=== PATIENT | female | born 1950 | race Hispanic/Latino ===

== ENCOUNTER 2019-09-22 02:50 | Emergency (ER) | payer MEDICARE, OTHER ==
--- OUTSIDE RECORDS SUMMARY | 2019-09-22 02:53 | XMS REPORT ---
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 Problem Hematuria, unspecified type R31.9 Active Problem Lower abdominal pain R10.30 Active Problem Hyperlipidemia, unspecified E78.5 Active hyperlipidemia type Problem Dysuria R30.0 Active Problem 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 Problem Dizziness R42 Active Problem Forgetfulness R68.89 Active Problem Abnormal computed tomography R93.5 Active angiography (CTA) of abdomen and pelvis Problem Hypertension, unspecified type I10 Active Problem Acquired absence of both cervix and Z90.710 Active uterus Problem Memory loss R41.3 Active Problem Uncontrolled type 2 diabetes E11.65 Active mellitus without complication, without long-term current use of insulin Problem Diarrhea, unspecified type R19.7 Active Problem Acute bilateral back pain, M54.9 Active unspecified back location Problem Depression screening Z13.31 Active Problem Abdominal pain, unspecified R10.9 Active abdominal location Problem Abnormal laboratory test result R89.9 Active Assessment Abnormal mammogram of right breast R92.8 Active Problem Essential hypertension I10 Active Problem Leukopenia, unspecified type D72.819 Active Problem Anemia, unspecified type D64.9 Active Problem Abnormal mammogram of right breast R92.8 Active Problem Routine eye exam Z01.00 Active Problem Callus of foot L84 Active Problem Pain of upper abdomen R10.10 Active Medications No Known Medications Results No Known Results Summary Purpose eClinicalWorks Submission
--- OUTSIDE RECORDS SUMMARY | 2019-09-22 02:53 | XMS REPORT ---
:1950 [facility] Address [address] [place] [address] Care Team Providers Name Role Phone Unavailable Unavailable Unavailable Payers Payer Name Policy Type Policy Number Effective Date Expiration Date Problems This patient has no known problems. Allergies, Adverse Reactions, Alerts Allergy Allergy Status Severity Reaction(s) Onset Inactive Treating Comments Name Type Date Date Clinician codeine DA Active MO 2018-10 00:00:[address] 2018-10 00:00:0 0 codeine DA Active MO 2017-01 00:00:0 0 Medications This patient has no known medications. Results Test Description Test Time Test Comments Text Results Atomic Results Result Comments GLUBED 2018-10-24 22:58:00 Test Item Value Reference Range Comments GLUBED (test code=GLUBED) 224 MG/DL 70-110 Performed by certified hoop driving machine operator at [facility] HGBA1C%2018-10-24 09:25:00 Test Item Value Reference Range Comments HGBA1C% (test code=HGBA1C%) 8.3 %A1C 4.8-6.0 BASIC METABOLIC [id number] 08:18:00 Test Item Value Reference Range Comments SODIUM (test code=NA) 144 mEq/L 134-147 POTASSIUM (test code=K) 3.9 mEq/L 3.4-5.0 CHLORIDE (test code=CL) 114 mEq/L 100-108 CARBON DIOXIDE (test code=CO2) 24 mEq/L 21-33 ANION GAP (test code=GAP) 10 0-20 GLUCOSE (test code=GLU) 142 mg/dL 70-110 BLOOD UREA NITROGEN (test 18 mg/dL 7-18 code=BUN) GLOMERULAR FILTRATION RATE 83.7 80-90 Units of measure=ml/min/1.73 (test code=GFR) m2 CREATININE (test code=CREAT) 0.7 mg/dL 0.6-1.3 CALCIUM (test code=CA) 8.5 mg/dL 8.0-10.5 LIPID PROFILE (CORONARY RISK)2018-10-24 08:18:00 Test Item Value Reference Range Comments TRIGLYCERIDES (test 94 mg/dL 40-150 code=TRIG) CHOLESTEROL (test code=CHOL) 120 mg/dL <200 CHOLESTEROL/HDL RATIO (test 2.40 RATIO 3.27-4.44 RISK ASSOCIATED WITH CHOL/ HDL code=CHOLHDL) RATIOS: RISK MALE FEMALE1/2 AVERAGE 3.43 3.27AVERAGE 4.97 4.442X AVERAGE 9.55 7.053X AVERAGE 23.39 11.04 NOTE THAT THE REFERENCE VALUE IS RELATEDTO RISK LEVELS RECOMMENDED BY THE NATL.HEART, LUNG, AND BLOOD INST. HDL CHOLESTEROL (test 50.0 mg/dL 39-96 code=HDL) LIPOPROTEIN LDL (test 62 mg/dL 0-100 <100 [id number] NEAR code=LDL) OPTIMAL/ABOVE [id number] HIGH>PO=026 VERY HIGH*Guidelines provided by the National Cholesterol EducationProgram Adult Treatment Panel III THYROID STIMULATING [id number] 08:18:00 Test Item Value Reference Range Comments THYROID STIMULATING HORMONE (test 0.70 0.42-5.47 Results in chau- International code=TSH) Units/mL [id number] 08:03:00 Test Item Value Reference Range Comments GLUBED (test code=GLUBED) 147 MG/DL 70-110 Performed by certified hoop driving machine operator at [facility] CBC W/AUTO [id number] 07:07:00 Test Item Value Reference Range Comments WHITE BLOOD CELL (test code=WBC) 3.34 x10 3/uL 4.5-11.0 RED BLOOD CELL (test code=RBC) 3.07 x10 6/uL 3.54-5.02 HEMOGLOBIN (test code=HGB) 9.4 g/dL 11.0-15.0 HEMATOCRIT (test code=HCT) 29.1 % 33.0-45.0 MEAN CELL VOLUME (test code=MCV) 94.8 fL 81.0-99.0 MEAN CELL HGB (test code=MCH) 30.6 pg 27.0-33.0 MEAN CELL HGB CONCETRATION (test code=MCHC) 32.3 g/dL 33.0-37.0 RED CELL DISTRIBUTION WIDTH CV (test code=RDW) 12.8 % 11.5-14.5 RED CELL DISTRIBUTION WIDTH SD (test 43.3 fL 37.0-54.0 code=RDW-SD) PLATELET COUNT (test code=PLT) 216 x10 3/uL 150-400 MEAN PLATELET VOLUME (test code=MPV) 10.4 fL 7.0-9.0 NEUTROPHIL % (test code=NT%) 70.9 % 56.0-77.0 IMMATURE GRANULOCYTE % (test code=IG%) 0.3 % 0.0-2.0 LYMPHOCYTE % (test code=LY%) 18.0 % 14.0-32.0 MONOCYTE % (test code=MO%) 9.0 % 4.8-9.0 EOSINOPHIL % (test code=EO%) 1.2 % 0.3-3.7 BASOPHIL % (test code=BA%) 0.6 % 0.0-2.0 NUCLEATED RBC % (test code=NRBC%) 0.0 % 0-0 NEUTROPHIL # (test code=NT#) 2.37 x10 3/uL 2.0-7.6 IMMATURE GRANULOCYTE # (test code=IG#) 0.01 x10 3/uL 0.00-0.03 LYMPHOCYTE # (test code=LY#) 0.60 x10 3/uL 1.0-3.8 MONOCYTE # (test code=MO#) 0.30 x10 3/uL 0.1-0.8 EOSINOPHIL # (test code=EO#) 0.04 x10 3/uL 0.0-0.2 BASOPHIL # (test code=BA#) 0.02 x10 3/uL 0.0-0.2 NUCLEATED RBC # (test code=NRBC#) 0.00 x10 3/uL 0.0-0.1 MANUAL DIFF REQUIRED (test code=MDIFF) NO [id number] 21:08:00 Test Item Value Reference Range Comments GLUBED (test code=GLUBED) 200 MG/DL 70-110 Performed by certified hoop driving machine operator at [facility] - MRI BRAIN W/O [id number] 20:06:00 FAX: Ale Leal MD [phone] [place]: St: ADM FAX: Camilla Odonnell MD - Name: VIDYA FROST ELENA [facility] : 1950 Age/S: 67/F [address] [place] [address] Blvd Unit #: [id number] Loc: [address] [address] Phys: Camilla Terrell MD Acct: [id number] Dis Date: Status: ADM IN PHONE #: [phone] Exam Date: 10/23/20181946 FAX #: [phone] Reason: PERSISTENT DIZZINESS EXAMS: CPT CODE: [id number] MRI BRAIN W/O CONT [id number] EXAM: MRI BRAIN WITHOUT CONTRAST DATE: 10/23/2018 4:40 PM INDICATION: ADDITIONALINFORMATION AND CONTRAST: PERSISTENT DIZZINESSNone. COMPARISON: CT head of 10/23/2018. TECHNIQUE: Multiplanar, mutisequence MRI of the brain without contrast. FINDINGS: Diffusion weighted images demonstrate no focal signal abnormality. There are a few scattered nonspecific foci of T2/ FLAIR signal abnormality likely reflecting minimal chronic small vessel ischemic change. No acute intracranial hemorrhage detected. The ventricles are normal in size and symmetric. No extra-axial fluid collection identified. Salcedo-white distinction is preserved. No mass lesion or midline shift detected. The intracranial arterial and venous structures demonstrate normal flow voids. Mild chronic inflammatory change of the paranasal sinuses and near complete opacification ofthe left maxillary sinus. Minimal partial opacification of the mastoid air cells. IMPRESSION: 1. No definite acute territorial infarct or intracranial hemorrhage detected. 2. Minimal chronic small vessel ischemic change. SL: [email or web address] PAGE 1 Signed Report (CONTINUED) FAX: Ale Leal MD [phone] [place]: St: ADM FAX: Camilla Odonnell MD Name: VIDYA FROST [facility] : 1950 Age/S: 67/F [address] [place] [address] Unit #: [id number] Loc: [address] [address] Phys: Camilla Terrell MD Acct: [id number] Dis Date: Status: ADM IN PHONE #: [phone] Exam Date: 10/23/2018 1947FAX #: [phone] Reason: PERSISTENT DIZZINESS EXAMS: CPT CODE: [id number] MRI BRAIN W/O CONT [id number] <Continued> at 2005 Reported and signed by: Roman Harrison M.D. CC: Ale Leal MD; Camilla Terrell MD Technologist: RT Travis(MR)(CT) Trnscrd Date/Time/By: 05/2019 (2005) : By: [email or web address] Orig Print D/T: S: 10/23/2018 (2008) PAGE 2 Signed [id number] -[id number] 18:14:00 Test Item Value Reference Range Comments TROPONIN-I (test < 0.015 ng/mL 0.000-0.045 Negative: <=0.045 code=TROPI) Positive: >=0.046 Correlation with serial results, other cardiac markers andclinical findings is necessary to determine the clinicalsignificance of this result. Results using different methodologies should not be comparedto one another as quantitative results may vary by method. COMMENTS: 3 troponins total (including troponin done in ED)[id number] 17: 42:00 Test Item Value Reference Range Comments GLUBED (test code=GLUBED) 132 MG/DL 70-110 Performed by certified hoop driving machine operator at [facility] [id number] 15:17:00 Test Item Value Reference Range Comments GLUBED (test code=GLUBED) 145 MG/DL 70-110 Performed by certified hoop driving machine operator at [facility] [id number] 14:45:00 Test Item Value Reference Range Comments TROPONIN-I (test < 0.015 ng/mL 0.000-0.045 Negative: <=0.045 code=TROPI) Positive: >=0.046 Correlation with serial results, other cardiac markers andclinical findings is necessary to determine the clinicalsignificance of this result. Results using different methodologies should not be comparedto one another as quantitative results may vary by method. COMMENTS: 3 troponins total (including troponin done in ED)LACTIC ACID [id number] 14:12:00 Test Item Value Reference Range Comments LACTIC ACID REPEAT (test code=LACTR) 1.3 mmol/l 0.4-1.9 COMPREHENSIVE METABOLIC [id number] 11:05:00 Test Item Value Reference Range Comments SODIUM (test code=NA) 138 mEq/L 134-147 POTASSIUM (test code=K) 3.9 mEq/L 3.4-5.0 CHLORIDE (test code=CL) 106 mEq/L 100-108 CARBON DIOXIDE (test code=CO2) 27 mEq/L 21-33 ANION GAP (test code=GAP) 9 0-20 GLUCOSE (test code=GLU) 252 mg/dL 70-110 BLOOD UREA NITROGEN (test 18 mg/dL 7-18 code=BUN) GLOMERULAR FILTRATION RATE 62.6 80-90 Units of (test code=GFR) measure=ml/min/1.73 m2 CREATININE (test code=CREAT) 0.9 mg/dL 0.6-1.3 TOTAL PROTEIN (test code=PROT) 8.1 g/dL 6.4-8.2 ALBUMIN (test code=ALB) 4.00 g/dL 3.4-5.0 CALCIUM (test code=CA) 9.1 mg/dL 8.0-10.5 BILIRUBIN TOTAL (test 0.30 mg/dL 0.0-1.0 code=BILT) SGOT/AST (test code=AST) 20 IUnit/L 15-37 SGPT/ALT (test code=ALT) 35 IUnit/L 15-65 ALKALINE PHOSPHATASE TOTAL 101 IUnit/L 20-125 (test code=ALKP) [id number] 11:05:00 Test Item Value Reference Range Comments TROPONIN-I (test < 0.015 ng/mL 0.000-0.045 Negative: <=0.045 code=TROPI) Positive: >=0.046 Correlation with serial results, other cardiac markers andclinical findings is necessary to determine the clinicalsignificance of this result. Results using different methodologies should not be comparedto one another as quantitative results may vary by method. LACTIC [id number] 10:56:00 Test Item Value Reference Range Comments LACTIC ACID (test code=LACT) 2.1 mmol/L 0.4-1.9 URINALYSIS [id number] 10:46:00 Test Item Value Reference Range Comments UA COLOR (test code=COLU) YELLOW YEL/STRAW UA APPEARANCE (test code=APPU) CLEAR CLEAR UA GLUCOSE DIPSTICK (test code=DGLUU) 3+ NEGATIVE UA BILIRUBIN DIPSTICK (test code=BILU) NEGATIVE NEGATIVE UA KETONE DIPSTICK (test code=KETU) 1+ NEGATIVE UA SPECIFIC GRAVITY (test code=SGU) 1.016 1.005-1.030 UA BLOOD DIPSTICK (test code=CHARU) NEGATIVE NEGATIVE UA PH DIPSTICK (test code=ATUL) 5.0 5.0-7.0 UA PROTEIN DIPSTICK (test code=PROU) 1+ NEGATIVE UA UROBILINIOGEN DIPSTICK (test code=URO) 0.2 mg/dL 0.2-1.0 UA NITRITE DIPSTICK (test code=DOMENICA) NEGATIVE NEGATIVE UA LEUKOCYTE ESTERASE DIPSTICK (test code=LEUU) NEGATIVE NEGATIVE UA WBC (test code=WBCU) 0-3 WBC/HPF 0-3 UA RBC (test code=RBCU) 4-10 RBC/HPF 0-3 UA BACTERIA (test code=BACU) TRACE /HPF NONE SEEN UA SQUAMOUS CELLS (test code=SQU) 0-5 /HPF NONE SEEN UA MUCUS (test code=MUCU) TRACE /LPF NONE SEEN COMMENTS: Clean CatchCBC W/AUTO [id number] 10:42:00 Test Item Value Reference Range Comments WHITE BLOOD CELL (test code=WBC) 6.05 x10 3/uL 4.5-11.0 RED BLOOD CELL (test code=RBC) 3.80 x10 6/uL 3.54-5.02 HEMOGLOBIN (test code=HGB) 11.4 g/dL 11.0-15.0 HEMATOCRIT (test code=HCT) 35.7 % 33.0-45.0 MEAN CELL VOLUME (test code=MCV) 93.9 fL 81.0-99.0 MEAN CELL HGB (test code=MCH) 30.0 pg 27.0-33.0 MEAN CELL HGB CONCETRATION (test code=MCHC) 31.9 g/dL 33.0-37.0 RED CELL DISTRIBUTION WIDTH CV (test code=RDW) 12.3 % 11.5-14.5 RED CELL DISTRIBUTION WIDTH SD (test 42.8 fL 37.0-54.0 code=RDW-SD) PLATELET COUNT (test code=PLT) 234 x10 3/uL 150-400 MEAN PLATELET VOLUME (test code=MPV) 9.9 fL 7.0-9.0 NEUTROPHIL % (test code=NT%) 86.1 % 56.0-77.0 IMMATURE GRANULOCYTE % (test code=IG%) 1.0 % 0.0-2.0 LYMPHOCYTE % (test code=LY%) 9.1 % 14.0-32.0 MONOCYTE % (test code=MO%) 3.5 % 4.8-9.0 EOSINOPHIL % (test code=EO%) 0.0 % 0.3-3.7 BASOPHIL % (test code=BA%) 0.3 % 0.0-2.0 NUCLEATED RBC % (test code=NRBC%) 0.0 % 0-0 NEUTROPHIL # (test code=NT#) 5.21 x10 3/uL 2.0-7.6 IMMATURE GRANULOCYTE # (test code=IG#) 0.06 x10 3/uL 0.00-0.03 LYMPHOCYTE # (test code=LY#) 0.55 x10 3/uL 1.0-3.8 MONOCYTE # (test code=MO#) 0.21 x10 3/uL 0.1-0.8 EOSINOPHIL # (test code=EO#) 0.00 x10 3/uL 0.0-0.2 BASOPHIL # (test code=BA#) 0.02 x10 3/uL 0.0-0.2 NUCLEATED RBC # (test code=NRBC#) 0.00 x10 3/uL 0.0-0.1 MANUAL DIFF REQUIRED (test code=MDIFF) NO - CT HEAD/BRAIN W/O [id number] 09:22:00 Name: VIDYA FROST [facility] : 1950 Age/S: 67 / F [address] [place] [address] Unit #: [id number] Loc: [facility] [id number] Phys: Braxton Prasad MD Acct: [id number] Dis Date: Status: REG ER PHONE #: [phone] Exam Date: 05/2019 FAX #: [phone] Reason: dizziness EXAMS: CPTCODE: [id number] CT HEAD/BRAIN W/O CONT [id number] CT head without contrast 10/23/2018 HISTORY: Dizziness PROCEDURE: Multiple axial images from the skull base to the skull vertex were obtained without contrast. Coronal and sagittal reconstructed images were performed. DLP: 419.7 No prior exams are available for comparison FINDINGS: No acute hemorrhage, midline shift, extra-axial fluid collection, hydrocephalus, or mass lesion is present. No cortical hypodensity to suggest an acuteinfarct is noted. There are mild white matter hypodensities. The visualized mastoid air cells are clear. There is an air-fluid level in the left maxillary sinus IMPRESSION: 1. No acute intracranial abnormality. 2. Age-indeterminate left maxillary sinus disease. 3. Mild chronic microvascular ischemic changes. SL: [id number] at 0922 Reported and signed by: Giorgio Srivastava M.D. CC: Braxton Prasad MD Technologist:Katrin Miles, RT(R)(CT) CTDI: DLP: Trnscb Date/Time: 10/23/2018 (921) [id number] Orig Print D/T: S : 10/23/2018 (924) CTDI: DLP: PAGE 1 SignedReportURINALYSIS [id number] 01:38:00 Test Item Value Reference Range Comments UA COLOR (test code=COLU) YELLOW YEL/STRAW UA APPEARANCE (test code=APPU) CLOUDY CLEAR UA GLUCOSE DIPSTICK (test code=DGLUU) NEGATIVE NEGATIVE UA BILIRUBIN DIPSTICK (test code=BILU) NEGATIVE NEGATIVE UA KETONE DIPSTICK (test code=KETU) NEGATIVE NEGATIVE UA SPECIFIC GRAVITY (test code=SGU) 1.005 1.005-1.030 UA BLOOD DIPSTICK (test code=CHARU) 3+ NEGATIVE UA PH DIPSTICK (test code=ATUL) 5.0 5.0-7.0 UA PROTEIN DIPSTICK (test code=PROU) 1+ NEGATIVE UA UROBILINIOGEN DIPSTICK (test code=URO) 0.2 mg/dL 0.2-1.0 UA NITRITE DIPSTICK (test code=DOMENICA) NEGATIVE NEGATIVE UA LEUKOCYTE ESTERASE DIPSTICK (test code=LEUU) 3+ NEGATIVE UA WBC (test code=WBCU) >50 WBC/HPF 0-3 UA RBC (test code=RBCU) 4-10 RBC/HPF 0-3 UA BACTERIA (test code=BACU) 3+ /HPF NONE SEEN UA SQUAMOUS CELLS (test code=SQU) 0-5 /HPF NONE SEEN UA MUCUS (test code=MUCU) TRACE /LPF NONE SEEN
--- OUTSIDE RECORDS SUMMARY | 2019-09-22 02:53 | XMS REPORT ---
[...] Problem Abnormal laboratory test result R89.9 Active Problem Essential hypertension I10 Active Problem [...]
--- OUTSIDE RECORDS SUMMARY | 2019-09-22 02:53 | XMS REPORT ---
:1950 Author Organization eClinicalWorks Care Team Providers Name Role Phone Ilene Amrita Provider Role Unavailable Allergies, Adverse Reactions, Alerts Substance Reaction Event Type codeine nausea/vomiting Drug Allergy Problems Problem Type Condition Code Onset Dates [...] Abdominal pain, unspecified R10.9 Active abdominal location Assessment Forgetfulness R68.89 Active Problem Abnormal laboratory test result R89.9 Active Assessment Uncontrolled type 2 diabetes E11.65 Active mellitus without complication, without long-term current use of insulin Problem Essential hypertension I10 Active Problem Leukopenia, unspecified type D72.819 Active Problem Anemia, unspecified type D64.9 Active Problem Abnormal mammogram of right breast R92.8 Active Problem Routine eye exam Z01.00 Active Problem Callus of foot L84 Active Problem Pain of upper abdomen R10.10 Active Medications Medication Code Code Instructions Start End Status Dosage System Date Date Blood Glucose NDC 0 as directed Aug 06, Active as directed Test Strip Test BS once 2017 (DISPENSE daily BLOOD GLUCOSE TEST STRIPS FOR SHAMAR ONE TOUCH) Blood Glucose NDC 0 as directed Aug 06, Active as directed Monitor Test BS once 2017 (DISPENSE daily SHAMAR ONE TOUCH) Lisinopril ND 88222888939 5 MG Orally October Active 1 tablet Once a day 2017 Meclizine HCl ND 45655191014 25 mg Orally Up October Active 1 tablet as to four times a 2018 needed for day dizziness Glimepiride [facility] 41665744636 2MG Orally Once Active 1 tablet a day with breakfast or the first main meal of the day Aspir-[address] [facility] 02826240832 81 MG Orally Active 1 tablet Once a day Lancets [facility] 88382081867 - as directed Aug 06, Active as directed Test BS once 2017 (dispense daily lancets for Shamar One Touch) Gabapentin ND 84839665694 300 MG Orally Jun 14, Active 1 capsule Four times a 2018 day Lovastatin [facility] 70582422838 20MG Orally Active 1 tablet in Once a day evening Januvia [facility] 42744119724 100 MG Orally Active 1 tablet Once a day for diabetes Metformin HCl ND 29308380469 500 MG Orally 2 Active as directed tablets in am & 1 tablet in pm Results Name Result Date Reference Range Unit Abnormality Flag HEMOGLOBIN A1C ----A1C 7.2% [id number] Summary Purpose eClinicalWorks Submission
--- OUTSIDE RECORDS SUMMARY | 2019-09-22 02:53 | XMS REPORT ---
:1950 Author Organization eClinicalWorks Care Team Providers Name Role Phone Kamala Casper Provider Role Unavailable Allergies No Known Allergies Problems Problem Type Condition Code Onset Dates Condition Status Assessment Herpes zoster without complication B02.9 Active Problem Overweight (BMI 25.0-29.9) E66.3 Active Problem Onychomycosis B35.1 Active Problem Type 2 diabetes E11.9 Active Problem Hyperlipemia E78.5 Active Problem Anemia D64.9 Active Problem Shoulder pain, right M25.511 Active Problem Hypertension I10 Active Problem Abnormal mammogram of right breast R92.8 Active Problem Routine eye exam Z01.00 Active Problem Acquired absence of both cervix and Z90.710 Active uterus Problem Hematuria, unspecified type R31.9 Active Problem Dysuria R30.0 Active Problem Lower abdominal pain R10.30 Active Problem Depression screening Z13.31 Active Problem Abdominal pain, unspecified R10.9 Active abdominal location Problem Hyperlipidemia, unspecified E78.5 Active hyperlipidemia type Problem 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 Problem Abnormal computed tomography R93.5 Active angiography (CTA) of abdomen and pelvis Problem History of uterine cancer Z85.42 Active Problem 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 Problem Dizziness R42 Active Problem Diarrhea, unspecified type R19.7 Active Problem Acute bilateral back pain, M54.9 Active unspecified back location Problem Leukopenia, unspecified type D72.819 Active Problem Anemia, unspecified type D64.9 Active Problem Hypertension, unspecified type I10 Active Problem Uncontrolled type 2 diabetes E11.65 Active mellitus without complication, without long-term current use of insulin Problem Pain of upper abdomen R10.10 Active Problem Callus of foot L84 Active Problem Abnormal laboratory test result R89.9 Active Problem Essential hypertension I10 Active Medications Medication Code Code Instructions Start End Status Dosage System Date Date ND 45358838574 81 MG Orally Active 1 tablet Once a day Blood Glucose NDC 0 as directed Aug 06, Active as directed Monitor Test BS once 2017 (DISPENSE daily KAYY ONE TOUCH) Lovastatin ND 83476351897 20MG Orally Active 1 tablet in Once a day evening Lisinopril ND 20164771858 5 MG Orally October Active 1 tablet Once a day 2017 Tylenol/Codein ND 20360921753 300-30 MG Active 1 tablet as e #3 Orally every 6 needed hrs Glimepiride ND 24561947212 2MG Orally Once Active 1 tablet with a day breakfast or the first main meal of the day Januvia ND 20734861585 100 MG Orally Mar 16, Active 1 tablet Once a day for 2018 diabetes Lodine ND 46966506135 400 MG Orally Active 1 tablet with Twice a day as food needed Blood Glucose ND 0 as directed Aug 06, Active as directed Test Strip Test BS once 2017 (DISPENSE daily BLOOD GLUCOSE TEST STRIPS FOR KAYY ONE TOUCH) Lancets [facility] 94691064079 - as directed Aug 06, Active as directed Test BS once 2017 (dispense daily lancets for Kayy One Touch) Gabapentin ND 07713098761 300 MG Orally Jun 14, Active 1 capsule Four times a 2019 day Meclizine HCl ND 24454679500 25 mg Orally Up October Active 1 tablet as to four times a 2018 needed for day dizziness Jublia [facility] 89879442991 10 % Externally Active 1 application Once a day to affected area Actos ND 38459011685 15 MG Orally Mar 22, Active 1 tablet Once a day 2018 Metformin HCl ND 25300231576 500 MG Orally Active 1 tablet with Twice daily a meal Bentyl ND 63662743856 20 MG Orally Active 1 tablet Four times a day Results No Known Results Summary Purpose eClinicalWorks Submission
[2019-09-22] MEDS ORDERED: ONDANSETRON 4 MG/2 ML VIAL ONE (03:08)
[2019-09-22] MEDS ORDERED: NA CHLORIDE 0.9% 1,000 ML ONE (03:40)
[2019-09-22] MEDS ORDERED: MECLIZINE HCL 12.5 MG TAB ONE (03:40)
[2019-09-22 03:42] LABS: Absolute Lymphocytes (CBC) 2.1 K/uL (0.7-4.9); Basophils % 0.5 % (0-1.3); Hematocrit 33.2 % (36.0-45.0); MPV 9.3 fL (7.6-11.3)
[2019-09-22 03:52] LABS: Protime INR 0.81
[2019-09-22 04:57] LABS: ALT/SGPT 29 U/L (12-78); AST/SGOT 24 U/L (15-37); Albumin 3.5 g/dL (3.4-5.0); Alkaline Phosphatase 68 U/L (45-117); BUN Blood Urea Nitrogen 21 mg/dL (7-18); Bicarbonate 22 mmol/L (21-32); Bilirubin Direct < 0.1 mg/dL (0-0.2); Bilirubin Total 0.2 mg/dL (0.2-1.0); Glucose Level 219 mg/dL (74-106); Magnesium 1.5 mg/dL (1.8-2.4); NT PRO-BNP 156 pg/mL (<125); Potassium 3.9 mmol/L (3.5-5.1); Protein, Total 6.6 g/dL (6.4-8.2); Sodium Level 141 mmol/L (136-145); Troponin (Emerg Dept Use Only) < 0.02 ng/mL (0.0-0.045)
--- NOTE | 2019-09-22 05:03 | ER ---
Nurse's Notes [facility] Name: Miroslava Rousseau Age: 68 yrs Sex: Female : 1950 Arrival Date: 09/22/2019 Time: 02:53 Bed 14 Private MD: Diagnosis: Dizziness and giddiness;Hypomagnesemia;Type 2 diabetes mellitus Presentation: 09/22 03:04 Presenting complaint: states: pt woke up approx 0200 with vomiting and bb dizziness pt has vomited about 3 times and is actively vomiting in triage, spouse states pt was seen at [facility] about a year ago for similar symptoms and diagnosed with vertigo, pt denies diarrhea or abdominal pain. Transition of care: patient was not received from another setting of care. Onset of symptoms was September 22, 2019. Risk Assessment: Do you want to hurt yourself or someone else? Patient reports no desire to harm self or others. Initial Sepsis Screen: Does the patient meet any 2 criteria? No. Patient's initial sepsis screen is negative. Does the patient have a suspected source of infection? No. Patient's initial sepsis screen is negative. Care prior to arrival: None. 03:04 Method Of Arrival: Ambulatory bb 03:04 Acuity: MARTHA 3 bb Historical: - Allergies: 03:08 Tylenol-Codeine; bb - Home Meds: 03:08 aspirin 81 mg Oral TbEC 1 tab once daily [Active]; glimepiride 2 mg Oral tab 1 tab once bb daily [Active]; lisinopril 5 mg Oral tab 1 tab once daily [Active]; lovastatin 20 mg Oral tab 1 tab once daily [Active]; Januvia oral oral [Active]; metformin 1,000 mg Oral TG24 1 tab 2 times per day [Active]; - PMHx: 03:08 Diabetes - NIDDM; bb - PSHx: 03:08 Appendectomy; foot surgery; bb - Immunization history:: Adult Immunizations up to date. - Coronavirus screen:: The patient has NOT traveled to [place], [place], or [place] in the past 14 days. Proceed with normal triage process as indicated. - Social history:: Smoking status: unknown. - Family history:: not pertinent. - Ebola Screening: : No symptoms or risks identified at this time. Screenin:51 Abuse screen: Denies threats or abuse. Denies injuries from another. Nutritional wh screening: No deficits noted. Tuberculosis screening: No symptoms or risk factors identified. Fall Risk None identified. Assessment: 03:10 General: Appears in no apparent distress. Behavior is calm, cooperative, appropriate wh for age. Pain: Denies pain. Neuro: Level of Consciousness is awake, alert, obeys commands, Oriented to person, place, time, situation, Appropriate for age. Neuro: Reports dizziness. Cardiovascular: Heart tones S1 S2. Respiratory: Airway is patent Respiratory effort is even, unlabored, Respiratory pattern is regular, symmetrical, Breath sounds are clear bilaterally. GI: Abdomen is flat, non-distended, Abd is soft and non tender X 4 quads. Reports nausea, vomiting. : No signs and/or symptoms were reported regarding the genitourinary system. EENT: No signs and/or symptoms were reported regarding the EENT system. Derm: Skin is intact, is healthy with good turgor, Skin is pink, warm \T\ dry. normal. Musculoskeletal: Circulation, motion, and sensation intact. 03:51 Reassessment: Patient appears in no apparent distress at this time. No changes from previously documented assessment. Patient and/or family updated on plan of care and expected duration. Pain level reassessed. Patient is alert, oriented x 3, equal unlabored respirations, skin warm/dry/pink. 04:51 Reassessment: Patient appears in no apparent distress at this time. No changes from previously documented assessment. Patient and/or family updated on plan of care and expected duration. Pain level reassessed. Patient is alert, oriented x 3, equal unlabored respirations, skin warm/dry/pink. 05:15 Reassessment: MD ordered DC pending Iv Magnesium completion. 05:30 Reassessment: Patient appears in no apparent distress at this time. No changes from previously documented assessment. Patient and/or family updated on plan of care and expected duration. Pain level reassessed. Patient is alert, oriented x 3, equal unlabored respirations, skin warm/dry/pink. 06:30 Reassessment: Patient appears in no apparent distress at this time. No changes from previously documented assessment. Patient and/or family updated on plan of care and expected duration. Pain level reassessed. Patient is alert, oriented x 3, equal unlabored respirations, skin warm/dry/pink. Patient states feeling better. Patient states symptoms have improved. Vital Signs: 03:08 BP 184 / 76; Pulse 99; Resp 18 S; Temp 97.8(O); Pulse Ox 100% on R/A; Weight 72.57 kg bb (R); Height 5 ft. 0 in. (152.40 cm) (R); Pain 0/10; 03:51 BP 138 / 62; Pulse 71; Resp 18; Pulse Ox 100% on R/A; wh 04:45 BP 143 / 74; Pulse 75; Resp 16; Pulse Ox 100% on R/A; wh 05:30 BP 135 / 66; Pulse 66; Resp 18; Pulse Ox 100% ; wh 06:30 BP 130 / 85; Pulse 71; Resp 18; Pulse Ox 99% on R/A; wh 03:08 Body Mass Index 31.25 (72.57 kg, 152.40 cm) ED Course: 02:53 Patient arrived in ED. [email or web address] 02:53 Jeanie Vidales is Primary Nurse. 02:57 Tramaine Gleason MD is Attending Physician. heather 03:06 Triage completed. 03:08 Arm band placed on Patient placed in an exam room, on a stretcher, on pulse oximetry. Family accompanied patient. 03:15 Inserted saline lock: 20 gauge in right antecubital area, using aseptic technique. Blood collected. By [facility] Leather Car[employer] student. 03:51 Patient has correct armband on for positive identification. Placed in gown. Bed in low wh position. Call light in reach. Side rails up X 1. youth nutritional monitor on. Pulse ox on. NIBP on. 04:55 XRAY Chest (1 view) In Process Unspecified. EDMS 04:55 CT Head Brain wo Cont In Process Unspecified. EDMS 05:03 Osmin Aranda MD is Referral Physician. heather 06:35 No provider procedures requiring assistance completed. IV discontinued, intact, bleeding controlled, No redness/swelling at site. Administered Medications: 03:20 Not Given (Duplicate Order): Zofran 4 mg IVP once; over 2 minutes 03:20 Drug: Zofran 4 mg Route: IVP; Site: right antecubital; 05:09 Follow up: Response: No adverse reaction 05:09 Follow up: Response: No adverse reaction; Nausea is decreased 03:42 Drug: Meclizine 50 mg Route: PO; 05:09 Follow up: Response: No adverse reaction 03:43 Drug: NS 0.9% 1000 ml Route: IV; Rate: 1 bolus; Site: right antecubital; 05:09 Follow up: Response: No adverse reaction; IV Status: Completed infusion 05:20 Drug: Magnesium Sulfate 1 grams Route: IVPB; Infused Over: 1 hrs; Site: right antecubital; 07:03 Follow up: Response: No adverse reaction; IV Status: Completed infusion 05:20 Drug: Aspirin 162 mg Route: PO; 07:02 Follow up: Response: No adverse reaction Outcome: 05:02 Discharge ordered by MD. romero 06:35 Discharged to home ambulatory, with family. 06:35 Condition: stable 06:35 Discharge instructions given to patient, family, Instructed on discharge instructions, follow up and referral plans. medication usage, POC Demonstrated understanding of instructions, follow-up care, medications, POC Prescriptions given X 2. 06:38 Patient left the ED. bb Signatures: Dispatcher [employer] Tramaine Esteban MD MD cha Ballard, Brenda, RN RN Jeanie Woodward Sarah Sy [email or web address]
--- NOTE | 2019-09-22 05:03 | EDPHYS ---
Physician Documentation [facility] Name: Miroslava Rousseau Age: 68 yrs Sex: Female : 1950 Arrival Date: 09/22/2019 Time: 02:53 Bed 14 Private MD: ERIN Physician Tramaine Gleason HPI: 09/22 03:18 This 68 yrs old Female presents to ER via Ambulatory with complaints of heather Dizziness, Nausea. 03:18 The patient presents with dizziness, lightheadedness. Onset: The symptoms/episode heather began/occurred just prior to arrival, this morning. Context: occurred at home. Modifying factors: The symptoms are alleviated by nothing. Associated signs and symptoms: Pertinent positives: headache, nausea, vomiting. Severity of symptoms: At their worst the symptoms were moderate in the emergency department the symptoms have improved mildly. Patient's baseline: Neuro:. The patient has not experienced similar symptoms in the past. Historical: - Allergies: 03:08 Tylenol-Codeine; bb - Home Meds: 03:08 aspirin 81 mg Oral TbEC 1 tab once daily [Active]; glimepiride 2 mg Oral tab 1 tab once bb daily [Active]; lisinopril 5 mg Oral tab 1 tab once daily [Active]; lovastatin 20 mg Oral tab 1 tab once daily [Active]; Januvia oral oral [Active]; metformin 1,000 mg Oral TG24 1 tab 2 times per day [Active]; - PMHx: 03:08 Diabetes - NIDDM; bb - PSHx: 03:08 Appendectomy; foot surgery; bb - Immunization history:: Adult Immunizations up to date. - Coronavirus screen:: The patient has NOT traveled to [place], [place], or [place] in the past 14 days. Proceed with normal triage process as indicated. - Social history:: Smoking status: unknown. - Family history:: not pertinent. - Ebola Screening: : No symptoms or risks identified at this time. ROS: 03:18 Constitutional: Negative for fever, chills, and weight loss, Eyes: Negative for injury, heather pain, redness, and discharge, ENT: Negative for injury, pain, and discharge, Neck: Negative for injury, pain, and swelling, Cardiovascular: Negative for chest pain, palpitations, and edema, Respiratory: Negative for shortness of breath, cough, wheezing, and pleuritic chest pain, Abdomen/GI: Negative for abdominal pain, nausea, vomiting, diarrhea, and constipation, Back: Negative for injury and pain, : Negative for injury, bleeding, discharge, and swelling, MS/Extremity: Negative for injury and deformity, Skin: Negative for injury, rash, and discoloration, Psych: Negative for depression, anxiety, suicide ideation, homicidal ideation, and hallucinations, Allergy/Immunology: Negative for hives, rash, and allergies, Endocrine: Negative for neck swelling, polydipsia, polyuria, polyphagia, and marked weight changes, Hematologic/Lymphatic: Negative for swollen nodes, abnormal bleeding, and unusual bruising. 03:18 Neuro: Positive for dizziness. Exam: 03:18 Constitutional: This is a well developed, well nourished patient who is awake, alert, heather and in no acute distress. Head/Face: Normocephalic, atraumatic. Eyes: Pupils equal round and reactive to light, extra-ocular motions intact. Lids and lashes normal. Conjunctiva and sclera are non-icteric and not injected. Cornea within normal limits. Periorbital areas with no swelling, redness, or edema. ENT: Nares patent. No nasal discharge, no septal abnormalities noted. Tympanic membranes are normal and external auditory canals are clear. Oropharynx with no redness, swelling, or masses, exudates, or evidence of obstruction, uvula midline. Mucous membranes moist. Neck: Trachea midline, no thyromegaly or masses palpated, and no cervical lymphadenopathy. Supple, full range of motion without nuchal rigidity, or vertebral point tenderness. No Meningismus. Chest/axilla: Normal chest wall appearance and motion. Nontender with no deformity. No lesions are appreciated. Cardiovascular: Regular rate and rhythm with a normal S1 and S2. No gallops, murmurs, or rubs. Normal PMI, no JVD. No pulse deficits. Respiratory: Lungs have equal breath sounds bilaterally, clear to auscultation and percussion. No rales, rhonchi or wheezes noted. No increased work of breathing, no retractions or nasal flaring. Abdomen/GI: Soft, non-tender, with normal bowel sounds. No distension or tympany. No guarding or rebound. No evidence of tenderness throughout. Back: No spinal tenderness. No costovertebral tenderness. Full range of motion. Female : Normal external genitalia. Skin: Warm, dry with normal turgor. Normal color with no rashes, no lesions, and no evidence of cellulitis. MS/ Extremity: Pulses equal, no cyanosis. Neurovascular intact. Full, normal range of motion. Neuro: Awake and alert, GCS 15, oriented to person, place, time, and situation. Cranial nerves II-XII grossly intact. Motor strength 5/5 in all extremities. Sensory grossly intact. Cerebellar exam normal. Normal gait. Psych: Awake, alert, with orientation to person, place and time. Behavior, mood, and affect are within normal limits. Vital Signs: 03:08 BP 184 / 76; Pulse 99; Resp 18 S; Temp 97.8(O); Pulse Ox 100% on R/A; Weight 72.57 kg bb (R); Height 5 ft. 0 in. (152.40 cm) (R); Pain 0/10; 03:51 BP 138 / 62; Pulse 71; Resp 18; Pulse Ox 100% on R/A; wh 04:45 BP 143 / 74; Pulse 75; Resp 16; Pulse Ox 100% on R/A; wh 05:30 BP 135 / 66; Pulse 66; Resp 18; Pulse Ox 100% ; wh 06:30 BP 130 / 85; Pulse 71; Resp 18; Pulse Ox 99% on R/A; wh 03:08 Body Mass Index 31.25 (72.57 kg, 152.40 cm) MDM: 02:57 Patient medically screened. [facility] 03:19 Data reviewed: vital signs, nurses notes, lab test result(s), EKG, radiologic studies, [facility] CT scan, plain films. 09/22 03:17 Order name: Basic Metabolic Panel; Complete Time: 05:00 [facility] 09/22 03:17 Order name: CBC with Diff [facility] 09/22 03:17 Order name: LFT's; Complete Time: 05:00 [facility] 09/22 03:17 Order name: Magnesium; Complete Time: 05:00 [facility] 09/22 03:17 Order name: NT PRO-BNP; Complete Time: 05:00 [facility] 09/22 03:17 Order name: PT-INR [facility] 09/22 03:17 Order name: Troponin (emerg Dept Use Only); Complete Time: 05:00 [facility] 09/22 03:17 Order name: XRAY Chest (1 view) [facility] 09/22 03:17 Order name: CT Head Brain wo Cont [facility] 09/22 03:53 Order name: CBC with Automated Diff; Complete Time: 04:55 EDMS 09/22 04:05 Order name: Protime (+INR); Complete Time: 04:55 EDMS 09/22 05:02 Order name: Urine Culture [facility] 09/22 05:26 Order name: Urine Dipstick--Ancillary (enter results) 2 09/22 03:17 Order name: EKG; Complete Time: 03:18 [facility] 09/22 03:17 Order name: Cardiac monitoring; Complete Time: 03:49 [facility] 09/22 03:17 Order name: EKG - Nurse/Tech; Complete Time: 03:49 [facility] 09/22 03:17 Order name: IV Saline Lock; Complete Time: 03:50 [facility] 09/22 03:17 Order name: Labs collected and sent; Complete Time: 03:50 [facility] 09/22 03:17 Order name: O2 Per Protocol; Complete Time: 03:50 [facility] 09/22 03:17 Order name: O2 Sat Monitoring; Complete Time: 03:50 [facility] 09/22 05:02 Order name: Urine Dipstick-Ancillary (obtain specimen); Complete Time: 05:20 [facility] 09/22 05:09 Order name: PO challenge; Complete Time: 05:11 [facility] Administered Medications: 03:20 Not Given (Duplicate Order): Zofran 4 mg IVP once; over 2 minutes 03:20 Drug: Zofran 4 mg Route: IVP; Site: right antecubital; 05:09 Follow up: Response: No adverse reaction 05:09 Follow up: Response: No adverse reaction; Nausea is decreased 03:42 Drug: Meclizine 50 mg Route: PO; 05:09 Follow up: Response: No adverse reaction 03:43 Drug: NS 0.9% 1000 ml Route: IV; Rate: 1 bolus; Site: right antecubital; 05:09 Follow up: Response: No adverse reaction; IV Status: Completed infusion 05:20 Drug: Magnesium Sulfate 1 grams Route: IVPB; Infused Over: 1 hrs; Site: right wh antecubital; 07:03 Follow up: Response: No adverse reaction; IV Status: Completed infusion 05:20 Drug: Aspirin 162 mg Route: PO; 07:02 Follow up: Response: No adverse reaction Disposition: 09/22/19 05:02 Discharged to Home. Impression: Dizziness and giddiness, Hypomagnesemia, Type 2 diabetes mellitus. - Condition is Stable. - Discharge Instructions: Benign Positional Vertigo, Type 2 Diabetes Mellitus, Diagnosis, Adult, Dizziness, Hypomagnesemia, Vertigo, Aspirin and Your Heart, Type 2 Diabetes Mellitus, Diagnosis, Adult, [id number], Dizziness, [id number]. - Prescriptions for Meclizine 25 mg Oral Tablet - take 1 tablet by ORAL route every 8 hours As needed; 30 tablet. Zofran 4 mg Oral Tablet - take 1 tablet by ORAL route every 12 hours As needed; 20 tablet. - Medication Reconciliation Form, Thank You Letter, Antibiotic Education, Prescription Opioid Use form. - Follow up: Private Physician; When: 2 - 3 days; Reason: Recheck today's complaints, Continuance of care, Re-evaluation by your physician. Follow up: Osmin Aranda MD; When: 2 - 3 days; Reason: Recheck today's complaints, Re-evaluation by your physician. - Problem is new. - Symptoms have improved. Signatures: Dispatcher [employer] EDMS Tramaine Gleason MD MD cha Ballard, Brenda, RN RN Jeanie Woodward Corrections: (The following items were deleted from the chart) 05:03 05:02 09/22/2019 05:02 Discharged to Home. Impression: Dizziness and giddiness; heather Hypomagnesemia. Condition is Stable. Discharge Instructions: Benign Positional Vertigo, Dizziness, Vertigo, Aspirin and Your Heart, Dizziness, [id number]. Prescriptions for Meclizine 25 mg Oral Tablet - take 1 tablet by ORAL route every 8 hours As needed; 30 tablet, Zofran 4 mg Oral Tablet - take 1 tablet by ORAL route every 12 hours As needed; 20 tablet. and Forms are Medication Reconciliation Form, Thank You Letter, Antibiotic Education, Prescription Opioid Use. Follow up: Private Physician; When: 2 - 3 days; Reason: Recheck today's complaints, Continuance of care, Re-evaluation by your physician. Problem is new. Symptoms have improved. [facility] 05:04 05:03 09/22/2019 05:02 Discharged to Home. Impression: Dizziness and giddiness; heather Hypomagnesemia. Condition is Stable. Discharge Instructions: Benign Positional Vertigo, Dizziness, Vertigo, Aspirin and Your Heart, Dizziness, [id number]. Prescriptions for Meclizine 25 mg Oral Tablet - take 1 tablet by ORAL route every 8 hours As needed; 30 tablet, Zofran 4 mg Oral Tablet - take 1 tablet by ORAL route every 12 hours As needed; 20 tablet. and Forms are Medication Reconciliation Form, Thank You Letter, Antibiotic Education, Prescription Opioid Use. Follow up: Private Physician; When: 2 - 3 days; Reason: Recheck today's complaints, Continuance of care, Re-evaluation by your physician. Follow up: Osmin Aranda; When: 2 - 3 days; Reason: Recheck today's complaints, Re-evaluation by your physician. Problem is new. Symptoms have improved. heather 06:38 05:04 09/22/2019 05:02 Discharged to Home. Impression: Dizziness and giddiness; bb Hypomagnesemia; Type 2 diabetes mellitus. Condition is Stable. Discharge Instructions: Benign Positional Vertigo, Dizziness, Vertigo, Aspirin and Your Heart, Dizziness, [id number], Hypomagnesemia. Prescriptions for Meclizine 25 mg Oral Tablet - take 1 tablet by ORAL route every 8 hours As needed; 30 tablet, Zofran 4 mg Oral Tablet - take 1 tablet by ORAL route every 12 hours As needed; 20 tablet. and Forms are Medication Reconciliation Form, Thank You Letter, Antibiotic Education, Prescription Opioid Use. Follow up: Private Physician; When: 2 - 3 days; Reason: Recheck today's complaints, Continuance of care, Re-evaluation by your physician. Follow up: Osmin Aranda; When: 2 - 3 days; Reason: Recheck today's complaints, Re-evaluation by your physician. Problem is new. Symptoms have improved. heather
[2019-09-22] MEDS ORDERED: ASPIRIN 81 MG CHEWABLE TABLET ONE (05:14)
[2019-09-22] MEDS ORDERED: MAGNESIUM SULFATE 1 gm IVPB 1 GM/100 ML BAG IV ONE (05:14)
[2019-09-22 06:47] VITALS: TEMP 97.8; O2SAT 100
[2019-09-22 06:49] VITALS: BP 143/74
[2019-09-22 09:04] LABS: Urine Blood NEGATIVE (NEG); Urine Glucose 1+ (NEG); Urine Protein NEGATIVE (NEG); Urine Specific Gravity 1.025 (1.005-1.030)
--- NOTE | 2019-09-22 09:52 | RAD REPORT ---
EXAM DESCRIPTION: RAD - Chest Single View - 09/22/2019 3:32 am CLINICAL HISTORY: COUGH COMPARISON: Chest Pa And Lat (2 Views) dated 11/10/2016; Chest Single View dated 10/11/2016 TECHNIQUE: AP portable chest image was obtained 09/22/2019 3:32 am . FINDINGS: Lungs are clear. Heart and vasculature are normal. No measurable pleural effusion and no p neumothorax. No acute bony abnormality seen. No acute aortic findings suspected. IMPRESSION: No acute cardiopulmonary process. No significant change from prior studies.
--- NOTE | 2019-09-22 10:20 | RAD REPORT ---
EXAM DESCRIPTION: CT - Head Brain Wo Cont - 09/22/2019 7:31 am CLINICAL HISTORY: DIZZINESS TECHNIQUE: Multiple axial CT images of the brain were performed followed by sagittal and coronal rec onstructed images. The CT study is performed according to ALARA (as low as reasonably achievable) or ALARA/IMAGE GENTLY, with automatic adjustment of mA and/or kV according to patient size. Performed on: 09/22/2019 at 4:02 AM Comparisons: None. FINDINGS: There is no evidence of mass, acute mass effect or midline shift. There are no acute extra -axial fluid collections. There is no evidence of acute intracranial hemorrhage. The cerebral sulci and ventricles are normal in size and configuration. There are no focal abnormal areas of increased or decreased attenuation. There is no significant mucosal thickening of the paranasal sinuses. The mastoid air cells are clear. The orbital contents are grossly unremarkable. No acute osseous abnormalities are identified. No focal soft tissue abnormalities are identified. IMPRESSION: There is no evidence of acute intracranial pathology. Electronically signed by: Debra Moeller DO 09/22/2019 4:15 AM SERVICES CLERK Due to temporary technical issues with the PACS/Fluency reporting system, reports are being signed by the in house radiologist as a courtesy to ensure prompt reporting. The interpreting radiologist is f ully responsible for the content of the report.
--- NOTE | 2019-09-22 15:08 | EKG ---
Test Date: 2019-09-22 Test Time: 04:38:29 Single Spindle Screw Machine Operator: OZIEL MEASUREMENT RESULTS: Intervals: Rate: 74 OR: 132 QRSD: 78 QT: 382 QTc: 424 [place]: P: 76 OR: 132 QRS: 49 T: 44 INTERPRETIVE STATEMENTS: Normal sinus rhythm Nonspecific T wave abnormality Abnormal ECG Compared to ECG 11/10/2016 14:32:28 T-wave abnormality now present Sinus bradycardia no longer present Short OR interval no longer present Electronically Signed On 09-22-19 15:07:43 MARKET DEVELOPMENT SPECIALIST by Jim Thompson
== END 2019-09-22 06:38 | disposition home or self-care (01) ==
LOC: ER 02:50
DX: R42 Dizziness and giddiness (principal); E83.42 Hypomagnesemia; E11.9 Type 2 diabetes mellitus without complications; Z88.6 Allergy status to analgesic agent
CPT/HCPCS: 96365; 96361; 93005; 87088; 85025; 87086; 80048; 36415; 83735; 85610; 80076; 81003; 84484; 83880; 70450; 71045; 96375; 99284; 96366; J3475; J7030; J2405; J8597

== ENCOUNTER 2020-03-20 13:27 | Emergency (ER) | payer MEDICARE, OTHER ==
--- OUTSIDE RECORDS SUMMARY | 2020-03-20 13:30 | XMS REPORT | Clinical Summary ---
:1950 Author Organization [facility] Address [address] [place] [address] Care Team Providers Name Role Phone Unavailable Primary Care Provider Unavailable Allergies Not on File Medications Not on file Active Problems Not on file Social History Tobacco Use Types Packs/Day Years Used Date Never Assessed Sex Assigned at Date Recorded Not on file Job Start Date Occupation Industry Not on file Not on file Not on file Travel History Travel Start Travel End No recent travel history available. Last Filed Vital Signs Not on file Plan of Treatment Health Maintenance Due Date Last Done Comments BREAST CANCER SCREENING 12/16/2001 COLONOSCOPY SCREENING 12/16/2001 SHINGLES VACCINES (#1) 12/16/2001 65+ PNEUMOCOCCAL VACCINE (1 of 2 - PCV13) 12/16/2016 INFLUENZA VACCINE 03/16/2020 Results Not on fileafter 03/20/2019 Insurance Payer Benefit Plan / Subscriber ID Effective Dates Phone Addre ss Type Group [employer] EXCHANGE BLUE ADVANTAGE xxxxxxxxxxxx 2016-Present Exchange HMO EXCH Advance Directives For more information, please contact: [phone] Type Date Recorded Patient Sole Conditioner Explanati on Advance Directives, Living Will and Medical Power of Assistant District Attorney
--- OUTSIDE RECORDS SUMMARY | 2020-03-20 13:31 | XMS REPORT ---
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 Problem Hyperlipidemia, unspecified E78.5 Active hyperlipidemia type Problem Hypertension, unspecified type I10 Active Problem Leukopenia, unspecified type D72.819 Active Problem Abdominal pain, unspecified R10.9 Active abdominal location Problem Acute bilateral back pain, M54.9 A ctive unspecified back location Problem Anemia, unspecified type D64.9 Act clotilde Problem Diarrhea, unspecified type R19.7 A ctive Problem Abnormal computed tomography R93.5 Active angiography (CTA) of abdomen and pelvis Problem Depression screening Z13.31 Active Problem Rash and nonspecific skin eruption R21 Active Problem Vertigo R42 Active Problem Callus of foot L84 Active Problem Essential hypertension I10 Activ e Problem Uncontrolled type 2 diabetes E11.65 Active mellitus with hyperglycemia Problem Abnormal laboratory test result R89.9 Active Problem Memory loss R41.3 Active Problem Forgetfulness R68.89 Active Problem Hypomagnesemia E83.42 Active Problem 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 Active Problem Anemia D64.9 Active Problem Routine eye exam Z01.00 Active Problem Shoulder pain, right M25.511 Active Problem Hematuria, unspecified type R31.9 Active Problem Type 2 diabetes E11.9 Active Problem Pain of upper abdomen R10.10 Active Problem Hyperlipemia E78.5 Active Problem Abnormal mammogram of right breast R92.8 Active Problem Dizziness R42 Active Problem 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
--- OUTSIDE RECORDS SUMMARY | 2020-03-20 13:31 | XMS REPORT ---
[...] R10.30 Active Problem Dysuria R30.0 Active Medications No Known Medications Results No Known Results Summary Purpose [employer] Submission
--- OUTSIDE RECORDS SUMMARY | 2020-03-20 13:31 | XMS REPORT | Continuity of Care Document ---
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 kes - both both Memoria cervix and cervix and l uterus uterus [facility] Hyperlipem Hyperlipem Problem Active [facility] ia [facility] Shoulder Shoulder Problem [facility], [facility] right right [facility] Anemia Anemia Problem [facility] Essential Essential Problem Active [facility] hypertensi hypertensi Michelle kes - on on [facility] Onychomyco Onychomyco Problem Active [facility] sis sis [facility] Overweight Overweight Problem Active [facility] (BMI (BMI [facility] - 25.0-29.9) 25.0-29.9) Me moria l [facility] Type 2 Type [address] [facility] diabetes diabetes [facility] History of History of Problem Active [facility] uterine uterine [facility] - cancer cancer [facility] Uncontroll Uncontroll Problem Active [facility] ed type 2 ed type 2 [facility] - diabetes diabetes Memori a mellitus mellitus l with with [facility] hyperglyce hyperglyce en t [facility] Abnormal Abnormal Problem Active [facility] laboratory laboratory Michelle kes - test test Memoria result result l [facility] Leukopenia Leukopenia Problem Active [facility] , , [facility] - unspecifie unspecifie Me moria d type d type l [facility] Abnormal Abnormal Problem Active [facility] mammogram mammogram [facility] - of right of right Memori a breast breast l [facility] Callus of Callus of Problem Active [facility] foot foot [facility] Pain of Pain of Problem Active [facility] upper upper [facility] - abdomen abdomen Memoria l [facility] Dizziness Dizziness Problem Active [facility] Benign Benign 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 Michelle kes - positional positional Me moria vertigo vertigo l due to 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 inics disorder disorder Acute Acute Problem Active [facility] bilateral bilateral Luke s - back pain, back pain, Me moria unspecifie unspecifie l d back d back [facility] location ent Clinics Diarrhea, Diarrhea, Problem Active [facility] unspecifie unspecifie Michelle kes - d type d type Memoria l [facility] Depression Depression Problem Active [facility] screening screening [facility] - Memoria l [facility] Abdominal Abdominal Problem Active [facility] pain, pain, [facility] - unspecifie unspecifie Me moria d d l abdominal abdominal [facility] Clinics Abnormal Abnormal Problem Active [facility] computed computed [facility] - tomography tomography Me moria angiograph angiograph l y (CTA) of y (CTA) of Ou tpati abdomen abdomen ent and pelvis and pelvis Cl inics Lower Lower Problem Active [facility] abdominal abdominal [facility] - pain pain Memoria l [facility] Dysuria Dysuria Problem Active [facility] Routine Routine Problem Active [facility] eye exam eye exam [facility] Hematuria, Hematuria, Problem Active [facility] unspecifie unspecifie Michelle [facility] - [facility] Forgetfuln Forgetfuln Problem Active [facility] ess ess [facility] Memory Memory Problem Active [facility] loss loss [facility] Tinnitus Tinnitus Problem Active [facility] of both of both [facility] - ears ears Memoria l [facility] Hypomagnes Hypomagnes Problem Active [facility] emia emia [facility] Rash and Rash and Problem Active [facility] nonspecifi nonspecifi Michelle kes - c skin c skin Memoria eruption eruption l [facility] Allergies, Adverse Reactions, Alerts Allergy Allergy Status Severity Reaction(s) Onset Inactive Treating Comm ents Source Name Type Date Date Clinician peterson DA Active [place] [facility] 3-10 Clear 00:00: Cornelius [address] [facility] codeine DA Active IN [facility] 3-05 Clear 00:00: Cornelius [address] [facility] codeine DA Active ID [facility] 6-12 Clear 00:00: Cornelius [address] [facility] codeine Adverse Active nausea/vomit [facility] Reaction ing [facility] Social History Social Habit Start Date Stop Date Quantity Comments Source Sex Assigned At [facility] Medications Ordered Filled Start Stop Current Ordering Indication Dosage Frequency Signature Comments Components Source Medication Medication Date Date Medication? Clinician (SIG) Name Name One Touch One Touch 2020- Yes Amrita as [facility] Ultra Test Ultra Test 7-13 07-08 Millender directed [facility] - Strips Strips 00:00: 00:00 Memoria 00 :00 [facility] Procedures This patient has no known procedures. Plan of Care Planned Activity Planned Date Details Comments Source Future Scheduled 2020-03-16 INFLUENZA VACCINE [facility] 00:00:00 [code = INFLUENZA VACCINE] Future Scheduled 2016-12-16 65+ PNEUMOCOCCAL [facility] 00:00:00 VACCINE (1 of 2 - PCV13) [code = 65+ PNEUMOCOCCAL VACCINE (1 of 2 - PCV13)] Future Scheduled 2001-12-16 BREAST CANCER [facility] 00:00:00 SCREENING [code = BREAST CANCER SCREENING] Future Scheduled 2001-12-16 COLONOSCOPY [facility]CREENING [facility] 00:00:00 [code = COLONOSCOPY SCREENING] Future Scheduled 2001-12-16 SHINGLES VACCINES (#1) [facility] 00:00:00 [code = SHINGLES VACCINES (#1)] Encounters Start End Encounter Admission Attending Care Care Encounter Source Date/Time Date/Time Type Type Clinicians Facility Department ID 2020-02-26 2020-02-26 [facility] [id number] [facility] 14:40:00 14:40:00 [facility] Medicine Medicine Outpati ent Clinics 2020-02-23 2020-02-23 [facility] [id number] 11:09:00 11:09:00 [facility] Medicine l Medicine Outpati ent Clinics 2020-02-09 2020-02-09 [facility] [id number] 13:00:00 13:00:[address] [facility] l Medicine Outpati ent Clinics 2019-12-27 2019-12-27 [facility] [id number] 16:27:00 16:27:00 [facility] Medicine Medicine Outpati ent Clinics 2019-11-08 2019-11-08 [facility] [id number] 10:45:00 10:45:00 [facility] Medicine Outpati ent Clinics 2019-10-24 2019-10-24 [facility] [id number] 09:52:00 09:52:00 [facility] Medicine l Medicine Outpati ent Clinics 2019-10-18 2019-10-18 [facility] [id number] 10:15:00 10:15:00 [facility] Medicine Outpati ent Clinics 2019-09-29 2019-09-29 [facility] [id number] 15:00:00 15:00:00 [facility] Medicine Outpati ent Clinics 2019-09-05 2019-09-05 [facility] [id number] 00:17:00 00:17:00 t [facility] Medicine Outpati ent Clinics 2019-08-23 2019-08-23 [facility] [id number] 03:36:00 03:36:00 t [facility] Medicine Outpati ent Clinics 2019-07-18 2019-07-18 [facility] [id number] 10:04:00 10:04:00 t [facility] Medicine Outpati ent Clinics 2019-07-07 2019-07-07 [facility] [id number] 10:00:00 10:00:00 t [facility] Medicine Outpati ent Clinics 2019-06-14 2019-06-14 [facility] [id number] 13:20:00 13:20:00 [facility] Medicine Outpati ent Clinics 2019-06-09 2019-06-09 [facility] [id number] 11:39:00 11:39:00 t [facility] Medicine Outpati ent Clinics 2019-05-31 2019-05-31 [facility] [id number] 10:23:00 10:23:00 t [facility] Medicine Outpati ent Clinics 2019-05-05 2019-05-05 [facility] [id number] 08:59:00 08:59:00 t [facility] Medicine Outpati ent Clinics 2019-04-11 2019-04-11 [facility] [id number] 13:00:00 13:00:00 t [facility] Medicine Outpati ent Clinics 2019-04-07 2019-04-07 [facility] [id number] 08:36:00 08:36:00 t [facility] Medicine Outpati ent Clinics 2019-03-21 2019-03-21 [facility] [id number] 15:03:00 15:03:00 t [facility] Medicine Medicine Outpati ent Clinics 2019-03-20 2019-03-20 [facility] [id number] 15:04:00 15:04:00 t [facility] Medicine Outpati ent Clinics 2019-03-14 2019-03-14 [facility] [id number] 15:36:00 15:36:00 t [facility] Medicine Medicine Outpati ent Clinics 2019-02-09 2019-02-09 [facility] [id number] 12:49:00 12:49:00 t [facility] Medicine Outpati ent Clinics 2019-02-07 2019-02-07 [facility] [id number] 09:44:00 09:44:00 t [facility] Medicine Outpati ent Clinics 2019-02-06 2019-02-06 [facility] [id number] 11:40:00 11:40:00 t [facility] Medicine Medicine Outpati ent Clinics 2018-11-08 2018-11-08 [facility] [id number] 10:06:00 10:06:00 t [facility] Medicine Medicine Outpati ent Clinics 2018-11-03 2018-11-03 [facility] [id number] 14:58:00 14:58:00 t [facility] Medicine Medicine Outpati ent Clinics 2018-10-26 2018-10-26 [facility] [id number] 13:00:00 13:00:00 t [facility] Medicine Outpati ent Clinics 2018-10-10 2018-10-10 [facility] [id number] 11:30:00 11:30:00 t [facility] Medicine Medicine Outpati ent Clinics 2018-08-24 2018-08-24 [facility] [id number] 15:45:00 15:45:00 t [facility] Medicine Outpati ent Clinics 2018-08-22 2018-08-22 [facility] [id number] 09:18:00 09:18:00 t [facility] Medicine Outpati ent Clinics 2018-08-05 2018-08-05 [facility] [id number] 12:34:00 12:34:00 t [facility] Medicine Outpati ent Clinics 2018-05-23 2018-05-23 [facility] [id number] 11:41:00 11:41:00 [facility] Medicine Outpati ent Clinics 2018-05-02 2018-05-02 [facility] [id number] 11:30:00 11:30:00 t [facility] Medicine Outpati ent Clinics 2018-03-08 2018-03-08 [facility] [id number] 15:30:00 15:30:00 [facility] Medicine Outpati ent Clinics 2017-11-09 2017-11-09 [facility] [id number] 16:15:00 16:15:00 [facility] Outpati ent Clinics Results Test Description Test Time Test Comments Results Result Comments Source GLUBED 2018-10-24 22:58:00 Test Item Value Reference Range Interpretation Comme nts GLUBED (test code = GLUBED) 224 MG/DL 70-110 H Performed by certified stacking machine operator at [facility] HGBA1C%2018-10-24 09:25:00 Test Item Value Reference Range Interpretation Comments HGBA1C% (test code = HGBA1C%) 8.3 %A1C 4.8-6.0 H BASIC METABOLIC [id number] 08:18:00 Test Item Value Reference Range Interpretation Comments SODIUM (test code = NA) 144 mEq/L 134-147 N POTASSIUM (test code = 3.9 mEq/L 3.4-5.0 N K) CHLORIDE (test code = 114 mEq/L 100-108 H CL) CARBON DIOXIDE (test 24 mEq/L 21-33 N code = CO2) ANION GAP (test code = 10 0-20 N GAP) GLUCOSE (test code = 142 mg/dL 70-110 H GLU) BLOOD UREA NITROGEN 18 mg/dL 7-18 N (test code = BUN) GLOMERULAR FILTRATION 83.7 80-90 N Units of measure = RATE (test code = GFR) ml/mi n/1.73 m2 CREATININE (test code = 0.7 mg/dL 0.6-1.3 N CREAT) CALCIUM (test code = 8.5 mg/dL 8.0-10.5 N CA) LIPID PROFILE (CORONARY RISK)2018-10-24 08:18:00 Test Item Value Reference Range Interpretation Comments TRIGLYCERIDES (test 94 mg/dL 40-150 N code = TRIG) CHOLESTEROL (test 120 mg/dL <200 code = CHOL) CHOLESTEROL/HDL 2.40 RATIO 3.27-4.44 L RISK ASSOCIA LALO WITH RATIO (test code = CHOL/HDL RATIOS: RISK CHOLHDL) MALE FEMALE1/2 AVERA GE 3.43 3.27AVERAGE 4.97 4.4 42X AVERAGE 9.55 7.053X AVER AGE 23.39 1 1.04 NOTE THAT THE R EFERENCE VALUE IS RELATE DTO RISK LEVELS RECOM MENDED BY THE NATL.HEA RT, LUNG, AND BLOOD INST. HDL CHOLESTEROL 50.0 mg/dL 39-96 N (test code = HDL) LIPOPROTEIN LDL 62 mg/dL 0-100 N <100 OPT [id number] (test code = LDL) NEAR OPTI MAL/ABOVE [id number] 89 HIGH>DP=977 VE RY HIGH*Guidelines provided by the National Choles terol EducationProgra m Adult Treatment Panel III THYROID STIMULATING [id number] 08:18:00 Test Item Value Reference Range Interpretation Comments THYROID STIMULATING 0.70 0.42-5.47 N Results in HORMONE (test code = TSH) mi lli-International Units/mL [id number] 08:03:00 Test Item Value Reference Range Interpretation Comments GLUBED (test code = 147 MG/DL 70-110 H Performe d by certified GLUBED) stacking machine operator at [facility] CBC W/AUTO [id number] 07:07:00 Test Item Value Reference Range Interpretation Comments WHITE BLOOD CELL (test code = 3.34 x10 3/uL 4.5-11.0 L WBC) RED BLOOD CELL (test code = 3.07 x10 6/uL 3.54-5.02 L RBC) HEMOGLOBIN (test code = HGB) 9.4 g/dL 11.0-15.0 L HEMATOCRIT (test code = HCT) 29.1 % 33.0-45.0 L MEAN CELL VOLUME (test code = 94.8 fL 81.0-99.0 N MCV) MEAN CELL HGB (test code = MCH) 30.6 pg 27.0-33.0 N MEAN CELL HGB CONCETRATION 32.3 g/dL 33.0-37.0 L (test code = MCHC) RED CELL DISTRIBUTION WIDTH CV 12.8 % 11.5-14.5 N (test code = RDW) RED CELL DISTRIBUTION WIDTH SD 43.3 fL 37.0-54.0 N (test code = RDW-SD) PLATELET COUNT (test code = 216 x10 3/uL 150-400 N PLT) MEAN PLATELET VOLUME (test code 10.4 fL 7.0-9.0 H = MPV) NEUTROPHIL % (test code = NT%) 70.9 % 56.0-77.0 N IMMATURE GRANULOCYTE % (test 0.3 % 0.0-2.0 N code = IG%) LYMPHOCYTE % (test code = LY%) 18.0 % 14.0-32.0 N MONOCYTE % (test code = MO%) 9.0 % 4.8-9.0 N EOSINOPHIL % (test code = EO%) 1.2 % 0.3-3.7 N BASOPHIL % (test code = BA%) 0.6 % 0.0-2.0 N NUCLEATED RBC % (test code = 0.0 % 0-0 N NRBC%) NEUTROPHIL # (test code = NT#) 2.37 x10 3/uL 2.0-7.6 N IMMATURE GRANULOCYTE # (test 0.01 x10 3/uL 0.00-0.03 N code = IG#) LYMPHOCYTE # (test code = LY#) 0.60 x10 3/uL 1.0-3.8 L MONOCYTE # (test code = MO#) 0.30 x10 3/uL 0.1-0.8 N EOSINOPHIL # (test code = EO#) 0.04 x10 3/uL 0.0-0.2 N BASOPHIL # (test code = BA#) 0.02 x10 3/uL 0.0-0.2 N NUCLEATED RBC # (test code = 0.00 x10 3/uL 0.0-0.1 N NRBC#) MANUAL DIFF REQUIRED (test code NO = MDIFF) [id number] 21:08:00 Test Item Value Reference Range Interpretation Comments GLUBED (test code = 200 MG/DL 70-110 H Performe d by certified GLUBED) stacking machine operator at [facility] - MRI BRAIN W/O [id number] 20:06:00 FAX: Ale Leal MD [phone] [place]: St: ADM FAX: Camilla Odonnell MD Name: VIDYA FROST [facility] : 1950 Age/S: 67/F [address] [place] [address] Unit #: [id number] Loc: G.36 [place] [address] Phys: Camilla Terrell MD Acct: [id number] Dis Date: Status: ADM IN PHONE #: [phone] Exam Date: 10/23/20181946 FAX #: [phone] Reason: PERSISTENT DIZZINESS EXAMS: CPT CODE: [id number] MRI BRAIN W/O CONT [id number] EXAM: MRI BRAIN WITHOUT CONTRAST DATE: 10/23/2018 4:40 PM INDICATION: ADDITIONALINFORMATION AND CONTRAST: PERSISTENT DIZZINESSNone. COMPARISON: CT head of 10/23/2018. TECHNIQUE: Multiplanar, mutisequence MRI of the brain without contrast. FINDINGS: Diffusion weighted images demonstrate no focal signal abnormality. There are a few scattered nonspecific foci of T2/FLAIR signal abnormality likely reflecting minimal chronic small [...] Signed Report (CONTINUED) FAX: Ale Leal MD [phone] [place]: St: [facility] FAX: Camilla Odonnell MD Name: VIDYA FROST [facility] : 1950 Age/S: 67/F [address] [place] [address] Unit #: [id number] Loc: [address] [address] Phys: Camilla Terrell MD Acct: [id number] Dis Date: Status: ADM IN PHONE #: [phone] Exam Date: 10/23/2018 1947FAX #: [phone] Reason: PERSISTENT DIZZINESS EXAMS: CPT CODE: [id number] MRI BRAIN W/O CONT [id number] <Continued> at 2005 Reported and signed by: Roman Harrison M.D. CC: Ale Leal MD; Camilla Terrell MD Technologist: Paty Slater RT(MR)(CT) Trnscrd Date/Time/By: 10/23/2018 (2005) : By: [email or web address] Orig Print D/T: S: 10/23/2018 (2008) PAGE 2 Signed [id number] 18:14:00 Test Item Value Reference Range Interpretation Comments TROPONIN-I < 0.015 ng/mL 0.000-0.045 N Negative: <= (test code = 0.045 Positive: TROPI) >= 0.046 Correl ation with serial results, other cardiac markers andclinical findings is nec essary to determine the clinicalsignifi cance of this result. Results using different metho dologies should not be c omparedto one another as [place] titative results may frances y by method. COMMENTS: 3 troponins total (including troponin done in ED)[id number] 17:42:00 Test Item Value Reference Range Interpretation Comments GLUBED (test code = 132 MG/DL 70-110 H Performe d by certified GLUBED) stacking machine operator at [facility] [id number] 15:17:00 Test Item Value Reference Range Interpretation Comments GLUBED (test code = 145 MG/DL 70-110 H Performe d by certified GLUBED) stacking machine operator at [facility] [id number] 14:45:00 Test Item Value Reference Range Interpretation Comments TROPONIN-I < 0.015 ng/mL 0.000-0.045 N Negative: <= (test code = 0.045 Positive: TROPI) >= 0.046 Correl ation with serial results, other cardiac markers andclinical findings is nec essary to determine the clinicalsignifi cance of this result. Results using different metho dologies should not be c omparedto one another as [place] titative results may frances y by method. COMMENTS: 3 troponins total (including troponin done in ED)LACTIC ACID REPEAT 2018-10-23 14:12:00 Test Item Value Reference Range Interpretation Comments LACTIC ACID REPEAT (test code = 1.3 mmol/l 0.4-1.9 N LACTR) COMPREHENSIVE METABOLIC [id number] 11:05:00 Test Item Value Reference Range Interpretation Comments SODIUM (test code = NA) 138 mEq/L 134-147 N POTASSIUM (test code = 3.9 mEq/L 3.4-5.0 N K) CHLORIDE (test code = 106 mEq/L 100-108 N CL) CARBON DIOXIDE (test 27 mEq/L 21-33 N code = CO2) ANION GAP (test code = 9 0-20 N GAP) GLUCOSE (test code = 252 mg/dL 70-110 H GLU) BLOOD UREA NITROGEN 18 mg/dL 7-18 N (test code = BUN) GLOMERULAR FILTRATION 62.6 80-90 L Units of measure = RATE (test code = GFR) ml/mi n/1.73 m2 CREATININE (test code = 0.9 mg/dL 0.6-1.3 N CREAT) TOTAL PROTEIN (test 8.1 g/dL 6.4-8.2 N code = PROT) ALBUMIN (test code = 4.00 g/dL 3.4-5.0 N ALB) CALCIUM (test code = 9.1 mg/dL 8.0-10.5 N CA) BILIRUBIN TOTAL (test 0.30 mg/dL 0.0-1.0 N code = BILT) SGOT/AST (test code = 20 IUnit/L 15-37 N AST) SGPT/ALT (test code = 35 IUnit/L 15-65 N ALT) ALKALINE PHOSPHATASE 101 IUnit/L 20-125 N TOTAL (test code = ALKP) [id number] 11:05:00 Test Item Value Reference Range Interpretation Comments TROPONIN-I < 0.015 ng/mL 0.000-0.045 N Negative: <= (test code = 0.045 Positive: TROPI) >= 0.046 Correl ation with serial results, other cardiac markers andclinical findings is nec essary to determine the clinicalsignifi cance of this result. Results using different metho dologies should not be c omparedto one another as [place] titative results may frances y by method. LACTIC [id number] 10:56:00 Test Item Value Reference Range Interpretation Comments LACTIC ACID (test code = LACT) 2.1 mmol/L 0.4-1.9 H URINALYSIS [id number] 10:46:00 Test Item Value Reference Range Interpretation Comments UA COLOR (test code = COLU) YELLOW YEL/STRAW UA APPEARANCE (test code = APPU) CLEAR CLEAR UA GLUCOSE DIPSTICK (test code = 3+ NEGATIVE A DGLUU) UA BILIRUBIN DIPSTICK (test code NEGATIVE NEGATIVE = BILU) UA KETONE DIPSTICK (test code = 1+ NEGATIVE A KETU) UA SPECIFIC GRAVITY (test code = 1.016 1.005-1.030 N SGU) UA BLOOD DIPSTICK (test code = NEGATIVE NEGATIVE CHARU) UA PH DIPSTICK (test code = ATUL) 5.0 5.0-7.0 N UA PROTEIN DIPSTICK (test code = 1+ NEGATIVE A PROU) UA UROBILINIOGEN DIPSTICK (test 0.2 mg/dL 0.2-1.0 code = URO) UA NITRITE DIPSTICK (test code = NEGATIVE NEGATIVE DOMENICA) UA LEUKOCYTE ESTERASE DIPSTICK NEGATIVE NEGATIVE (test code = LEUU) UA WBC (test code = WBCU) 0-3 WBC/HPF 0-3 UA RBC (test code = RBCU) 4-10 RBC/HPF 0-3 UA BACTERIA (test code = BACU) TRACE /HPF NONE SEEN UA SQUAMOUS CELLS (test code = 0-5 /HPF NONE SEEN SQU) UA MUCUS (test code = MUCU) TRACE /LPF NONE SEEN COMMENTS: Clean CatchCBC W/AUTO [id number] 10:42:00 Test Item Value Reference Range Interpretation Comments WHITE BLOOD CELL (test code = 6.05 x10 3/uL 4.5-11.0 N WBC) RED BLOOD CELL (test code = 3.80 x10 6/uL 3.54-5.02 N RBC) HEMOGLOBIN (test code = HGB) 11.4 g/dL 11.0-15.0 N HEMATOCRIT (test code = HCT) 35.7 % 33.0-45.0 N MEAN CELL VOLUME (test code = 93.9 fL 81.0-99.0 N MCV) MEAN CELL HGB (test code = MCH) 30.0 pg 27.0-33.0 N MEAN CELL HGB CONCETRATION 31.9 g/dL 33.0-37.0 L (test code = MCHC) RED CELL DISTRIBUTION WIDTH CV 12.3 % 11.5-14.5 N (test code = RDW) RED CELL DISTRIBUTION WIDTH SD 42.8 fL 37.0-54.0 N (test code = RDW-SD) PLATELET COUNT (test code = 234 x10 3/uL 150-400 N PLT) MEAN PLATELET VOLUME (test code 9.9 fL 7.0-9.0 H = MPV) NEUTROPHIL % (test code = NT%) 86.1 % 56.0-77.0 H IMMATURE GRANULOCYTE % (test 1.0 % 0.0-2.0 N code = IG%) LYMPHOCYTE % (test code = LY%) 9.1 % 14.0-32.0 L MONOCYTE % (test code = MO%) 3.5 % 4.8-9.0 L EOSINOPHIL % (test code = EO%) 0.0 % 0.3-3.7 L BASOPHIL % (test code = BA%) 0.3 % 0.0-2.0 N NUCLEATED RBC % (test code = 0.0 % 0-0 N NRBC%) NEUTROPHIL # (test code = NT#) 5.21 x10 3/uL 2.0-7.6 N IMMATURE GRANULOCYTE # (test 0.06 x10 3/uL 0.00-0.03 H code = IG#) LYMPHOCYTE # (test code = LY#) 0.55 x10 3/uL 1.0-3.8 L MONOCYTE # (test code = MO#) 0.21 x10 3/uL 0.1-0.8 N EOSINOPHIL # (test code = EO#) 0.00 x10 3/uL 0.0-0.2 N BASOPHIL # (test code = BA#) 0.02 x10 3/uL 0.0-0.2 N NUCLEATED RBC # (test code = 0.00 x10 3/uL 0.0-0.1 N NRBC#) MANUAL DIFF REQUIRED (test code NO = MDIFF) - CT HEAD/BRAIN W/O [id number] 09:22:00 Name: [facility] [facility] : 1950 Age/S: 67 / F [address] [place] [address] Unit #: [id number] Loc: [facility] [id number] Phys: Braxton Prasad MD Acct: [id number] Dis Date: Status: REG ER PHONE #: [phone] Exam Date: 10/23/2018904 FAX #: [phone] Reason: dizziness EXAMS: CPTCODE: [id number] CT HEAD/BRAIN W/O CONT 56205 CT head without contrast 10/23/2018 HISTORY: Dizziness PROCEDURE: Multiple axial images from the skull base to the skull vertex were obtained without contrast. Coronal and sagittal reconstructed images were performed. DLP: 419.7 No prior exams are available for comparison FINDINGS: No acute hemorrhage, midline shift, extra-axial fluid collection, hydrocephalus, or mass lesion is present. No cortical hypodensity to suggest an acute infarct is noted. There are mild white matter hypodensities. The visualized mastoid air cells are clear. There is an air-fluid level in the left maxillary sinus IMPRESSION: 1. No acute intracranial abnormality. 2. Age-indeterminate left maxillary sinus d isease. 3. Mild chronic microvascular ischemic changes. SL: [id number] at 0922 Reported and signed by: Giorgio Srivastava M.D. CC: Braxton Prasad MD Technologist:Katrin Miles, RT(R)(CT) CTDI: DLP: Trnscb Date/Time: 10/23/2018 (921) [id number] Orig Print D/T: S: 10/23/2018 (924) CTDI: DLP: PAGE 1 SignedReportURINALYSIS [id number] 01:38:00 Test Item Value Reference Range Interpretation Comments UA COLOR (test code = COLU) YELLOW YEL/STRAW UA APPEARANCE (test code = APPU) CLOUDY CLEAR A UA GLUCOSE DIPSTICK (test code = NEGATIVE NEGATIVE DGLUU) UA BILIRUBIN DIPSTICK (test code NEGATIVE NEGATIVE = BILU) UA KETONE DIPSTICK (test code = NEGATIVE NEGATIVE KETU) UA SPECIFIC GRAVITY (test code = 1.005 1.005-1.030 N SGU) UA BLOOD DIPSTICK (test code = 3+ NEGATIVE A CHARU) UA PH DIPSTICK (test code = ATUL) 5.0 5.0-7.0 N UA PROTEIN DIPSTICK (test code = 1+ NEGATIVE A PROU) UA UROBILINIOGEN DIPSTICK (test 0.2 mg/dL 0.2-1.0 code = URO) UA NITRITE DIPSTICK (test code = NEGATIVE NEGATIVE DOMENICA) UA LEUKOCYTE ESTERASE DIPSTICK 3+ NEGATIVE A (test code = LEUU) UA WBC (test code = WBCU) >50 WBC/HPF 0-3 A UA RBC (test code = RBCU) 4-10 RBC/HPF 0-3 UA BACTERIA (test code = BACU) 3+ /HPF NONE SEEN A UA SQUAMOUS CELLS (test code = 0-5 /HPF NONE SEEN SQU) UA MUCUS (test code = MUCU) TRACE /LPF NONE SEEN
--- OUTSIDE RECORDS SUMMARY | 2020-03-20 13:31 | XMS REPORT ---
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 Problem History of uterine cancer Z85.42 Ac tive Problem 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 Problem Hyperlipidemia, unspecified E78.5 Active hyperlipidemia type Problem Hypertension, unspecified type I10 Active Problem 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 Problem Abdominal pain, unspecified R10.9 Active abdominal location Problem Leukopenia, unspecified type D72.819 Active Problem Acute bilateral back pain, M54.9 A ctive unspecified back location Problem Depression screening Z13.31 Active Problem Diarrhea, unspecified type R19.7 A ctive Problem Vertigo R42 Active Problem Hypomagnesemia E83.42 Active Problem Essential hypertension I10 Activ e Problem Abnormal laboratory test result R89.9 Active Problem Rash and nonspecific skin eruption R21 Active Problem Anemia, unspecified type D64.9 Act clotilde Problem Forgetfulness R68.89 Active Problem Abnormal computed tomography R93.5 Active angiography (CTA) of abdomen and pelvis Problem 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 Active Problem Memory loss R41.3 Active Problem Hyperlipemia E78.5 Active Problem Abnormal mammogram of right breast R92.8 Active Problem Anemia D64.9 Active Problem Routine eye exam Z01.00 Active Problem Callus of foot L84 Active Problem Type 2 diabetes E11.9 Active Problem Pain of upper abdomen R10.10 Active Problem Dysuria R30.0 Active Assessment Uncontrolled type 2 diabetes E11.65 Active mellitus without complication, without long-term current use of insulin Problem Dizziness R42 Active Problem Hematuria, unspecified type R31.9 Active Problem Lower abdominal pain R10.30 Active Medications Medication Code Code Instructions Start End Status Dosage System Date Date Glimepiride [facility] [id number] 2MG Orally Once Active 1 tablet a day with breakfast or the first main meal of the day Results No Known Results Summary Purpose eClinicalWorks Submission
--- OUTSIDE RECORDS SUMMARY | 2020-03-20 13:31 | XMS REPORT ---
:1950 Author Organization eClinicalWorks Care Team Providers Name Role Phone Sebastianronnie Amrita Provider Role Unavailable Allergies, Adverse Reactions, [...] Active Problem Essential hypertension I10 Activ e Assessment Uncontrolled type 2 diabetes E11.65 Active mellitus with hyperglycemia Problem Uncontrolled type 2 diabetes E11.65 Active mellitus with hyperglycemia Problem Abnormal laboratory test result R89.9 Active Assessment Hyperlipidemia, unspecified E78.5 Active hyperlipidemia type Problem Memory loss R41.3 Active Assessment Hypomagnesemia E83.42 Active Problem Forgetfulness R68.89 Active Assessment History of uterine cancer Z85.42 Ac tive Problem Hypomagnesemia E83.42 Active Problem 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 Active Problem Anemia D64.9 Active Problem Routine eye exam Z01.00 Active Problem Shoulder pain, right M25.511 Active Problem Hematuria, unspecified type R31.9 Active Problem Type 2 diabetes E11.9 Active Problem Pain of upper abdomen R10.10 Active Problem Hyperlipemia E78.5 Active Problem Abnormal mammogram of right breast R92.8 Active Assessment Essential hypertension I10 Activ e Problem Dizziness R42 Active Problem 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 Problem Lower abdominal pain R10.30 Active Problem Dysuria R30.0 Active Medications Medication Code Code Instructions Start End Status Dosage System Date Date Metformin HCl [facility] 98589485979 500 MG Orally Active 1 tablet Twice daily Januvia ND 70499750330 100 MG Orally Active 1 tabl et Once a day for diabetes Lisinopril ND 73730995427 5 MG Orally October Active 1 tab let Once a day 2017 Blood Glucose NDC 0 as directed Aug 06, Active as di rected Monitor Test BS once 2017 (DISPENSE daily SHAMAR ONE TOUCH) Lancets [facility] 22740986228 - as directed Aug 06, Active as dir ected Test BS once 2017 (dispense daily lancets for Shamar One Touch) Gabapentin ND 46432213966 300 MG Orally Jun 14, Active 1 c apsule Four times a 2019 day Meclizine HCl ND 91314629783 25 mg Orally Up October Active 1 tablet as to four times a 2018 needed for day dizziness Lovastatin ND 79757807730 20MG Orally Active 1 tab let in Once a day evening Glimepiride ND 40795883506 4 MG Orally Active 1 ta blet Once a day with breakfast or the first main meal of the day Aspir-81 ND 92100918968 81 MG Orally Active 1 tabl et Once a day Blood Glucose NDC 0 as directed Aug 06, Active as di rected Test Strip Test BS once 2017 (DISPENS E daily BLOOD GLUCOSE TEST STRIPS FOR SHAMAR ONE TOUCH) Tamiflu ND 43600898342 75 MG Orally October Active 1 capsu le Twice a day 2019 Results No Known Results Summary Purpose eClinicalWorks Submission
[2020-03-20] MEDS ORDERED: NA CHLORIDE 0.9% 500 ML ONE (16:07)
[2020-03-20] MEDS ORDERED: ONDANSETRON 4 MG/2 ML VIAL ONE (16:07)
[2020-03-20] MEDS ORDERED: MORPHINE 2 MG/ML SYR ONE (16:07)
[2020-03-20] MEDS ORDERED: FAMOTIDINE 20 MG/2 ML VIAL IV ONE (16:07)
[2020-03-20 16:35] LABS: Absolute Lymphocytes (CBC) 1.5 K/uL (0.7-4.9); Basophils % 0.6 % (0-1.3); Hematocrit 34.5 % (36.0-45.0); Lymphocytes % 27.6 % (15.3-44.8); MPV 8.9 fL (7.6-11.3); RBC Red Blood Cell Count 3.91 M/uL (3.86-4.86)
--- NOTE | 2020-03-20 17:05 | RAD REPORT ---
EXAM DESCRIPTION: CT - Abdomen Pelvis W Contrast - 03/20/2020 4:52 pm CLINICAL HISTORY: lower abdomen pain COMPARISON: Abdomen Pelvis W Contrast dated 02/09/2019 TECHNIQUE: Biphasic, helical CT imaging of the abdomen and pelvis was performed following 100 ml non -ionic IV contrast. No oral contrast administered. All CT scans are performed using dose optimization technique as appropriate and may include automated exposure control or mA/KV adjustment according to patient size. FINDINGS: No suspicious findings in the lung bases. Mild diffuse fatty infiltration is present in the liver. No focal liver lesion. No portal vein abnorm ality. Spleen and pancreas show no suspicious findings. Multiple large calcified gallstones are prese nt layering in the dependent portion near the gallbladder neck. No gallbladder distention, wall thick ening or pericholecystic fluid. No biliary tree abnormality. Symmetric renal function is seen with no hydronephrosis or suspicious renal mass. No pyelonephritis o r acute parenchymal process. No bladder abnormalities. No adrenal abnormalities. Uterus is absent. Ov maira are absent or atrophic. No adnexal mass. No dilated bowel loops. No focal bowel wall thickening or mass. A few mildly prominent small bowel lo ops are present. No free air, free fluid or inflammatory stranding. No hernia, mass or bulky lymphad enopathy. No suspicious bony findings. IMPRESSION: A few mildly prominent distal small bowel loops are present without asymmetric wall thic kening or mass. Pattern is not clearly outside of normal range but could represent a mild enteritis. No obstruction, free air or emergent CT abdomen or pelvis finding. Fatty infiltration of the liver and cholelithiasis are present as previously detailed.
[2020-03-20 17:20] LABS: ALT/SGPT 34 U/L (12-78); AST/SGOT 32 U/L (15-37); Albumin 3.8 g/dL (3.4-5.0); Alkaline Phosphatase 68 U/L (45-117); BUN Blood Urea Nitrogen 18 mg/dL (7-18); Bicarbonate 26 mmol/L (21-32); Bilirubin Direct < 0.1 mg/dL (0-0.2); Bilirubin Total 0.3 mg/dL (0.2-1.0); Glucose Level 88 mg/dL (74-106); Lipase 132 U/L (73-393); Potassium 3.7 mmol/L (3.5-5.1); Protein, Total 7.2 g/dL (6.4-8.2); Sodium Level 144 mmol/L (136-145)
[2020-03-20 17:54] LABS: Urine Blood NEGATIVE (NEG); Urine Glucose NEGATIVE (NEG); Urine Protein NEGATIVE (NEG); Urine Specific Gravity <1.005 (1.005-1.030)
[2020-03-20 18:08] LABS: Urine Bacteria <20 /HPF (<20); Urine Culture Reflex Order NOT NEEDED; Urine RBC <5 /HPF (NONE SEEN)
--- NOTE | 2020-03-20 18:15 | RAD REPORT ---
EXAM DESCRIPTION: US - Abdomen Exam Limited - 03/20/2020 6:03 pm CLINICAL HISTORY: ABD PAIN COMPARISON: Abdomen Pelvis W Contrast dated 03/20/2020; Abdomen Pelvis W Contrast dated 02/09/2019 FINDINGS: Multiple moderate sized gallstones are identified collecting near the neck of the gallblad favio. These have been previously detailed on prior studies. There is no wall thickening or pericholecy stic fluid. No common duct stone or biliary tree dilatation identified. Diffuse fatty infiltration of the liver. This is further detailed on the earlier CT study. IMPRESSION: Multi stone cholelithiasis as previously seen. No acute gallbladder finding identifiable . No biliary tree dilatation or duct stone identifiable.
--- NOTE | 2020-03-20 18:34 | EDPHYS ---
Physician Documentation [facility] Name: Miroslava Rousseau Age: 69 yrs Sex: Female : 1950 Arrival Date: 03/20/2020 Time: 13:59 Bed 6 Private MD: ED Physician Xander Domingo HPI: 03/20 15:39 This 69 yrs old Female presents to ER via Ambulatory with complaints of GALL cp STONES, Nausea/Vomiting. 15:40 The patient presents with abdominal pain. cp 15:40 Onset: The symptoms/episode began/occurred yesterday. The symptoms radiate to cp Associated signs and symptoms: Pertinent positives: nausea, Pertinent negatives: diarrhea, dysuria, fever. Modifying factors: the symptoms are aggravated by food. The patient has experienced similar episodes in the past, today's symptoms are similar, to when the patient was apparently diagnosed with gallstones. Historical: - Allergies: 14:15 Tylenol-Codeine; ca1 - Home Meds: 14:15 aspirin 81 mg Oral TbEC 1 tab once daily [Active]; glimepiride 2 mg Oral tab 1 tab once ca1 daily [Active]; Januvia 100 mg oral tab 1 tab once daily [Active]; lisinopril 5 mg Oral tab 1 tab once daily [Active]; lovastatin 20 mg Oral tab 1 tab once daily [Active]; metformin 500 mg oral tab 1 tab 2 times per day [Active]; - PMHx: 14:15 Diabetes - NIDDM; Hypertension; Hyperlipidemia; Uterine CA; ca1 - PSHx: 14:15 Appendectomy; foot surgery; benign Breast Surgery; ca1 - Immunization history:: Adult Immunizations up to date. - Social history:: Smoking status: Patient denies any tobacco usage or history of. ROS: 15:45 Constitutional: Negative for body aches, chills, fever, poor PO intake. cp 15:45 Eyes: Negative for injury, pain, redness, and discharge. cp 15:45 Cardiovascular: Negative for chest pain, palpitations. cp 15:45 Respiratory: Negative for cough, shortness of breath, wheezing. 15:45 Abdomen/GI: Positive for abdominal pain, nausea, Negative for diarrhea, constipation, active vomiting. 15:45 Back: Positive for radiated pain. 15:45 : Negative for urinary symptoms. 15:45 All other systems are negative. Exam: 15:50 Constitutional: The patient appears in no acute distress, alert, awake, cp non-diaphoretic, non-toxic, well developed, well nourished, uncomfortable. 15:50 Head/Face: Normocephalic, atraumatic. cp 15:50 Eyes: Periorbital structures: appear normal, Conjunctiva: normal, no exudate, no injection, Sclera: no appreciated abnormality, Lids and lashes: appear normal, bilaterally. 15:50 ENT: External ear(s): are unremarkable, Nose: is normal, Mouth: is normal, Posterior pharynx: Airway: no evidence of obstruction, patent. 15:50 Chest/axilla: Inspection: normal, Palpation: is normal, no crepitus, no tenderness. 15:50 Cardiovascular: Rate: normal, Rhythm: regular, Edema: is not appreciated, JVD: is not appreciated. 15:50 Respiratory: the patient does not display signs of respiratory distress, Respirations: normal, no use of accessory muscles, no retractions, labored breathing, is not present, Breath sounds: are clear throughout, no decreased breath sounds, no stridor, no wheezing. 15:50 Abdomen/GI: Inspection: abdomen appears normal, Bowel sounds: active, all quadrants, Palpation: soft, in all quadrants, mild abdominal tenderness, in the left upper quadrant, right lower quadrant and left lower quadrant, rebound tenderness, is not appreciated, voluntary guarding, is not appreciated, involuntary guarding, is not appreciated. 15:50 Back: pain, that is mild, of the mid back area, ROM is normal. 15:50 Skin: no rash present. Vital Signs: 14:09 BP 131 / 73; Pulse 71; Resp 15 S; Temp 98.3(TE); Pulse Ox 99% on R/A; Weight 70.76 kg ca1 (R); Height 5 ft. 0 in. (152.40 cm) (R); 15:45 BP 127 / 89; Pulse 68; Resp 18; Pulse Ox 99% on R/A; ph 17:00 BP 118 / 78; Pulse 67; Resp 16; Pulse Ox 99% on R/A; ph 18:00 BP 110 / 70; Pulse 68; Resp 18; Pulse Ox 99% on R/A; ph 19:10 BP 118 / 68; Pulse 64; Resp 18; Temp 98.0; Pulse Ox 99% on R/A; ph 14:09 Body Mass Index 30.47 (70.76 kg, 152.40 cm) ca1 MDM: 15:34 Patient medically screened. cp 16:00 Differential diagnosis: appendicitis, bowel obstruction, cholecystitis, Cholelithiasis, cp gastritis, pancreatitis, Peptic Ulcer Disease, Perf. Duodenal Ulcer, Perf. Gastric Ulcer, Ureterolithiasis, urinary tract infection. 18:32 Data reviewed: vital signs, nurses notes, lab test result(s), radiologic studies, CT cp scan, ultrasound. Counseling: I had a detailed discussion with the patient and/or guardian regarding: the historical points, exam findings, and any diagnostic results supporting the discharge/admit diagnosis, lab results, radiology results, the need for outpatient follow up, for definitive care, a general surgeon, to return to the emergency department if symptoms worsen or persist or if there are any questions or concerns that arise at home. Response to treatment: the patient's symptoms have markedly improved after treatment, Pain and nausea improved, and as a result, I will discharge patient. 08 15:40 Order name: Basic Metabolic Panel; Complete Time: 17:55 cp 03/20 17:56 Interpretation: Normal except: CL 110; GFR 65. cp 08 15:40 Order name: CBC with Diff; Complete Time: 16:53 cp 03/20 16:54 Interpretation: Normal except: HGB 11.5; HCT 34.5. cp 03/20 15:40 Order name: Hepatic Function; Complete Time: 17:55 cp 03/20 17:56 Interpretation: Within normal limits. cp 03/20 15:40 Order name: Lipase; Complete Time: 17:55 cp 08 15:40 Order name: Urine Microscopic Only; Complete Time: 18:29 cp 03/20 16:54 Order name: CREATININE WHOLE BLOOD; Complete Time: 17:13 EDMS 03/20 15:40 Order name: CT Abd/Pelvis - IV Contrast Only; Complete Time: 17:13 cp 05 17:15 Order name: US Abdomen Limited: RUQ/epigastric; Complete Time: 18:29 cp 03/20 17:43 Order name: Urine Dipstick--Ancillary (enter results); Complete Time: 17:55 bd 03/20 17:56 Interpretation: Normal except: UESTR TRACE. cp 03/20 15:40 Order name: IV Saline Lock; Complete Time: 16:34 cp 03/20 15:40 Order name: Labs collected and sent; Complete Time: 16:35 cp 03/20 15:40 Order name: Urine Dipstick-Ancillary (obtain specimen); Complete Time: 18:07 cp 03/20 18:30 Order name: PO challenge; Complete Time: 18:39 cp Administered Medications: 16:40 Drug: Pepcid 20 mg Route: IVP; Site: right wrist; ll1 18:07 Follow up: Response: No adverse reaction ph 16:40 Drug: NS 0.9% 500 ml Route: IV; Rate: bolus; Site: right wrist; ll1 18:07 Follow up: Response: No adverse reaction; IV Status: Completed infusion; IV Intake: ph 500ml 16:41 Drug: Zofran (Ondansetron) 4 mg Route: IVP; Site: right wrist; ll1 18:07 Follow up: Response: No adverse reaction ph 16:41 Drug: morphine 2 mg Route: IVP; Site: right wrist; ll1 18:07 Follow up: Response: No adverse reaction; Pain is decreased; RASS: Alert and Calm (0) ph 18:39 Not Given (Other Intervention Used): NS 0.9% 500 ml IV at 125 ml/hr continuous ph Disposition: 03/21 08:11 Co-signature as Attending Physician, Xander Domingo MD I agree with the assessment and kdr plan of care. Disposition: 03/20/20 18:33 Discharged to Home. Impression: Cholelithiasis. - Condition is Stable. - Discharge Instructions: Biliary Colic, Adult, Cholelithiasis. - Prescriptions for Bentyl 20 mg Oral Tablet - take 2 tablet by ORAL route every 6 hours As needed; 40 tablet. Zofran 4 mg Oral Tablet - take 1 tablet by ORAL route every 12 hours As needed; 20 tablet. - Medication Reconciliation Form, Thank You Letter, Antibiotic Education, Prescription Opioid Use form. - Follow up: Baljinder Santiago MD; When: 1 - 2 days; Reason: cholelithiasis. - Problem is an ongoing problem. - Symptoms have improved. Signatures: Dispatcher [employer] EDIN Xander Domingo MD MD [facility] Justyna Coronel RN RN Tramaine Bonds PA PA cp Shamika French RN RN ca1 Capo Reyes RN RN ll1 Corrections: (The following items were deleted from the chart) 03/20 19:11 18:33 03/20/2020 18:33 Discharged to Home. Impression: Cholelithiasis. Condition is ph Stable. Forms are Medication Reconciliation Form, Thank You Letter, Antibiotic Education, Prescription Opioid Use. Follow up: Baljinder Santiago; When: 1 - 2 days; Reason: cholelithiasis. Problem is an ongoing problem. Symptoms have improved. cp
--- NOTE | 2020-03-20 18:34 | ER ---
Nurse's Notes [facility] Name: Miroslava Rousseau Age: 69 yrs Sex: Female : 1950 Arrival Date: 03/20/2020 Time: 13:59 Bed 6 Private MD: Diagnosis: Cholelithiasis Presentation: 03/20 14:09 Chief complaint: Patient states: History of gallstones. Upper abdominal pain radiating ca1 to the side and back on the R side. Feels pain when bending down, feels like there is a "pouch". Reports nausea. Denies vomiting and diarrhea. History of Uterine Ca on Sep 2016. Cancer free since Beginning 2017. Coronavirus screen: Client denies travel out of the [place] in the last 14 days. At this time, the client does not indicate any symptoms associated with coronavirus-19. Ebola Screen: Patient negative for fever greater than or equal to 101.5 degrees Fahrenheit, and additional compatible Ebola Virus Disease symptoms Patient denies exposure to infectious person. Patient denies travel to an Ebola-affected area in the 21 days before illness onset. No symptoms or risks identified at this time. Initial Sepsis Screen: Does the patient meet any 2 criteria? No. Patient's initial sepsis screen is negative. Does the patient have a suspected source of infection? No. Patient's initial sepsis screen is negative. Risk Assessment: Do you want to hurt yourself or someone else? Patient reports no desire to harm self or others. Onset of symptoms was March 20, 2020. 14:09 Method Of Arrival: Ambulatory ca1 14:09 Acuity: MARTHA 3 ca1 Historical: - Allergies: 14:15 Tylenol-Codeine; ca1 - Home Meds: 14:15 aspirin 81 mg Oral TbEC 1 tab once daily [Active]; glimepiride 2 mg Oral tab 1 tab once ca1 daily [Active]; Januvia 100 mg oral tab 1 tab once daily [Active]; lisinopril 5 mg Oral tab 1 tab once daily [Active]; lovastatin 20 mg Oral tab 1 tab once daily [Active]; metformin 500 mg oral tab 1 tab 2 times per day [Active]; - PMHx: 14:15 Diabetes - NIDDM; Hypertension; Hyperlipidemia; Uterine CA; ca1 - PSHx: 14:15 Appendectomy; foot surgery; benign Breast Surgery; ca1 - Immunization history:: Adult Immunizations up to date. - Social history:: Smoking status: Patient denies any tobacco usage or history of. Screenin:06 Abuse screen: Denies threats or abuse. Denies injuries from another. Nutritional ph screening: No deficits noted. Tuberculosis screening: No symptoms or risk factors identified. Fall Risk None identified. Assessment: 15:45 General: Appears in no apparent distress. comfortable, Behavior is calm, cooperative, ph appropriate for age, Denies fever, feeling ill. Pain: Complains of pain in epigastric area, right upper quadrant and left upper quadrant Pain radiates to mid back area. Neuro: Level of Consciousness is awake, alert, obeys commands, Oriented to person, place, time, situation. Cardiovascular: Capillary refill < 3 seconds in bilateral fingers Patient's skin is warm and dry. Respiratory: Airway is patent Respiratory effort is even, unlabored, Respiratory pattern is regular, symmetrical. GI: Abdomen is non-distended, Reports upper abdominal pain, Patient currently denies diarrhea, nausea, vomiting. Derm: Skin is intact, is healthy with good turgor, Skin is pink, warm \\T\\ dry. Vital Signs: 14:09 BP 131 / 73; Pulse 71; Resp 15 S; Temp 98.3(TE); Pulse Ox 99% on R/A; Weight 70.76 kg ca1 (R); Height 5 ft. 0 in. (152.40 cm) (R); 15:45 BP 127 / 89; Pulse 68; Resp 18; Pulse Ox 99% on R/A; ph 17:00 BP 118 / 78; Pulse 67; Resp 16; Pulse Ox 99% on R/A; ph 18:00 BP 110 / 70; Pulse 68; Resp 18; Pulse Ox 99% on R/A; ph 19:10 BP 118 / 68; Pulse 64; Resp 18; Temp 98.0; Pulse Ox 99% on R/A; ph 14:09 Body Mass Index 30.47 (70.76 kg, 152.40 cm) ca1 ED Course: 13:59 Patient arrived in ED. fj1 14:13 Triage completed. ca1 14:15 Arm band placed on right wrist. ca1 15:20 Justyna Coronel RN is Primary Nurse. ph 15:22 Tramaine Cramer PA is PHCP. cp 15:22 Xander Domingo MD is Attending Physician. cp 16:34 Inserted saline lock: 20 gauge in right forearm, using aseptic technique. Blood mt collected. 16:52 CT Abd/Pelvis - IV Contrast Only In Process Unspecified. EDMS 18:04 US Abdomen Limited: RUQ/epigastric In Process Unspecified. EDMS 18:06 Patient has correct armband on for positive identification. Placed in gown. Bed in low ph position. Call light in reach. Side rails up X 1. Pulse ox on. NIBP on. Door closed. Noise minimized. Warm blanket given. 18:33 Baljinder Santiago MD is Referral Physician. cp 19:09 No provider procedures requiring assistance completed. IV discontinued, intact, ph bleeding controlled, No redness/swelling at site. Pressure dressing applied. Administered Medications: 16:40 Drug: Pepcid 20 mg Route: IVP; Site: right wrist; ll1 18:07 Follow up: Response: No adverse reaction ph 16:40 Drug: NS 0.9% 500 ml Route: IV; Rate: bolus; Site: right wrist; ll1 18:07 Follow up: Response: No adverse reaction; IV Status: Completed infusion; IV Intake: ph 500ml 16:41 Drug: Zofran (Ondansetron) 4 mg Route: IVP; Site: right wrist; ll1 18:07 Follow up: Response: No adverse reaction ph 16:41 Drug: morphine 2 mg Route: IVP; Site: right wrist; ll1 18:07 Follow up: Response: No adverse reaction; Pain is decreased; RASS: Alert and Calm (0) ph 18:39 Not Given (Other Intervention Used): NS 0.9% 500 ml IV at 125 ml/hr continuous ph Intake: 18:07 IV: 500ml; Total: 500ml. ph Outcome: 18:33 Discharge ordered by . cp 19:09 Discharged to home ambulatory. ph 19:09 Condition: good 19:09 Discharge instructions given to patient, Instructed on discharge instructions, follow up and referral plans. medication usage, Demonstrated understanding of instructions, follow-up care, medications, Prescriptions given X 2. 19:11 Patient left the ED. ph Signatures: Dispatcher [employer] EDID Justyna Coronel RN RN ph Tramaine Cramer PA PA cp Thompson, Moriah mt Acob, Cheryl, RN RN [facility] Leonel Momin Capo Reyes, OLEGARIO RN ll1
[2020-03-20 19:23] VITALS: O2SAT 99
[2020-03-20 19:29] VITALS: BP 118/68; TEMP 98
== END 2020-03-20 19:11 | disposition home or self-care (01) ==
LOC: ER 13:27
DX: K80.20 Calculus of gallbladder without cholecystitis without obstruction (principal); I10 Essential (primary) hypertension; E11.9 Type 2 diabetes mellitus without complications; E78.5 Hyperlipidemia, unspecified; Z85.42 Personal history of malignant neoplasm of other parts of uterus; Z79.82 Long term (current) use of aspirin; Z88.5 Allergy status to narcotic agent
CPT/HCPCS: 85025; 80048; 36415; 82565; 80076; 83690; 74177; 76705; Q9967; J2270; J7040; J2405; 81003; 81015; 96361; 96374; 96375; 99284

== ENCOUNTER 2020-04-03 06:47 | Day surgery (SDC) | payer MEDICARE ==
--- NOTE | 2020-04-01 14:21 | RAD REPORT ---
EXAM DESCRIPTION: RAD - Chest Pa And Lat (2 Views) - 04/01/2020 2:16 pm CLINICAL HISTORY: PRE OP FOR SURGERY Chest pain. COMPARISON: Chest Single View dated 09/22/2019; Chest Pa And Lat (2 Views) dated 11/10/2016; Chest Sing le View dated 10/11/2016 FINDINGS: The lungs are clear. The heart is normal in size. No displaced fractures. IMPRESSION: No acute or concerning finding suspected.
[2020-04-01 16:30] LABS: Absolute Lymphocytes (CBC) 0.9 K/uL (0.7-4.9); Basophils % 0.6 % (0-1.3); Hematocrit 32.9 % (36.0-45.0); Lymphocytes % 18.9 % (15.3-44.8); MPV 9.6 fL (7.6-11.3); RBC Red Blood Cell Count 3.53 M/uL (3.86-4.86)
[2020-04-01 16:42] LABS: ALT/SGPT 38 U/L (12-78); AST/SGOT 58 U/L (15-37); Alkaline Phosphatase 83 U/L (45-117); Amylase 38 U/L (25-115); BUN Blood Urea Nitrogen 17 mg/dL (7-18); Bicarbonate 27 mmol/L (21-32); Bilirubin Direct < 0.1 mg/dL (0-0.2); Bilirubin Total 0.2 mg/dL (0.2-1.0); Glucose Level 212 mg/dL (74-106); Lipase 186 U/L (73-393); Potassium 4.4 mmol/L (3.5-5.1); Protein, Total 7.8 g/dL (6.4-8.2); Sodium Level 138 mmol/L (136-145)
--- OUTSIDE RECORDS SUMMARY | 2020-04-03 06:49 | XMS REPORT | Clinical Summary ---
:1950 Author Organization [facility] Address [address] [place] [address] Care Team Providers Name Role Phone Unavailable [...] of 2 - [id number]) 12/16/2016 INFLUENZA VACCINE 04/16/2020 Results Not on fileafter 04/03/2019 Insurance Payer Benefit Plan / Subscriber ID Effective Dates Phone Addre ss Type Group BCBS EXCHANGE BLUE ADVANTAGE xxxxxxxxxxxx 2016-Present Exchange HMO EXCH Advance Directives For more information, please contact: [phone] Type Date Recorded Patient Drug Abuse Program Coordinator Explanati on Advance Directives, Living Will and Medical Power of Appliance Installer
--- OUTSIDE RECORDS SUMMARY | 2020-04-03 06:51 | XMS REPORT | Continuity of Care Document ---
:1950 Author Organization [facility] t Address [address] [place] [address] Care Team Providers Name Role Phone Unavailable Unavailable Unavailable Payers Payer Name Policy Type Policy Number Effective Date Expiration Date S ource Problems Condition Condition Condition Status Onset Resolution Last Treating Co mments Source Name Details Category Date Date Treatment Clinician Date Acquired Acquired Problem [facility] Michelle kes - both both Memoria ovaries ovaries l 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 Hyperlipem Hyperlipem Problem Active [facility] Shoulder Shoulder Problem [facility], [facility] right right [facility] Anemia Anemia Problem [facility] Essential Essential Problem Active [facility] hypertensi hypertensi Michelle kes - on on [facility] Onychomyco Onychomyco Problem Active [facility] sis sis [facility] Overweight Overweight Problem Active [facility] (BMI (BMI [facility] - 25.0-29.9) 25.0-29.9) Me moria l [facility] Type 2 Type [address] [facility] diabetes diabetes [facility] History of History of Problem Active [facility] uterine uterine [facility] - cancer cancer [facility] Uncontroll Uncontroll Problem Active [facility] ed type 2 ed type 2 [facility] - diabetes diabetes Memori a mellitus mellitus l with with Outpat[facility] hyperglyce hyperglyce en [facility] Abnormal Abnormal Problem Active [facility] laboratory laboratory Michelle kes - test test Memoria result result l [facility] ent [facility] Leukopenia Leukopenia Problem Active [facility] , , [facility] - unspecifie unspecifie Me moria d type d type l [facility] Clinics Abnormal Abnormal Problem Active [facility] mammogram mammogram [facility] - of right of right Memori a breast breast l [facility] Clinics Callus of Callus of Problem Active [facility] foot foot [facility] Pain of Pain of Problem Active [facility] upper upper [facility] - abdomen abdomen Memoria l [facility] Clinics Dizziness Dizziness Problem Active [facility] Benign Benign 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 Michelle kes - positional positional Me moria vertigo vertigo l due to 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 inics disorder disorder Acute Acute Problem Active [facility] bilateral bilateral Luke [facility] - back pain, back pain, Me moria unspecifie unspecifie l d back d back [facility] Diarrhea, Diarrhea, Problem Active [facility] unspecifie unspecifie Michelle kes - d type d type Memoria l [facility] Clin[facility] Depression Depression Problem Active [facility] screening screening [facility] - Memoria l [facility] Clinics Abdominal Abdominal Problem Active [facility] pain, pain, [facility] - unspecifie unspecifie Me moria d d l abdominal abdominal Outp ati location location ent Clinics Abnormal Abnormal Problem Active [facility] computed computed [facility] - tomography tomography Me moria angiograph angiograph l y (CTA) of y (CTA) of Ou tpati abdomen abdomen ent and pelvis and pelvis Cl inics Lower Lower Problem Active [facility] abdominal abdominal [facility] - pain pain Memoria l [facility] Clinics Dysuria Dysuria Problem Active [facility] Routine Routine Problem Active [facility] eye exam eye exam [facility] Hematuria, Hematuria, Problem Active [facility] unspecifie unspecifie Michelle kes - d type d type Memoria l [facility] ent Clinics Forgetfuln Forgetfuln Problem Active [facility] ess ess [facility] Memory Memory Problem Active [facility] loss loss [facility] Tinnitus Tinnitus Problem Active [facility] of both of both [facility] - ears ears Memoria l [facility] Clinics Hypomagnes Hypomagnes Problem Active [facility] emia emia [facility] Rash and Rash and Problem Active [facility] nonspecifi nonspecifi Michelle kes - c skin c skin Memoria eruption eruption l [facility] ent [facility] Allergies, Adverse Reactions, Alerts Allergy Allergy Status Severity Reaction(s) Onset Inactive Treating Comm ents Source Name Type Date Date Clinician peterson DA Active [place] [facility] 3-10 Clear 00:00: Cornelius 00 [facility] codeine DA Active [place] [facility] 3-05 Clear 00:00: Cornelius 00 [facility] codeine DA Active [place] [facility] 6-12 Clear 00:00: Cornelius 00 [facility] codeine Adverse Active nausea/vomit [facility] Reaction ing [facility] Social History Social Habit Start Date Stop [...] Strips Strips 00:00: 00:00 Memoria 00 :[address] [facility] [address] [facility] Tamiflu Tamiflu Yes Amrita [address] 3-04 [facility] - 00:00: Memoria [address] [facility] [address] [facility] Gabapentin Gabapentin 2018-08 Yes Amrita [address] 0-30 [facility] - 00:00: Memoria [address] [facility] [address] [facility] Meclizine Meclizine Yes Amrita [address] [address] HCl HCl 3-13 [place] as needed [facility] - 00:00: for Memoria 00 dizziness l [facility] ent [facility] Blood Blood 2017-08 Yes Amrita as [facility] Glucose Glucose 2-22 [facility] directed [facility] - Test Strip Test Strip 00:00: (DISPENSE Memoria 00 BLOOD l GLUCOSE Outpati TEST ent STRIPS FOR Clinics KAYY ONE TOUCH) Lancets Lancets 2017-08 Yes Amrita as [facility] 2-22 [facility] directed [facility] - 00:00: (dispense Memoria 00 lancets l for Kayy Outpati One Touch) ent Clinics Blood Blood 2017-08 Yes Amrita as [facility] Glucose Glucose 2-22 [facility] directed [facility] - Monitor Monitor 00:00: (DISPENSE Me moria 00 KAYY ONE l TOUCH) Outpati ent Clinics Lisinopril Lisinopril Yes Amrita [address] 3-22 [facility] - 00:00: Memoria 00 l Outpati ent Clinics Lovastatin Lovastatin Yes Amrita [address] Mill[facility] in evening [facility] - Memoria l Outpati ent Clinics Januvia Januvia Yes Amrita [address] [facility] Out[facility] ent Clinics Aspir-81 Aspir-81 Yes Amrita [address] [facility] ent Clinics Metformin Metformin Yes Amrita [address] HCl HCl [facility] Out[facility] ent Clinics Glimepiride Glimepiride Yes Amrita [address] Millender with [facility]ukes - breakfast Memoria or the l first main Outpati meal of ent the day Clinics Procedures This patient has no known procedures. Plan of Care Planned Activity Planned Date Details Comments Source Future Scheduled 2020-04-16 INFLUENZA VACCINE [facility] 00:00:00 [code = INFLUENZA VACCINE] Future Scheduled 2016-12-16 65+ PNEUMOCOCCAL [place] [facility] 00:00:00 VACCINE (1 of 2 - PCV13) [code = 65+ PNEUMOCOCCAL VACCINE (1 of 2 - PCV13)] Future Scheduled 2001-12-16 BREAST CANCER [facility] Test 00:00:00 SCREENING [code = BREAST CANCER SCREENING] Future Scheduled 2001-12-16 COLONOSCOPY SCREENING [facility] Test 00:00:00 [code = COLONOSCOPY SCREENING] Future Scheduled 2001-12-16 SHINGLES VACCINES (#1) [facility] 00:00:00 [code = SHINGLES VACCINES (#1)] Encounters Start End Encounter Admission Attending Care Care Encounter Source Date/Time Date/Time Type Type Clinicians Facility Department ID 2020-03-21 2020-03-21 [facility] [id number] 09[facility]35:00 09:35:00 t [facility] Medicine Medicine Outpati ent Clinics 2020-03-01 2020-03-01 [facility] [id number] 14:20:00 14:20:00 [facility] l Medicine Outpati ent Clinics 2020-02-26 2020-02-26 [facility] [id number] 14:40:00 14:40:00 [facility] Medicine l Medicine Outpati ent Clinics 2020-02-23 2020-02-23 [facility] [id number] 11:09:00 11:09:00 [facility] Medicine l Medicine Outpati ent Clinics 2020-02-09 2020-02-09 [facility] [id number] 13:00:00 13:00:00 [facility] Medicine Outpati ent Clinics 2019-12-27 2019-12-27 [facility] [id number] 16:27:00 16:27:00 [facility] Medicine Medicine Outpati ent Clinics 2019-11-08 2019-11-08 [facility] [id number] 10:45:00 10:45:00 [facility] Medicine Medicine Outpati ent Clinics 2019-10-24 2019-10-24 [facility] [id number] 09:52:00 09:52:00 [facility] Medicine Medicine Outpati ent Clinics 2019-10-18 2019-10-18 [facility] [id number] 10:15:00 10:15:00 [facility] Medicine l Medicine Outpati ent Clinics 2019-09-29 2019-09-29 [facility] [id number] 15:00:00 15:00:00 [facility] Medicine l Medicine Outpati ent Clinics 2019-09-05 2019-09-05 [facility] [id number] 00:17:00 00:17:00 t [facility] Medicine l Medicine Outpati ent Clinics 2019-08-23 2019-08-23 [facility] [id number] 03:36:00 03:36:00 t [facility] Medicine Medicine Outpati ent Clinics 2019-07-18 2019-07-18 [facility] [id number] 10:04:00 10:04:00 t [facility] Medicine l Medicine Outpati ent Clinics 2019-07-07 2019-07-07 [facility] [id number] 10:00:00 10:00:00 t [facility] Medicine l Medicine Outpati ent Clinics 2019-06-14 2019-06-14 [facility] [id number] 13:20:00 13:20:00 t [facility] Medicine Medicine Outpati ent Clinics 2019-06-09 2019-06-09 [facility] [id number] 11:39:00 11:39:00 t [facility] Medicine Medicine Outpati ent Clinics 2019-05-31 2019-05-31 [facility] [id number] 10:23:00 10:23:00 t [facility] Medicine Medicine Outpati ent Clinics 2019-05-05 2019-05-05 [facility] [id number] 08:59:00 08:59:00 t [facility] Medicine Medicine Outpati ent Clinics 2019-04-11 2019-04-11 [facility] [id number] 13:00:00 13:00:00 t [facility] Medicine Medicine Outpati ent Clinics 2019-04-07 2019-04-07 [facility] [id number] 08:36:00 08:36:00 [facility] Medicine Outpati ent Clinics 2019-03-21 2019-03-21 [facility] [id number] 15:03:00 15:03:00 [facility] Medicine Outpati ent Clinics 2019-03-20 2019-03-20 [facility] [id number] 15:04:00 15:04:00 [facility] Medicine Outpati ent Clinics 2019-03-14 2019-03-14 [facility] [id number] 15:36:00 15:36:00 [facility] Medicine Outpati ent Clinics 2019-02-09 2019-02-09 [facility] [id number] 12[facility]49:00 12:49:00 [facility] Medicine Outpati ent Clinics 2019-02-07 2019-02-07 [facility] [id number] 09:44:00 09:44:00 [facility] Medicine Outpati ent Clinics 2019-02-06 2019-02-06 [facility] [id number] 11:40:00 11:40:00 [facility] Medicine Outpati ent Clinics 2018-11-08 2018-11-08 [facility] [id number] 10:06:00 10:06:00 [facility] Medicine Outpati ent Clinics 2018-11-03 2018-11-03 [facility] [id number] 14:58:00 14:58:00 [facility] Medicine Outpati ent Clinics 2018-10-26 2018-10-26 [facility] [id number] 13:00:00 13:00:00 [facility] Medicine Outpati ent Clinics 2018-10-10 2018-10-10 [facility] [id number] [facility] 11:30:00 11:30:00 t [facility] Medicine Outpati ent Clinics 2018-08-24 2018-08-24 [facility] [id number] 15:45:00 15:45:00 [facility] Medicine Outpati ent Clinics 2018-08-22 2018-08-22 [facility] [id number] 09:18:00 09:18:00 t [facility] Medicine Outpati ent Clinics 2018-08-05 2018-08-05 [facility] [id number] 12:34:00 12:34:00 [facility] Medicine Outpati ent Clinics 2018-05-23 2018-05-23 [facility] [id number] 11:41:00 11:41:00 [facility] Medicine Outpati ent Clinics 2018-05-02 2018-05-02 [facility] [id number] 11:30:00 11:30:00 [facility] Medicine Outpati ent Clinics 2018-03-08 2018-03-08 [facility] [id number] 15:30:00 15:30:00 [facility] Medicine Outpati ent Clinics 2017-11-09 2017-11-09 [facility] [id number] 16:15:00 16:15:00 t [facility] Medicine Outpati ent Clinics Results Test Description Test Time Test Comments Results Result Comments Source GLUBED 2018-10-24 22:58:00 Test Item Value Reference Range Interpretation Comme nts GLUBED (test code = GLUBED) 224 MG/DL 70-110 H Performed by certified briquetter operator at [facility] HGBA1C%2018-10-24 09:25:00 Test Item Value Reference Range Interpretation Comments HGBA1C% (test code = HGBA1C%) 8.3 %A1C 4.8-6.0 H BASIC METABOLIC [id number] 08:18:00 Test Item Value Reference Range Interpretation [...] LDL 62 mg/dL 0-100 N <100 OPT [id number] (test code = LDL) NEAR OPTI MAL/ABOVE [id number] 89 HIGH>SE=931 VE RY HIGH*Guidelines provided by the National Choles terol [employer] m Adult Treatment Panel III THYROID STIMULATING [id number] 08:18:00 Test Item Value Reference Range Interpretation Comments THYROID STIMULATING 0.70 0.42-5.47 N Results in HORMONE (test code = TSH) mi lli-International Units/mL [id number] 08:03:00 Test Item Value Reference Range Interpretation Comments GLUBED (test code = 147 MG/DL 70-110 H Performe d by certified GLUBED) briquetter operator at [facility] CBC W/AUTO [id number] 07:07:00 Test Item Value Reference Range Interpretation [...] DIFF REQUIRED (test code NO = MDIFF) [id number] 21:08:00 Test Item Value Reference Range Interpretation Comments GLUBED (test code = 200 MG/DL 70-110 H Performe d by certified GLUBED) briquetter operator at [facility] - MRI BRAIN W/O [id number] 20:06:00 FAX: Ale Leal MD [phone] [place]: St: ADM FAX: Camilla Odonnell MD Name: VIDYA FROST [facility] : 1950 Age/S: 67/F [address] [place] [address] Unit #: [id number] Loc: G.C136 [place] [address] Phys: Camilla Terrell MD Acct: [id number] Dis Date: Status: ADM IN PHONE #: [phone] Exam Date: 10/23/20181946 FAX #: [phone] Reason: PERSISTENT DIZZINESS EXAMS: CPT CODE: [id number] MRI BRAIN W/O CONT 25332 EXAM: MRI BRAIN WITHOUT CONTRAST DATE: 10/23/2018 [...] Minimal chronic small vessel ischemic change. SL: [id number] PAGE 1 Signed Report (CONTINUED) FAX: Ale Leal MD [phone] [place]: St: ADM FAX: Camilla Odonnell MD Name: VIDYA FROST [facility] : 1950 Age/S: 67/F [address] [place] [address] Unit #: [id number] Loc: [address] [address] Phys: Camilla Terrell MD Acct: [id number] Dis Date: Status: ADM IN PHONE #: [phone] Exam Date: 10/23/2018 1947FAX #: [phone] Reason: PERSISTENT DIZZINESS EXAMS: CPT CODE: [id number] MRI BRAIN W/O CONT 31632 <Continued> at 2006 Reported and signed by: Roman Harrison M.D. CC: Ale Leal MD; Camilla Terrell MD Technologist: Paty Slater, RT(MR)(CT) [facility] Date/Time/By: 10/23/2018 (2005) : By: [email or web address] Orig Print D/T: S: 10/23/2018 (2008) PAGE 2 Signed [id number] 18:14:00 Test Item Value Reference Range Interpretation [...] 3 troponins total (including troponin done in ED)[id number] 17:42:00 Test Item Value Reference Range Interpretation Comments GLUBED (test code = 132 MG/DL 70-110 H Performe d by certified GLUBED) briquetter operator at [facility] [id number] 15:17:00 Test Item Value Reference Range Interpretation Comments GLUBED (test code = 145 MG/DL 70-110 H Performe d by certified GLUBED) briquetter operator at [facility] [id number] 14:45:00 Test Item Value Reference Range Interpretation [...] 1.3 mmol/l 0.4-1.9 N LACTR) COMPREHENSIVE METABOLIC [id number] 11:05:00 Test Item Value Reference Range Interpretation [...] 20-125 N TOTAL (test code = ALKP) [id number] 11:05:00 Test Item Value Reference Range Interpretation [...] results may frances y by method. LACTIC [id number] 10:56:00 Test Item Value Reference Range Interpretation Comments LACTIC ACID (test code = LACT) 2.1 mmol/L 0.4-1.9 H URINALYSIS [id number] 10:46:00 Test Item Value Reference Range Interpretation [...] /LPF NONE SEEN COMMENTS: Clean CatchCBC W/AUTO [id number] 10:42:00 Test Item Value Reference Range Interpretation [...] NO = MDIFF) - CT HEAD/BRAIN W/O [id number] 09:22:00 Name: VIDYA FROST [facility] : 1950 Age/S: 67 / F [address] [place] [address] Unit #: [id number] Loc: Yoel [id number] Phys: Braxton Prasad MD Acct: [id number] Dis Date: Status: REG ER PHONE #: [phone] Exam Date: 10/23/2018 09 FAX #: [phone] Reason: dizziness EXAMS: CPTCODE: [id number] CT HEAD/BRAIN W/O CONT 76230 CT head without contrast 10/23/2018 HISTORY: Dizziness [...] 3. Mild chronic microvascular ischemic changes. SL: [id number] at 0922 Reported and signed by: Giorgio Srivastava M.D. CC: Braxton Prasad MD Technologist:Katrin Miles RT(R)(CT) CTDI: DLP: Trnscb Date/Time: 10/23/2018 (921) [email or web address] Orig Print D/T: S: 10/23/2018 (924) CTDI: DLP: PAGE 1 SignedReportURINALYSIS [id number] 01:38:00 Test Item Value Reference Range Interpretation [...]
--- OUTSIDE RECORDS SUMMARY | 2020-04-03 06:51 | XMS REPORT ---
[...] Status Dosage System Date Date One Touch [facility] 516274792370 1 In Vitro pt February 25February Active as directed Ultra Test testing one 2019 08, Strips time a day 2020 Results No Known Results Summary Purpose eClinicalWorks Submission
--- OUTSIDE RECORDS SUMMARY | 2020-04-03 06:51 | XMS REPORT ---
[...] Status Dosage System Date Date Metformin HCl [facility] 58406255627 500 MG Orally Active 1 tablet Twice daily Januvia ND 20320746859 100 MG Orally Active 1 tabl et Once a day for diabetes Lisinopril ND 24874749421 5 MG Orally October Active 1 tab let Once a day 2017 Blood Glucose NDC 0 as directed Aug 06, Active as di rected Monitor Test BS once 2017 (DISPENSE daily SHAMAR ONE TOUCH) Lancets [facility] 39426664934 - as directed Aug 06, Active as dir ected Test BS once 2017 (dispense daily lancets for Shamar One Touch) Gabapentin ND 58411276161 300 MG Orally Jun 14, Active 1 c apsule Four times a 2019 day Meclizine HCl ND 22214891589 25 mg Orally Up October Active 1 tablet as to four times a 2018 needed for day dizziness Lovastatin ND 42064042180 20MG Orally Active 1 tab let in Once a day evening Glimepiride ND 18633600508 4 MG Orally Active 1 ta blet Once a day with breakfast or the first main meal of the day Aspir-81 ND 20513895383 81 MG Orally Active 1 tabl et Once a day Blood Glucose NDC 0 as directed Aug 06, Active as di rected Test Strip Test BS once 2017 (DISPENS E daily BLOOD GLUCOSE TEST STRIPS FOR SHAMAR ONE TOUCH) Tamiflu ND 41660264794 75 MG Orally October Active 1 capsu le Twice a day 2019 Results No Known Results Summary Purpose eClinicalWorks Submission
--- OUTSIDE RECORDS SUMMARY | 2020-04-03 06:51 | XMS REPORT ---
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 Problem Lower abdominal pain R10.30 Active Problem Dysuria R30.0 Active Medications Medication Code Code Instructions Start End Status Dosage System Date Date Lovastatin [facility] 24522676023 20MG Orally Active 1 tab let in Once a day evening Blood Glucose NDC 0 as directed Aug 06, Active as di rected Test Strip Test BS once 2017 (DISPENS E daily BLOOD GLUCOSE TEST STRIPS FOR SHAMAR ONE TOUCH) Meclizine HCl [facility] 52998260164 25 mg Orally Up October Active 1 tablet as to four times a 2018 needed for day dizziness One Touch [facility] 226102301131 1 In Vitro pt February 25February Active as directed Ultra Test testing one 2020 03, Strips time a day [address] [facility] 84654550539 100 MG Orally Active 1 tabl et Once a day for diabetes Lisinopril [facility] 06737292935 5 MG Orally October Active 1 tab let Once a day 2017 Aspir-[address] [facility] 14861800192 81 MG Orally Active 1 tabl et Once a day Gabapentin ND 36677723759 300 MG Orally Jun 14, Active 1 c apsule Four times a 2018 day Tamiflu ND 19427119198 75 MG Orally October Active 1 capsu le Twice a day [address] [facility] 77812382418 - as directed Aug 06, Active as dir ected Test BS once 2017 (dispense daily lancets for Shamar One Touch) Metformin HCl ND 23498436152 500 MG Orally Active 1 tablet Twice daily Glimepiride ND 66150640328 4 MG Orally Active 1 ta blet Once a day with breakfast or the first main meal of the day Blood Glucose NDC 0 as directed Aug 06, Active as di rected Monitor Test BS once 2017 (DISPENSE daily SHAMAR ONE TOUCH) Results No Known Results Summary Purpose eClinicalWorks Submission
[2020-04-03] MEDS ORDERED: FENTANYL CITR 100 MCG/2 ML ONE (07:12)
[2020-04-03] MEDS ORDERED: propofoL 200 MG/20 ML VIAL IV ONE (07:12)
[2020-04-03] MEDS ORDERED: MIDAZOLAM HCL 2 MG/2 ML INJ ONE (07:13)
[2020-04-03] MEDS ORDERED: ROCURONIUM 50 MG/5 ML VIAL IV ONE (07:13)
[2020-04-03] MEDS ORDERED: ONDANSETRON 4 MG/2 ML VIAL ONE ×2 (07:13→11:17)
[2020-04-03] MEDS ORDERED: LIDOCAINE 2% MPF 5 ML VIAL ONE (07:13)
[2020-04-03] MEDS ORDERED: dexAMETHasone 10 MG/ML VIAL ONE (07:13)
[2020-04-03] MEDS ORDERED: NA CHLORIDE 0.9% 1,000 ML ONE (07:16)
[2020-04-03] MEDS: CEFOXITIN/SWI 1gm 1 GM/10 ML SYR ONE ×2 (08:20→08:55)
[2020-04-03] MEDS ORDERED: GLYCOPYRROLATE 0.2 MG/ML SYR ONE ×2 (09:16→09:25)
[2020-04-03] MEDS ORDERED: EPHEDRINE SULF 50 MG/ML VIAL ONE (09:17)
--- NOTE | 2020-04-03 09:20 | P.BOP ---
Preoperative diagnosis: acute cholecystitis, symptomatic cholelithiasis Postoperative diagnosis: same Primary procedure: Laparoscopic cholecystectomy Survey Instrument Operator: Tameka Alcantara (William) Estimated blood loss: <10cc Specimen: gb Findings: as above Anesthesia: General Complications: None Transferred to: Recovery Room Condition: Good
[2020-04-03] MEDS ORDERED: KETOROLAC 30 MG/ML INJ ONE (09:22)
[2020-04-03] MEDS ORDERED: NEOSTIGMINE 1 MG/ML -5 ML ONE (09:26)
--- NOTE | 2020-04-03 10:05 | OP ---
Date of Procedure: 04/03/2020 Surgeon: Baljinder Santiago MD Cloth Winder: Tameka Alcantara. Preoperative Diagnoses: Acute cholecystitis, symptomatic cholelithiasis. Postoperative Diagnoses: Acute cholecystitis, symptomatic cholelithiasis. Procedure: Laparoscopic cholecystectomy. Anesthesia: General plus local. Indications: This is a case of a 69-year-old patient, who comes to us with abdominal pain, diagnosed with right upper quadrant abdominal pain, symptomatic cholelithiasis and cholecystitis. The benefit s, alternatives, and risks of laparoscopic possible open cholecystectomy were fully explained which i nclude, but not limited to infection, bleeding, damage to adjacent structures, anesthesia complicatio n, choledocholithiasis, bile leak, pancreatitis, CT, and even . She also understands this may n ot relieve the symptoms. She might need more than one surgical intervention. She understood, signed a consent. Description Of Procedure: The patient was brought to the operating room, placed in supine position. Anesthesia was done without complication. Abdominal area was prepped and draped in sterile fashion. Marcaine 0.5% was injected for local anesthetic, followed by sharp incision of the skin in the infr aumbilical region. Incision was carried down to fascia, which was opened under direct vision. Vicry l #1 placed inside the fascia. Mauricio trocar was carefully introduced. Pneumoperitoneum was obtaine d. I placed 3 more trocars 5 mm each one of them in epigastric and right upper quadrant area under d irect visualization. A grasper was placed in the fundus of the gallbladder, another grasper in the i nfundibulum, retracting the gallbladder in the inferolateral fashion exposing the triangle of Calot o btaining critical view of safety. Cystic duct and cystic artery were clearly isolated, freed circumf erentially and a connection between those and the gallbladder was clearly identified. I proceeded to ligate those by using at least 3 clips proximal, 1 clip distal, ligation in the middle. Same was do ne with the cystic artery. A small little branch of the cystic artery was also ligated. Hepatic art eries and common bile duct were protected at all times. At that moment, I proceeded to remove the ga llbladder from liver using Bovie cauterizer and removed from abdominal cavity using EndoCatch through umbilical incision. Area was inspected once again. No bile leak, no bleeding. At that moment, I p roceeded to remove the trocars under direct vision, deflated pneumoperitoneum, closed the fascia with #1 Vicryl, irrigated subcutaneous tissue, closed with 3-0 chromic and the skin with a subcuticular f ashion 3-0 chromic. Sponge count, instrument counts correct. The patient tolerated the procedure we ll. The patient was sent to recovery in stable condition. MAIDA/LI Voice ID: [id number] Report ID: [id number]
--- NOTE | 2020-04-03 10:10 | DS ---
Diagnoses: Acute cholecystitis, symptomatic cholelithiasis. Procedure: Laparoscopic cholecystectomy. Disposition: Home. Activity: As tolerated. No heavy lifting. Plan: Follow up in my office in 1 week. Call for appointment [phone]. Keep area dry for 48 hours, then may shower. Keep Steri-Strips intact. Medications: Include Bactrim DS p.o. b.i.d. and Ultracet q.4 hours p.r.n. pain. The patient states she has no allergies to acetaminophen. We will follow the patient in 1 week. MAIDA/LI Voice ID: [id number] Report ID: [id number]
[2020-04-03] MEDS ORDERED: TRAMADOL 37.5mg/APAP 325mg PER TAB PO ONE (10:35)
[2020-04-03] MEDS ORDERED: TRAMADOL 37.5mg/APAP 325mg PER TAB ONE (10:45)
[2020-04-03] MEDS ORDERED: PROMETHAZINE INJ 25 MG/ML AMP ONE (11:35)
[2020-04-03 13:05] VITALS: BP 131/60; TEMP 97; O2SAT 99
== END 2020-04-03 12:35 | disposition home or self-care (01) ==
LOC: OR 06:47
PROVIDERS: ATTEND Surgery
PROC: 0FT44ZZ Resection of Gallbladder, Percutaneous Endoscopic Approach (ICD-10-PCS; principal; 2020-04-03 08:45)
DX: K80.10 Calculus of gallbladder with chronic cholecystitis without obstruction (principal); I10 Essential (primary) hypertension; E11.9 Type 2 diabetes mellitus without complications; E78.00 Pure hypercholesterolemia, unspecified; Z11.59 Encounter for screening for other viral diseases
CPT/HCPCS: 47562; 93005; 85025; 80048; 36415; 82150; 82947 ×2; 80076; 88304; 83690; 71046; U0002; J2704; J2550; J2250; J3010; J1100; J2710; J7030; J2405 ×2

== ENCOUNTER 2020-05-01 01:21 | Emergency (ER) | payer MEDICARE, OTHER ==
--- OUTSIDE RECORDS SUMMARY | 2020-05-01 01:23 | XMS REPORT | Clinical Summary ---
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
--- OUTSIDE RECORDS SUMMARY | 2020-05-01 01:24 | XMS REPORT ---
[...] Status Dosage System Date Date Metformin HCl [facility] 48572131110 500 MG Orally Active 1 tablet Twice daily Januvia ND 00172679258 100 MG Orally Active 1 tabl et Once a day for diabetes Lisinopril ND 09951004912 5 MG Orally October Active 1 tab let Once a day 2017 Blood Glucose NDC 0 as directed Aug 06, Active as di rected Monitor Test BS once 2017 (DISPENSE daily SHAMAR ONE TOUCH) Lancets [facility] 65239644553 - as directed Aug 06, Active as dir ected Test BS once 2017 (dispense daily lancets for Shamar One Touch) Gabapentin ND 77745177279 300 MG Orally Jun 14, Active 1 c apsule Four times a 2019 day Meclizine HCl ND 35082329436 25 mg Orally Up October Active 1 tablet as to four times a 2018 needed for day dizziness Lovastatin ND 28216299159 20MG Orally Active 1 tab let in Once a day evening Glimepiride ND 36107550970 4 MG Orally Active 1 ta blet Once a day with breakfast or the first main meal of the day Aspir-81 ND 94434491323 81 MG Orally Active 1 tabl et Once a day Blood Glucose NDC 0 as directed Aug 06, Active as di rected Test Strip Test BS once 2017 (DISPENS E daily BLOOD GLUCOSE TEST STRIPS FOR SHAMAR ONE TOUCH) Tamiflu ND 44748131774 75 MG Orally October Active 1 capsu le Twice a day 2019 Results No Known Results Summary Purpose eClinicalWorks Submission
--- OUTSIDE RECORDS SUMMARY | 2020-05-01 01:24 | XMS REPORT | Continuity of Care Document ---
:1950 Author Organization [facility] t Address [address] [place] [address] Care Team Providers Name Role Phone Unavailable Unavailable Unavailable Payers Payer Name Policy Type Policy Number Effective Date Expiration Date S ource Problems Condition Condition Condition Status Onset Resolution Last Treating Co mments Source Name Details Category Date Date Treatment Clinician Date Acquired Acquired Problem [facility] of Michelle kes - both both Memoria ovaries ovaries l [facility] Acquired Acquired Problem Active [facility] absence of absence of Michelle kes - both both Memoria cervix and cervix and l uterus uterus [facility] Hyperlipem Hyperlipem Problem Active [facility] ia ia [facility] Shoulder Shoulder Problem Active [facility] pain[facility] pain, [facility] right right [facility] Anemia Anemia Problem [facility] Hypertensi Hypertensi Problem Active [facility] on on [facility] Clinics Onychomyco Onychomyco Problem Active [facility] sis sis [facility] Overweight Overweight Problem Active [facility] (BMI (BMI [facility]ukes - 25.0-29.9) 25.0-29.9) Me moria l [facility] ent Clinics Type 2 Type [address] [facility] diabetes diabetes [facility] History of History of Diagnosis Active [facility] uterine uterine [facility] - cancer cancer [facility] l [facility] Uncontroll Uncontroll Diagnosis Active [facility] ed type 2 ed type 2 [facility] - diabetes diabetes Memori a mellitus mellitus l with with [facility] hyperglyce hyperglyce en t [facility] Abnormal Abnormal Problem Active [facility] laboratory laboratory Michelle kes - test test Memoria result result l [facility] Leukopenia Leukopenia Problem Active [facility] , , [facility] - unspecifie unspecifie Me moria d type d type l [facility] Abnormal Abnormal Problem Active [facility] mammogram mammogram Luke s - of right of right Memori a breast breast l [facility] Clinics Callus of Callus of Problem Active [facility] foot foot [facility] Pain of Pain of Problem Active [facility] upper upper [facility] - abdomen abdomen [facility] l [facility] Dizziness Dizziness Problem Active [facility] Benign Benign 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 Michelle kes - positional positional Me moria vertigo vertigo l due to due to [facility] bilateral bilateral ent vestibular vestibular Cl inics disorder disorder Acute Acute Problem Active [facility] bilateral bilateral Luke s - back pain, back pain, Me moria unspecifie unspecifie l d back d back [facility] Clinics Diarrhea, Diarrhea, Problem Active [facility] unspecifie unspecifie Michelle kes - d type d [facility] Depression Depression Problem Active [facility] screening screening Luke s - Memoria l [facility] Abdominal Abdominal Problem Active [facility] pain, pain, [facility] - unspecifie unspecifie Me moria d d l abdominal abdominal Out[facility] ent Clinics Abnormal Abnormal Problem Active [facility] computed computed [facility] - tomography tomography Me moria angiograph angiograph l y (CTA) of y (CTA) of Ou tpati abdomen abdomen ent and pelvis and pelvis Cl inics Lower Lower Problem Active [facility] abdominal abdominal [facility] Dysuria Dysuria Problem Active [facility] Routine Routine Problem Active [facility] eye exam eye exam [facility] Hematuria, Hematuria, Problem Active [facility] unspecifie unspecifie Michelle kes - d type d type [facility] Forgetfuln Forgetfuln Problem Active [facility] ess ess [facility] Memory Memory Problem Active [facility] loss loss [facility] Tinnitus Tinnitus Problem Active [facility] of both of both [facility] - ears ears Memoria l [facility] Hypomagnes Hypomagnes Problem Active [facility] emia emia [facility] Rash and Rash and Problem Active [facility] nonspecifi nonspecifi Michelle kes - c skin c skin Memoria eruption eruption l [facility] ent [facility] Generalize Generalize Diagnosis Active [facility] d d [facility] - abdominal abdominal Marlon terri pain pain l [facility] S/P S/P Diagnosis Active [facility] cholecyste cholecyste Michelle kes - ctomy ctomy Memoria [facility] Allergies, Adverse Reactions, Alerts Allergy Allergy Status Severity Reaction(s) Onset Inactive Treating Comm ents Source Name Type Date Date Clinician codeine DA Active [place] [facility] 3-10 Clear 00:00: Cornelius 00 [facility] codeine DA Active [place] [facility] 3-05 Clear 00:00: Cornelius 00 [facility] codeine DA Active [place] [facility] 6-12 Clear 00:00: Cornelius 00 [facility] codeine Adverse Active nausea/vomit [facility] Reaction ing [facility] Social History Social Habit Start Date Stop Date Quantity Comments Source Sex Assigned At [facility] Medications Ordered Filled Start Stop Current Ordering Indication Dosage Frequency Signature Comments Components Source Medication Medication Date Date Medication? Clinician (SIG) Name Name Bk Trulicity 2020- Yes Amrita one [facility] 9-13 01-11 Millender injection Luke s - 00:00: 00:00 (0.75 mg) Memoria 00 :00 [facility] One Touch One Touch 2020- Yes Amrita as [facility] Ultra Test Ultra Test 7-13 07-08 Millender directed [facility] - Strips Strips 00:00: 00:00 Memoria 00 :00 [facility] Ketoconazol Ketoconazol 2019- No Amrita [address] [facility] e e 3- 10-13 Millender applicatio Linda es - 00:00: 00:00 n to Memoria 00 :00 affected l areas Outpati ent Clinics Tamiflu Tamiflu Yes Amrita [address] 3-04 Millender [facility] - 00:[facility]: Memoria 00 l Outpati ent Clinics Gabapentin Gabapentin 2018-08 Yes Amrita [address] [facility] 0-30 Millender [facility] - 00:00: Memoria 00 l Outpati ent Clinics Meclizine Meclizine Yes Amrita [address] HCl HCl 3-13 Millender as needed [facility] - 00:00: for Memoria 00 dizziness l Outpati ent Clinics Blood Blood 2017-08 Yes Amrita [...] s - Memoria l Outpati ent Clinics Jania Jania Yes Amrita [address] [facility] [address] Millender [...] Comments Source Future Scheduled 2020-04-16 INFLUENZA VACCINE [facility] 00:00:00 [code = INFLUENZA VACCINE] Future Scheduled 2016-12-16 65+ PNEUMOCOCCAL [facility] 00:00:00 VACCINE (1 of 2 - PCV13) [code = 65+ PNEUMOCOCCAL VACCINE (1 of 2 - PCV13)] Future Scheduled 2001-12-16 BREAST CANCER [facility] 00:00:00 SCREENING [code = BREAST CANCER SCREENING] Future Scheduled 2001-12-16 COLONOSCOPY SCREENING [facility] 00:00:00 [code = COLONOSCOPY SCREENING] Future Scheduled 2001-12-16 SHINGLES VACCINES (#1) [facility] 00:00:00 [code = SHINGLES VACCINES (#1)] Encounters Start End Encounter Admission Attending Care Care Encounter Source Date/Time Date/Time Type Type Clinicians Facility Department ID 2020-04-26 2020-04-26 [facility] [id number] [facility] 10:40:00 10:40:00 [facility] Medicine l Medicine Outpati ent Clinics 2020-03-21 2020-03-21 [facility] [id number] 09[facility]35:00 09:35:00 [facility] Medicine l Medicine Outpati ent Clinics 2020-03-01 2020-03-01 [facility] [id number] [facility] 14:20:00 14:20:00 [facility] Medicine l Medicine Outpati ent Clinics 2020-02-26 2020-02-26 [facility] [id number] [facility] 14:40:00 14:40:00 [facility] Medicine l Medicine Outpati ent Clinics 2020-02-23 2020-02-23 [facility] [id number] [address] 11:09:00 11:09:00 [facility] Medicine l Medicine Outpati ent Clinics 2020-02-09 2020-02-09 [facility] [id number] 13:00:00 13:00:00 [facility] Medicine l Medicine Outpati ent Clinics 2019-12-27 2019-12-27 [facility] [id number] [facility] 16[facility]27:00 16:27:00 [facility] Medicine l Medicine Outpati ent Clinics 2019-11-08 2019-11-08 [facility] [id number] 10[facility]45:00 10:45:00 t [facility] Medicine Outpati ent Clinics 2019-10-24 2019-10-24 [facility] [id number] 09:52:00 09:52:00 t [facility] Medicine Outpati ent Clinics 2019-10-18 2019-10-18 [facility] [id number] 10:15:00 10:15:00 t [facility] Medicine Outpati ent Clinics 2019-09-29 2019-09-29 [facility] [id number] 15:00:00 15:00:00 t [facility] Medicine Outpati ent Clinics 2019-09-05 2019-09-05 [facility] [id number] 00:17:00 00:17:00 t [facility] Medicine Outpati ent Clinics 2019-08-23 2019-08-23 [facility] [id number] 03:36:00 03:36:00 t [facility] Medicine Outpati ent Clinics 2019-07-18 2019-07-18 [facility] [id number] 10:04:00 10:04:00 t [facility] Medicine Outpati ent Clinics 2019-07-07 2019-07-07 [facility] [id number] 10:00:00 10:00:00 t [facility] Medicine Medicine Outpati ent Clinics 2019-06-14 2019-06-14 [facility] [id number] 13:20:00 13:20:00 t [facility] Medicine Outpati ent Clinics 2019-06-09 2019-06-09 [facility] [id number] 11:39:00 11:39:00 t [facility] Medicine Outpati ent Clinics 2019-05-31 2019-05-31 [facility] [id number] 10:23:00 10:23:00 t [facility] Medicine Outpati ent Clinics 2019-05-05 2019-05-05 [facility] [id number] 08:59:00 08:59:00 t [facility] Medicine Outpati ent Clinics 2019-04-11 2019-04-11 [facility] [id number] 13:00:00 13:00:00 t [facility] Medicine Outpati ent Clinics 2019-04-07 2019-04-07 [facility] [id number] 08:36:00 08:36:00 t [facility] Medicine Outpati ent Clinics 2019-03-21 2019-03-21 [facility] [id number] [facility] 15:03:00 15:03:00 t [facility] Medicine Outpati ent Clinics 2019-03-20 2019-03-20 [facility] [id number] 15:04:00 15:04:00 t [facility] Medicine Outpati ent Clinics 2019-03-14 2019-03-14 [facility] [id number] 15:36:00 15:36:00 t [facility] Medicine Outpati ent Clinics 2019-02-09 2019-02-09 [facility] [id number] 12:49:00 12:49:00 t [facility] Medicine Outpati ent Clinics 2019-02-07 2019-02-07 [facility] [id number] 09:44:00 09:44:00 t [facility] Medicine Outpati ent Clinics 2019-02-06 2019-02-06 [facility] [id number] 11:40:00 11:40:00 t [facility] Medicine Outpati ent Clinics 2018-11-08 2018-11-08 [facility] [id number] 10:06:00 10:06:00 t [facility] Medicine Outpati ent Clinics 2018-11-03 2018-11-03 [facility] [id number] 14:58:00 14:58:00 t [facility] Medicine Outpati ent Clinics 2018-10-26 2018-10-26 [facility] [id number] 13:00:00 13:00:00 t [facility] Medicine Outpati ent Clinics 2018-10-10 2018-10-10 [facility] [id number] 11:30:00 11:30:00 t [facility] Medicine Outpati ent Clinics 2018-08-24 2018-08-24 [facility] [id number] 15:45:00 15:45:00 t [facility] Medicine Outpati ent Clinics 2018-08-22 2018-08-22 [facility] [id number] [facility] 09:18:00 09:18:00 t [facility] Medicine Outpati ent Clinics 2018-08-05 2018-08-05 [facility] [id number] 12:34:00 12:34:00 t [facility] Medicine Outpati ent Clinics 2018-05-23 2018-05-23 [facility] [id number] 11:41:00 11:41:00 t [facility] Medicine Outpati ent Clinics 2018-05-02 2018-05-02 [facility] [id number] [facility] 11:30:00 11:30:00 t [facility] Medicine Outpati ent Clinics 2018-03-08 2018-03-08 [facility] [id number] 15:30:00 15:30:00 [facility] ent [facility] 2017-11-09 2017-11-09 Outpatient Maria Ines Olvera [id number] 16:15:00 16:15:00 [facility] Results Test Description Test Time Test Comments Results Result Comments Source GLUBED 2018-10-24 22:58:00 Test Item Value Reference Range Interpretation Comme nts GLUBED (test code = GLUBED) 224 MG/DL 70-110 H Performed by certified highwall drill operator at [facility] HGBA1C%2018-10-24 09:25:00 Test Item Value Reference Range Interpretation Comments HGBA1C% (test code = HGBA1C%) 8.3 %A1C 4.8-6.0 H BASIC METABOLIC [id number] 08:18:00 Test Item Value Reference Range Interpretation [...] LDL 62 mg/dL 0-100 N <100 OPT [id number] (test code = LDL) NEAR OPTI MAL/ABOVE [id number] 89 HIGH>IM=435 VE RY HIGH*Guidelines provided by the National [facility] terol [employer] m Adult Treatment Panel III THYROID STIMULATING [id number] 08:18:00 Test Item Value Reference Range Interpretation Comments THYROID STIMULATING 0.70 0.42-5.47 N Results in HORMONE (test code = TSH) mi lli-International Units/mL [id number] 08:03:00 Test Item Value Reference Range Interpretation Comments GLUBED (test code = 147 MG/DL 70-110 H Performe d by certified GLUBED) highwall drill operator at [facility] CBC W/AUTO [id number] 07:07:00 Test Item Value Reference Range Interpretation [...] DIFF REQUIRED (test code NO = MDIFF) [id number] 21:08:00 Test Item Value Reference Range Interpretation Comments GLUBED (test code = 200 MG/DL 70-110 H Performe d by certified GLUBED) highwall drill operator at [facility] - MRI BRAIN W/O [id number] 20:06:00 FAX: Ale Leal MD [phone] [place]: St: ADM FAX: Camilla Odonnell MD Name: VIDYA FROST [facility] [place] : 1950 Age/S: 67/F [address] [place] [address] Unit #: [id number] Loc: [id number] [place] [address] Phys: Camilla Terrell MD Acct: [id number] Dis Date: Status: ADM IN PHONE #: [phone] Exam Date: 10/23/20181946 FAX #: [phone] Reason: PERSISTENT DIZZINESS EXAMS: CPT CODE: [id number] MRI BRAIN W/O CONT 86919 EXAM: MRI BRAIN WITHOUT CONTRAST DATE: 10/23/2018 [...] Signed Report (CONTINUED) FAX: Ale Leal MD [phone] [place]: St: [facility] FAX: Camilla Odonnell MD Name: VIDYA FROST [facility] : 1950 Age/S: 67/F [address] [place] [address] Blvd Unit #: [id number] Loc: [address] [place] [address] Phys: Camilla Terrell MD Acct: [id number] Dis Date: Status: ADM IN PHONE #: [phone] Exam Date: 10/23/2018 1947FAX #: [phone] Reason: PERSISTENT DIZZINESS EXAMS: CPT CODE: [id number] MRI BRAIN W/O CONT 06380 <Continued> at 2006 Reported and signed by: Roman Harrison M.D. CC: Ale Leal MD; Camilla Terrell MD Technologist: Paty Slater, RT(MR)(CT) Trnscrd Date/Time/By: 10/23/2018 (2005) : By: [email or web address] Orig Print D/T: S: 10/23/2018 (2008) PAGE 2 Signed [id number] 18:14:00 Test Item Value Reference Range Interpretation [...] 3 troponins total (including troponin done in ED)[id number] 17:42:00 Test Item Value Reference Range Interpretation Comments GLUBED (test code = 132 MG/DL 70-110 H Performe d by certified GLUBED) highwall drill operator at [facility] [id number] 15:17:00 Test Item Value Reference Range Interpretation Comments GLUBED (test code = 145 MG/DL 70-110 H Performe d by certified GLUBED) highwall drill operator at [facility] [id number] 14:45:00 Test Item Value Reference Range Interpretation [...] 1.3 mmol/l 0.4-1.9 N LACTR) COMPREHENSIVE METABOLIC [id number] 11:05:00 Test Item Value Reference Range Interpretation [...] 20-125 N TOTAL (test code = ALKP) [id number] 11:05:00 Test Item Value Reference Range Interpretation [...] results may frances y by method. LACTIC [id number] 10:56:00 Test Item Value Reference Range Interpretation Comments LACTIC ACID (test code = LACT) 2.1 mmol/L 0.4-1.9 H URINALYSIS [id number] 10:46:00 Test Item Value Reference Range Interpretation [...] /LPF NONE SEEN COMMENTS: Clean CatchCBC W/AUTO [id number] 10:42:00 Test Item Value Reference Range Interpretation [...] NO = MDIFF) - CT HEAD/BRAIN W/O [id number] 09:22:00 Name: VIDYA FROST [facility] : 1950 Age/S: 67 / F [address] [place] [address] Unit #: [id number] Loc: [place] [id number] Phys: Braxton Prasad MD Acct: [id number] Dis Date: Status: REG ER PHONE #: [phone] Exam Date: 10/23/2018904 FAX #: [phone] Reason: dizziness EXAMS: CPTCODE: [id number] CT HEAD/BRAIN W/O CONT 50365 CT head without contrast 10/23/2018 HISTORY: Dizziness [...] 3. Mild chronic microvascular ischemic changes. SL: [id number] at 0922 Reported and signed by: Giorgio Srivastava M.D. CC: Braxton Prasad MD Technologist:Katrin Miles, RT(R)(CT) CTDI: DLP: Trnscb Date/Time: 10/23/2018 (921) [email or web address] Orig Print D/T: S: 10/23/2018 (924) CTDI: DLP: PAGE 1 SignedReportURINALYSIS [id number] 01:38:00 Test Item Value Reference Range Interpretation [...]
--- OUTSIDE RECORDS SUMMARY | 2020-05-01 01:24 | XMS REPORT ---
[...] End Status Dosage System Date Date Lovastatin [facility] 21157147907 20MG Orally Active 1 tab let in Once a day evening Blood Glucose NDC 0 as directed Aug 06, Active as di rected Test Strip Test BS once 2017 (DISPENS E daily BLOOD GLUCOSE TEST STRIPS FOR SHAMAR ONE TOUCH) Meclizine HCl [facility] 72272984018 25 mg Orally Up October Active 1 tablet as to four times a 2018 needed for day dizziness One Touch [facility] 495162747285 1 In Vitro pt February 25February Active as directed Ultra Test testing one 2020 03, Strips time a day 2020 Januvia [facility] 75414564471 100 MG Orally Active 1 tabl et Once a day for diabetes Lisinopril [facility] 45517803344 5 MG Orally October Active 1 tab let Once a day 2017 Aspir-81 [facility] 63477262380 81 MG Orally Active 1 tabl et Once a day Gabapentin ND 78208125920 300 MG Orally Jun 14, Active 1 c apsule Four times a 2018 day Tamiflu ND 49576369683 75 MG Orally October Active 1 capsu le Twice a day 2019 Lancets [facility] 06344435518 - as directed Aug 06, Active as dir ected Test BS once 2017 (dispense daily lancets for Shamar One Touch) Metformin HCl ND 30895591969 500 MG Orally Active 1 tablet Twice daily Glimepiride ND 81724952375 4 MG Orally Active 1 ta blet Once a day with breakfast or the first main meal of the day Blood Glucose NDC 0 as directed Aug 06, Active as di rected Monitor Test BS once 2017 (DISPENSE daily SHAMAR ONE TOUCH) Results No Known Results Summary Purpose eClinicalWorks Submission
--- OUTSIDE RECORDS SUMMARY | 2020-05-01 01:24 | XMS REPORT ---
[...] Status Dosage System Date Date One Touch [facility] [id number] 1 In Vitro pt February 25February Active as directed Ultra Test testing one 2019 08, Strips time a day 2020 Results No Known Results Summary Purpose eClinicalWorks Submission
--- OUTSIDE RECORDS SUMMARY | 2020-05-01 01:24 | XMS REPORT ---
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 Problem History of uterine cancer Z85.42 Ac tive Assessment Rash and nonspecific skin eruption R21 Active Assessment History of uterine cancer Z85.42 Ac tive Problem Hyperlipidemia, unspecified E78.5 Active hyperlipidemia type Assessment Hypomagnesemia E83.42 Active Problem Hypertension, unspecified type I10 Active Assessment Hyperlipidemia, unspecified E78.5 Active hyperlipidemia type Problem Uncontrolled type 2 diabetes E11.65 Active mellitus without complication, without long-term current use of insulin Problem Leukopenia, unspecified type D72.819 Active Problem Anemia, unspecified type D64.9 Act clotilde Problem Abnormal laboratory test result R89.9 Active Problem Diarrhea, unspecified type R19.7 A ctive Problem Depression screening Z13.31 Active Problem Essential hypertension I10 Activ e Problem Abnormal computed tomography R93.5 Active angiography (CTA) of abdomen and pelvis Problem Forgetfulness R68.89 Active Problem Memory loss R41.3 Active Problem Generalized abdominal pain R10.84 A ctive Problem Uncontrolled type 2 diabetes E11.65 Active mellitus with hyperglycemia Problem Abnormal mammogram of right breast R92.8 Active Problem Pain of upper abdomen R10.10 Active Problem S/P cholecystectomy Z90.49 Active Problem Callus of foot L84 Active Assessment Essential hypertension I10 Activ e Problem Hypomagnesemia E83.42 Active Assessment Generalized abdominal pain R10.84 A ctive Problem 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 Active Assessment S/P cholecystectomy Z90.49 Active Problem Rash and nonspecific skin eruption R21 Active Assessment Uncontrolled type 2 diabetes E11.65 Active mellitus with hyperglycemia Problem Vertigo R42 Active Problem Hypertension I10 Active Problem Lower abdominal pain R10.30 Active Problem Overweight (BMI 25.0-29.9) E66.3 A ctive Problem Dysuria R30.0 Active Problem Anemia D64.9 Active Problem Hematuria, unspecified type R31.9 Active Problem Shoulder pain, right M25.511 Active Problem Routine eye exam Z01.00 Active Problem Type 2 diabetes E11.9 Active Problem Abdominal pain, unspecified R10.9 Active abdominal location Problem Hyperlipemia E78.5 Active Problem Acute bilateral back pain, M54.9 A ctive unspecified back location Problem Dizziness R42 Active Problem 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 Medications Medication Code Code Instructions Start End Status Dosage System Date Date Lancets [facility] 09698743126 - as directed Aug 06, Active as dir ected Test BS once 2017 (dispense daily lancets for Shamar One Touch) One Touch Ultra [facility] 233099886391 1 In Vitro pt February Activ e as directed Test Strips testing one , time a day 2019 2020 Tamiflu [facility] 25959797462 75 MG Orally October Active 1 capsu le Twice a day 2019 Januvia [facility] 56507885164 100 MG Orally Active 1 tabl et Once a day for diabetes Ketoconazole [facility] 39521134472 2 % Externally October Active 1 application Once a day , 13, to affected 2019 2019 areas Aspir-81 [facility] 83133258394 81 MG Orally Active 1 tabl et Once a day Meclizine HCl [facility] 30034355585 25 mg Orally Up October Active 1 tablet as to four times a , needed f or day 2018 dizziness Gabapentin ND 48065027007 300 MG Orally Jun 14, Active 1 c apsule Four times a 2019 day Glimepiride ND 85872837317 4 MG Orally Active 1 ta blet with Once a day breakfast or the first main meal of the day Metformin HCl ND 31241745642 500 MG Orally Active 1 tablet Twice daily Lisinopril [facility] 57465815275 5 MG Orally Active 1 tab let Once a day Trulicity [facility] 72769157116 0.75mg/0.5ml Apr Active one i njection subcutaneous , (0.75 mg) once a week 2019 2020 Lovastatin [facility] 18096172389 20MG Orally Active 1 tab let in Once a day evening Blood Glucose NDC 0 as directed Aug 06, Active as di rected Monitor Test BS once 2017 (DISPENSE daily SHAMAR ONE TOUCH) Blood Glucose NDC 0 as directed Aug 06, Active as di rected Test Strip Test BS once 2017 (DISPENS E daily BLOOD GLUCOSE TEST STRIPS FOR SHAMAR ONE TOUCH) Results No Known Results Summary Purpose eClinicalWorks Submission
[2020-05-01 02:04] LABS: Basophils % 0.6 % (0-1.3); Hematocrit 32.8 % (36.0-45.0); Lymphocytes % 17.5 % (15.3-44.8); MPV 8.9 fL (7.6-11.3); RBC Red Blood Cell Count 3.76 M/uL (3.86-4.86)
[2020-05-01] MEDS ORDERED: ONDANSETRON 4 MG/2 ML VIAL ONE ×2 (02:05→02:08)
[2020-05-01] MEDS ORDERED: NA CHLORIDE 0.9% 0 ML ONE (02:05)
[2020-05-01] MEDS ORDERED: NA CHLORIDE 0.9% 1,000 ML ONE (02:08)
[2020-05-01] MEDS ORDERED: MORPHINE 2 MG/ML SYR ONE ×2 (02:08→03:33)
[2020-05-01 02:15] LABS: ALT/SGPT 24 U/L (12-78); AST/SGOT 18 U/L (15-37); Albumin 3.7 g/dL (3.4-5.0); Alkaline Phosphatase 73 U/L (45-117); BUN Blood Urea Nitrogen 17 mg/dL (7-18); Bicarbonate 22 mmol/L (21-32); Bilirubin Direct < 0.1 mg/dL (0-0.2); Bilirubin Total 0.3 mg/dL (0.2-1.0); Glucose Level 125 mg/dL (74-106); Lipase 332 U/L (73-393); Potassium 3.9 mmol/L (3.5-5.1); Protein, Total 7.2 g/dL (6.4-8.2); Sodium Level 141 mmol/L (136-145)
[2020-05-01] MEDS ORDERED: CIPROFLOXACIN HCL 500 MG TAB ONE (03:32)
--- NOTE | 2020-05-01 03:41 | ER ---
Nurse's Notes [facility] Name: Miroslava Rousseau Age: 69 yrs Sex: Female : 1950 Arrival Date: 05/01/2020 Time: 01:24 Bed 20 Private MD: Diagnosis: Abdominal Pain;Enteritis Presentation: 05/01 01:43 Chief complaint: Patient states: she started having right lower quad pain yesterday but bb then today the pain is sharp she is nauseous but denies vomiting or diarrhea states she had a cholecystectomy approx a month ago. Coronavirus screen: At this time, the client does not indicate any symptoms associated with coronavirus-19. Ebola Screen: No symptoms or risks identified at this time. Initial Sepsis Screen: Does the patient meet any 2 criteria? No. Patient's initial sepsis screen is negative. Does the patient have a suspected source of infection? No. Patient's initial sepsis screen is negative. Risk Assessment: Do you want to hurt yourself or someone else? Patient reports no desire to harm self or others. Onset of symptoms was April 30, 2020. 01:43 Method Of Arrival: Ambulatory 01:43 Acuity: MARTHA 3 bb Historical: - Allergies: 01:47 Tylenol-Codeine; bb - Home Meds: 01:47 aspirin 81 mg Oral TbEC 1 tab once daily [Active]; glimepiride 2 mg Oral tab 1 tab once bb daily [Active]; Januvia 100 mg Oral tab 1 tab once daily [Active]; lisinopril 5 mg Oral tab 1 tab once daily [Active]; metformin 500 mg Oral tab 1 tab 2 times per day [Active]; lovastatin 20 mg Oral tab 1 tab once daily [Active]; Trulicity subcutaneous subcutaneous [Active]; vitamins [Active]; - PMHx: 01:47 Hyperlipidemia; Hypertension; Uterine CA; bb 01:48 Diabetes - IDDM; bb - PSHx: 01:47 Appendectomy; foot surgery; benign Breast Surgery; Cholecystectomy; bb - Immunization history:: Adult Immunizations up to date. - Social history:: Smoking status: unknown. Screenin:05 Abuse screen: Denies threats or abuse. Nutritional screening: No deficits noted. vc Tuberculosis screening: No symptoms or risk factors identified. Fall Risk None identified. Assessment: 02:02 General: Appears in no apparent distress. uncomfortable, Behavior is calm, cooperative, vc appropriate for age. Pain: Complains of pain in right lower quadrant Pain radiates to left lower quadrant and suprapubic area Pain currently is 5 out of 10 on a pain scale. Quality of pain is described as sharp, Pain began gradually, Is continuous, Aggravated by pushing on abdomen. Neuro: Level of Consciousness is awake, alert, obeys commands, Oriented to person, place, time, situation, Appropriate for age. Cardiovascular: Capillary refill < 3 seconds Patient's skin is warm and dry. Respiratory: Airway is patent Respiratory effort is even, unlabored, Respiratory pattern is regular, symmetrical. GI: Abdomen is flat, Abd is soft Abdomen is tender to palpation Reports lower abdominal pain, nausea, Patient currently denies vomiting. : No signs and/or symptoms were reported regarding the genitourinary system. EENT: No deficits noted. Derm: No signs and/or symptoms reported regarding the dermatologic system. Musculoskeletal: Circulation, motion, and sensation intact. Range of motion: intact in all extremities. 03:01 Reassessment: Patient and/or family updated on plan of care and expected duration. Pain vc level reassessed. Patient is alert, oriented x 3, equal unlabored respirations, skin warm/dry/pink. patient ambulating to the bathroom. Patient states symptoms have improved. Vital Signs: 01:43 BP 135 / 58; Pulse 77; Resp 16 S; Temp 98.5(O); Pulse Ox 98% on R/A; Weight 72.57 kg bb (R); Height 5 ft. 0 in. (152.40 cm) (R); Pain 4/10; 02:00 BP 121 / 65; Pulse 74; Resp 17; Pulse Ox 98% on R/A; Pain 5/10; vc 03:00 BP 111 / 63; Pulse 88; Resp 16; Pulse Ox 99% on R/A; vc 03:03 Pain 3/10; vc 01:43 Body Mass Index 31.25 (72.57 kg, 152.40 cm) bb ED Course: 01:24 Patient arrived in ED. cl3 01:29 Khanh Joshi MD is Attending Physician. mh7 01:40 Yun Mcconnell RN is Primary Nurse. vc 01:46 Triage completed. bb 01:47 No provider procedures requiring assistance completed. Inserted saline lock: 20 gauge mg2 in right antecubital area, using aseptic technique. Blood collected. 01:47 Arm band placed on Patient placed in an exam room, on a stretcher, on pulse oximetry. bb 02:05 Patient has correct armband on for positive identification. Bed in low position. Call vc light in reach. Pulse ox on. NIBP on. 02:51 CT Abd/Pelvis - IV Contrast Only In Process Unspecified. EDMS 04:08 IV discontinued, intact, bleeding controlled, No redness/swelling at site. Pressure vc dressing applied. Administered Medications: 01:59 Drug: NS 0.9% 1000 ml Route: IV; Rate: 1000 ml; Site: right antecubital; vc 01:59 Drug: Zofran (Ondansetron) 4 mg Route: IVP; Site: right antecubital; vc 03:03 Follow up: Response: No adverse reaction; Nausea is decreased vc 02:03 Drug: morphine 2 mg Route: IVP; Site: right antecubital; mg2 03:03 Follow up: Pain 3/10 Adult; Response: No adverse reaction; Pain is decreased vc 03:27 Drug: morphine 2 mg {Note: RASS-0.} Route: IVP; Site: right antecubital; vc 04:11 Follow up: Response: No adverse reaction vc 03:28 Drug: Cipro 500 mg Route: PO; vc 04:11 Follow up: Response: No adverse reaction vc Outcome: 03:40 Discharge ordered by . 7 04:08 Discharged to home ambulatory. vc 04:08 Condition: improved 04:08 Discharge instructions given to patient, Instructed on discharge instructions, follow up and referral plans. Demonstrated understanding of instructions, follow-up care, medications, Prescriptions given X 2. 04:10 Patient left the ED. vc Signatures: Dispatcher [employer] EDAnnie Hyatt RN RN bb Gardose, Michele, RN RN mg2 Lewis, Charde cl3 Yun Mcconnell RN RN vc Holmes, Maurice, MD MD 7 Corrections: (The following items were deleted from the chart) 01:48 01:47 PMHx: Diabetes - NIDDM; ron velasquez
--- NOTE | 2020-05-01 03:41 | EDPHYS ---
Physician Documentation [facility] Name: Miroslava Rousseau Age: 69 yrs Sex: Female : 1950 Arrival Date: 05/01/2020 Time: 01:24 Bed 20 Private MD: ED Physician Khanh Joshi HPI: 05/01 01:53 This 69 yrs old Female presents to ER via Ambulatory with complaints of Lower mh7 Abdominal Pain. 01:53 The patient presents with abdominal pain in the lower abdomen. Onset: The mh7 symptoms/episode began/occurred yesterday. The symptoms do not radiate. Associated signs and symptoms: Pertinent positives: nausea, Pertinent negatives: anorexia, blood in stools, chest pain, constipation, diarrhea, dysuria, fever, headache, hematuria, palpitations, shortness of breath, vaginal discharge, vomiting, vomiting blood. The symptoms are described as intermittent, vague, waxing/waning. Modifying factors: The symptoms are alleviated by nothing, the symptoms are aggravated by nothing. Severity of pain: At its worst the pain was moderate yesterday, in the emergency department the pain is unchanged. Historical: - Allergies: 01:47 Tylenol-Codeine; bb - Home Meds: 01:47 aspirin 81 mg Oral TbEC 1 tab once daily [Active]; glimepiride 2 mg Oral tab 1 tab once bb daily [Active]; Januvia 100 mg Oral tab 1 tab once daily [Active]; lisinopril 5 mg Oral tab 1 tab once daily [Active]; metformin 500 mg Oral tab 1 tab 2 times per day [Active]; lovastatin 20 mg Oral tab 1 tab once daily [Active]; Trulicity subcutaneous subcutaneous [Active]; vitamins [Active]; - PMHx: 01:47 Hyperlipidemia; Hypertension; Uterine CA; bb 01:48 Diabetes - IDDM; bb - PSHx: 01:47 Appendectomy; foot surgery; benign Breast Surgery; Cholecystectomy; bb - Immunization history:: Adult Immunizations up to date. - Social history:: Smoking status: unknown. ROS: 01:53 Constitutional: Negative for fever, chills, and weight loss, Eyes: Negative for injury, mh7 pain, redness, and discharge, ENT: Negative for injury, pain, and discharge, Neck: Negative for injury, pain, and swelling, Cardiovascular: Negative for chest pain, palpitations, and edema, Respiratory: Negative for shortness of breath, cough, wheezing, and pleuritic chest pain, : Negative for injury, bleeding, discharge, and swelling, MS/Extremity: Negative for injury and deformity, Skin: Negative for injury, rash, and discoloration, Neuro: Negative for headache, weakness, numbness, tingling, and seizure, Psych: Negative for depression, anxiety, suicide ideation, homicidal ideation, and hallucinations, Allergy/Immunology: Negative for hives, rash, and allergies, Endocrine: Negative for neck swelling, polydipsia, polyuria, polyphagia, and marked weight changes, Hematologic/Lymphatic: Negative for swollen nodes, abnormal bleeding, and unusual bruising. Exam: 01:53 Constitutional: This is a well developed, well nourished patient who is awake, alert, mh7 and in no acute distress. Head/Face: Normocephalic, atraumatic. Eyes: Pupils equal round and reactive to light, extra-ocular motions intact. Lids and lashes normal. Conjunctiva and sclera are non-icteric and not injected. Cornea within normal limits. Periorbital areas with no swelling, redness, or edema. Neck: Trachea midline, no thyromegaly or masses palpated, and no cervical lymphadenopathy. Supple, full range of motion without nuchal rigidity, or vertebral point tenderness. No Meningismus. Chest/axilla: Normal chest wall appearance and motion. Nontender with no deformity. No lesions are appreciated. Cardiovascular: Regular rate and rhythm with a normal S1 and S2. No gallops, murmurs, or rubs. Normal PMI, no JVD. No pulse deficits. Respiratory: Lungs have equal breath sounds bilaterally, clear to auscultation and percussion. No rales, rhonchi or wheezes noted. No increased work of breathing, no retractions or nasal flaring. 01:53 Back: No spinal tenderness. No costovertebral tenderness. Full range of motion. Skin: Warm, dry with normal turgor. Normal color with no rashes, no lesions, and no evidence of cellulitis. MS/ Extremity: Pulses equal, no cyanosis. Neurovascular intact. Full, normal range of motion. Neuro: Awake and alert, GCS 15, oriented to person, place, time, and situation. Cranial nerves II-XII grossly intact. Motor strength 5/5 in all extremities. Sensory grossly intact. Cerebellar exam normal. Normal gait. Psych: Awake, alert, with orientation to person, place and time. Behavior, mood, and affect are within normal limits. 01:53 Abdomen/GI: Inspection: abdomen appears normal, Bowel sounds: normal, in all quadrants, Palpation: moderate abdominal tenderness, in the suprapubic area, right lower quadrant and left lower quadrant, Rectal exam: the exam is deferred, because of patient request, Indicators: McBurney's point is not tender, Diop's sign is negative, Rovsing's sign is negative, Obturator sign is negative, Psoas sign is negative, Liver: no appreciated palpable abnormalities, Hernia: not appreciated. Vital Signs: 01:43 BP 135 / 58; Pulse 77; Resp 16 S; Temp 98.5(O); Pulse Ox 98% on R/A; Weight 72.57 kg bb (R); Height 5 ft. 0 in. (152.40 cm) (R); Pain 4/10; 02:00 BP 121 / 65; Pulse 74; Resp 17; Pulse Ox 98% on R/A; Pain 5/10; vc 03:00 BP 111 / 63; Pulse 88; Resp 16; Pulse Ox 99% on R/A; vc 03:03 Pain 3/10; vc 01:43 Body Mass Index 31.25 (72.57 kg, 152.40 cm) bb MDM: 01:49 Patient medically screened. 7 03:35 Differential diagnosis: bowel obstruction, diverticulitis, non-specific abd pain, mh7 Pyelonephritis, urinary tract infection, Enteritis. Data reviewed: vital signs, nurses notes, old medical records, lab test result(s), CBC, electrolytes, urinalysis, radiologic studies, CT scan. Data interpreted: Pulse oximetry: on room air is 99 %. Interpretation: normal. Counseling: I had a detailed discussion with the patient and/or guardian regarding: the historical points, exam findings, and any diagnostic results supporting the discharge/admit diagnosis, lab results, radiology results, the need for outpatient follow up, to return to the emergency department if symptoms worsen or persist or if there are any questions or concerns that arise at home. Response to treatment: the patient's symptoms have resolved after treatment, the patient's blood pressure is in an acceptable range, mental status has returned to baseline, the patient no longer shows bradycardia, the patient is not short of breath, the patient is not tachycardic, the patient's pain is gone, the patient's temperature has normalized. 05/01 01:47 Order name: Basic Metabolic Panel; Complete Time: 02:20 mg2 05/01 01:47 Order name: CBC with Diff; Complete Time: 02:49 mg2 05/01 01:47 Order name: Hepatic Function; Complete Time: 02:20 mg2 05/01 01:47 Order name: Lipase; Complete Time: 02:20 mg2 05/01 02:03 Order name: CT Abd/Pelvis - IV Contrast Only mh7 05/01 03:35 Order name: Urine Dipstick--Ancillary (enter results) tt3 05/01 01:47 Order name: IV Saline Lock; Complete Time: 01:47 mg2 05/01 01:47 Order name: Labs collected and sent; Complete Time: 01:47 mg2 05/01 01:47 Order name: Urine Dipstick-Ancillary (obtain specimen); Complete Time: 03:15 mg2 Administered Medications: 01:59 Drug: NS 0.9% 1000 ml Route: IV; Rate: 1000 ml; Site: right antecubital; vc 01:59 Drug: Zofran (Ondansetron) 4 mg Route: IVP; Site: right antecubital; vc 03:03 Follow up: Response: No adverse reaction; Nausea is decreased vc 02:03 Drug: morphine 2 mg Route: IVP; Site: right antecubital; mg2 03:03 Follow up: Pain 3/10 Adult; Response: No adverse reaction; Pain is decreased vc 03:27 Drug: morphine 2 mg {Note: RASS-0.} Route: IVP; Site: right antecubital; vc 04:11 Follow up: Response: No adverse reaction vc 03:28 Drug: Cipro 500 mg Route: PO; vc 04:11 Follow up: Response: No adverse reaction vc Disposition: 05/01/20 03:40 Discharged to Home. Impression: Abdominal Pain, Enteritis. - Condition is Stable. - Discharge Instructions: Viral Gastroenteritis, Adult, [id number], Abdominal Pain, Adult, [id number]. - Prescriptions for Bentyl 20 mg Oral Tablet - take 1 tablet by ORAL route every 6 hours As needed; 20 tablet. Cipro 500 mg Oral Tablet - take 1 tablet by ORAL route every 12 hours for 5 days; 10 tablet. - Medication Reconciliation Form, Thank You Letter, Antibiotic Education, Prescription Opioid Use form. - Follow up: Private Physician; When: 1 - 2 days; Reason: Worsening of condition, Recheck today's complaints, Continuance of care, Re-evaluation by your physician. - Problem is new. - Symptoms have improved. Signatures: Dispatcher [employer] EDUT Annie Gupta RN RN Db Solis RN RN mg2 Yun Mcconnell RN RN vc Khanh Joshi MD MD mh7 Corrections: (The following items were deleted from the chart) 01:48 01:47 PMHx: Diabetes - NIDDM; ron velasquez 04:10 03:40 05/01/2020 03:40 Discharged to Home. Impression: Abdominal Pain; Enteritis. vc Condition is Stable. Forms are Medication Reconciliation Form, Thank You Letter, Antibiotic Education, Prescription Opioid Use. Follow up: Private Physician; When: 1 - 2 days; Reason: Worsening of condition, Recheck today's complaints, Continuance of care, Re-evaluation by your physician. Problem is new. Symptoms have improved. mh7
[2020-05-01 04:04] LABS: Urine Blood NEGATIVE (NEG); Urine Glucose NEGATIVE (NEG); Urine Protein NEGATIVE (NEG); Urine Specific Gravity <1.005 (1.005-1.030)
[2020-05-01 04:21] VITALS: TEMP 98.5
[2020-05-01 04:23] VITALS: BP 111/63; O2SAT 99
--- NOTE | 2020-05-01 14:37 | RAD REPORT ---
EXAM DESCRIPTION: CT ABDOMEN AND PELVIS WITH CONTRAST. CLINICAL HISTORY: Abdominal pain. COMPARISON: None. TECHNIQUE: Axial CT imaging of the abdomen and pelvis performed with intravenous contrast. Reformatt ed coronal and sagittal images reviewed. A dose reduction technique was utilized with automated exposure control according to patient size. FINDINGS: Clear lung bases. Heart is normal in size. The liver is normal in size and contour. Moderate decreased attenuation due to fatty infiltration. No liver mass or biliary dilatation. The gallbladder has been resected. The common bile duct is 1 cm. N o distal obstructing stone or mass. Normal spleen and pancreas. Normal adrenal glands. Normal right a nd left kidney. Aorta and inferior vena cava are normal in caliber. No adenopathy. Mesenteric vessels appear normal. Small hiatal hernia. Normal remaining stomach. Small bowel loops appear normal in caliber. There is m inimal thickening of a few segments of ileum with slight mucosal enhancement. The appendix is nonvisu alized. Unremarkable colon. No ascites. No free air. Tiny fat-containing umbilical hernia. Unremarkable bladder. Uterus is surgically absent. There is no pelvic free fluid. No adenopathy. Normal lumbar spine alignment. Intact bony pelvis. Unremarkable soft tissues. IMPRESSION: 1. Mild ileal enteritis. 2. Moderate fatty liver infiltration. 3. Post cholecystectomy mild common bile duct dilatation. . Electronically signed by: Mallory Stanford DO 05/01/2020 3:04 AM CDT Due to temporary technical issues with the PACS/Fluency reporting system, reports are being signed by the in house radiologist without review as a courtesy to ensure prompt reporting. The interpreting r adiologist is fully responsible for the content of the report.
== END 2020-05-01 04:10 | disposition home or self-care (01) ==
LOC: ER 01:21
DX: K52.9 Noninfective gastroenteritis and colitis, unspecified (principal); I10 Essential (primary) hypertension; E78.5 Hyperlipidemia, unspecified; E11.9 Type 2 diabetes mellitus without complications; Z79.82 Long term (current) use of aspirin; Z79.4 Long term (current) use of insulin; Z85.42 Personal history of malignant neoplasm of other parts of uterus; Z88.5 Allergy status to narcotic agent
CPT/HCPCS: 85025; 80048; 36415; 80076; 81003; 83690; 74177; 96375; 96374; 99284; Q9967; J2270 ×2; J7030; J2405

== ENCOUNTER 2021-03-06 11:15 | Emergency (ER) | payer MEDICARE, OTHER ==
--- OUTSIDE RECORDS SUMMARY | 2021-03-06 11:19 | XMS REPORT | Continuity of Care Document ---
:1950 Author Organization [facility] t Address [address] [place] [address] Care Team Providers Name Role Phone Araceli SHAVER, H Attending Clinician Lab, Fam Pob I Attending Clinician Unavailable Radiology Attending Clinician Unavailable Ari SHAVER C Attending Clinician Only, Test Attending Clinician Unavailable Doctor Unassigned, Name Attending Clinician Unavailable Ari SHAVER, C Admitting Clinician Payers Payer Name Policy Type Policy Number Effective Date Expiration Date S ource Problems This patient has no known problems. Allergies, Adverse Reactions, Alerts Allergy Allergy Status Severity Reaction(s) Onset Inactive Treating Comm ents Source Name Type Date Date Clinician peterson DA Active [place] [facility] 3-10 Clear 00:00: Cornelius 00 [facility] codeine DA Active [place] [facility] 3-05 Clear 00:00: Cornleius 00 [facility] codeine DA Active [place] 2017- [facility] 6-12 Clear 00:00: Cornelius 00 [facility] codeine Adverse Active nausea/vomit [facility] Social History Social Habit Start Date Stop Date Quantity Comments Source Sex Assigned At [birth year] Prabhakar Wilkes ethodist 00:00:00 00:00:00 Medications Ordered Filled Start Stop Current Ordering Indication Dosage Frequency Signature Comments Components Source Medication Medication Date Date Medication? Clinician (SIG) Name Name Bk Rockulicity 2020- No Amrita one [facility] 9-13 01-11 Millender injection Luke s - 00:00: 00:00 (0.75 mg) [facility] One Touch One Touch 2020- No Amrita as [facility] Ultra Test Ultra Test 7-13 07-08 Millender directed [facility] Strips Strips [facility]: 00:00 [facility] Ketoconazol Ketoconazol 2019- No Amrita [address] [facility] e 3-25 10-13 Millender applicatio Linda es - 00:00: [...] GLUCOSE Outpati TEST ent STRIPS FOR Clinics SHAMAR ONE TOUCH) Lancets Lancets 2017-08 Yes Amrita as [facility] 2-22 Millender directed [facility] - 00:[facility]: (dispense [facility] 00 lancets l for Shamar Outpati One Touch) ent Clinics Blood Blood 2017-08 Yes Amrita [facility] Glucose Glucose 2-22 Millender directed [facility] - Monitor Monitor 00:00: (DISPENSE Me moria 00 SHAMAR ONE l TOUCH) Outpati ent Clinics Lisinopril Lisinopril 2018-0 Yes Amrita [address] [facility] 3-22 [...] Planned Date Details Comments Source Future Scheduled 2021-03-16 INFLUENZA VACCINE Felicianoto bayron [facility] Test 00:00:00 [code = INFLUENZA VACCINE] Future Scheduled 2016-12-16 65+ PNEUMOCOCCAL [place] [facility] Test 00:00:00 VACCINE (1 of 1 - PPSV23) [code = 65+ PNEUMOCOCCAL VACCINE (1 of 1 - PPSV23)] Future Scheduled 2001-12-16 BREAST CANCER [facility] thodist Test 00:00:00 SCREENING [code = BREAST CANCER SCREENING] Future Scheduled 2001-12-16 COLONOSCOPY SCREENING [facility] Y[facility]ani Test 00:00:00 [code = COLONOSCOPY SCREENING] Future Scheduled 2001-12-16 SHINGLES VACCINES (#1) H breanna [facility]ani Test 00:00:00 [code = SHINGLES VACCINES (#1)] Future Scheduled 1963 COVID-19 VACCINE (1) Lindacortes hunter [facility] Test 00:00:00 [code = COVID-19 VACCINE (1)] Encounters Start End Encounter Admission Attending Care Care Encounter Source Date/Time Date/Time Type Type Clinicians Facility Department ID 2021-01-29 2021-01-29 [id number] 2020-12-31 2020-12-31 [facility] [id number] [facility] 2020-10-10 2020-10-10 [facility] [id number] [facility] 2020-10-08 2020-10-08 [facility] [id number] [facility] 2020-09-18 2020-09-18 [facility] [id number] [facility] 2020-08-14 2020-08-14 [facility] [id number] [facility] 2020-08-13 2020-08-13 [facility] [id number] [facility] 2020-08-04 2020-08-04 Telephone ANAM Charles [id number] 00:00:00 00:00:00 [facility] [id number] [facility] [id number] [id number] 2020-08-01 2020-08-01 Laboratory Lab, [facility] [id number] 17:25:17 17:45:17 Only Fam [facility] [id number] [place] 4.2.7.2.686 Professio [id number] nal [address] One 2020-08-01 2020-08-01 [facility] [id number] [facility] 2020-07-30 2020-07-30 [facility] [id number] [facility] 2020-07-30 2020-07-30 [facility] [id number] [facility] 2020-07-18 2020-07-18 [facility] Radiology [facility] [id number] 14:58:22 23:59:00 Encounter [place] [id number] [place] [id number] [place] [phone] 800 2020-07-09 2020-07-09 Outpatient [facility] [id number] [facility] 2020-07-01 2020-07-01 Out[facility] [id number] [facility] 2020-06-26 2020-06-26 [facility] [id number] [facility] 2020-06-12 2020-06-12 [facility] [id number] 08:29:00 10:30:00 Nasrin Smith [place] [id number] [place] 4.2.7.2.686 [facility] [id number] [place] 071 2020-06-11 2020-06-11 Laboratory Only, [facility] [id number] 09:25:13 09:40:13 Only Test [place] [id number] [place] 4.2.7.2.686 [place] [id number] 353 2020-05-11 2020-05-11 Telephone ANAM Charles [id number] 00:00:00 00:00:00 Pj GALLOWAY [address].13.[address] [id number] 019 2020-05-10 2020-05-10 Laboratory Lab, [facility] [id number] 08:55:14 09:15:14 Only Fam [facility] [id number] [place] 4.2.7.2.686 Professio [phone] nal [address] One 2020-05-10 2020-05-10 Letter Doctor ANAM [id number] 00:00:00 00:00:00 (Out) Unassigned, NILESH 350.1.13.10 [facility] 4.2.7.2.686 [id number] 2020-05-08 2020-05-08 Outpatient [facility] [id number] [facility] 2020-04-29 2020-04-29 Outpatient [facility] [id number] [facility] 2020-04-26 2020-04-26 [facility] [id number] 10:40:00 10:40:00 [facility] Medicine Outpati ent Clinics 2020-03-21 2020-03-21 [facility] [id number] 09:35:00 09:35:00 [facility] Medicine Outpati ent Clinics 2020-03-01 2020-03-01 [facility] [id number] 14:20:00 14:20:00 [facility] Medicine Outpati ent Clinics 2020-02-26 2020-02-26 [facility] [id number] 14:40:00 14:40:00 [facility] Medicine Medicine Outpati ent Clinics 2020-02-23 2020-02-23 [facility] [id number] 11:09:00 11:09:00 [facility] Medicine Medicine Outpati ent Clinics 2020-02-09 2020-02-09 [facility] [id number] 13:00:00 13:00:00 [facility] Medicine Outpati ent Clinics 2019-12-27 2019-12-27 [facility] [id number] 16:27:00 16:27:00 [facility] Medicine Outpati ent Clinics 2019-11-08 2019-11-08 [facility] [id number] 10:45:00 10:45:00 t [facility] Medicine Outpati ent Clinics 2019-10-24 2019-10-24 [facility] [id number] 09:52:00 09:52:00 [facility] Medicine Outpati ent Clinics 2019-10-18 2019-10-18 [facility] [id number] 10:15:00 10:15:00 [facility] Medicine Outpati ent Clinics 2019-09-29 2019-09-29 [facility] [id number] 15:00:00 15:00:00 [facility] Medicine Outpati ent Clinics 2019-09-05 2019-09-05 [facility] [id number] 00:17:00 00:17:00 [facility] Medicine Medicine Outpati ent Clinics 2019-08-23 2019-08-23 [facility] [id number] 03:36:00 03:36:00 [facility] Medicine Outpati ent Clinics 2019-07-18 2019-07-18 [facility] [id number] 10:04:00 10:04:00 [facility] Medicine Outpati ent Clinics 2019-07-07 2019-07-07 [facility] [id number] 10:00:00 10:00:00 [facility] Medicine Outpati ent Clinics 2019-06-14 2019-06-14 [facility] [id number] 13:20:00 13:20:00 [facility] Medicine Outpati ent Clinics 2019-06-09 2019-06-09 [facility] [id number] 11:39:00 11:39:00 [facility] Medicine Outpati ent Clinics 2019-05-31 2019-05-31 [facility] [id number] 10:23:00 10:23:00 [facility] Medicine Outpati ent Clinics 2019-05-05 2019-05-05 [facility] [id number] 08:59:00 08:59:00 [facility] Medicine Outpati ent Clinics 2019-04-11 2019-04-11 [facility] [id number] 13:00:00 13:00:00 [facility] Medicine Outpati ent Clinics 2019-04-07 2019-04-07 [facility] [id number] 08:36:00 08:36:00 [facility] Medicine Outpati ent Clinics 2019-03-21 2019-03-21 [facility] [id number] 15:03:00 15:03:00 [facility] Medicine Outpati ent Clinics 2019-03-20 2019-03-20 [facility] [id number] 15:04:00 15:04:00 [facility] Medicine Outpati ent Clinics 2019-03-14 2019-03-14 [facility] [id number] 15:36:00 15:36:00 [facility] Medicine Outpati ent Clinics 2019-02-09 2019-02-09 [facility] [id number] 12:49:00 12:49:00 [facility] Medicine Outpati ent Clinics 2019-02-07 2019-02-07 [facility] [id number] 09:44:00 09:44:00 [facility] Medicine Outpati ent Clinics 2019-02-06 2019-02-06 [facility] [id number] 11:40:00 11:40:00 [facility] Medicine Medicine Outpati ent Clinics 2018-11-08 2018-11-08 [facility] [id number] 10:06:00 10:06:00 [facility] Medicine Outpati ent Clinics 2018-11-03 2018-11-03 [facility] [id number] 14:58:00 14:58:00 [facility] Medicine l Medicine Outpati ent Clinics 2018-10-26 2018-10-26 [facility] [id number] 13:00:00 13:00:00 [facility] Medicine Outpati ent Clinics 2018-10-10 2018-10-10 [facility] [id number] 11:30:00 11:30:00 [facility] Medicine Outpati ent Clinics 2018-08-24 2018-08-24 [facility] [id number] 15:45:00 15:45:00 [facility] Medicine Outpati ent Clinics 2018-08-22 2018-08-22 [facility] [id number] 09:18:00 09:18:00 [facility] Medicine Medicine Outpati ent Clinics 2018-08-05 2018-08-05 [facility] [id number] 12:34:00 12:34:00 [facility] Medicine Medicine Outpati ent Clinics 2018-05-23 2018-05-23 [facility] [id number] 11:41:00 11:41:00 [facility] Medicine Outpati ent Clinics 2018-05-02 2018-05-02 [facility] [id number] 11:30:00 11:30:00 [facility] Medicine Medicine Outpati ent Clinics 2018-03-08 2018-03-08 Outpatient Maria Ines Olvera [id number] 15:30:00 15:30:00 [facility] ent [facility] 2017-11-09 2017-11-09 Outpatient Maria Ines Olvera [id number] 16:15:00 16:15:00 [facility] Results Test Description Test Time Test Comments Results Result [facility] e Comments - CT ABD PELVIS 2020-05-14 Name: VIDYA FROST W/CONT 13:37:00 FELIX [facility] : 1950 Age/S: 69 / F [address] [place] [address] Unit #: [id number] Loc: [place] [address] Phys: Missael Woodson DO Acct: [id number] Dis Date: Status: [facility] ER PHONE #: [phone] Exam Date: 05/14/2020 1316 FAX #: [phone] Reason: LOWER ABDOMINAL PAIN EXAMS: CPT CODE: [id number] CT ABD PELVIS W/CONT 46753 Clinical Indication: Lower abdominal pain. Comparison: None TECHNIQUE: Contiguous axial CT images of the abdomen and pelvis were acquired following administration of 100 mL Isovue-300 IV contrast. Oral contrast was not administered. Coronal and sagittal reconstructions were obtained. CT imaging performed at this location utilizes radiation dose optimization techniques which include one or more of the following: -Automated exposure control -Adjustment of the mA and/or kV according to patient size -Use of iterative reconstruction technique CT Radiation Dose DLP 257.7 mGy-cm FINDINGS: Lung bases are clear. Visualized cardiac apex is unremarkable. Diffuse hepatic steatosis. Gallbladder surgically absent. Spleen, pancreas, adrenal glands, and kidneys are unremarkable. Stomach and small bowel are unremarkable. Appendix is surgically absent. Colonic diverticulosis without evidence of diverticulitis. Abdominal aorta is normal caliber. No free fluid or pneumoperitoneum. Urinary bladder is somewhat thick-walled. Uterus is surgically absent. Tiny fat-containing umbilical hernia. No destructive osseous lesion. IMPRESSION: 1. Diffuse hepatic steatosis. 2. Colonic diverticulosis without evidence of diverticulitis. 3. Urinary bladder is somewhat thick-walled. Correlate for evidence of cystitis. SL: [id number] at 1337 Reported and signed by: Ana Becker M.D. PAGE 1 Signed Report (CONTINUED) Name: [facility] [place] : 1950 Age/S: 69 / F [address] [place] [address] Unit #: [id number] Loc: [place] [address] Phys: Missael Woodson Acct: [id number] Dis Date: Status: DEP ER PHONE #: [phone] Exam Date: 05/14/2020 1316 FAX #: [phone] Reason: LOWER ABDOMINAL PAIN EXAMS: CPT CODE: [id number] CT ABD PELVIS W/CONT 68331 <Continued> CC: iMssael Woodson DO Technologist:Monea Bazzi, RT(R)(CT) CTDI: DLP: Trnscb Date/Time: 05/14/2020 (133) [email or web address] Orig Print D/T: S: 05/14/2020 (1341) PAGE 2 Signed Report - CT ABD PELVIS 2020-05-14 Name: VIDYA FROST W/CONT 13:37:00 FELIX [facility] : 1950 Age/S: 69 / F [address] [place] [address] Unit #: [id number] Loc: [place] [address] Phys: Missael Woodson Acct: [id number] Dis Date: Status: REG ER PHONE #: [phone] Exam Date: 05/14/2020 1316 FAX #: [phone] Reason: LOWER ABDOMINAL PAIN EXAMS: CPT CODE: [id number] CT ABD PELVIS W/CONT 98958 Clinical Indication: Lower abdominal pain. Comparison: None TECHNIQUE: Contiguous axial CT images of the abdomen and pelvis were acquired following administration of 100 mL Isovue-300 IV contrast. Oral contrast was not administered. Coronal and sagittal reconstructions were obtained. CT imaging performed at this location utilizes radiation dose optimization techniques which include one or more of the following: -Automated exposure control -Adjustment of the mA and/or kV according to patient size -Use of iterative reconstruction technique CT Radiation Dose DLP 257.7 mGy-cm FINDINGS: Lung bases are clear. Visualized cardiac apex is unremarkable. Diffuse hepatic steatosis. Gallbladder surgically absent. Spleen, pancreas, adrenal glands, and kidneys are unremarkable. Stomach and small bowel are unremarkable. Appendix is surgically absent. Colonic diverticulosis without evidence of diverticulitis. Abdominal aorta is normal caliber. No free fluid or pneumoperitoneum. Urinary bladder is somewhat thick-walled. Uterus is surgically absent. Tiny fat-containing umbilical hernia. No destructive osseous lesion. IMPRESSION: 1. Diffuse hepatic steatosis. 2. Colonic diverticulosis without evidence of diverticulitis. 3. Urinary bladder is somewhat thick-walled. Correlate for evidence of cystitis. SL: [id number] at 1337 Reported and signed by: Ana Becker M.D. PAGE 1 Signed Report (CONTINUED) Name: VIDYA FROST [facility] : 1950 Age/S: 69 / F [address] [place] [address] Unit #: [id number] Loc: [place] [address] Phys: Missael Woodson DO Acct: [id number] Dis Date: Status: REG ER PHONE #: [phone] Exam Date: 05/14/2020 1316 FAX #: [phone] Reason: LOWER ABDOMINAL PAIN EXAMS: CPT CODE: [id number] CT ABD PELVIS W/CONT 86151 <Continued> CC: Missael Woodson DO Technologist:Monae Bazzi, RT(R)(CT) CTDI: DLP: Trnscb Date/Time: 05/14/2020 (1337) [email or web address] Orig Print D/T: S: 05/14/2020 (5173) PAGE 2 Signed Report - XR CHEST 1 V 2020-05-14 FAX: N 13:07:00 Missael Woodson DO [phone] [place]: [employer] St: DEP Name: VIDYA FROST [facility] [place] : 1950 Age/S: 69/F [address] [facility] Unit #: [id number] Loc: [place] [address] Phys: Missael Woodson DO Acct: [id number] Dis Date: Status: DEP ER PHONE #: [phone] Exam Date: 05/14/2020 1305 FAX #: [phone] Reason: Abdominal Pain EXAMS: CPT CODE: [id number] XR CHEST 1 V 07369 CLINICAL HISTORY:Abdominal Pain COMPARISON:NONE Frontal film of the chest performed at 1239 on May 14, 2020 demonstrates that heart size is normal. Lung burton are clear. No evidence of pneumonia. There is no evidence of pleural effusion or pneumothorax. Regional skeletal structures are within normal limits. IMPRESSION: No evidence of pneumonia or congestive failure is seen. at 1307 Reported and signed by: Albino Marquis M.D. CC: Missael Woodson DO Technologist: RT Enma(Arabella) Trnscrd Date/Time/By: 05/14/2020 (7472) : By: Polina Orig Print D/T: S: 05/14/2020 (4107) PAGE 1 Signed Report - XR CHEST 1 V 2020-05-14 FAX: N 13:07:00 Missael Woodson DO [phone] [place]: St: REG Name: VIDYA FROST [facility] [place] : 1950 Age/S: 69/F [address] [place] [address] Unit #: [id number] Loc: [place] [address] Phys: Missael oWodson DO Acct: [id number] Dis Date: Status: REG ER PHONE #: [phone] Exam Date: 05/14/2020 1305 FAX #: [phone] Reason: Abdominal Pain EXAMS: CPT CODE: [id number] XR CHEST 1 V 04474 CLINICAL HISTORY:Abdominal Pain COMPARISON:NONE Frontal film of the chest performed at 1239 on May 14, 2020 demonstrates that heart size is normal. Lung burton are clear. No evidence of pneumonia. There is no evidence of pleural effusion or pneumothorax. Regional skeletal structures are within normal limits. IMPRESSION: No evidence of pneumonia or congestive failure is seen. at 1307 Reported and signed by: Albino Marquis M.D. CC: Missael Woodson DO Technologist: MARCIA [place]) Trnscrd Date/Time/By: 05/14/2020 (7675) : By: Polina Orig Print D/T: S: 05/14/2020 (1392) PAGE 1 Signed Report BASIC METABOLIC PANEL 2020-05-14 12:57:00 Test Item Value Reference Range Interpretation Comme nts SODIUM (test code = NA) 135 mEq/L 134-147 N POTASSIUM (test code = K) 4.3 mEq/L 3.4-5.0 N CHLORIDE (test code = CL) 103 mEq/L 100-108 N CARBON DIOXIDE (test code = CO2) 26 mEq/L 21-33 N ANION GAP (test code = GAP) 10 0-20 N GLUCOSE (test code = GLU) 184 mg/dL 70-110 H BLOOD UREA NITROGEN (test code = 13 mg/dL 7-18 N BUN) GLOMERULAR FILTRATION RATE (test 49.4 80-90 L Units of measure = ml/min/1.73 code = GFR) m2 CREATININE (test code = CREAT) 1.1 mg/dL 0.6-1.3 N CALCIUM (test code = CA) 9.6 mg/dL 8.0-10.5 N HEPATIC FUNCTION [id number] 12:57:00 Test Item Value Reference Range Interpretation Comments TOTAL PROTEIN (test code = PROT) 6.8 g/dL 6.4-8.2 N ALBUMIN (test code = ALB) 4.30 g/dL 3.4-5.0 N BILIRUBIN TOTAL (test code = BILT) 0.40 mg/dL 0.0-1.0 N BILIRUBIN DIRECT (test code = 0.10 MG/DL 0.0-0.30 N BILD) BILIRUBIN INDIRECT (test code = 0.30 MG/DL BILIND) SGOT/AST (test code = AST) 29 IUnit/L 15-37 N SGPT/ALT (test code = ALT) 24 IUnit/L 30-65 L ALKALINE PHOSPHATASE TOTAL (test 69 IUnit/L 20-125 N code = ALKP) [id number] 12:57:00 Test Item Value Reference Range Interpretation Comments LIPASE (test code = LIP) 56 U/L 13-57 N CBC W/AUTO [id number] 12:43:00 Test Item Value Reference Range Interpretation Comments WHITE BLOOD CELL (test code = 5.14 x10 3/uL 4.5-11.0 N WBC) RED BLOOD CELL (test code = 3.57 x10 6/uL 3.54-5.02 N RBC) HEMOGLOBIN (test code = HGB) 10.8 g/dL 11.0-15.0 L HEMATOCRIT (test code = HCT) 32.7 % 33.0-45.0 L MEAN CELL VOLUME (test code = 91.6 fL 81.0-99.0 N MCV) MEAN CELL HGB (test code = MCH) 30.3 pg 27.0-33.0 N MEAN CELL HGB CONCETRATION 33.0 g/dL 33.0-37.0 N (test code = MCHC) RED CELL DISTRIBUTION WIDTH CV 12.0 % 11.5-14.5 N (test code = RDW) RED CELL DISTRIBUTION WIDTH SD 40.3 fL 37.0-54.0 N (test code = RDW-SD) PLATELET COUNT (test code = 284 x10 3/uL 150-400 N PLT) MEAN PLATELET VOLUME (test code 10.2 fL 7.0-9.0 H = MPV) NEUTROPHIL % (test code = NT%) 73.1 % 56.0-77.0 N IMMATURE GRANULOCYTE % (test 0.2 % 0.0-2.0 N code = IG%) LYMPHOCYTE % (test code = LY%) 19.1 % 14.0-32.0 N MONOCYTE % (test code = MO%) 6.2 % 4.8-9.0 N EOSINOPHIL % (test code = EO%) 0.6 % 0.3-3.7 N BASOPHIL % (test code = BA%) 0.8 % 0.0-2.0 N NUCLEATED RBC % (test code = 0.0 % 0-0 N NRBC%) NEUTROPHIL # (test code = NT#) 3.76 x10 3/uL 2.0-7.6 N IMMATURE GRANULOCYTE # (test 0.01 x10 3/uL 0.00-0.03 N code = IG#) LYMPHOCYTE # (test code = LY#) 0.98 x10 3/uL 1.0-3.8 L MONOCYTE # (test code = MO#) 0.32 x10 3/uL 0.1-0.8 N EOSINOPHIL # (test code = EO#) 0.03 x10 3/uL 0.0-0.2 N BASOPHIL # (test code = BA#) 0.04 x10 3/uL 0.0-0.2 N NUCLEATED RBC # (test code = 0.00 x10 3/uL 0.0-0.1 N NRBC#) MANUAL DIFF REQUIRED (test code NO = MDIFF) UA RFLX MICR CULT IF [id number] 12:32:00 Test Item Value Reference Range Interpretation Comments UA COLOR (test code = COLU) YELLOW YEL/STRAW UA APPEARANCE (test code = CLEAR CLEAR APPU) UA GLUCOSE DIPSTICK (test code NEGATIVE NEGATIVE = DGLUU) UA BILIRUBIN DIPSTICK (test NEGATIVE NEGATIVE code = BILU) UA KETONE DIPSTICK (test code NEGATIVE NEGATIVE = KETU) UA SPECIFIC GRAVITY (test code 1.005 1.005-1.030 N = SGU) UA BLOOD DIPSTICK (test code = NEGATIVE NEGATIVE CHARU) UA PH DIPSTICK (test code = 5.0 5.0-7.0 N ATUL) UA PROTEIN DIPSTICK (test code NEGATIVE NEGATIVE = PROU) UA UROBILINIOGEN DIPSTICK 0.2 mg/dL 0.2-1.0 (test code = URO) UA NITRITE DIPSTICK (test code NEGATIVE NEGATIVE = DOMENICA) UA LEUKOCYTE ESTERASE DIPSTICK NEGATIVE NEGATIVE (test code = LEUU) UA WBC (test code = WBCU) 0-3 WBC/HPF 0-3 UA RBC (test code = RBCU) 0-3 RBC/HPF 0-3 UA WBC NO REFLEX (test code = 0-3 WBC/HPF 0-3 WBCUCL) UA BACTERIA (test code = BACU) NONE SEEN /HPF NONE SEEN UA SQUAMOUS CELLS (test code = NONE SEEN /HPF NONE SEEN SQU) UA MUCUS (test code = MUCU) TRACE /LPF NONE SEEN Indication for culture: Suprapubic PainSpecimen Description: CLEAN CATCH [id number] 22:58:00 Test Item Value Reference Range Interpretation Comments GLUBED (test code = 224 MG/DL 70-110 H Performe d by certified 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) 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 [facility] HGBA1C%2018-10-24 09:25:00 Test Item Value Reference Range Interpretation Comments HGBA1C% (test code = HGBA1C%) 8.3 %A1C 4.8-6.0 H BASIC METABOLIC [id number] 08:18:00 Test Item Value Reference Range Interpretation [...] LDL 62 mg/dL 0-100 N <100 OPT [id number] (test code = LDL) NEAR OPTI MAL/ABOVE [id number] 89 HIGH>BH=530 VE RY HIGH*Guidelines provided by the [facility] terol [employer] Adult Treatment Panel III THYROID STIMULATING [id number] 08:18:00 Test Item Value Reference Range Interpretation Comments THYROID STIMULATING 0.70 0.42-5.47 N Results in HORMONE (test code = TSH) mi lli-International Units/mL [id number] 08:03:00 Test Item Value Reference Range Interpretation Comments GLUBED (test code = 147 MG/DL 70-110 H Performe d by certified GLUBED) 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 [facility] CBC W/AUTO [id number] 07:07:00 Test Item Value Reference Range Interpretation [...] DIFF REQUIRED (test code NO = MDIFF) [id number] 21:08:00 Test Item Value Reference Range Interpretation Comments GLUBED (test code = 200 MG/DL 70-110 H Performe d by certified GLUBED) 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 [facility] - MRI BRAIN W/O [id number] 20:06:00 FAX: Ale Leal MD [phone] [place]: St: ADM FAX: Camilla Odonnell MD Name: VIDYA FROST [facility] Ana Cornelius : 1950 Age/S: 67/F [address] [place] [address] Unit #: [id number] Loc: G.C136 [place] [address] Phys: Camilla Terrell MD Acct: [id number] Dis Date: Status: ADM IN PHONE #: [phone] Exam Date: 10/23/20181946 FAX #: [phone] Reason: PERSISTENT DIZZINESS EXAMS: CPT CODE: [id number] MRI BRAIN W/O CONT 43491 EXAM: MRI BRAIN WITHOUT CONTRAST DATE: 10/23/2018 [...] Minimal chronic small vessel ischemic change. SL: JNGUYEN-S PAGE 1 Signed Report (CONTINUED) FAX: Ale Leal MD [phone] [place]: St: [facility] FAX: Camilla Odonnell MD Name: VIDYA FROST [facility] [place] : 1950 Age/S: 67/F [address] [place] [address] Blvd Unit #: [id number] Loc: [place] [address] Phys: Camilla Terrell MD Acct: [id number] Dis Date: Status: ADM IN PHONE #: [phone] Exam Date: 10/23/2018 1947FAX #: [phone] Reason: PERSISTENT DIZZINESS EXAMS: CPT CODE: [id number] MRI BRAIN W/O CONT 00679 <Continued> at 2005 Reported and signed by: Roman Harrison M.D. 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 LACTIC [id number] 10:56:00 Test Item Value Reference Range Interpretation Comments LACTIC ACID (test code = LACT) 2.1 mmol/L 0.4-1.9 H URINALYSIS [id number] 10:46:00 Test Item Value Reference Range Interpretation [...] /LPF NONE SEEN COMMENTS: Clean CatchCBC W/AUTO [id number] 10:42:00 Test Item Value Reference Range Interpretation [...] NO = MDIFF) - CT HEAD/BRAIN W/O [id number] 09:22:00 Name: VIDYA FROST [facility] : 1950 Age/S: 67 / F [address] [place] [address] Unit #: [id number] Loc: [facility] [id number] Phys: Braxton Prasad MD Acct: [id number] Dis Date: Status: REG ER PHONE #: [phone] Exam Date: 10/23/2018904 FAX #: [phone] Reason: dizziness EXAMS: CPTCODE: [id number] CT HEAD/BRAIN W/O CONT 63232 CT head without contrast 10/23/2018 HISTORY: Dizziness [...] 3. Mild chronic microvascular ischemic changes. SL: [id number] at 0922 Reported and signed by: Giorgio Srivastava M.D. CC: Braxton Prasad MD Technologist:Katrin Miles, RT(R)(CT) CTDI: DLP: Trnscb Date/Time: 10/23/2018 (921) [email or web address] Orig Print D/T: S: 10/23/2018 (924) CTDI: DLP: PAGE 1 SignedReportURINALYSIS [id number] 01:38:00 Test Item Value Reference Range Interpretation [...]
[2021-03-06 12:35] LABS: Urine Blood Negative (Negative); Urine Glucose Negative (Negative); Urine Protein Negative (Negative); Urine Specific Gravity 1.015 (1.005-1.030); Urine pH 5.5 (5.0-7.0)
--- NOTE | 2021-03-06 15:45 | ER ---
Nurse's Notes [facility] Name: Miroslava Rousseau Age: 70 yrs Sex: Female : 1950 Arrival Date: 03/06/2021 Time: 11:18 Bed Waiting Private MD: Diagnosis: Presentation: 03/06 11:49 Chief complaint: Suprapubic pain, burning with urination, nausea, and headache x 2 hb days. Seen at [facility] yesterday for same s/s, told the urine was ok. Coronavirus screen: At this time, the client does not indicate any symptoms associated with coronavirus-19. Ebola Screen: No symptoms or risks identified at this time. Initial Sepsis Screen: Does the patient meet any 2 criteria? No. Patient's initial sepsis screen is negative. Does the patient have a suspected source of infection? No. Patient's initial sepsis screen is negative. Risk Assessment: Do you want to hurt yourself or someone else? Patient reports no desire to harm self or others. Onset of symptoms was March 04, 2021. 11:49 Method Of Arrival: Ambulatory hb 11:49 Acuity: MARTHA 3 hb Historical: - Allergies: 11:51 NKDA; hb - Home Meds: 11:51 aspirin 81 mg Oral TbEC 1 tab once daily [Active]; glimepiride 2 mg Oral tab 1 tab once hb daily [Active]; Januvia 100 mg Oral tab 1 tab once daily [Active]; lisinopril 5 mg Oral tab 1 tab once daily [Active]; lovastatin 20 mg Oral tab 1 tab once daily [Active]; metformin 500 mg Oral tab 1 tab 2 times per day [Active]; vitamins [Active]; Trulicity subcutaneous [Active]; - PMHx: 11:51 Hyperlipidemia; Hypertension; Diabetes - IDDM; Uterine CA; hb - Immunization history:: Client reports receiving the 2nd dose of the Covid vaccine, Flu vaccine is up to date. - Social history:: Smoking status: Patient denies any tobacco usage or history of. Vital Signs: 11:49 BP 124 / 92; Pulse 75; Resp 16; Temp 97.8; Pulse Ox 100% on R/A; Pain 6/10; hb ED Course: 11:18 Patient arrived in ED. ds1 11:51 Triage completed. hb 11:51 Arm band placed on. hb 14:57 Seng Muniz PA is PHCP. [facility] 14:57 Tramaine Gleason MD is Attending Physician. [facility] 15:43 No provider procedures requiring assistance completed. Patient did not have IV access ss during this emergency room visit. Administered Medications: No medications were administered Outcome: 15:43 Eloped from waiting room, before seeing physician ss 15:43 unknown 15:45 Patient left the ED. ss Signatures: Seng Muniz PA PA Akila Burton ds1 Marielena Byers, RN RN Malena Lowe, RN RN hb
[2021-03-06 16:06] VITALS: BP 124/92; TEMP 97.8; O2SAT 100
== END 2021-03-06 15:45 | disposition left against medical advice (07) ==
LOC: ER 11:15
DX: Z53.21 Procedure and treatment not carried out due to patient leaving prior to being seen by health care provider (principal)
CPT/HCPCS: 81003; 99281

== ENCOUNTER 2021-04-21 11:18 | Emergency (ER) | payer MEDICARE, OTHER ==
--- OUTSIDE RECORDS SUMMARY | 2021-04-21 11:31 | XMS REPORT | Continuity of Care Document ---
:1950 Author Organization [facility] t Address [address] [place] [address] Care Team Providers Name Role Phone Araceli SHAVER, H Attending Clinician Lab, Fam Pob I Attending Clinician Unavailable Radiology Attending Clinician Unavailable Aleena Chapman MD Attending Clinician Only, Test Attending Clinician Unavailable Doctor Unassigned, Name Attending Clinician Unavailable Aleena Chapman MD Admitting Clinician Payers Payer Name Policy Type Policy Number Effective Date Expiration Date S ource Problems This patient has no known problems. Allergies, Adverse Reactions, Alerts Allergy Allergy Status Severity Reaction(s) Onset Inactive Treating Comm ents Source Name Type Date Date Clinician peterson OSCAR Active [place] 0 [facility] 3-10 Clear 00:00: Cornelius 00 [facility] codeine DA Active [place] 2019- [facility] 3-05 Clear 00:00: Cornelius 00 [facility] codeine DA Active [place] 2017-0 [facility] 6-12 Clear 00:00: Cornelius 00 [facility] codeine Adverse Active nausea/vomit [facility] Social History Social Habit Start Date Stop Date Quantity Comments Source Sex Assigned At [birth year] [facility] 00:00:00 00:00:00 Smoking Status Start Date Stop Date Source Unknown if ever smoked [facility] Medications Ordered Filled Start Stop Current Ordering Indication Dosage Frequency Signature Comments Components Source Medication Medication Date Date Medication? Clinician (SIG) [facility]- No Amrita [facility] 9-13 01-11 Millender injection Luke s - 00:00: 00:00 (0.75 mg) [facility] 00 :00 Outpati ent Clinics One Touch One Touch 2020- No Amrita as [facility] Ultra Test Ultra Test 7-13 07-08 Millender directed [facility] Strips 00:00: 00:00 [facility] 00 :00 l Outpati ent Clinics Ketoconazol Ketoconazol 2020- No Amrita [address] [facility] e 3-25 10-13 Millender applicatio Linda es - 00:00: 00:00 n to [facility]oria 00 :00 affected l areas Outpati ent Clinics Tamiflu Tamiflu Yes Amrita [address] 3-04 Millender [facility] ent Clinics Gabapentin Gabapentin 2018-08 Yes [...] Planned Date Details Comments Source Future Scheduled Test COVID-19 VACCINE (1) [facility] [code = COVID-19 VACCINE (1)] Future Scheduled Test BREAST CANCER SCREENING [facility] [code = BREAST CANCER SCREENING] Future Scheduled Test COLONOSCOPY SCREENING [facility] [code = COLONOSCOPY SCREENING] Future Scheduled Test SHINGLES VACCINES (#1) [facility] [code = SHINGLES VACCINES (#1)] Future Scheduled Test 65+ PNEUMOCOCCAL [facility] VACCINE (1 of 1 - PPSV23) [code = 65+ PNEUMOCOCCAL VACCINE (1 of 1 - PPSV23)] Future Scheduled Test INFLUENZA VACCINE [code [facility] = INFLUENZA VACCINE] Encounters Start End Encounter Admission Attending Care Care Encounter Source Date/Time Date/Time Type Type Clinicians Facility Department ID 2021-03-12 2021-03-[address] [facility] [id number] [facility] 2021-03-06 2021-03-[address] [facility] [id number] [facility] 2021-01-29 2021-01-29 [facility] [id number] [facility] 2020-12-31 2020-12-31 [facility] [id number] [facility] 2020-10-10 2020-10-10 [facility] [id number] [facility] 2020-10-08 2020-10-08 [facility] [id number] [facility] 2020-09-18 2020-09-18 [facility] [id number] [facility] 2020-08-14 2020-08-14 [facility] [id number] [facility] 2020-08-13 2020-08-13 [facility] [id number] 2020-08-04 2020-08-04 Telephone ANAM Charles [id number] 00:00:00 00:00:00 Pj NILESH [id number] [facility] [id number] 2020-08-01 2020-08-01 Laboratory Lab, [facility] 1.2.840.114 [id number] 17:25:17 17:45:17 Only Fam [facility] [id number] [place] 4.2.7.2.[address] [facility] [phone] nal 0[address] One 2020-08-01 2020-08-01 Outpatient [facility] [id number] [facility] 2020-07-30 2020-07-30 [facility] [id number] [facility] 2020-07-30 2020-07-30 Out[facility] [id number] [facility] 2020-07-18 2020-07-18 [facility] Radiology [facility] [id number] 14:58:22 23:59:00 Encounter [place] [id number] [place] 4.2.7.2.686 [place] [id number] 2020-07-09 2020-07-09 Outpatient [facility] [id number] [facility] 2020-07-01 2020-07-01 Outpatient [facility] [id number] [facility] 2020-06-26 2020-06-26 [facility] [id number] 2020-06-12 2020-06-12 [facility] [id number] 08:29:00 10:30:00 Nasrin Smith [place] [id number] [place] 4.2.7.2.686 [facility] [phone] Center 071 2020-06-11 2020-06-11 Laboratory Only, [facility] 1.2.840.114 [id number] 09:25:13 09:40:13 Only Test [place] [id number] [place] 4.2.7.2.686 [place] [id number] 353 2020-05-11 2020-05-11 Telephone ANAM Charles [id number] 00:00:00 00:00:00 Pj GALLOWAY [id number] [facility] 4.2.7.2.686 [id number] 2020-05-10 2020-05-10 Laboratory Lab, [facility] 1.2.840.114 [id number] 08:55:14 09:15:14 Only Fam [facility] [id number] [place] 4.2.7.[address] [facility] [phone] nal 044 Office Building One 2020-05-10 2020-05-10 Letter Doctor ANAM [id number] 00:00:00 00:00:00 (Out) Unassigned, NILESH 350.1.13.10 [place] [facility] 4.2.7.2.686 [id number] 2020-05-08 2020-05-08 [facility] [id number] [facility] 2020-04-29 2020-04-[address] [facility] [id number] [facility] 2020-04-26 2020-04-26 [facility] [id number] 10:40:00 10:40:00 [facility] Medicine Outpati ent Clinics 2020-03-21 2020-03-21 [facility] [id number] 09:35:00 09:35:00 [facility] Medicine Outpati ent Clinics 2020-03-01 2020-03-01 [facility] [id number] 14:20:00 14:20:00 [facility] Medicine Outpati ent Clinics 2020-02-26 2020-02-26 [facility] [id number] 14:40:00 14:40:00 [facility] Medicine Medicine Outpati ent Clinics 2020-02-23 2020-02-23 [facility] [id number] 11:09:00 11:09:00 [facility] Medicine Outpati ent Clinics 2020-02-09 2020-02-09 [facility] [id number] 13:00:00 13:00:00 [facility] Medicine Outpati ent Clinics 2019-12-27 2019-12-27 [facility] [id number] 16:27:00 16:27:00 t [facility] Medicine Outpati ent Clinics 2019-11-08 2019-11-08 [facility] [id number] 10:45:00 10:45:00 t [facility] Medicine Outpati ent Clinics 2019-10-24 2019-10-24 [facility] [id number] 09:52:00 09:52:00 t [facility] Medicine Outpati ent Clinics 2019-10-18 2019-10-18 [facility] [id number] 10:15:00 10:15:00 t [facility] Medicine Outpati ent Clinics 2019-09-29 2019-09-29 [facility] [id number] 15:00:00 15:00:00 t [facility] Medicine Outpati ent Clinics 2019-09-05 2019-09-05 [facility] [id number] 00:17:00 00:17:00 t [facility] Medicine Outpati ent Clinics 2019-08-23 2019-08-23 [facility] [id number] 03:36:00 03:36:00 t [facility] Medicine Outpati ent Clinics 2019-07-18 2019-07-18 [facility] [id number] 10:04:00 10:04:00 t [facility] Medicine Outpati ent Clinics 2019-07-07 2019-07-07 [facility] [id number] 10:00:00 10:00:00 [facility] Medicine Outpati ent Clinics 2019-06-14 2019-06-14 [facility] [id number] 13:20:00 13:20:00 t [facility] Medicine Outpati ent Clinics 2019-06-09 2019-06-09 [facility] [id number] 11:39:00 11:39:00 t [facility] Medicine Outpati ent Clinics 2019-05-31 2019-05-31 [facility] [id number] 10:23:00 10:23:00 t [facility] Medicine Outpati ent Clinics 2019-05-05 2019-05-05 [facility] [id number] 08:59:00 08:59:00 t [facility] Medicine Outpati ent Clinics 2019-04-11 2019-04-11 [facility] [id number] 13:00:00 13:00:00 t [facility] Medicine Outpati ent Clinics 2019-04-07 2019-04-07 [facility] [id number] 08:36:00 08:36:00 t [facility] Medicine Outpati ent Clinics 2019-03-21 2019-03-21 [facility] [id number] 15:03:00 15:03:00 t [facility] Medicine Outpati ent Clinics 2019-03-20 2019-03-20 [facility] [id number] 15:04:00 15:04:00 t [facility] Medicine Outpati ent Clinics 2019-03-14 2019-03-14 [facility] [id number] 15:36:00 15:36:00 t [facility] Medicine Outpati ent Clinics 2019-02-09 2019-02-09 [facility] [id number] 12:49:00 12:49:00 t [facility] Medicine Outpati ent Clinics 2019-02-07 2019-02-07 [facility] [id number] 09:44:00 09:44:00 t [facility] Medicine Medicine Outpati ent Clinics 2019-02-06 2019-02-06 [facility] [id number] 11:40:00 11:40:00 t [facility] Medicine Medicine Outpati ent Clinics 2018-11-08 2018-11-08 [facility] [id number] 10:06:00 10:06:00 t [facility] Medicine Medicine Outpati ent Clinics 2018-11-03 2018-11-03 [facility] [id number] 14:58:00 14:58:00 t [facility] Medicine Medicine Outpati ent Clinics 2018-10-26 2018-10-26 [facility] [id number] 13:00:00 13:00:00 t [facility] Medicine Medicine Outpati ent Clinics 2018-10-10 2018-10-10 [facility] [id number] 11:30:00 11:30:00 t [facility] Medicine Medicine Outpati ent Clinics 2018-08-24 2018-08-24 [facility] [id number] 15:45:00 15:45:00 t [facility] Medicine Medicine Outpati ent Clinics 2018-08-22 2018-08-22 [facility] [id number] 09:18:00 09:18:00 t [facility] Medicine Medicine Outpati ent Clinics 2018-08-05 2018-08-05 [facility] [id number] 12:34:00 12:34:00 t [facility] Medicine l Medicine Outpati ent Clinics 2018-05-23 2018-05-23 [facility] [id number] 11:41:00 11:41:00 t [facility] Medicine Medicine Outpati ent Clinics 2018-05-02 2018-05-02 Outpatient Maria Ines Olvera [id number] 11:30:00 11:30:00 [facility] ent Clinics 2018-03-08 2018-03-08 Outpatient Maria Ines Olvera [id number] 15:30:00 15:30:00 [facility] 2017-11-09 2017-11-09 Outpatient Maria Ines Spannt [id number] 16:15:00 16:15:00 [facility] Results Test Description Test Time Test Comments Results Result [facility] e Comments - CT ABD PELVIS 2020-05-14 Name: VIDYA FROST W/CONT 13:37:00 [facility] : 1950 Age/S: 69 / F [address] [place] [address] Unit #: [id number] Loc: [place] [address] Phys: Missael Woodson DO Acct: [id number] Dis Date: Status: DEP ER PHONE #: [phone] Exam Date: 05/14/2020 1316 FAX #: [phone] Reason: LOWER ABDOMINAL PAIN EXAMS: CPT CODE: [id number] CT ABD PELVIS W/CONT 05605 Clinical Indication: Lower abdominal pain. Comparison: None [...] thick-walled. Correlate for evidence of cystitis. SL: [id number] at 1337 Reported and signed by: Ana Becker M.D. PAGE 1 Signed Report (CONTINUED) Name: VIDYA FROST [facility] : 1950 Age/S: 69 / F [address] [place] [address] Unit #: [id number] Loc: [place] [address] Phys: Missael Woodson DO Acct: [id number] Dis Date: Status: DEP ER PHONE #: [phone] Exam Date: 05/14/2020 131 FAX #: [phone] Reason: LOWER ABDOMINAL PAIN EXAMS: CPT CODE: [id number] CT ABD PELVIS W/CONT 82066 <Continued> CC: Missael Woodson DO Technologist:Monae Bazzi, RT(R)(CT) CTDI: DLP: Trnscb Date/Time: 05/14/2020 (1337) [email or web address] Orig Print D/T: S: 05/14/2020 (1341) PAGE 2 Signed Report - CT ABD PELVIS 2020-05-14 Name: VIDYA FROST W/CONT 13:37:00 [facility] : 1950 Age/S: 69 / F [address] [place] [address] Unit #: [id number] Loc: [place] [address] Phys: Missael Woodson DO Acct: [id number] Dis Date: Status: REG ER PHONE #: [phone] Exam Date: 05/14/2020 131 FAX #: [phone] Reason: LOWER ABDOMINAL PAIN EXAMS: CPT CODE: [id number] CT ABD PELVIS W/CONT 74687 Clinical Indication: Lower abdominal pain. Comparison: None [...] thick-walled. Correlate for evidence of cystitis. SL: [id number] at 1337 Reported and signed by: Ana Becker M.D. PAGE 1 Signed Report (CONTINUED) Name: VIDYA FROST [facility] : 1950 Age/S: 69 / F [address] [place] [address] Unit #: [id number] Loc: [place] [address] Phys: Missael Woodson DO Acct: [id number] Dis Date: Status: REG ER PHONE #: [phone] Exam Date: 05/14/2020 1316 FAX #: [phone] Reason: LOWER ABDOMINAL PAIN EXAMS: CPT CODE: [id number] CT ABD PELVIS W/CONT 13340 <Continued> CC: Missael Woodson DO Technologist:Monae Bazzi, RT(R)(CT) CTDI: DLP: Trnscb Date/Time: 05/14/2020 (1337) [email or web address] Orig Print D/T: S: 05/14/2020 (9271) PAGE 2 Signed Report - XR CHEST 1 V 2020-05-14 FAX: N 13:07:00 Missael Woodson DO [phone] [place]: [address]: DEP Name: VIDYA FROST [facility] [place] : 1950 Age/S: 69/F [address] [place] [address] Unit #: [id number] Loc: [place] [address] Phys: Missael Woodson DO Acct: [id number] Dis Date: Status: DEP ER PHONE #: [phone] Exam Date: 05/14/2020 1305 FAX #: [phone] Reason: Abdominal Pain EXAMS: CPT CODE: [id number] XR CHEST 1 V 25586 CLINICAL HISTORY:Abdominal Pain COMPARISON:NONE Frontal film of the chest performed at 1239 on May 14, 2020 demonstrates that heart size is normal. Lung burton are clear. No evidence of pneumonia. There is no evidence of pleural effusion or pneumothorax. Regional skeletal structures are within normal limits. IMPRESSION: No evidence of pneumonia or congestive failure is seen. at 130 Reported and signed by: Albino Marquis M.D. CC: Missael Woodson DO Technologist: RT Enma(Arabella) Trnscrd Date/Time/By: 05/14/2020 (5384) : By: Polina Orig Print D/T: S: 05/14/2020 (9606) PAGE 1 Signed Report - XR CHEST 1 V 2020-05-14 FAX: N 13:07:00 Missael Woodson DO [phone] [place]: St: REG Name: VIDYA FROST [facility] [place] : 1950 Age/S: 69/F [address] [place] [address] Blvd Unit #: [id number] Loc: [place] [address] Phys: Missael Woodson DO Acct: [id number] Dis Date: Status: REG ER PHONE #: [phone] Exam Date: 05/14/2020 1305 FAX #: [phone] Reason: Abdominal Pain EXAMS: CPT CODE: [id number] XR CHEST 1 V 34556 CLINICAL HISTORY:Abdominal Pain COMPARISON:NONE Frontal film of [...] DO Technologist: RT Enma(Arabella) Trnscrd Date/Time/By: 05/14/2020 (1306) : By: Polina Orig Print D/T: S: 05/14/2020 (2799) PAGE 1 Signed Report BASIC METABOLIC PANEL [...] CA) 9.6 mg/dL 8.0-10.5 N HEPATIC FUNCTION [id number] 12:57:00 Test Item Value Reference Range Interpretation [...] 69 IUnit/L 20-125 N code = ALKP) [id number] 12:57:00 Test Item Value Reference Range Interpretation Comments LIPASE (test code = LIP) 56 U/L 13-57 N CBC W/AUTO [id number] 12:43:00 Test Item Value Reference Range Interpretation [...] = MDIFF) UA RFLX MICR CULT IF [id number] 12:32:00 Test Item Value Reference Range Interpretation [...] for culture: Suprapubic PainSpecimen Description: CLEAN CATCH [id number] 22:58:00 Test Item Value Reference Range Interpretation Comments GLUBED (test code = 224 MG/DL 70-110 H Performe d by certified GLUBED) roll up operator at [facility] HGBA1C%2018-10-24 09:25:00 Test Item Value Reference Range Interpretation Comments HGBA1C% (test code = HGBA1C%) 8.3 %A1C 4.8-6.0 H BASIC METABOLIC [id number] 08:18:00 Test Item Value Reference Range Interpretation [...] LDL 62 mg/dL 0-100 N <100 OPT FVTC658-140 (test code = LDL) NEAR OPTI MAL/ABOVE REMXEXV719-374 [id number] 89 HIGH>QG=098 VE RY HIGH*Guidelines provided by the National [facility] terol [employer] m Adult Treatment Panel III THYROID STIMULATING [id number] 08:18:00 Test Item Value Reference Range Interpretation Comments THYROID STIMULATING 0.70 0.42-5.47 N Results in HORMONE (test code = TSH) mi lli-International Units/mL [id number] 08:03:00 Test Item Value Reference Range Interpretation Comments GLUBED (test code = 147 MG/DL 70-110 H Performe d by certified GLUBED) roll up operator at [facility] CBC W/AUTO [id number] 07:07:00 Test Item Value Reference Range Interpretation [...] MANUAL DIFF REQUIRED (test code NO = LUCITA) [id number] 21:08:00 Test Item Value Reference Range Interpretation Comments GLUBED (test code = 200 MG/DL 70-110 H Performe d by certified GLUBED) roll up operator at [facility] - MRI BRAIN W/O [id number] 20:06:00 FAX: Ale Leal MD [phone] [place]: [facility]: [facility] FAX: Camilla Odonnell MD Name: VIDYA FROST [facility] : 1950 Age/S: 67/F [address] [place] [address] Blvd Unit #: [id number] Loc: G[address] [place] [address] Phys: Camilla Terrell MD Acct: [id number] Dis Date: Status: ADM IN PHONE #: [phone] Exam Date: 10/23/20181946 FAX #: [phone] Reason: PERSISTENT DIZZINESS EXAMS: CPT CODE: [id number] MRI BRAIN W/O CONT 18379 EXAM: MRI BRAIN WITHOUT CONTRAST DATE: 10/23/2018 [...] Minimal chronic small vessel ischemic change. SL: ROSY PAGE 1 Signed Report (CONTINUED) FAX: Ale Leal MD [phone] [place]: [facility]: ADM FAX: Camilla Odonnell MD Name: VIDYA FROST [facility] : 1950 Age/S: 67/F [address] [place] [address] Blvd Unit #: [id number] Loc: [address] [address] Phys: Camilla Terrell MD Acct: [id number] Dis Date: Status: ADM IN PHONE #: [phone] Exam Date: 10/23/2018 1947FAX #: [phone] Reason: PERSISTENT DIZZINESS EXAMS: CPT CODE: [id number] MRI BRAIN W/O CONT 56720 <Continued> at 2005 Reported and signed by: Roman Harrison M.D. CC: Ale Leal MD; Camilla Terrell MD Technologist: Paty Slater RT(MR)(CT) Trnscrd Date/Time/By: 10/23/2018 (2005) : By: [email or web address] Orig Print D/T: S: 10/23/2018 (2008) PAGE 2 Signed [id number] 18:14:00 Test Item Value Reference Range Interpretation [...] 3 troponins total (including troponin done in ED)[id number] 17:42:00 Test Item Value Reference Range Interpretation Comments GLUBED (test code = 132 MG/DL 70-110 H Performe d by certified GLUBED) roll up operator at [facility] [id number] 15:17:00 Test Item Value Reference Range Interpretation Comments GLUBED (test code = 145 MG/DL 70-110 H Performe d by certified GLUBED) roll up operator at [facility] [id number] 14:45:00 Test Item Value Reference Range Interpretation [...] 1.3 mmol/l 0.4-1.9 N LACTR) COMPREHENSIVE METABOLIC [id number] 11:05:00 Test Item Value Reference Range Interpretation [...] 20-125 N TOTAL (test code = ALKP) [id number] 11:05:00 Test Item Value Reference Range Interpretation [...] results may frances y by method. LACTIC [id number] 10:56:00 Test Item Value Reference Range Interpretation Comments LACTIC ACID (test code = LACT) 2.1 mmol/L 0.4-1.9 H URINALYSIS [id number] 10:46:00 Test Item Value Reference Range Interpretation [...] /LPF NONE SEEN COMMENTS: Clean CatchCBC W/AUTO [id number] 10:42:00 Test Item Value Reference Range Interpretation [...] NO = MDIFF) - CT HEAD/BRAIN W/O [id number] 09:22:00 Name: VIDYA FROST [facility] : 1950 Age/S: 67 / F [address] [place] [address] Unit #: [id number] Loc: [facility] [id number] Phys: Braxton Prasad MD Acct: [id number] Dis Date: Status: REG ER PHONE #: [phone] Exam Date: 10/23/2018904 FAX #: [phone] Reason: dizziness EXAMS: CPTCODE: [id number] CT HEAD/BRAIN W/O CONT 83678 CT head without contrast 10/23/2018 HISTORY: Dizziness [...] 3. Mild chronic microvascular ischemic changes. SL: [id number] at 0922 Reported and signed by: Giorgio Srivastava M.D. CC: Braxton Prasad MD Technologist:Katrin Miles, RT(R)(CT) CTDI: DLP: Trnscb Date/Time: 10/23/2018 (921) [email or web address] Orig Print D/T: S: 10/23/2018 (924) CTDI: DLP: PAGE 1 SignedReportURINALYSIS [id number] 01:38:00 Test Item Value Reference Range Interpretation [...]
--- NOTE | 2021-04-21 15:14 | RAD REPORT ---
EXAM DESCRIPTION: CT - Head Brain Wo Cont - 04/21/2021 3:07 pm CLINICAL HISTORY: HEADACHE Headache, drowsiness COMPARISON: Head Brain Wo Cont dated 09/22/2019 TECHNIQUE: All CT scans are performed using dose optimization technique as appropriate and may inclu de automated exposure control or mA/KV adjustment according to patient size. FINDINGS: No intracranial hemorrhage, hydrocephalus or extra-axial fluid collection.No areas of brai n edema or evidence of midline shift. The paranasal sinuses and mastoids are clear. The calvarium is intact. IMPRESSION: No acute intracranial abnormality.
[2021-04-21] MEDS ORDERED: MECLIZINE HCL 12.5 MG TAB ONE (15:21)
--- NOTE | 2021-04-21 16:19 | ER ---
Nurse's Notes [facility] Name: Miroslava Rousseau Age: 70 yrs Sex: Female : 1950 Arrival Date: 04/21/2021 Time: 11:21 Bed 10 Private MD: Dona Escalona Diagnosis: Benign paroxysmal vertigo, unspecified ear Presentation: 04/21 12:08 Chief complaint: Patient states: Dizziness since 0900 today. + N/V. BELTRAN and L ear pain. ll1 No fever. Coronavirus screen: Vaccine status: Patient reports receiving the 2nd dose of the covid vaccine. Client denies travel out of the [place] in the last 14 days. At this time, the client does not indicate any symptoms associated with coronavirus-19. Ebola Screen: Patient denies travel to an Ebola-affected area in the 21 days before illness onset. Initial Sepsis Screen: Does the patient meet any 2 criteria? No. Patient's initial sepsis screen is negative. Does the patient have a suspected source of infection? No. Patient's initial sepsis screen is negative. Risk Assessment: Do you want to hurt yourself or someone else? Patient reports no desire to harm self or others. Onset of symptoms was April 21, 2021. 12:08 Method Of Arrival: Wheelchair ll1 12:08 Acuity: MARTHA 3 ll1 Historical: - Allergies: 12:10 NKDA; ll1 - Home Meds: 14:41 aspirin 81 mg Oral TbEC 1 tab once daily [Active]; glimepiride 2 mg Oral tab 1 tab once vg1 daily [Active]; Januvia 100 mg Oral tab 1 tab once daily [Active]; lisinopril 5 mg Oral tab 1 tab once daily [Active]; lovastatin 20 mg Oral tab 1 tab once daily [Active]; metformin 500 mg Oral tab 1 tab 2 times per day [Active]; vitamins [Active]; Trulicity subcutaneous [Active]; - PMHx: 12:10 Diabetes - IDDM; Hyperlipidemia; Hypertension; Uterine CA; ll1 - PSHx: 12:10 None; ll1 - Immunization history:: Client reports receiving the 2nd dose of the Covid vaccine, Flu vaccine is up to date. - Social history:: Smoking status: Patient denies any tobacco usage or history of. - Family history:: not pertinent. Screenin:40 Abuse screen: Denies threats or abuse. Nutritional screening: No deficits noted. vg1 Tuberculosis screening: No symptoms or risk factors identified. Fall Risk No fall in past 12 months (0 pts). No secondary diagnosis (0 pts). IV access (20 points). Ambulatory Aid- None/Bed Rest/Nurse Assist (0 pts). Gait- Normal/Bed Rest/Wheelchair (0 pts) Mental Status- Oriented to own ability (0 pts). Total Manley Fall Scale indicates No Risk (0-24 pts). Assessment: 14:30 General: Appears in no apparent distress. comfortable, Behavior is calm, cooperative. vg1 Pain: Complains of pain in head and Left ear Pain currently is 8 out of 10 on a pain scale. Pain began this morning. Neuro: Level of Consciousness is awake, alert, obeys commands, Oriented to person, place, time, situation, Reports dizziness, headache states hx of Vertigo. Cardiovascular: Patient's skin is warm and dry. Respiratory: Airway is patent Respiratory effort is even, unlabored. GI: Reports nausea, vomiting, since this morning. : No signs and/or symptoms were reported regarding the genitourinary system. EENT: Reports Left Ear pain. Derm: Skin is intact, is healthy with good turgor. Musculoskeletal: Circulation, motion, and sensation intact. 15:35 Reassessment: Patient appears in no apparent distress at this time. No changes from vg1 previously documented assessment. Patient and/or family updated on plan of care and expected duration. Pain level reassessed. Patient is alert, oriented x 3, equal unlabored respirations, skin warm/dry/pink. 16:55 Reassessment: Patient appears in no apparent distress at this time. Patient and/or vg1 family updated on plan of care and expected duration. Pain level reassessed. Patient is alert, oriented x 3, equal unlabored respirations, skin warm/dry/pink. Patient states feeling better. Vital Signs: 12:08 BP 142 / 76; Pulse 64; Resp 17; Temp 97.6; Pulse Ox 100% ; Weight 67.13 kg; Height 5 ll1 ft. 0 in. (152.40 cm); Pain 7/10; 14:30 BP 138 / 65; Pulse 62; Resp 16; Pulse Ox 100% ; vg1 15:35 BP 126 / 65; Pulse 63; Resp 14; Pulse Ox 100% ; vg1 16:55 BP 120 / 76; Pulse 60; Resp 16; Pulse Ox 100% ; vg1 12:08 Body Mass Index 28.90 (67.13 kg, 152.40 cm) ll1 ED Course: 11:21 Patient arrived in ED. as 11:21 Dona Escalona MD is Private Physician. as 12:08 Arm band placed on. ll1 12:10 Triage completed. ll1 14:18 Tarmaine Gleason MD is Attending Physician. heather 14:38 Mira Walton, RN is Primary Nurse. vg1 14:40 Patient has correct armband on for positive identification. Bed in low position. Call vg1 light in reach. Adult w/ patient. 14:40 No provider procedures requiring assistance completed. vg1 15:07 CT Head Brain wo Cont In Process Unspecified. EDNY 16:18 Dona Escalona MD is Referral Physician. [facility] 16:19 Osmin Aranda MD is Referral Physician. [facility] 16:19 Miley Peters MD is Referral Physician. [facility] 16:55 IV discontinued, intact, bleeding controlled, No redness/swelling at site. Pressure vg1 dressing applied. Administered Medications: 15:00 Drug: Meclizine 50 mg Route: PO; vg1 16:55 Follow up: Response: No adverse reaction; Marked relief of symptoms vg1 Outcome: 16:18 Discharge ordered by . [facility] 16:55 Discharged to home ambulatory, with family. vg1 16:55 Condition: stable 16:55 Discharge instructions given to patient, Instructed on discharge instructions, follow up and referral plans. medication usage, Demonstrated understanding of instructions, follow-up care, medications, Prescriptions given X 2. 16:55 Patient left the ED. vg1 Signatures: Dispatcher [employer] EDNY Tramaine Gleason MD MD cha Martinez, Amelia as Mira Walton RN RN vg1 Capo Reyes RN RN ll1 Corrections: (The following items were deleted from the chart) 14:41 14:30 Neuro: Level of Consciousness is awake, alert, obeys commands, Oriented to vg1 person, place, time, situation, Reports dizziness, headache vg1
--- NOTE | 2021-04-21 16:19 | EDPHYS ---
Physician Documentation [facility] Name: Miroslava Rousseau Age: 70 yrs Sex: Female : 1950 Arrival Date: 04/21/2021 Time: 11:21 Bed 10 Private MD: Dona Escalona ED Physician Tramaine Gleason HPI: 04/21 16:14 This 70 yrs old Female presents to ER via Wheelchair with complaints of heather Vertigo. 16:14 The patient presents with dizziness. Onset: The symptoms/episode began/occurred 1 heather day(s) ago. Context: occurred at an unknown location. Modifying factors: The symptoms are alleviated by closing eyes, the symptoms are aggravated by movement of head. Associated signs and symptoms: Pertinent positives: nausea. Severity of symptoms: At their worst the symptoms were mild in the emergency department the symptoms are unchanged. Patient's baseline: Neuro: alert and fully oriented. The patient has not experienced similar symptoms in the past. Historical: - Allergies: 12:10 NKDA; ll1 - Home Meds: 14:41 aspirin 81 mg Oral TbEC 1 tab once daily [Active]; glimepiride 2 mg Oral tab 1 tab once vg1 daily [Active]; Januvia 100 mg Oral tab 1 tab once daily [Active]; lisinopril 5 mg Oral tab 1 tab once daily [Active]; lovastatin 20 mg Oral tab 1 tab once daily [Active]; metformin 500 mg Oral tab 1 tab 2 times per day [Active]; vitamins [Active]; Trulicity subcutaneous [Active]; - PMHx: 12:10 Diabetes - IDDM; Hyperlipidemia; Hypertension; Uterine CA; ll1 - PSHx: 12:10 None; ll1 - Immunization history:: Client reports receiving the 2nd dose of the Covid vaccine, Flu vaccine is up to date. - Social history:: Smoking status: Patient denies any tobacco usage or history of. - Family history:: not pertinent. ROS: 16:14 Constitutional: Negative for fever, chills, and weight loss, Eyes: Negative for injury, heather pain, redness, and discharge, ENT: Negative for injury, pain, and discharge, Neck: Negative for injury, pain, and swelling, Cardiovascular: Negative for chest pain, palpitations, and edema, Respiratory: Negative for shortness of breath, cough, wheezing, and pleuritic chest pain, Abdomen/GI: Negative for abdominal pain, nausea, vomiting, diarrhea, and constipation, Back: Negative for injury and pain, : Negative for injury, bleeding, discharge, and swelling, MS/Extremity: Negative for injury and deformity, Skin: Negative for injury, rash, and discoloration, Psych: Negative for depression, anxiety, suicide ideation, homicidal ideation, and hallucinations, Allergy/Immunology: Negative for hives, rash, and allergies, Endocrine: Negative for neck swelling, polydipsia, polyuria, polyphagia, and marked weight changes, Hematologic/Lymphatic: Negative for swollen nodes, abnormal bleeding, and unusual bruising. 16:14 Neuro: Positive for dizziness. Exam: 16:14 Constitutional: This is a well developed, well nourished patient who is awake, alert, heather and in no acute distress. Head/Face: Normocephalic, atraumatic. Eyes: Pupils equal round and reactive to light, extra-ocular motions intact. Lids and lashes normal. Conjunctiva and sclera are non-icteric and not injected. Cornea within normal limits. Periorbital areas with no swelling, redness, or edema. ENT: Nares patent. No nasal discharge, no septal abnormalities noted. Tympanic membranes are normal and external auditory canals are clear. Oropharynx with no redness, swelling, or masses, exudates, or evidence of obstruction, uvula midline. Mucous membranes moist. Neck: Trachea midline, no thyromegaly or masses palpated, and no cervical lymphadenopathy. Supple, full range of motion without nuchal rigidity, or vertebral point tenderness. No Meningismus. Chest/axilla: Normal chest wall appearance and motion. Nontender with no deformity. No lesions are appreciated. Cardiovascular: Regular rate and rhythm with a normal S1 and S2. No gallops, murmurs, or rubs. Normal PMI, no JVD. No pulse deficits. Respiratory: Lungs have equal breath sounds bilaterally, clear to auscultation and percussion. No rales, rhonchi or wheezes noted. No increased work of breathing, no retractions or nasal flaring. Abdomen/GI: Soft, non-tender, with normal bowel sounds. No distension or tympany. No guarding or rebound. No evidence of tenderness throughout. Back: No spinal tenderness. No costovertebral tenderness. Full range of motion. Skin: Warm, dry with normal turgor. Normal color with no rashes, no lesions, and no evidence of cellulitis. MS/ Extremity: Pulses equal, no cyanosis. Neurovascular intact. Full, normal range of motion. Neuro: Awake and alert, GCS 15, oriented to person, place, time, and situation. Cranial nerves II-XII grossly intact. Motor strength 5/5 in all extremities. Sensory grossly intact. Cerebellar exam normal. Normal gait. Psych: Awake, alert, with orientation to person, place and time. Behavior, mood, and affect are within normal limits. 16:14 Musculoskeletal/extremity: DVT Exam: No signs of deep vein thrombosis. no pain, no swelling, no tenderness, negative Homans' sign noted on exam, no appreciated bluish discoloration, no erythema, no increased warmth. Vital Signs: 12:08 BP 142 / 76; Pulse 64; Resp 17; Temp 97.6; Pulse Ox 100% ; Weight 67.13 kg; Height 5 ll1 ft. 0 in. (152.40 cm); Pain 7/10; 14:30 BP 138 / 65; Pulse 62; Resp 16; Pulse Ox 100% ; vg1 15:35 BP 126 / 65; Pulse 63; Resp 14; Pulse Ox 100% ; vg1 16:55 BP 120 / 76; Pulse 60; Resp 16; Pulse Ox 100% ; vg1 12:08 Body Mass Index 28.90 (67.13 kg, 152.40 cm) ll1 MDM: 14:18 Patient medically screened. heather 16:14 Differential diagnosis: cardiac arrhythmia, hypovolemia, idiopathic dizziness, vertigo. heather Data reviewed: vital signs, nurses notes, radiologic studies, CT scan. Data interpreted: front desk monitor: rate is 63 beats/min, rhythm is regular, Pulse oximetry: on room air. Counseling: I had a detailed discussion with the patient and/or guardian regarding: the historical points, exam findings, and any diagnostic results supporting the discharge/admit diagnosis, lab results, radiology results, the need for outpatient follow up, for definitive care, a bow tacker, an ENT specialist, a train planner. 04/21 14:53 Order name: CT Head Brain wo Cont; Complete Time: 16:11 vg1 Administered Medications: 15:00 Drug: Meclizine 50 mg Route: PO; vg1 16:55 Follow up: Response: No adverse reaction; Marked relief of symptoms vg1 Disposition Summary: 04/21/21 16:18 Discharge Ordered Location: Home [facility] Problem: new heather Symptoms: have improved heather Condition: Stable heather Diagnosis - Benign paroxysmal vertigo, unspecified ear heather Followup: heather - With: Dona Escalona MD - When: 2 - 3 days - Reason: Recheck today's complaints, Continuance of care, Re-evaluation by your physician Followup: heather - With: Osmin Aranda MD - When: 2 - 3 days - Reason: Recheck today's complaints, Continuance of care, Re-evaluation by your physician Followup: heather - With: Miley Peters MD - When: 2 - 3 days - Reason: Recheck today's complaints, Re-evaluation by your physician Discharge Instructions: - Discharge Summary Sheet heather - Benign Positional Vertigo heather - Dizziness heather - Vertigo heather - Vertigo, [id number] heather - Aspirin and Your Heart heather - Dizziness, [id number] [facility] Forms: - Medication Reconciliation Form heather - Thank You Letter heather - Antibiotic Education heather - Prescription Opioid Use [facility] Prescriptions: - Meclizine 25 mg Oral Tablet - take 1 tablet by ORAL route every 8 hours As needed; 30 tablet; Refills: 0, [facility] Product Selection Permitted - Zofran 4 mg Oral Tablet - take 1 tablet by ORAL route every 12 hours As needed; 20 tablet; Refills: 0, [facility] Product Selection Permitted Signatures: Dispatcher [employer] Tramaine Esteban MD MD cha Garcia, Victoria RN RN vg1 Capo Reyes RN RN ll1
[2021-04-21 17:21] VITALS: TEMP 97.6; O2SAT 100
[2021-04-21 17:25] VITALS: BP 120/76
== END 2021-04-21 16:55 | disposition home or self-care (01) ==
LOC: ER 11:18
DX: H81.10 Benign paroxysmal vertigo, unspecified ear (principal); I10 Essential (primary) hypertension; E11.9 Type 2 diabetes mellitus without complications; Z79.82 Long term (current) use of aspirin
CPT/HCPCS: 70450; 99283

== ENCOUNTER 2021-06-19 05:38 | Emergency (ER) | payer MEDICARE, OTHER ==
[2021-06-19] MEDS ORDERED: NA CHLORIDE 0.9% 1,000 ML ONE (06:33)
[2021-06-19 06:48] LABS: Absolute Lymphocytes (CBC) 0.2 K/uL (0.7-4.9); Basophils % 0.2 % (0-1.3); Hematocrit 35.4 % (36.0-45.0); Lymphocytes % 4.8 % (15.3-44.8); MPV 8.7 fL (7.6-11.3); RBC Red Blood Cell Count 3.97 M/uL (3.86-4.86)
[2021-06-19 07:02] LABS: Albumin 3.5 g/dL (3.4-5.0); Bilirubin Direct 0.1 mg/dL (0-0.2); Bilirubin Total 0.4 mg/dL (0.2-1.0); Potassium 3.8 mmol/L (3.5-5.1); Protein, Total 7.2 g/dL (6.4-8.2)
[2021-06-19 07:16] LABS: Blood Morphology Comment NOT SEEN (NOT SEEN); Platelet Estimate ADEQ; White Blood Cell Scan OK (OK)
[2021-06-19 08:01] LABS: Urine Blood Trace-intact (Negative); Urine Glucose 2+ (Negative); Urine Protein Negative (Negative); Urine Specific Gravity 1.025 (1.005-1.030)
[2021-06-19 08:09] LABS: SARS-COV-2 RT PCR NEGATIVE (NEGATIVE)
--- NOTE | 2021-06-19 08:29 | RAD REPORT ---
EXAM DESCRIPTION: CT - Abdomen Pelvis W Contrast - 06/19/2021 8:06 am CLINICAL HISTORY: Abdominal pain COMPARISON: 2019 TECHNIQUE: Computed axial tomography of the abdomen pelvis was obtained. 100 cc Isovue-300 was admin istered intravenously. Oral contrast was not requested which limits evaluation of bowel. All CT scans are performed using dose optimization technique as appropriate and may include automated exposure control or mA/KV adjustment according to patient size. FINDINGS: Mild fatty liver. Cholecystectomy. Spleen, pancreas, adrenal and kidneys appear unremarkable. There is no evidence of diverticulitis. Fluid is present within many small bowel loops. The wall of several loops is mildly thickened. Hysterectomy. No adnexal mass IMPRESSION: Fluid within many small bowel loops with mild wall thickening at may indicate an enterit is
[2021-06-19] MEDS ORDERED: ONDANSETRON 4 MG/2 ML VIAL ONE (08:34)
--- NOTE | 2021-06-19 09:02 | EDPHYS ---
Physician Documentation [facility] Name: Miroslava Rousseau Age: 70 yrs Sex: Female : 1950 Arrival Date: 06/19/2021 Time: 05:42 Bed 14 Private MD: ED Physician Roberth Armstrong HPI: 06/19 08:42 This 70 yrs old Female presents to ER via Ambulatory with complaints of pm1 Diarrhea, General Weakness. 08:42 The patient presents to the emergency department with vomiting, diarrhea. Onset: The pm1 symptoms/episode began/occurred last night. Possible causes: unknown, but occasionally has episodes of vomiting and diarrhea ever since she got radiation treatment for her uterine cancer many years ago. The symptoms are alleviated by food , Patient was able to eat to crackers this AM and it seemed to soother her upset stomach. Associated signs and symptoms: Pertinent positives: abdominal pain, Pertinent negatives: dysuria, fever. Severity of symptoms: in the emergency department the symptoms have improved. The patient has experienced similar episodes in the past, several times. The patient has not recently seen a physician. Patient reports that Imodium usually works for her diarrhea but she was not able to keep it down due to the vomiting. Historical: - Allergies: 06:01 NKDA; bb - Home Meds: 06:01 metformin 500 mg Oral tab 1 tab 2 times per day [Active]; lisinopril 5 mg Oral tab 1 bb tab once daily [Active]; lovastatin 20 mg Oral tab 1 tab once daily [Active]; aspirin 81 mg Oral chew 1 tab once daily [Active]; glimepiride 2 mg Oral tab 1 tab once daily [Active]; vitamins [Active]; Januvia 100 mg Oral tab 1 tab once daily [Active]; - PMHx: 06:01 Diabetes - IDDM; Hyperlipidemia; Hypertension; Uterine CA; bb - Immunization history:: Adult Immunizations up to date, Client reports receiving the 2nd dose of the Covid vaccine, Pneumococcal vaccine is up to date, Flu vaccine is not up to date. - Social history:: Smoking status: Patient denies any tobacco usage or history of. ROS: 08:42 Eyes: Negative for injury, pain, redness, and discharge, ENT: Negative for injury, pm1 pain, and discharge, Neck: Negative for injury, pain, and swelling, Cardiovascular: Negative for chest pain, palpitations, and edema, Respiratory: Negative for shortness of breath, cough, wheezing, and pleuritic chest pain. 08:42 Back: Negative for injury and pain, : Negative for injury, bleeding, discharge, and swelling, MS/Extremity: Negative for injury and deformity, Skin: Negative for injury, rash, and discoloration, Neuro: Negative for headache, weakness, numbness, tingling, and seizure. 08:42 Constitutional: Positive for body aches, Negative for chills, fever. 08:42 Abdomen/GI: Positive for abdominal pain, nausea and vomiting, Negative for diarrhea, constipation. 08:42 All other systems are negative. Exam: 08:42 Constitutional: This is a well developed, well nourished patient who is awake, alert, pm1 and in no acute distress. Head/Face: Normocephalic, atraumatic. 08:42 Back: No spinal tenderness. No costovertebral tenderness. Full range of motion. Skin: Warm, dry with normal turgor. Normal color with no rashes, no lesions, and no evidence of cellulitis. MS/ Extremity: Pulses equal, no cyanosis. Neurovascular intact. Full, normal range of motion. 08:42 Eyes: Exam is negative for acute changes, Extraocular movements: no acute changes, Conjunctiva: normal, no acute changes, no injection, Sclera: no acute changes, icterus, is not appreciated. 08:42 ENT: Exam is negative for acute changes, TM's: no acute changes, Mouth: Lips: normal, moist, Oral mucosa: normal, pink and intact, moist. 08:42 Cardiovascular: Exam negative for acute changes, Rate: normal, Rhythm: regular, Pulses: no pulse deficits are appreciated, Edema: is not appreciated. 08:42 Respiratory: Exam negative for acute changes, respiratory distress, shortness of breath, Breath sounds: are clear throughout. 08:42 Abdomen/GI: Exam negative for acute changes, Inspection: obese Palpation: abdomen is soft and non-tender, in all quadrants. 08:42 Neuro: Exam negative for acute changes, Orientation: is normal, Mentation: is normal, Motor: is normal, moves all fours. Vital Signs: 06:00 BP 127 / 63; Pulse 88; Resp 16; Pulse Ox 99% on R/A; Pain 0/10; dc2 06:04 BP 109 / 66; Pulse 120; Resp 17; Temp 99.1; Pulse Ox 99% on R/A; Weight 74.84 kg; bb Height 5 ft. 0 in. (152.40 cm); Pain 3/10; 07:00 BP 124 / 64; Pulse 97; Resp 17; Pulse Ox 100% ; Pain 0/10; dc2 09:11 BP 110 / 58; Pulse 79; Resp 18; Pulse Ox 99% on R/A; jt3 09:22 Temp 98.8(O); jt3 06:04 Body Mass Index 32.22 (74.84 kg, 152.40 cm) bb MDM: 06:29 Patient medically screened. pm1 08:44 Data reviewed: vital signs. Data interpreted: Pulse oximetry: on room air is 100 %. pm1 Interpretation: normal. Counseling: I had a detailed discussion with the patient and/or guardian regarding: the historical points, exam findings, and any diagnostic results supporting the discharge/admit diagnosis, lab results, radiology results, the need for outpatient follow up, a family practitioner, a internal combustion engine subassembler, to return to the emergency department if symptoms worsen or persist or if there are any questions or concerns that arise at home. 06/19 06:30 Order name: Basic Metabolic Panel; Complete Time: 08:18 pm1 06/19 06:30 Order name: CBC with Diff; Complete Time: 08:18 pm1 06/19 06:30 Order name: Hepatic Function; Complete Time: 08:18 pm1 06/19 06:30 Order name: Lipase; Complete Time: 08:18 pm1 06/19 06:30 Order name: IV Saline Lock; Complete Time: 06:47 pm1 06/19 06:30 Order name: CT Abd/Pelvis - IV Contrast Only; Complete Time: 08:33 pm1 06/19 07:16 Order name: CBC Smear Scan; Complete Time: 08:18 EDMS 06/19 07:25 Order name: COVID-19/FLU A+B; Complete Time: 08:18 EDMS 06/19 08:01 Order name: Urine Dipstick-Ancillary; Complete Time: 08:18 EDMS 06/19 06:30 Order name: Labs collected and sent; Complete Time: 06:47 pm1 06/19 06:30 Order name: Urine Dipstick-Ancillary (obtain specimen); Complete Time: 08:29 pm1 Administered Medications: 06:35 Drug: NS 0.9% 1000 ml Route: IV; Rate: 1000 ml; Infused Over: 1 hrs; Site: left dc2 antecubital; Delivery: Primary tubing; 08:43 Drug: Zofran (Ondansetron) 4 mg Route: IVP; Site: left antecubital; jt3 Disposition Summary: 06/19/21 09:01 Discharge Ordered Location: Home pm1 Problem: new pm1 Symptoms: have improved pm1 Condition: Stable pm1 Diagnosis - Diarrhea, unspecified pm1 - Vomiting pm1 Followup: pm1 - With: Emergency Department - When: As needed - Reason: Worsening of condition Followup: pm1 - With: Private Physician - When: 2 - 3 days - Reason: Recheck today's complaints, Continuance of care, Re-evaluation by your physician Discharge Instructions: - Discharge Summary Sheet pm1 - Food Choices to Help Relieve Diarrhea, Adult pm1 - Diarrhea, Adult pm1 - Vomiting, Adult pm1 Forms: - Medication Reconciliation Form pm1 - Thank You Letter pm1 - Antibiotic Education pm1 - Prescription Opioid Use pm1 Prescriptions: - ondansetron 4 mg Oral tablet,disintegrating - place 1 tablet by TRANSLINGUAL route every 8 hours As needed; 12 tablet; pm1 Refills: 0, Product Selection Permitted Addendum: 06/21/2021 19:04 Co-signature as Attending Physician, Roberth Armstrong MD. p zac Signatures: Dispatcher [employer] EDRoberth Rajan MD MD pkl Ballard, Brenda, RN RN Gaston Sharma, [employer] IN[employer] pm1 Price, OLEGARIO Blanton RN dc2 Braeden Min RN RN jt3 Corrections: (The following items were deleted from the chart) 06/19 07:26 06:31 CORONAVIRUS+MR.LAB.BRZ ordered. EDMS EDMS 07:26 07:24 SARS-COV-2 RT PCR ordered. EDMS EDMS 07:27 06:31 Influenza Screen (A \T\ B)+BA.LAB.BRZ ordered. EDMS EDMS
--- NOTE | 2021-06-19 09:02 | ER ---
Nurse's Notes [facility] Name: Miroslava Rousseau Age: 70 yrs Sex: Female : 1950 Arrival Date: 06/19/2021 Time: 05:42 Bed 14 Private MD: Diagnosis: Diarrhea, unspecified;Vomiting Presentation: 06/19 05:56 Chief complaint: Patient states: pt has had NVD w bodyache x2 days denies fever chills bb pt reports being unable to hold down solids or liquid denies any sick contacts or recent travel. Coronavirus screen: Vaccine status: Patient reports receiving the 2nd dose of the covid vaccine. Ebola Screen: Patient negative for fever greater than or equal to 101.5 degrees Fahrenheit, and additional compatible Ebola Virus Disease symptoms Patient denies exposure to infectious person. Patient denies travel to an Ebola-affected area in the 21 days before illness onset. Initial Sepsis Screen: Does the patient meet any 2 criteria? No. Patient's initial sepsis screen is negative. Does the patient have a suspected source of infection? No. Patient's initial sepsis screen is negative. Risk Assessment: Do you want to hurt yourself or someone else? Patient reports no desire to harm self or others. Onset of symptoms was June 18, 2021. 05:56 Method Of Arrival: Ambulatory bb 05:56 Acuity: MARTHA 3 bb Triage Assessment: 06:01 General: Appears uncomfortable, well groomed, well developed, Behavior is calm, bb cooperative, appropriate for age. Pain: Complains of pain in umbilical area Pain currently is 3 out of 10 on a pain scale. GI: Reports lower abdominal pain, intolerance of fluids, intolerance of food, nausea, vomiting. Historical: - Allergies: 06: NKDA; bb - Home Meds: 06: metformin 500 mg Oral tab 1 tab 2 times per day [Active]; lisinopril 5 mg Oral tab 1 bb tab once daily [Active]; lovastatin 20 mg Oral tab 1 tab once daily [Active]; aspirin 81 mg Oral chew 1 tab once daily [Active]; glimepiride 2 mg Oral tab 1 tab once daily [Active]; vitamins [Active]; Januvia 100 mg Oral tab 1 tab once daily [Active]; - PMHx: 06:01 Diabetes - IDDM; Hyperlipidemia; Hypertension; Uterine CA; bb - Immunization history:: Adult Immunizations up to date, Client reports receiving the 2nd dose of the Covid vaccine, Pneumococcal vaccine is up to date, Flu vaccine is not up to date. - Social history:: Smoking status: Patient denies any tobacco usage or history of. Screenin:30 Abuse screen: Denies threats or abuse. Denies injuries from another. Nutritional dc2 screening: No deficits noted. Tuberculosis screening: No symptoms or risk factors identified. Fall Risk None identified. No fall in past 12 months (0 pts). Secondary diagnosis (15 points) No IV (0 pts). Ambulatory Aid- None/Bed Rest/Nurse Assist (0 pts). Gait- Normal/Bed Rest/Wheelchair (0 pts) Mental Status- Oriented to own ability (0 pts). Total Manley Fall Scale indicates No Risk (0-24 pts). Assessment: 06:11 General: Appears uncomfortable, well groomed, Behavior is calm, cooperative. dc2 06:15 Pain: Denies pain. dc2 06:15 Neuro: No deficits noted. Level of Consciousness is awake, alert, obeys commands, dc2 Oriented to person, place, time, situation, Denies dizziness, headache. Cardiovascular: No deficits noted. Denies chest pain, shortness of breath, Heart tones present. Respiratory: No deficits noted. Airway is patent Breath sounds are clear bilaterally. Denies shortness of breath. GI: No deficits noted. Abdomen is non-distended, Last BM was June 19, 2021. Bowel sounds present X 4 quads. Reports diarrhea, nausea, vomiting, since Last night about 9pm ( Wednesday ). : No signs and/or symptoms were reported regarding the genitourinary system. EENT: No deficits noted. No signs and/or symptoms were reported regarding the EENT system. Derm: No deficits noted. No signs and/or symptoms reported regarding the dermatologic system. Musculoskeletal: No deficits noted. No signs and/or symptoms reported regarding the musculoskeletal system. Capillary refill < 3 seconds, is brisk, fingers. Range of motion: intact in all extremities. 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 Denies nausea and jt3 vomiting at this time. Pt. updated on plan of care and awaiting the need for CT scan. Normal Saline still attached to patient. Pt. updated that a urine sample is ordered. Denies any other needs at this time. VSS. . Vital Signs: 06:00 BP 127 / 63; Pulse 88; Resp 16; Pulse Ox 99% on R/A; Pain 0/10; dc2 06:04 BP 109 / 66; Pulse 120; Resp 17; Temp 99.1; Pulse Ox 99% on R/A; Weight 74.84 kg; bb Height 5 ft. 0 in. (152.40 cm); Pain 3/10; 07:00 BP 124 / 64; Pulse 97; Resp 17; Pulse Ox 100% ; Pain 0/10; dc2 09:11 BP 110 / 58; Pulse 79; Resp 18; Pulse Ox 99% on R/A; jt3 09:22 Temp 98.8(O); jt3 06:04 Body Mass Index 32.22 (74.84 kg, 152.40 cm) bb ED Course: 05:42 Patient arrived in ED. bp1 05:55 Annie Gupta RN is Primary Nurse. bb 06:01 Triage completed. bb 06:04 Arm band placed on. bb 06:15 Inserted saline lock: 20 gauge in left antecubital area, using aseptic technique. Blood dc2 collected. 06:25 Gaston Holland NP is PHCP. pm1 06:25 Roberth Armstrong MD is Attending Physician. pm1 06:30 No provider procedures requiring assistance completed. dc2 06:32 Basic Metabolic Panel Sent. dc2 06:32 CBC with Diff Sent. dc2 06:32 Basic Metabolic Panel Sent. dc2 06:32 CBC with Diff Sent. dc2 06:32 Hepatic Function Sent. dc2 06:32 Lipase Sent. dc2 06:50 Patient has correct armband on for positive identification. Placed in gown. Bed in low dc2 position. Call light in reach. Side rails up X 1. front desk monitor on. Pulse ox on. NIBP on. Door closed. Lights dimmed. 08:06 CT Abd/Pelvis - IV Contrast Only In Process Unspecified. EDMS Administered Medications: 06:35 Drug: NS 0.9% 1000 ml Route: IV; Rate: 1000 ml; Infused Over: 1 hrs; Site: left dc2 antecubital; Delivery: Primary tubing; 08:43 Drug: Zofran (Ondansetron) 4 mg Route: IVP; Site: left antecubital; jt3 Outcome: 09:01 Discharge ordered by . pm1 09:22 Discharged to home ambulatory. jt3 09:22 Condition: improved 09:22 Discharge instructions given to patient, family. 09:29 Patient left the ED. jt3 Signatures: Dispatcher [employer] EDAnnie Hyatt RN RN bb Gaston Holland, CASINO B[employer]ER CASINO BANKER pm1 Geri Hammond [facility] Franny Thrasher RN RN dc2 Braeden Min RN RN jt3 Corrections: (The following items were deleted from the chart) 07: 06:35 CORONAVIRUS+MR.LAB.BRZ drawn and sent. dc2 EDMS 07:27 06:35 Influenza Screen (A \T\ B)+BA.LAB.BRZ drawn and sent. dc2 EDMS
[2021-06-19 09:39] VITALS: BP 110/58; O2SAT 99
[2021-06-19 09:40] VITALS: TEMP 98.8
== END 2021-06-19 09:29 | disposition home or self-care (01) ==
LOC: ER 05:38
DX: R19.7 Diarrhea, unspecified (principal); I10 Essential (primary) hypertension; E11.9 Type 2 diabetes mellitus without complications; E78.5 Hyperlipidemia, unspecified; Z79.82 Long term (current) use of aspirin; Z20.822 Contact with and (suspected) exposure to COVID-19
CPT/HCPCS: 93005; 85025; 80048; 36415; 80076; 81003; 83690; 0240U; 74177; 96374; 99284; Q9967; J7030; J2405

== ENCOUNTER 2021-08-23 08:54 | Emergency (ER) | payer MEDICARE, OTHER ==
--- OUTSIDE RECORDS SUMMARY | 2021-08-23 08:59 | XMS REPORT | Continuity of Care Document ---
:1950 Author Organization [facility] t Address [address] [place] [address] Care Team Providers Name Role Phone [facility] Primary Care Physician Unavailable Aleena CHAPMAN Attending Clinician Unavailable TARA_CHELSIE_Sinchristiane_An Attending Clinician Unavailable RADIOLOGY Attending Clinician Unavailable Radiology Attending Clinician Unavailable Araceli SHAVER, H Attending Clinician Jeremias KING Attending Clinician Unavailable Lab, Fam Pob I Attending Clinician Unavailable Jeremias Paris Attending Clinician Aleena Chapman MD Attending Clinician Only, Test Attending Clinician Unavailable Santosu Attending Clinician Unavailable ANENE Attending Clinician Unavailable Aneroman KUHNP Attending Clinician Doctor Unassigned, Name Attending Clinician Unavailable Aleena CHAPMAN Admitting Clinician Unavailable Physician, Primary or Family Admitting Clinician Unavailabl e GC_BATAleena_Sinha_An Admitting Clinician Unavailable ROMAN Admitting Clinician Unavailable Ari SHAVER, Aleena Admitting Clinician Payers Payer Name Policy Type Policy Number Effective Date Expiration Date Fatuma SANDRA/AARP [id number] 2020 MEDICARE ADVANTAGE 00:00:00 [employer] - [id number] 2020 [facility] 00:00:00 (MEDICARE REPLACEMENT/ADVANTA GE - HMO) [place]IC[place] B-[place]: [id number] 2016 [email or web address] 00:00:00 Problems Condition Condition Condition Status Onset Resolution Last Treating Co mments Source Name Details Category Date Date Treatment Clinician Date Right Right Disease Active Univers shoulder shoulder 02-05 ity of pain pain 00:00: [place] 00 Medical Branch Lump or Lump or Disease Active Overview: Univ ers mass in mass in 03-07 Formattin ity o f breast breast 00:00: g of this [place] 00 note Medical might be Branch different from the original. MPRESSION :RIGHT BREAST: Stable mass measuring 10 millimete rs long x 6 millimete rs high in the subareola r region. Benign, no evidence of malignanc y. Normal interval follow-up is recommend ed in 12 months. Simple cyst on ultrasoun d at 10 o'clock. Benign, no evidence of malignanc y. Normal interval follow-up is recommend ed in 12 months. LEFT BREAST: Negative, no evidence of malignanc y. Normal interval follow-up is recommend ed in 12 months.Th dae findings and recommend ations were discussed in detail with the patient at the conclusio n of today's examinati on. OVERALL ASSESSMEN T - CATEGORY 2 - BENIGNEND OF IMPRESSIO N Encounter Encounter Disease Active Overview: Univers for for 03-07 Formattin ity of routine routine 00:00: g of this [place] gynecologi gynecologi 00 note Me dical [place] might be Branch examinatio examinatio different n n from the original. ICD10 Diagnosis Term Hat Sprayer Utility Hyperlipid Hyperlipid Disease Active U nivers emia emia 03-07 ity of 00:00: [place] [address] Medical Branch Type 2 Type 2 Disease Active Overview: Univer s diabetes diabetes 03-07 Formattin ity of mellitus mellitus 00:00: g of this [place] as without without 00 note Medical complicati complicati might be Branch ons ons different from the original. ICD10 Diagnosis Term Hat Sprayer Utility Tubal Tubal Disease Active Univers ligation ligation 03-07 ity of status status 00:00: [address] Allergies, Adverse Reactions, Alerts Allergy Allergy Status Severity Reaction(s) Onset Inactive Treating Comm ents Source Name Type Date Date Clinician codeine DA Active [place] [facility] 3-10 Clear 00:00: [place] 00 [facility] codeine DA Active [place] [facility] 3-05 Clear 00:00: [place] 00 [facility] codeine DA Active [place] VOMITING [facility] 3-05 Clear 00:00: [place] 00 [facility] codeine DA Active [place] [facility] 6-12 Clear 00:00: [place] 00 [facility] codeine Adverse Active nausea/vomit [facility] NO KNOWN Drug Active Univers ALLERGIE Class ity of S [facility] Social History Social Habit Start Date Stop Date Quantity Comments Source Exposure to Not sure [facility] SARS-CoV-2 [facility] (event) Branch Alcohol intake 2021-08-04 2021-08-04 Current [facility] 00:00:00 00:00:00 non-drinker of [facility] alcohol [facility] (finding) Tobacco use and 2020-06-13 2020-06-13 Never used Universit y of exposure 00:00:00 00:00:00 [facility] Sex [birth year] Universit y of 00:00:00 00:00:00 [facility] Smoking Status Start Date Stop Date Source Unknown if ever smoked [facility] Never smoker [facility] Medications Ordered Filled Start Stop Current Ordering Indication Dosage Frequency Signature Comments Components Source Medication Medication Date Date Medication? Clinician (SIG) Name Name METFORMIN 2019-08 Yes Take by Univ ers HCL 0-28 mouth. ity of (METFORMIN 16:23: [place] ORAL) 57 Medical Branch SITagliptin 2019-08 Yes 100mg Take 100 U nivers (JANUVIA) 0-28 mg by ity of 100 mg 16:23: mouth [place] tablet 57 daily. Medical Branch METFORMIN 2019-08 Yes Take by Univ ers HCL 0-28 mouth. ity of (METFORMIN 16:23: [place] ORAL) 57 Medical Branch SITagliptin 2019-08 Yes 100mg Take 100 U nivers (JANUVIA) 0-28 mg by ity of 100 mg 16:23: mouth [place] tablet 57 daily. Medical Branch METFORMIN 2019-08 Yes Take by Univ ers HCL 0-28 mouth. ity of (METFORMIN 16:23: [place] ORAL) 57 Medical Branch SITagliptin 2019-08 Yes 100mg Take 100 U nivers (JANUVIA) 0-28 mg by ity of 100 mg 16:23: mouth [place] tablet 57 daily. Medical Branch METFORMIN 2019-08 Yes Take by Univ ers HCL 0-28 mouth. ity of (METFORMIN 16:23: [place] ORAL) 57 Medical Branch SITagliptin 2019-08 Yes 100mg Take 100 U nivers (JANUVIA) 0-28 mg by ity of 100 mg 16:23: mouth [place] tablet 57 daily. Medical Branch water for 2019-08 Yes PRN, Univers irrigation 0-28 Starting ity o f irrigation 14:14: Wed [place] solution 00 06/12/20 Medical at 0914, Branch Until Discontinu ed, Routine, Intra-op simethicone 2019-08 Yes PRN, Univer s (GAS RELIEF 0-28 Starting ity of (SIMETHICON 14:14: Wed [place] E)) 40 00 06/12/20 Medical mg/0.6 mL at 0914, Branch drops Until Discontinu ed, Routine, Intra-op METFORMIN 2019-08 Yes Take by Univ ers HCL 0-28 mouth. ity of (METFORMIN 11:23: [place] ORAL) 57 Medical Branch SITagliptin 2019-08 Yes 100mg Take 100 U nivers (JANUVIA) 0-28 mg by ity of 100 mg 11:23: mouth [place] tablet 57 daily. Medical Branch SITagliptin 2019-08 Yes 100mg Take 100 U nivers (JANUVIA) 0-26 mg by ity of 100 mg 19:26: mouth [place] tablet 06 daily. Medical Branch Trulicity Trulicity 2020- No Amrita tenorio [facility] 9-13 - [place] injection [facility] - 00:00: 00:00 (0.75 mg) [facility] 00 :[facility] ent Clinics One Touch One Touch 2020- No Amrita martinez [facility] Ultra Test Ultra Test 7-13 07-08 [place] directed [facility] - Strips Strips 00:00: 00:00 [facility] 00 [facility] Clinics Ketoconazol Ketoconazol 0 2020- No Amrita [address] [facility] [facility] e e 3-25 10-13 [place] applicatio Linda es - 00:00: 00:00 n to [facility] 00 :00 affected l areas [facility] Tamiflu Tamiflu Yes Amrita 1 [...] - 00:00: for [facility] 00 dizziness l [facility] Blood Blood 2017-08 Yes [address] [facility] Glucose Glucose 2-22 [place] directed [facility] - Test Strip Test Strip 00:00: (DISPENSE Memoria 00 BLOOD l GLUCOSE Outpati TEST ent STRIPS FOR Clinics SHAMAR ONE TOUCH) Lancets Lancets 2017-08 Yes Amrita as [facility] 2-22 [place] directed [facility] - 00:00: (dispense [facility] 00 lancets l for Shamar [facility] One Touch) ent Clinics Blood Blood 2017-08 Yes Amrita as [facility] Glucose Glucose 2-22 [place] directed [facility] - Monitor Monitor 00:00: (DISPENSE Me moria 00 SHAMAR ONE l TOUCH) [facility] Lisinopril Lisinopril Yes Amrita [address] 3-22 [place] [facility] - 00:[facility]: [facility] 00 l Outpati ent Clinics meclizine 2015-08 Yes 25mg Take 1 Univer s (MOTION 1-17 tablet by ity of SICKNESS 00:00: mouth [place] RELIEF II) 00 every 6 Medica l 25 mg (six) Branch tablet hours. ondansetron 2015-08 Yes 4mg Take 1 Univ ers (ZOFRAN, 1-17 tablet by ity of HYDROCHLORI 00:00: mouth [place] DE,) 4 mg 00 every 8 Medical tablet (eight) Branch hours as needed for N/V unresponsi ve to Promethazi ne. meclizine 2015-08 Yes 25mg Take 1 Univer s (MOTION 1-17 tablet by ity of SICKNESS 00:00: mouth [place] RELIEF II) 00 every 6 Medica l 25 mg (six) Branch tablet hours. ondansetron 2015-08 Yes 4mg Take 1 Univ ers (ZOFRAN, 1-17 tablet by ity of HYDROCHLORI 00:00: mouth [place] DE,) 4 mg 00 every 8 Medical tablet (eight) Branch hours as needed for N/V unresponsi ve to Promethazi ne. meclizine 2015-08 Yes 25mg Take 1 Univer s (MOTION 1-17 tablet by ity of SICKNESS 00:00: mouth [place] RELIEF II) 00 every 6 Medica l 25 mg (six) Branch tablet hours. ondansetron 2015-08 Yes 4mg Take 1 Univ ers (ZOFRAN, 1-17 tablet by ity of HYDROCHLORI 00:00: mouth [place] DE,) 4 mg 00 every 8 Medical tablet (eight) Branch hours as needed for N/V unresponsi ve to Promethazi ne. meclizine 2015-08 Yes 25mg Take 1 Univer s (MOTION 1-17 tablet by ity of SICKNESS 00:00: mouth [place] RELIEF II) 00 every 6 Medica l 25 mg (six) Branch tablet hours. ondansetron 2015-08 Yes 4mg Take 1 Univ ers (ZOFRAN, 1-17 tablet by ity of HYDROCHLORI 00:00: mouth [place] DE,) 4 mg 00 every 8 Medical tablet (eight) Branch hours as needed for N/V unresponsi ve to Promethazi ne. meclizine 2015-08 Yes 25mg Take 1 Univer s (MOTION 1-17 tablet by ity of SICKNESS 00:00: mouth [place] RELIEF II) 00 every 6 Medica l 25 mg (six) Branch tablet hours. ondansetron 2015-08 Yes 4mg Take 1 Univ ers (ZOFRAN, 1-17 tablet by ity of HYDROCHLORI 00:00: mouth [place] DE,) 4 mg 00 every 8 Medical tablet (eight) Branch hours as needed for N/V unresponsi ve to Promethazi ne. meclizine 2015-08 Yes 25mg Take 1 Univer s (MOTION 1-17 tablet by ity of SICKNESS 00:00: mouth [place] RELIEF II) 00 every 6 Medica l 25 mg (six) Branch tablet hours. ondansetron 2015-08 Yes 4mg Take 1 Univ ers (ZOFRAN, 1-17 tablet by ity of HYDROCHLORI 00:00: mouth [place] DE,) 4 mg 00 every 8 Medical tablet (eight) Branch hours as needed for N/V unresponsi ve to Promethazi ne. meclizine 2015-08 Yes 25mg Take 1 Univer s (MOTION 1-17 tablet by ity of SICKNESS 00:00: mouth [place] RELIEF II) 00 every 6 Medica l 25 mg (six) Branch tablet hours. ondansetron 2015-08 Yes 4mg Take 1 Univ ers (ZOFRAN, 1-17 tablet by ity of HYDROCHLORI 00:00: mouth [place] DE,) 4 mg 00 every 8 Medical tablet (eight) Branch hours as needed for N/V unresponsi ve to Promethazi ne. meclizine 2015-08 Yes 25mg Take 1 Univer s (MOTION 1-17 tablet by ity of SICKNESS 00:00: mouth [place] RELIEF II) 00 every 6 Medica l 25 mg (six) Branch tablet hours. ondansetron 2015-08 Yes 4mg Take 1 Univ ers (ZOFRAN, 1-17 tablet by ity of HYDROCHLORI 00:00: mouth [place] DE,) 4 mg 00 every 8 Medical tablet (eight) Branch hours as needed for N/V unresponsi ve to Promethazi ne. meclizine 2015-08 Yes 25mg Take 1 Univer s (MOTION 1-17 tablet by ity of SICKNESS 00:00: mouth [place] RELIEF II) 00 every 6 Medica l 25 mg (six) Branch tablet hours. ondansetron 2015-08 Yes 4mg Take 1 Univ ers (ZOFRAN, 1-17 tablet by ity of HYDROCHLORI 00:00: mouth [place] DE,) 4 mg 00 every 8 Medical tablet (eight) Branch hours as needed for N/V unresponsi ve to Promethazi ne. proMETHazin 2015-08 Yes 25mg Take 1 Univ ers e 1-15 tablet by ity of (PHENERGAN) 00:00: mouth [place] 25 mg 00 every 6 Medical tablet (six) Branch hours as needed for Nausea and Vomiting (N/V). proMETHazin 2015-08 Yes 25mg Take 1 Univ ers e 1-15 tablet by ity of (PHENERGAN) 00:00: mouth [place] 25 mg 00 every 6 Medical tablet (six) Branch hours as needed for Nausea and Vomiting (N/V). proMETHazin 2015-08 Yes 25mg Take 1 Univ ers e 1-15 tablet by ity of (PHENERGAN) 00:00: mouth [place] 25 mg 00 every 6 Medical tablet (six) Branch hours as needed for Nausea and Vomiting (N/V). proMETHazin 2015-08 Yes 25mg Take 1 Univ ers e 1-15 tablet by ity of (PHENERGAN) 00:00: mouth [place] 25 mg 00 every 6 Medical tablet (six) Branch hours as needed for Nausea and Vomiting (N/V). proMETHazin 2015-08 Yes 25mg Take 1 Univ ers e 1-15 tablet by ity of (PHENERGAN) 00:00: mouth [place] 25 mg 00 every 6 Medical tablet (six) Branch hours as needed for Nausea and Vomiting (N/V). proMETHazin 2015-08 Yes 25mg Take 1 Univ ers e 1-15 tablet by ity of (PHENERGAN) 00:00: mouth [place] 25 mg 00 every 6 Medical tablet (six) Branch hours as needed for Nausea and Vomiting (N/V). proMETHazin 2015-08 Yes 25mg Take 1 Univ ers e 1-15 tablet by ity of (PHENERGAN) 00:00: mouth [place] 25 mg 00 every 6 Medical tablet (six) Branch hours as needed for Nausea and Vomiting (N/V). proMETHazin 2015-08 Yes 25mg Take 1 Univ ers e 1-15 tablet by ity of (PHENERGAN) 00:00: mouth [place] 25 mg 00 every 6 Medical tablet (six) Branch hours as needed for Nausea and Vomiting (N/V). proMETHazin 2015-08 Yes 25mg Take 1 Univ ers e 1-15 tablet by ity of (PHENERGAN) 00:00: mouth [place] 25 mg 00 every 6 Medical tablet (six) Branch hours as needed for Nausea and Vomiting (N/V). lisinopril Yes Univers (PRINIVIL,Z 4-20 ity of ESTRIL) 5 00:00: [place] mg tablet 00 Medical Branch lovastatin Yes Univers (MEVACOR) 4-20 ity of 20 mg 00:00: [place] tablet 00 Medical Branch glimepiride Yes Univer s (AMARYL) 2 4-20 ity of mg tablet 00:00: [place] 00 Medical Branch lisinopril Yes Univers (PRINIVIL,Z 4-20 ity of ESTRIL) 5 00:00: [place] mg tablet 00 Medical Branch lovastatin Yes Univers (MEVACOR) 4-20 ity of 20 mg 00:00: [place] tablet Medical Branch glimepiride Yes Univer s (AMARYL) 2 4-20 ity of mg tablet 00:00: [place] [facility] lisinopril Yes Univers (PRINIVIL,Z 4-20 ity of ESTRIL) 5 00:00: [place] mg tablet Medical Branch lovastatin Yes Univers (MEVACOR) 4-20 ity of 20 mg 00:00: [place] tablet Medical Branch glimepiride Yes Univer s (AMARYL) 2 4-20 ity of mg tablet 00:00: [place] Medical [facility] lisinopril Yes Univers (PRINIVIL,Z 4-20 ity of ESTRIL) 5 00:00: [place] mg tablet Medical Branch lovastatin Yes Univers (MEVACOR) 4-20 ity of 20 mg 00:00: [place] tablet Medical Branch glimepiride Yes Univer s (AMARYL) 2 4-20 ity of mg tablet 00:00: Medical Branch lisinopril Yes Univers (PRINIVIL,Z 4-20 ity of ESTRIL) 5 00:00: [place] mg tablet 00 Medical Branch lovastatin 0 Yes Univers (MEVACOR) 4-20 ity of 20 mg 00:00: [place] tablet 00 Medical Branch glimepiride Yes Univer s (AMARYL) 2 4-20 ity of mg tablet 00:00: [place] 00 Medical Branch lisinopril 0 Yes Univers (PRINIVIL,Z 4-20 ity of ESTRIL) 5 00:00: [place] mg tablet 00 Medical Branch lovastatin 0 Yes Univers (MEVACOR) 4-20 ity of 20 mg 00:00: [place] tablet Medical Branch glimepiride 0 Yes Univer s (AMARYL) 2 4-20 ity of mg tablet 00:00: [place] 00 [facility] Branch lisinopril Yes Univers (PRINIVIL,Z 4-20 ity of ESTRIL) 5 00:00: [place] mg tablet 00 [facility] Branch lovastatin Yes Univers (MEVACOR) 4-20 ity of 20 mg 00:00: [place] tablet 00 [facility] Branch glimepiride Yes Univer s (AMARYL) 2 4-20 ity of mg tablet 00:00: [place] 00 [facility] lisinopril Yes Univers (PRINIVIL,Z 4-20 ity of ESTRIL) 5 00:00: [place] mg tablet 00 [facility] Branch lovastatin Yes Univers (MEVACOR) 4-20 ity of 20 mg 00:00: [place] tablet 00 [facility] glimepiride Yes Univer s (AMARYL) 2 4-20 ity of mg tablet 00:00: [place] 00 [facility] lisinopril Yes Univers (PRINIVIL,Z 4-20 ity of ESTRIL) 5 00:00: [place] mg tablet 00 [facility] Branch lovastatin Yes Univers (MEVACOR) 4-20 ity of 20 mg 00:00: [place] tablet 00 [facility] glimepiride Yes Univer s (AMARYL) 2 4-20 ity of mg tablet 00:00: [place] 00 [facility] METFORMIN Yes Take by Univ ers HCL 7-23 mouth. ity of (METFORMIN 20:09: [place] ORAL) [address] [place] [address] METFORMIN Yes Take by Univ ers HCL 7-23 mouth. ity of (METFORMIN 20:09: [place] ORAL) [address] [place] [address] METFORMIN Yes Take by Univ ers HCL 7-23 mouth. ity of (METFORMIN 20:09: [place] ORAL) [address] [place] [address] METFORMIN Yes Take by Univ ers HCL 7-23 mouth. ity of (METFORMIN 20:09: [place] ORAL) [address] [place] [address] Lovastatin Lovastatin Yes Amrita 1 tablet [facility] [...] Outpati meal of ent the day Clinics Immunizations Ordered Filled Immunization Date Status Comments Sourc e Immunization Name Name Td 2010-03-07 Completed University of 00:00:00 [facility] Branch Td 2010-03-07 Completed University of 00:00:00 [facility] Branch Td 2010-03-07 Completed University of 00:00:00 [facility] Branch Td 2010-03-07 Completed University of 00:00:00 [facility] Branch Td 2010-03-07 Completed University of 00:00:00 [facility] Branch Td 2010-03-07 Completed University of 00:00:00 [facility] Branch Td 2010-03-07 Completed University of 00:00:00 [facility] Td 2010-03-07 Completed University of 00:00:00 [facility] Td 2010-03-07 Completed University of 00:00:00 [facility] Vital Signs Vital Name Observation Time Observation Value Comments Source Systolic blood 2020-06-12 15:20:00 131 mm[Hg] Univer sity of pressure [facility] Diastolic blood 2020-06-12 15:20:00 67 mm[Hg] Unive rsity of [facility] Heart rate 2020-06-12 15:20:00 61 /min [facility] Respiratory rate 2020-06-12 15:20:00 16 /min [facility] Oxygen saturation in 2020-06-12 15:20:00 100 /min [facility] Arterial blood by [facility] Pulse oximetry Branch Body temperature 2020-06-12 15:00:00 36.28 Ines [facility] Body height 2020-06-07 16:59:00 152.4 cm [facility] Body weight 2020-06-07 16:59:00 70.761 kg [facility] BMI 2020-06-07 16:59:00 30.47 kg/m2 [facility] Systolic blood 2020-06-12 15:20:00 131 mm[Hg] Univer sity of pressure [facility] Diastolic blood 2020-06-12 15:20:00 67 mm[Hg] [facility] of pressure [facility] Heart rate 2020-06-12 15:20:00 61 /min [facility] Respiratory rate 2020-06-12 15:20:00 16 /min [facility] Oxygen saturation in 2020-06-12 15:20:00 100 /min [facility] Arterial blood by [facility] Pulse oximetry Branch Body temperature 2020-06-12 15:00:00 36.28 Ines [facility] Body height 2020-06-07 16:59:00 152.4 cm [facility] Body weight 2020-06-07 16:59:00 70.761 kg [facility] BMI 2020-06-07 16:59:00 30.47 kg/m2 [facility] Procedures Procedure Date / Time Performing Clinician Source Performed CONSENT/REFUSAL FOR 2021-08-04 14:12:32 [facility] DIAGNOSIS AND TREATMENT [place] [facility] ASSIGNMENT OF BENEFITS 2021-08-04 14:12:04 Doctor Ekta, [facility] Name Medical [facility] COLONOSCOPY (ENDO) 2020-06-12 14:29:40 Amrita Odom [facility] POCT GLUCOSE(AGE >30DAYS) 2020-06-12 13:45:00 Elroy Khalil [facility] PATIENT FINANCIAL 2020-06-11 14:21:53 [facility] POLICY [facility] NOTICE OF BILLING 2020-06-11 14:21:10 Doctor Ekta [facility] PRACTICES FOR MEDICARE [place] [facility] PATIENTS NO SHOW OR MISSED 2020-06-11 14:20:46 Doctor Ekta, [facility] APPOINTMENT POLICY [place] [facility] ACKNOWLEDGEMENT CONSENT/REFUSAL FOR 2020-06-11 14:20:09 [facility] DIAGNOSIS AND TREATMENT [facility] ASSIGNMENT OF BENEFITS 2020-06-11 14:19:48 Doctor [facility], [facility] [place] [facility] NOTICE OF PRIVACY 2020-06-11 14:19:21 Doctor Dash [facility] PRACTICES [place] [facility] CONSENT/REFUSAL FOR 2020-06-11 14:19:01 Doctor [facility] DIAGNOSIS AND TREATMENT [facility] ASSIGNMENT OF BENEFITS 2020-06-11 14:18:40 Doctor [facility]igned[facility] DSU PRE-OP 2020-06-06 05:01:00 Doctor Idaniassbrad, [facility] [facility] Plan of Care Planned Activity Planned Date Details Comments Source Future Scheduled Test 65+ PNEUMOCOCCAL Me [facility] VACCINE (1 of 1 - PPSV23) [code = 65+ PNEUMOCOCCAL VACCINE (1 of 1 - PPSV23)] Future Scheduled Test INFLUENZA VACCINE [code [facility] = INFLUENZA VACCINE] Future Scheduled Test COVID-19 VACCINE (1) [facility] [code = COVID-19 VACCINE (1)] Future Scheduled Test BREAST CANCER SCREENING [facility] [code = BREAST CANCER SCREENING] Future Scheduled Test COLONOSCOPY SCREENING [facility] [code = COLONOSCOPY SCREENING] Future Scheduled Test SHINGLES VACCINES (#1) [facility] [code = SHINGLES VACCINES (#1)] Encounters Start End Encounter Admission Attending Care Care Encounter Source Date/Time Date/Time Type Type Clinicians Facility Department ID 2021-06-14 Outpatient R CHARAFEDDIN [facility] LIZZY [id number] Univers 00:33:32 [facility] 2020-05-14 Inpatient HCACL JASS [id number] [facility] 11:51:00 [id number] [facility] 2021-08-22 2021-08-22 Outpatient GC_BATC_Sin PRIV PRIV [id number] [facility] 05:05:00 05:05:00 ha_An [id number] [facility] 2021-08-18 2021-08-18 Outpatient GC_BATC_Sin PRIV PRIV [id number] [facility] 12:53:00 12:53:00 ha_An [id number] Medica l 2021-08-04 2021-08-04 Outpatient R RADIOLOGY [facility] RAD [id number] Univers 08:14:44 23:59:00 ity [facility] 2021-08-04 2021-08-04 Hospital Radiology [facility] [id number] Univers 08:14:44 23:59:00 Encounter [place] [id number] [id number] [facility] [id number] [place] [address] Branch 2021-08-04 2021-08-04 Outpatient R RADIOLOGY [facility] [id number] Univers 00:00:00 00:00:00 [id number] ity of [facility] 2021-03-12 2021-03-12 Outpatient [facility]ML[facility] [id number] [facility] 2021-03-06 2021-03-06 Outpatient [facility]LMLC [facility] [id number] [facility] 2021-01-29 2021-01-29 Outpatient [facility]LMLC [facility] [id number] [facility] 2020-12-31 2020-12-31 Outpatient STLMLC [facility] [id number] [facility] 2020-10-10 2020-10-10 Outpatient STLMLC [facility] [id number] [facility] 2020-10-08 2020-10-08 Outpatient [facility]LMLC [facility] [id number] [facility] 2020-09-18 2020-09-18 Outpatient [facility]LMLC [facility] [id number] [facility] 2020-08-14 2020-08-14 Outpatient STLMLC [facility] [id number] [facility] 2020-08-13 2020-08-13 Outpatient STLMLC [facility]LMLC [id number] [facility] 2020-08-04 2020-08-04 Telephone ANAM Charles [id number] 00:00:00 00:00:00 Pj GALLOWAY [id number] [facility] [id number] [facility] 2020-08-04 2020-08-04 Telephone ANAM Charles [id number] Univers 00:00:00 00:00:00 Pj GALLOWAY [id number] i ty [facility] [id number] Mitesh as [id number] [address] 2020-08-01 2020-08-01 Outpatient R [facility] [id number] Univers 19:20:00 19:20:00 [id number] ity [facility] 2020-08-01 2020-08-01 Outpatient R AGAPITO [facility] [id number] Univers 19:20:00 19:20:00 KALEY blackwood o f [facility] 2020-08-01 2020-08-01 Laboratory Lab, [facility] 1.2.840.114 [id number] 17:25:17 17:45:17 Only Fam Pob I Health 350.1.13.10 [place] 4.2.7.2.686 Professio [id number] nal [facility] Office [facility] 2020-08-01 2020-08-01 Laboratory Lab, [facility] Fam Pob I [facility] 1.2. 840.114 [id number] Univers 17:25:17 17:45:17 Only Kaley [facility] 350.1.13.10 ity [facility] 4.2.7.2.686 Mitesh as Professio [phone] Ms dical [address] Office Building One 2020-08-01 2020-08-01 Outpatient [facility] [id number] [facility] 2020-07-30 2020-07-30 Out[facility] [id number] [facility] 2020-07-30 2020-07-30 Outpatient [facility] [id number] [facility] 2020-07-18 2020-07-18 Hospital Radiology [facility] 1.2.840.114 [id number] 14:58:22 23:59:00 Encounter [place] 350.1.13.10 [place] 4.2.7.2.686 [place] [id number] [facility] 2020-07-18 2020-07-18 [facility] 1.2.840.114 [id number] Univers 14:58:22 23:59:00 Encounter [place] 350.1.13.10 ity [place] 4[place].7.2.[place] [id number] [address] 2020-07-18 2020-07-18 Outpatient R RADIOLOGY [facility] [id number] Univers 15:20:00 15:20:00 ity [facility] 2020-07-18 2020-07-18 Outpatient R RADIOLOGY [facility] [id number] Univers 00:00:00 00:00:00 ity [facility] 2020-07-09 2020-07-09 Outpatient [facility] [id number] [facility] 2020-07-01 2020-07-01 Outpatient [facility] [id number] [facility] 2020-06-26 2020-06-26 Outpatient [facility] [id number] [facility] 2020-06-12 2020-06-12 [facility] 1.2.840.114 [id number] 08:29:00 10:30:00 Encounter eNicole [place] 350.1.13.10 [place] 4.2.7.2.686 Surgical [id number] [place] [address] 2020-06-12 2020-06-12 [facility] 1.2.840.[id number] [facility] 08:29:00 10:30:00 Encounter e, Aniazar C [place] 350.1.13.10 ity of [place] 4.2.7.2.[place] Surgical [id number] Med ical [address] 2020-06-11 2020-06-11 Laboratory Only, [facility] 1.2.840.114 [id number] 09:25:13 09:40:13 Only Test Anna 350.1.13.10 [place] 4.2.7.2.686 [place] [id number] 353 2020-06-11 2020-06-11 Laboratory Only, [facility] Test [facility] 1.2.840. 114 [id number] Univers 09:25:13 09:40:13 Only Nicole Chapman 350.1.1 3.10 ity [facility] 4.2.7.2.686 [facility] [place] [id number] [facility] [address] 2020-06-11 2020-06-11 Outpatient R [facility] [id number] Univers 09:15:00 09:15:00 [id number] ity [facility] 2020-06-11 2020-06-11 Outpatient R TREY [facility] [id number] Univers 09:15:00 09:15:00 NICOLE Llanes o f [facility] 2020-05-14 2020-05-14 Emergency EM Santosu, HCACL JASS [id number] [facility] 11:51:00 14:37:00 Missael [address] [facility] 2020-05-11 2020-05-11 Telephone ANAM Charles 1.2.199.313 [id number] 00:00:00 00:00:00 Pj GALLOWAY 350.1.13.10 [facility] 4.2.7.2.686 [id number] 019 2020-05-11 2020-05-11 Telephone ANAM Charles 1.2.163.961 [id number] Univers 00:00:00 00:00:00 Pj GALLOWAY 350.1.13.10 i ty [facility] 4.2.7.2.[id number] [facility] [address] 2020-05-10 2020-05-10 Outpatient R ELIZABETH [facility] [id number] Univers 10:20:00 10:20:00 TAWANNA blackwood [facility] 2020-05-10 2020-05-10 Laboratory Lab, [facility] 1.2.840.114 [id number] 08:55:14 09:15:14 Only Fam Pob I Health 350.1.13.10 [place] 4.2.7.2.686 Professio [id number] [place] [address] [address] 2020-05-10 2020-05-10 Laboratory Lab, Adc Fam Pob I [facility] 1.2. [address]40[id number] [facility] 08:55:14 09:15:14 Only Anene, [facility] 350.1.13.10 ity of [place] 4.2.7.2.686 Mitesh as Professio [phone] Ms dical [address] Office [address] One 2020-05-10 2020-05-10 Letter Doctor ANAM 1.2.840.114 [id number] 00:00:00 00:00:00 (Out) Unassigned, NILESH 350.1.13.10 [facility] 4.2.7.2.686 [id number] [facility] 2020-05-10 2020-05-10 Letter Doctor ANAM 1.2.840.114 [id number] Univers 00:00:00 00:00:00 (Out) Unassigned, NILESH 350.1.13.10 ity [facility] 4.2.7.2.686 Mitesh as [id number] [address] 2020-05-08 2020-05-08 [facility] [id number] 2020-04-29 2020-04-29 [id number] 2020-04-26 2020-04-26 [facility] [id number] 10:40:00 10:40:00 [facility] Medicine l Medicine Outpati ent Clinics 2020-03-21 2020-03-21 [facility] [id number] 09:35:00 09:35:00 t [facility] Medicine l Medicine Outpati ent Clinics 2020-03-01 2020-03-01 [facility] [id number] 14:20:00 14:20:00 t [facility] Medicine Medicine Outpati ent Clinics 2020-02-26 2020-02-26 [facility] [id number] 14:40:00 14:40:00 t [facility] l Medicine Outpati ent Clinics 2020-02-23 2020-02-23 [facility] [id number] 11:09:00 11:09:00 [facility] Medicine l Medicine Outpati ent Clinics 2020-02-09 2020-02-09 [facility] [id number] 13:00:00 13:00:00 [facility] l Medicine Outpati ent Clinics 2019-12-27 2019-12-27 [facility] [id number] 16:27:00 16:27:00 [facility] Medicine Outpati ent Clinics 2019-11-08 2019-11-08 [facility] [id number] 10:45:00 10:45:00 [facility] Medicine Medicine Outpati ent Clinics 2019-10-24 2019-10-24 [facility] [id number] 09:52:00 09:52:00 [facility] l Medicine Outpati ent Clinics 2019-10-18 2019-10-18 [facility] [id number] 10:15:00 10:15:00 [facility] Medicine Medicine Outpati ent Clinics 2019-09-29 2019-09-29 [facility] [id number] 15:00:00 15:00:00 [facility] l Medicine Outpati ent Clinics 2019-09-05 2019-09-05 [facility] [id number] 00:17:00 00:17:00 [facility] Medicine Outpati ent Clinics 2019-08-23 2019-08-23 [facility] [id number] 03:36:00 03:36:00 [facility] Medicine Outpati ent Clinics 2019-07-18 2019-07-18 [facility] [id number] 10:04:00 10:04:00 [facility] Medicine Outpati ent Clinics 2019-07-07 2019-07-07 [facility] [id number] 10:00:00 10:00:00 t [facility] Medicine Medicine Outpati ent Clinics 2019-06-14 2019-06-14 [facility] [id number] 13:20:00 13:20:00 [facility] Medicine Outpati ent Clinics 2019-06-09 2019-06-09 [facility] [id number] 11:39:00 11:39:00 [facility] Medicine Outpati ent Clinics 2019-05-31 2019-05-31 [facility] [id number] 10:23:00 10:23:00 [facility] Medicine Outpati ent Clinics 2019-05-05 2019-05-05 [facility] [id number] 08:59:00 08:59:00 t [facility] Medicine Medicine Outpati ent Clinics 2019-04-11 2019-04-11 [facility] [id number] 13:00:00 13:00:00 t [facility] Medicine Medicine Outpati ent Clinics 2019-04-07 2019-04-07 [facility] [id number] 08:36:00 08:36:00 [facility] Medicine Outpati ent Clinics 2019-03-21 2019-03-21 [facility] [id number] 15:03:00 15:03:00 [facility] Medicine Outpati ent Clinics 2019-03-20 2019-03-20 [facility] [id number] 15:04:00 15:04:00 [facility] Medicine Outpati ent Clinics 2019-03-14 2019-03-14 [facility] [id number] 15:36:00 15:36:00 [facility] Medicine Outpati ent Clinics 2019-02-09 2019-02-09 [facility] [id number] 12:49:00 12:49:00 [facility] Medicine Outpati ent Clinics 2019-02-07 2019-02-07 [facility] [id number] 09:44:00 09:44:00 [facility] Medicine Outpati ent Clinics 2019-02-06 2019-02-06 [facility] [id number] 11:40:00 11:40:00 [facility] Medicine Outpati ent Clinics 2018-11-08 2018-11-08 [facility] [id number] 10:06:00 10:06:00 [facility] Medicine Outpati ent Clinics 2018-11-03 2018-11-03 [facility] [id number] 14:58:00 14:58:00 [facility] Medicine Outpati ent Clinics 2018-10-26 2018-10-26 [facility] [id number] 13:00:00 13:00:00 [facility] Medicine Outpati ent Clinics 2018-10-10 2018-10-10 [facility] [id number] 11:30:00 11:30:00 [facility] Medicine Outpati ent Clinics 2018-08-24 2018-08-24 [facility] [id number] 15:45:00 15:45:00 [facility] Medicine Outpati ent Clinics 2018-08-22 2018-08-22 [facility] [id number] 09:18:00 09:18:00 [facility] Medicine Outpati ent Clinics 2018-08-05 2018-08-05 [facility] [id number] 12:34:00 12:34:00 [facility] Medicine Outpati ent Clinics 2018-05-23 2018-05-23 [facility] [id number] 11:41:00 11:41:00 [facility] Medicine Outpati ent Clinics 2018-05-02 2018-05-02 [facility] [id number] 11:30:00 11:30:00 [facility] Medicine Outpati ent Clinics 2018-03-08 2018-03-08 [facility] [id number] 15:30:00 15:30:00 [facility] Medicine Outpati ent Clinics 2017-11-09 2017-11-09 [facility] [id number] 16:15:00 16:15:00 [facility] Medicine Outpati ent Clinics Results Test Description Test Time Test Comments Results Result Comments Source POCT Glucose 2020-06-12 13:45:00 Test Item Value Reference Range Interpretation Comme nts POCT Glu (age>30days) (test code = 3342) 124 mg/dL 70-110 A Lab Interpretation (test code = 77254-9) Abnormal [facility] ABD PELVIS [id number] 13:37:00 Name: VIDYA FROST [facility] : 1950 Age/S: 69 / F [address] [place] [address] Unit #: [id number] Loc: [facility] [id number] Phys: Missael Woodson DO Acct: [id number] Dis Date: Status: REG ER PHONE #: [phone] Exam Date: 05/14/2020 1316 FAX #: [phone] Reason: LOWER ABDOMINAL PAIN EXAMS: CPTCODE: [id number] CT ABD PELVIS W/CONT 52628 Clinical Ind ication: Lower abdominal pain. Comparison: None TECHNIQUE: Contiguous axial CT images of the abdomen and pelvis were acquired following administration of 100 mL Isovue-300 IVcontrast. Oral contrast was not administered. Coronal and sagittal reconstructions were obtained. CT imaging performed at this location utilizes radiation dose optimization techniques which include one or more of the following: - Automated exposure control -Adjustment of the mA and/or kV according to patient size -Use of iterative reconstruction technique CT Radiation Dose DLP 257.7 mGy-cm FINDINGS: Lung bases are garrison ar. Visualized cardiac apex is unremarkable. Diffuse hepatic steatosis. Gallbladder surgically absent. Spleen, pancreas, adrenal glands, and kidneys are unremarkable. Stomach and small bowel are unremarkable. Appendix is surgically absent. Colonic diverticulosis without evidence of diverticulitis. Abdominal aorta is normal caliber. No free fl uid or pneumoperitoneum. Urinary bladder is somewhat thick-walled. Uterus is surgically absent. Tiny fat-containing umbilical hernia. No destructive osseous lesion. IMPRESSION: 1. Diffuse hepatic steatosis. 2. Colonic diverticulosis withoutevidence of diverticulitis. 3. Urinary bladder is somewhat thick-walled. Correlate for evidence of cystitis. SL: [id number] at 1337 Reported and signed by: Ana Becker M.D. PAGE 1 Signed Report (CONTINUED) Name: VIDYA FROST [facility] : 1950 Age/S: 69 / F [address] [place] [address] Unit #: [id number] Loc: [place] [address] Phys: Missael Woodson DO Acct: [id number] Dis Date: Status: REG ER PHONE #: [phone] Exam Date: 05/14/2020 1316 FAX #: [phone] Reason: LOWER ABDOMINAL PAIN EXAMS: CPT CODE: [id number] CT ABD PELVIS W/CONT 01733 <Continued> CC: Missael Woodson DO Technologist:Monae Beran, RT(R)(CT) CTDI: DLP: Trnscb Date/Time: 05/14/2020 (3708) [email or web address].PAULINOR.[email or web address] Orig Print D/T: S: 05/14/2020 (9061)PAGE 2 Signed Report- CT ABD PELVIS W/[id number] 13:37:00 Name: VIDYA FROST [facility] : 1950 Age/S: 69 / F [address] [place] [address] Unit #: [id number] Loc: [place] [id number] Phys: Missael Woodson DO Acct: [id number] Dis Date: Status: DEP ER PHONE #: [phone] Exam Date: 05/14/2020 1316 FAX #: [phone] Reason: LOWER ABDOMINAL PAIN EXAMS: CPTCODE: [id number] CT ABD PELVIS W/CONT 55902 Clinical Indication: Lower abdominal pain. Comparison: None TECHNIQUE: Contiguous axial CT images of the abdomen and pelvis were acquired following administration of 100 mL Isovue-300 IVcontrast. Oral contrast was not administered. Coronal and [...] apex is unremarkable. Diffuse hepatic steatosis. Gallbladder s urgically absent. Spleen, pancreas, adrenal glands, and kidneys are unremarkable. Stomach and small bowel are unremarkable. Appendix is surgically absent. Colonic diverticulosis without evidence of diverticulitis. Abdominal aorta is normal caliber. No free fluid or pneumoperitoneum. Urinary bladder is somewhat thick-walled. Uterus is surgically absent. Tiny fat-containing umbilical hernia. No destructive osseous lesion. IMPRESSION: 1. Diffuse hepatic steatosis. 2. Colonic diverticulosis withoutevidence of diverticulitis. 3. Urinary bladder is somewhat thick-walled. Correlate for evidence of cystitis. SL: [id number] at 1337 Reported and signed by: Keyan Marashi, M.D. PAGE 1 Signed Report (CONTINUED) Name: VIDYA FROST [facility] : 1950 Age/S: 69 / F [address] [place] [address] Unit #: [id number] Loc: [place] [address] Phys: Quincy Woodsonnasrin [place] Acct: [id number] Dis Date: Status: DEP ER PHONE #: [phone] Exam Date: 05/14/2020 1316 FAX #: [phone] Reason: LOWER ABDOMINAL PAIN EXAMS: CPT CODE: [id number] CT ABD PELVIS W/CONT 51791 <Continued> CC: Missael Woodson DO Technologist:Monae Bazzi, RT(R)(CT) CTDI: DLP: Trnscb Date/Time: 05/14/2020 (1337) t.SDR.KM28 Orig Print D/T: S: 05/14/2020 (2116)PAGE 2 Signed Report- XR CHEST 1 [id number] 13:07:00 FAX: Missael Zhao DO [phone] [place]: St: REG Name: VIDYA FROST [facility] : 1950 Age/S: 69/F [address] [place] [address] Unit#: [id number] Loc: [place] [address] Phys: ChintanMissael [place] Acct: [id number] Dis Date: Status: REG ER PHONE #: [phone] Exam Date: 05/14/2020 1305 FAX #: [phone] Reason: Abdominal Pain EXAMS: CPT CODE: [id number] XR CHEST 1 V 87738 CLINICAL HISTORY:Abdominal Pain COMPARISON:NONE Frontal film of [...] DO Technologist: MARCIA Norwood) Trnscrd Date/Time/By: 05/14/2020 (3859) : By: Polina Orig Print D/T: S: 05/14/2020 (1412) PAGE 1 Signed Report- XR CHEST 1 [id number] 13:07:00 FAX: Missael Zhao DO [phone] [place]: St: DEP Name: VIDYA FROST [facility] : 1950 Age/S: 69/F [address] [place] [address] Unit#: [id number] Loc: [place] [address] Phys: Missael Woodson DO Acct: [id number] Dis Date: Status: [facility] ER PHONE #: [phone] Exam Date: 05/14/2020 1305 FAX #: [phone] Reason: Abdominal Pain EXAMS: CPT CODE: [id number] XR CHEST 1 V 67542 CLINICAL HISTORY:Abdominal Pain COMPARISON:NONE Frontal film of [...] M.D. CC: Missael Woodson DO Technologist: RT Enma(R) Trnscrd Date/Time/By: 05/14/2020 (4249) : By: Polina Orig Print D/T: S: 05/14/2020 (7370) PAGE 1 Signed [id number] 12:57:00 Test Item Value Reference Range Interpretation Comments LIPASE (test code = LIP) 56 U/L 13-57 N BASIC METABOLIC [id number] 12:57:00 Test Item Value Reference Range Interpretation Comments SODIUM (test code = NA) 135 mEq/L 134-147 N POTASSIUM (test code = 4.3 mEq/L 3.4-5.0 N K) CHLORIDE (test code = 103 mEq/L 100-108 N CL) CARBON DIOXIDE (test 26 mEq/L 21-33 N code = CO2) ANION GAP (test code = 10 0-20 N GAP) GLUCOSE (test code = 184 mg/dL 70-110 H GLU) BLOOD UREA NITROGEN 13 mg/dL 7-18 N (test code = BUN) GLOMERULAR FILTRATION 49.4 80-90 L Units of measure = RATE (test code = GFR) ml/mi n/1.73 m2 CREATININE (test code = 1.1 mg/dL 0.6-1.3 N CREAT) CALCIUM (test code = 9.6 mg/dL 8.0-10.5 N CA) HEPATIC FUNCTION [id number] 12:57:00 Test Item Value Reference Range Interpretation [...] 69 IUnit/L 20-125 N code = ALKP) CBC W/AUTO [id number] 12:43:00 Test Item Value Reference Range Interpretation [...] = MDIFF) UA RFLX MICR CULT IF [id number] 12:32:00 Test Item Value Reference Range Interpretation [...] for culture: Suprapubic PainSpecimen Description: CLEAN CATCH [id number] 22:58:00 Test Item Value Reference Range Interpretation Comments GLUBED (test code = 224 MG/DL 70-110 H Performe d by certified GLUBED) 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 [facility] HGBA1C%2018-10-24 09:25:00 Test Item Value Reference Range Interpretation Comments HGBA1C% (test code = HGBA1C%) 8.3 %A1C 4.8-6.0 H BASIC METABOLIC [id number] 08:18:00 Test Item Value Reference Range Interpretation [...] LDL 62 mg/dL 0-100 N <100 OPT UNBK113-022 (test code = LDL) NEAR OPTI MAL/ABOVE RMDXILA002-468 GAZHIMFKND386-8 89 HIGH>IA=244 VE RY HIGH*Guidelines provided by the National Choles terol EducationProgra m Adult Treatment Panel III THYROID STIMULATING [id number] 08:18:00 Test Item Value Reference Range Interpretation Comments THYROID STIMULATING 0.70 0.42-5.47 N Results in HORMONE (test code = TSH) mi lli-International Units/mL [id number] 08:03:00 Test Item Value Reference Range Interpretation Comments GLUBED (test code = 147 MG/DL 70-110 H Performe d by certified GLUBED) 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 [facility] CBC W/AUTO [id number] 07:07:00 Test Item Value Reference Range Interpretation [...] DIFF REQUIRED (test code NO = MDIFF) [id number] 21:08:00 Test Item Value Reference Range Interpretation Comments GLUBED (test code = 200 MG/DL 70-110 H Performe d by certified GLUBED) 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 [place] [address] Phys: Camilla Terrell MD Acct: [id number] Dis Date: Status: ADM IN PHONE #: [phone] Exam Date: 10/23/20181946 FAX #: [phone] Reason: PERSISTENT DIZZINESS EXAMS: CPT CODE: [id number] MRI BRAIN W/O CONT 36411 EXAM: MRI BRAIN WITHOUT CONTRAST DATE: 10/23/2018 [...] Signed Report (CONTINUED) FAX: Ale Leal MD [phone] [place]: St: ADM FAX: Camilla Odonnell MD Name: VIDYA FROST [facility] : 1950 Age/S: 67/F [address] [place] [address] Unit #: [id number] Loc: G.[address] [place] [address] Phys: Camilla Terrell MD Acct: [id number] Dis Date: Status: ADM IN PHONE #: [phone] Exam Date: 10/23/2018 1947FAX #: [phone] Reason: PERSISTENT DIZZINESS EXAMS: CPT CODE: [id number] MRI BRAIN W/O CONT 95190 <Continued> at 2006 Reported and signed by: Roman Harrison M.D. 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 [facility] [id number] 15:17:00 Test Item Value Reference Range Interpretation Comments GLUBED (test code = 145 MG/DL 70-110 H Performe d by certified GLUBED) 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 [facility] [id number] 14:45:00 Test Item Value Reference Range Interpretation [...] 1.3 mmol/l 0.4-1.9 N LACTR) COMPREHENSIVE METABOLIC [id number] 11:05:00 Test Item Value Reference Range Interpretation [...] 20-125 N TOTAL (test code = ALKP) [id number] 11:05:00 Test Item Value Reference Range Interpretation [...] results may frances y by method. LACTIC [id number] 10:56:00 Test Item Value Reference Range Interpretation Comments LACTIC ACID (test code = LACT) 2.1 mmol/L 0.4-1.9 H URINALYSIS [id number] 10:46:00 Test Item Value Reference Range Interpretation [...] /LPF NONE SEEN COMMENTS: Clean CatchCBC W/AUTO [id number] 10:42:00 Test Item Value Reference Range Interpretation [...] NO = MDIFF) - CT HEAD/BRAIN W/O [id number] 09:22:00 Name: VIDYA FROST [facility] : 1950 Age/S: 67 / F [address] [place] [address] Unit #: [id number] Loc: [facility] [id number] Phys: Braxton Prasad MD Acct: [id number] Dis Date: Status: REG ER PHONE #: [phone] Exam Date: 10/23/2018904 FAX #: [phone] Reason: dizziness EXAMS: CPTCODE: [id number] CT HEAD/BRAIN W/O CONT 79065 CT head without contrast 10/23/2018 HISTORY: Dizziness [...] 3. Mild chronic microvascular ischemic changes. SL: [id number] at 0922 Reported and signed by: Giorgio Srivastava M.D. CC: Braxton Prasad MD Technologist:Katrin Miles, RT(R)(CT) CTDI: DLP: Trnscb Date/Time: 10/23/2018 (921) [id number] Orig Print D/T: S: 10/23/2018 (924) CTDI: DLP: PAGE 1 SignedReportURINALYSIS [id number] 01:38:00 Test Item Value Reference Range Interpretation [...]
[2021-08-23 09:51] LABS: Absolute Lymphocytes (CBC) 0.7 K/uL (0.7-4.9); Hematocrit 33.1 % (36.0-45.0); Lymphocytes % 13.1 % (15.3-44.8); MPV 8.9 fL (7.6-11.3); RBC Red Blood Cell Count 3.71 M/uL (3.86-4.86)
[2021-08-23 10:08] LABS: Albumin 3.3 g/dL (3.4-5.0); Bilirubin Direct 0.1 mg/dL (0-0.2); Bilirubin Total 0.3 mg/dL (0.2-1.0); Potassium 3.9 mmol/L (3.5-5.1); Protein, Total 6.7 g/dL (6.4-8.2)
[2021-08-23 10:29] LABS: Urine Blood Trace-intact (Negative); Urine Glucose Negative (Negative); Urine Protein Negative (Negative); Urine Specific Gravity <=1.005 (1.005-1.030)
--- NOTE | 2021-08-23 11:02 | EDPHYS ---
Physician Documentation [facility] Name: Miroslava Rousseau Age: 70 yrs Sex: Female : 1950 Arrival Date: 08/23/2021 Time: 08:58 Bed 17 Private MD: Liz Maki ED Physician Jaron Mayorga HPI: 08/23 09:55 This 70 yrs old Female presents to ER via Ambulatory with complaints of Pelvic jmm Pain. 09:55 The patient presents with abdominal pain. Onset: The symptoms/episode began/occurred jmm gradually, 2 day(s) ago. The symptoms do not radiate. Associated signs and symptoms: Pertinent positives: dysuria, Pertinent negatives: nausea and vomiting, diarrhea, fever, hematuria, vomiting. The symptoms are described as achy. Modifying factors: The symptoms are alleviated by nothing, the symptoms are aggravated by urination. Historical: - Allergies: 09:07 NKDA; jg9 - Home Meds: 09:08 aspirin 81 mg Oral chew 1 tab once daily [Active]; glimepiride 2 mg Oral tab 1 tab once grande daily [Active]; Januvia 100 mg Oral tab 1 tab once daily [Active]; lisinopril 5 mg Oral tab 1 tab once daily [Active]; lovastatin 20 mg Oral tab 1 tab once daily [Active]; metformin 500 mg Oral tab 1 tab 2 times per day [Active]; vitamins [Active]; - PMHx: 09:07 Diabetes - IDDM; Hyperlipidemia; Hypertension; Uterine CA; jg9 - Immunization history:: Adult Immunizations up to date. - Social history:: Smoking status: Patient denies any tobacco usage or history of. ROS: 09:55 Constitutional: Negative for fever, chills, and weight loss, Cardiovascular: Negative jmm for chest pain, palpitations, and edema, Respiratory: Negative for shortness of breath, cough, wheezing, and pleuritic chest pain. 09:55 Abdomen/GI: Positive for abdominal pain. 09:55 : Positive for urinary symptoms. 09:55 All other systems are negative. Exam: 09:55 Constitutional: This is a well developed, well nourished patient who is awake, alert, jmm and in no acute distress. Head/Face: atraumatic. Eyes: EOMI, no conjunctival erythema appreciated ENT: Moist Mucus Membranes Neck: Trachea midline, Supple Chest/axilla: Normal chest wall appearance and motion. Cardiovascular: Regular rate and rhythm. No edema appreciated Respiratory: Normal respirations, no respiratory distress appreciated Abdomen/GI: Non distended, soft Back: Normal ROM 09:55 MS/ Extremity: Moves all extremities, no obvious deformities appreciated, no edema noted to the lower extremities Neuro: Awake and alert, normal gait Psych: Behavior is normal, Mood is normal, Patient is cooperative and pleasant 09:55 Abdomen/GI: Palpation: soft, mild abdominal tenderness, in the suprapubic area and right lower quadrant. Vital Signs: 09:03 BP 128 / 68; Pulse 74; Resp 16 S; Temp 98.1(O); Pulse Ox 100% on R/A; Weight 73.03 kg; jg9 Height 5 ft. 0 in. (152.40 cm) (R); 09:42 BP 124 / 63; Pulse 68; Resp 18; Pulse Ox 99% on R/A; grande 10:40 BP 126 / 68; Pulse 69; Resp 16; Pulse Ox 100% on R/A; grande 09:03 Body Mass Index 31.44 (73.03 kg, 152.40 cm) jg9 MDM: 09:26 Patient medically screened. [facility] 11:00 Data reviewed: vital signs, nurses notes. Counseling: I had a detailed discussion with walter the patient and/or guardian regarding: the historical points, exam findings, and any diagnostic results supporting the discharge/admit diagnosis, lab results, radiology results, the need for outpatient follow up, to return to the emergency department if symptoms worsen or persist or if there are any questions or concerns that arise at home. ED course: Patient is alert and non toxic in appearance in the ED. No signs of sepsis. Patient advised to follow up with pcp and otherwise given strict return precautions. Patient understood and agrees with the plan of care. . 08/23 08: Order name: Basic Metabolic Panel [facility] 08/23 08: Order name: CBC with Diff [facility] 08/23 Order name: Hepatic Function [facility] 08/23 08: Order name: Lipase [facility] 08/23 08: Order name: Urine Culture [facility] 08/23 08: Order name: Basic Metabolic Panel; Complete Time: 10:15 [facility] 01/08 09:27 Order name: CT Abd/Pelvis - IV Contrast Only; Complete Time: 11:25 [facility] 08/23 09:27 Order name: IV Saline Lock; Complete Time: 09:43 [facility] 08/23 09:27 Order name: Labs collected and sent; Complete Time: 09:43 [facility] 08/23 09:27 Order name: Urine Dipstick-Ancillary (obtain specimen); Complete Time: 10:39 [facility] 08/23 09:27 Order name: CBC with Automated Diff; Complete Time: 09:59 EDMS 08/23 09:27 Order name: Liver (Hepatic) Function; Complete Time: 10:15 EDMS 08/23 09:27 Order name: Lipase; Complete Time: 10:15 EDDC 08/23 10:29 Order name: Urine Dipstick-Ancillary; Complete Time: 10:30 EDMS Administered Medications: No medications were administered Disposition Summary: 08/23/21 11:02 Discharge Ordered Location: Home [facility] Condition: Stable [facility] Diagnosis - Colitis [facility] Followup: [facility] - With: Liz Maki, DO - When: 2 - 3 days - Reason: Recheck today's complaints, Continuance of care, Re-evaluation by your physician Discharge Instructions: - Discharge Summary Sheet [facility] - Colitis [facility] Forms: - Medication Reconciliation Form [facility] - Thank You Letter [facility] - Antibiotic Education [facility] - Prescription Opioid Use [facility] Prescriptions: - Cipro 500 mg Oral Tablet - take 1 tablet by ORAL route every 12 hours for 10 days; 20 tablet; Refills: 0, [facility] Product Selection Permitted - Flagyl 500 mg Oral Tablet - take 1 tablet by ORAL route every 6 hours for 10 days; 40 tablet; Refills: 0, [facility] Product Selection Permitted Signatures: Dispatcher [employer] [facility] Seng Muniz PA PA [facility] Caroline Benz RN RN jg9 Malena Quevedo RN RN grande
--- NOTE | 2021-08-23 11:02 | ER ---
Nurse's Notes [facility] Name: Miroslava Rousseau Age: 70 yrs Sex: Female : 1950 Arrival Date: 08/23/2021 Time: 08:58 Bed 17 Private MD: Liz Maki Diagnosis: Colitis Presentation: 08/23 09:03 Chief complaint: Patient states: Patient is c/o r pubic pain that radiates into the jg9 right groin that started yesterday-was on and off and is not as bad today but patient wants it checked out. Patient denied any recent injuries. Coronavirus screen: Vaccine status: Patient reports receiving the 2nd dose of the covid vaccine. Patient reports receiving the 1st dose of the Covid vaccine. Ebola Screen: Patient negative for fever greater than or equal to 101.5 degrees Fahrenheit, and additional compatible Ebola Virus Disease symptoms Patient denies exposure to infectious person. Patient denies travel to an Ebola-affected area in the 21 days before illness onset. Initial Sepsis Screen: Does the patient meet any 2 criteria? No. Patient's initial sepsis screen is negative. Does the patient have a suspected source of infection? No. Patient's initial sepsis screen is negative. Risk Assessment: Do you want to hurt yourself or someone else? Patient reports no desire to harm self or others. Onset of symptoms was August 22, 2021. 09:03 [place] Of Arrival[place] [facility] [place]:03 Acuity: MARTHA 3 jg9 Triage Assessment: 09:07 General: Appears in no apparent distress. Behavior is calm, cooperative. Pain: grande Complains of pain in groin and right femoral area Pain radiates to pelvis Pain Pain began gradually, Is. Historical: - Allergies: 09:07 NKDA; jg9 - Home Meds: 09:08 aspirin 81 mg Oral chew 1 tab once daily [Active]; glimepiride 2 mg Oral tab 1 tab once grande daily [Active]; Januvia 100 mg Oral tab 1 tab once daily [Active]; lisinopril 5 mg Oral tab 1 tab once daily [Active]; lovastatin 20 mg Oral tab 1 tab once daily [Active]; metformin 500 mg Oral tab 1 tab 2 times per day [Active]; vitamins [Active]; - PMHx: 09:07 Diabetes - IDDM; Hyperlipidemia; Hypertension; Uterine CA; jg9 - Immunization history:: Adult Immunizations up to date. - Social history:: Smoking status: Patient denies any tobacco usage or history of. Screenin:07 Abuse screen: Denies threats or abuse. Denies injuries from another. Nutritional grande screening: No deficits noted. Tuberculosis screening: No symptoms or risk factors identified. Fall Risk None identified. Assessment: 09:41 General: Appears in no apparent distress. Behavior is calm, cooperative. Pain: grande Complains of pain in groin and right femoral area. GI: No deficits noted. : No deficits noted. Vital Signs: 09:03 BP 128 / 68; Pulse 74; Resp 16 S; Temp 98.1(O); Pulse Ox 100% on R/A; Weight 73.03 kg; jg9 Height 5 ft. 0 in. (152.40 cm) (R); 09:42 BP 124 / 63; Pulse 68; Resp 18; Pulse Ox 99% on R/A; grande 10:40 BP 126 / 68; Pulse 69; Resp 16; Pulse Ox 100% on R/A; grande 09:03 Body Mass Index 31.44 (73.03 kg, 152.40 cm) jg9 ED Course: 08:58 Patient arrived in ED. am2 08:58 Liz Maki DO is Private Physician. am2 09:02 Seng Muniz PA is PHCP. [facility] 09:02 Jaron Mayorga MD is Attending Physician. [facility] 09:05 Triage completed. jg9 09:07 Patient has correct armband on for positive identification. Bed in low position. grande 09:07 Arm band placed on. grande 09:07 No provider procedures requiring assistance completed. grande 09:41 Inserted saline lock: 20 gauge in right antecubital area, using aseptic technique. grande 09:43 CBC with Automated Diff Sent. rgande 09:43 Liver (Hepatic) Function Sent. grande 09:43 Basic Metabolic Panel Sent. grande 09:43 Lipase Sent. grande 09:43 Basic Metabolic Panel Sent. grande 09:43 CBC with Diff Sent. grande 09:43 Hepatic Function Sent. grande 09:43 Lipase Sent. grande 10:15 CT Abd/Pelvis - IV Contrast Only In Process Unspecified. EDMS 11:01 Liz Maki DO is Referral Physician. walter 11:28 IV discontinued, intact, Pressure dressing applied. grande Administered Medications: No medications were administered Outcome: : Discharge ordered by . walter 11: Discharged to home grande : Condition: good : Discharge instructions given to patient, Prescriptions given X 2. : Patient left the ED. grande Signatures: Dispatcher [employer] EDMS Seng Muniz PA PA jmm Moreno, Amanda [facility] Caroline Benz RN RN jg9 Malena Quevedo RN RN grande Corrections: (The following items were deleted from the chart) 09:09 09:03 Acuity: MARTHA 4 jg9 jg9
--- NOTE | 2021-08-23 11:20 | RAD REPORT ---
EXAM DESCRIPTION: CTAbdomen Pelvis W Contrast - 08/23/2021 10:15 am CLINICAL HISTORY: Abdominal pain. lower abdominal pain COMPARISON: Abdomen Pelvis W Contrast dated 06/19/2021; Abdomen Pelvis W Contrast dated 05/01/2020 ; Abdomen Pelvis W Contrast dated 03/20/2020; Abdomen Pelvis W Contrast dated 02/09/2019 TECHNIQUE: Biphasic CT imaging of the abdomen and pelvis was performed with 100 ml non-ionic IV cont rast. All CT scans are performed using dose optimization technique as appropriate and may include automated exposure control or mA/KV adjustment according to patient size. FINDINGS: The lung bases are clear. The liver demonstrates mild fatty infiltration. Cholecystectomy clips. Spleen, pancreas, adrenal glan ds and kidneys are within normal limits. No bowel obstruction, free air, free fluid or abscess. Mild thickening of the colon is seen suggestin g a mild colitis pattern. The appendix is not identified as a discrete structure, however, no seconda ry findings of appendicitis are identified. No evidence of significant lymphadenopathy. No suspicious bony findings. IMPRESSION: A mild colitis is present.
[2021-08-23 11:37] VITALS: TEMP 98.1
[2021-08-23 11:40] VITALS: BP 126/68; O2SAT 100
== END 2021-08-23 11:28 | disposition home or self-care (01) ==
LOC: ER 08:54
DX: K52.9 Noninfective gastroenteritis and colitis, unspecified (principal); I10 Essential (primary) hypertension; E11.9 Type 2 diabetes mellitus without complications; Z79.4 Long term (current) use of insulin; Z79.82 Long term (current) use of aspirin; Z85.42 Personal history of malignant neoplasm of other parts of uterus
CPT/HCPCS: 87088; 85025; 87086; 80048; 36415; 82565; 80076; 87077; 87186; 81003; 83690; 74177; 99284; Q9967

== ENCOUNTER 2021-08-29 00:14 | Emergency (ER) | payer OTHER ==
--- OUTSIDE RECORDS SUMMARY | 2021-08-29 00:22 | XMS REPORT | Continuity of Care Document ---
:1950 Author Organization [facility] t Address [address] [place] [address] Care Team Providers Name Role Phone ROMAN Primary Care Physician Unavailable Aleena CHAPMAN Attending Clinician Unavailable TARA_CHELSIE_Roman_An Attending Clinician Unavailable RADIOLOGY Attending Clinician Unavailable Radiology Attending Clinician Unavailable Araceli SHAVER, H Attending Clinician Jeremias KING Attending Clinician Unavailable Lab, Fam Pob I Attending Clinician Unavailable Jeremias Paris Attending Clinician Aleena Chapman MD Attending Clinician Only, Test Attending Clinician Unavailable Santosu Attending Clinician Unavailable ANENE Attending Clinician Unavailable Aneroman MAGAZINE WORKER Attending Clinician Doctor Unassigned, Name Attending Clinician Unavailable Aleena CHAPMAN Admitting Clinician Unavailable Physician, Primary or Family Admitting Clinician Unavailabl e EMILIO_Sinha_An Admitting Clinician Unavailable ROMAN Admitting Clinician Unavailable Aleena Chapman MD Admitting Clinician Payers Payer Name Policy Type Policy Number Effective Date Expiration Date Fatuma SANDRA/PATRICIAP [id number] 2020 MEDICARE ADVANTAGE 00:00:00 JOCY KNUTSON - [id number] 2020 [facility] 00:00:00 (MEDICARE REPLACEMENT/ADVANTA GE - HMO) [place]IC[place]: [id number] 2016 [place] 00:00:00 Problems Condition Condition Condition Status Onset Resolution Last Treating Co mments Source Name Details Category Date Date Treatment Clinician Date Right Right Disease Active Univers shoulder shoulder 02-05 ity of pain pain 00:00: [place] [address] Medical Branch Lump or Lump or Disease Active Overview: Univ ers mass in mass in 03-07 Formattin ity o f breast breast 00:00: g of this [place] [address] note Medical might be Branch different from [...] of routine routine 00:00: g of this [place] gynecologi gynecologi 00 note Me dical [place] might be Branch examinatio examinatio different n n from the original. 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 ICD10 Diagnosis Term [employer] Utility Tubal Tubal Disease Active Univers ligation ligation 03-07 ity of status status 00:00: [place] 00 [facility] Allergies, Adverse Reactions, Alerts Allergy Allergy Status Severity Reaction(s) Onset Inactive Treating Comm ents Source Name Type Date Date Clinician codeine DA Active [place] [facility] 3-10 Clear 00:00: [place] 00 [facility] codeine DA Active [place] [facility] 3-05 Clear 00:00: Cornel[place] 00 [facility] codeine DA Active [place] VOMITING [facility] 3-05 Clear 00:00: [place] 00 [facility] codeine DA Active [place] [facility] 6-12 Clear 00:00: [place] 00 [facility] codeine Adverse Active nausea/vomit [facility] ing [facility] NO KNOWN Drug Active Univers ALLERGIE Class ity of S [facility] Social History Social Habit Start Date Stop Date Quantity Comments Source Exposure to Not sure [facility] SARS-CoV-2 [facility] (event) Branch Alcohol intake 2021-08-04 2021-08-04 Current [facility] 00:00:00 00:00:00 non-drinker of [facility] alcohol Branch (finding) Tobacco use and 2020-06-13 2020-06-13 Never used Universit y of exposure 00:00:00 00:00:00 [facility] Sex [birth year] Universit y of 00:00:00 00:00:00 [facility] Smoking Status Start Date Stop Date Source Unknown if ever smoked [facility] Never smoker [facility] Medications Ordered Filled Start Stop Current Ordering Indication Dosage Frequency Signature Comments Components Source Medication Medication Date Date Medication? Clinician (SIG) Name Name METFORMIN 2019-08 Yes Take by [facility] ers HCL 0-28 mouth. ity of (METFORMIN 16:23: [place] ORAL) 57 Medical Branch SITagliptin 2019-08 Yes 100mg Take 100 U nivers (JANUVIA) 0-28 mg by ity of 100 mg 16:23: mouth [place] tablet 57 daily. Medical Branch METFORMIN 2019-08 Yes Take by [facility] ers HCL 0-28 mouth. ity of (METFORMIN [...] [place] solution 00 06/12/20 Medical at 0914, [facility] Until Discontinu ed, Routine, Intra-op simethicone 2019-08 Yes PRN, Univer s (GAS RELIEF 0-28 Starting ity of (SIMETHICON 14:14: Wed [place] E)) 40 00 06/12/20 Medical mg/0.6 mL at 0914, [facility] drops Until Discontinu ed, Routine, Intra-op METFORMIN [...] 2020- No Amrita tenorio C [facility] -08-26 Mill[place] injection Luke s - 00:00: 00:00 [...] Me moria 00 SHAMAR ONE l TOUCH) [facility] Lisinopril Lisinopril Yes Amrita 1 [...] ity of mg tablet 00:00: [place] [facility] lisinopril Yes Univers (PRINIVIL,Z 4-20 ity of [...] ity of mg tablet 00:00: [place] 00 [facility] lisinopril Yes Univers (PRINIVIL,Z 4-20 ity of ESTRIL) 5 00:00: [place] mg tablet 00 [facility] Branch lovastatin Yes Univers (MEVACOR) 4-20 ity of 20 mg 00:00: [place] tablet 00 [facility] Branch glimepiride Yes Univer s (AMARYL) 2 4-20 ity of mg tablet 00:00: [place] [facility] lisinopril Yes Univers (PRINIVIL,Z 4-20 ity of ESTRIL) 5 00:00: [place] mg tablet 00 [facility] lovastatin Yes Univers (MEVACOR) 4-20 ity of 20 mg 00:00: [place] tablet 00 [facility] glimepiride Yes Univer s (AMARYL) 2 4-20 ity of mg tablet 00:00: [place] 00 [facility] lisinopril Yes Univers (PRINIVIL,Z 4-20 ity of ESTRIL) 5 00:00: [place] mg tablet 00 [facility] lovastatin Yes Univers (MEVACOR) 4-20 ity of 20 mg 00:00: [place] tablet 00 [facility] glimepiride Yes Univer s (AMARYL) 2 4-20 ity of mg tablet 00:00: [place] 00 [facility] METFORMIN Yes Take by Univ ers HCL 7-23 mouth. ity of (METFORMIN 20:09: [place] ORAL) [address] [place] [address] METFORMIN Yes Take by Univ ers HCL 7-23 mouth. ity of (METFORMIN 20:09: [place] ORAL) [address] [place] [address] METFORMIN Yes Take by Univ ers HCL 7-23 mouth. ity of (METFORMIN 20:09: [place] ORAL) [address] [place] [address] METFORMIN Yes Take by Univ ers HCL 7-23 mouth. ity of (METFORMIN 20:09: [place] ORAL) [address] [place] [address] Lovastatin Lovastatin Yes Amrita [address] [facility] [address] [facility] in evening [facility] Janfabyia Rashaun Yes Amrita [address] [facility] [facility] [...] Name Td 2010-03-07 Completed University of 00:00:00 [facility] Td 2010-03-07 Completed University of 00:00:00 [facility] Branch Td 2010-03-07 Completed University of 00:00:00 [facility] Branch Td 2010-03-07 Completed University of 00:00:00 [facility] Td 2010-03-07 Completed University of 00:00:00 [facility] Td 2010-03-07 Completed University of 00:00:00 [facility] Td 2010-03-07 Completed University of 00:00:00 [facility] Td 2010-03-07 Completed University of 00:00:00 [facility] Td 2010-03-07 Completed University of 00:00:00 [facility] Vital Signs Vital Name Observation Time Observation Value Comments Source Systolic blood 2020-06-12 15:20:00 131 mm[Hg] Univer sity of pressure [facility] Diastolic blood 2020-06-12 15:20:00 67 mm[Hg] Unive rsity of pressure [facility] Heart rate 2020-06-12 15:20:00 61 /min [facility] Respiratory rate 2020-06-12 15:20:00 16 /min [facility] Oxygen saturation in 2020-06-12 15:20:00 100 /min [facility] Arterial blood by [facility] Pulse oximetry Branch Body temperature 2020-06-12 15:00:00 36.28 Ines [facility] Body height 2020-06-07 16:59:00 152.4 cm [facility] Body weight 2020-06-07 16:59:00 70.761 kg [facility] BMI 2020-06-07 16:59:00 30.47 kg/m2 [facility] Systolic blood 2020-06-12 15:20:00 131 mm[Hg] Univer sity of pressure [facility] Diastolic blood 2020-06-12 15:20:00 67 mm[Hg] Unive rsity of pressure [facility] Heart rate 2020-06-12 15:20:00 61 /min [facility] Respiratory rate 2020-06-12 15:20:00 16 /min [facility] Oxygen saturation in 2020-06-12 15:20:00 100 /min [facility] Arterial blood by [facility] Pulse oximetry Branch Body temperature 2020-06-12 15:00:00 36.28 Ines [facility] Body height 2020-06-07 16:59:00 152.4 cm [facility] Body weight 2020-06-07 16:59:00 70.761 kg [facility] BMI 2020-06-07 16:59:00 30.47 kg/m2 [facility] Procedures Procedure Date / Time Performing Clinician Source Performed CONSENT/REFUSAL FOR 2021-08-04 14:12:32 Doctor Ekta [facility] DIAGNOSIS AND TREATMENT [facility] ASSIGNMENT OF BENEFITS 2021-08-04 14:12:04 Doctor Ekta, [facility] Name Medical [facility] COLONOSCOPY (ENDO) 2020-06-12 14:29:40 Amrita Odom [facility] POCT GLUCOSE(AGE >30DAYS) 2020-06-12 13:45:00 Elroy Khalil [facility] PATIENT FINANCIAL 2020-06-11 14:21:53 Doctor Ekta, [facility] POLICY [facility] NOTICE OF BILLING 2020-06-11 14:21:10 Doctor Dash [facility] PRACTICES FOR MEDICARE [facility] PATIENTS NO SHOW OR MISSED 2020-06-11 14:20:46 Doctor Ekta, [facility] APPOINTMENT POLICY [facility] ACKNOWLEDGEMENT CONSENT/REFUSAL FOR 2020-06-11 14:20:09 Doctor Ekta [facility] DIAGNOSIS AND TREATMENT [facility] ASSIGNMENT OF BENEFITS 2020-06-11 14:19:48 Doctor Ekta, [facility] [facility] NOTICE OF PRIVACY 2020-06-11 14:19:21 Doctor Dash [facility] PRACTICES [facility] CONSENT/REFUSAL FOR 2020-06-11 14:19:01 [facility] [place] [facility] DIAGNOSIS AND TREATMENT [facility] ASSIGNMENT OF BENEFITS 2020-06-11 14:18:40 [facility] [facility] DSU PRE-OP 2020-06-06 05:01:00 Doctor Unassigned, [facility] Plan of Care Planned Activity Planned Date Details Comments Source Future Scheduled Test COVID-19 VACCINE (1) [facility] [code = COVID-19 VACCINE (1)] Future Scheduled Test BREAST CANCER SCREENING [facility] [code = BREAST CANCER SCREENING] Future Scheduled Test COLONOSCOPY SCREENING [facility] [code = COLONOSCOPY SCREENING] Future Scheduled Test SHINGLES VACCINES (#1) [facility] [code = SHINGLES VACCINES (#1)] Future Scheduled Test 65+ PNEUMOCOCCAL Me [facility] VACCINE (1 of 1 - PPSV23) [code = 65+ PNEUMOCOCCAL VACCINE (1 of 1 - PPSV23)] Future Scheduled Test INFLUENZA VACCINE [code [facility] = INFLUENZA VACCINE] Encounters Start End Encounter Admission Attending Care Care Encounter Source Date/Time Date/Time Type Type Clinicians Facility Department ID 2021-06-14 Outpatient R CHARAFEDDIN [facility] LIZZY [id number] Univers 00:33:32 [facility]-05-14 Inpatient HCACL JASS [id number] [facility] 11:51:00 [id number] [facility] 2021-08-22 2021-08-22 Outpatient GC_BATC_Sin PRIV PRIV [id number] [facility] 05:05:00 05:05:00 ha_An [id number] [facility] 2021-08-18 2021-08-18 Outpatient GC_BATC_Sin PRIV PRIV [id number] [facility] 12:53:00 12:53:00 ha_An [id number] Medica l 2021-08-04 2021-08-04 Outpatient R RADIOLOGY [facility] RAD [id number] Univers 08:14:44 23:59:00 ity [facility] 2021-08-04 2021-08-04 Hospital Radiology [facility] [id number] Univers 08:14:44 23:59:00 [facility]counter [place] [id number] [id number] [facility] [id number] [place] [address] Branch 2021-08-04 2021-08-04 Outpatient R RADIOLOGY [facility] [id number] Univers 00:00:00 00:00:00 [id number] ity of [facility] 2021-03-12 2021-03-12 Outpatient STLMLC [facility] [id number] [facility] 2021-03-06 2021-03-06 Outpatient STLMLC [facility]LMLC [id number] [facility] 2021-01-29 2021-01-29 Outpatient STLMLC [facility]LMLC [id number] [facility] 2020-12-31 2020-12-31 Outpatient STLMLC [facility]ML[facility] [id number] [facility] 2020-10-10 2020-10-10 Outpatient STLMLC [facility]LML[facility] [id number] [facility] 2020-10-08 2020-10-08 Outpatient STLMLC [facility]LMLC [id number] [facility] 2020-09-18 2020-09-18 Outpatient STLMLC [facility]LML[facility] [id number] [facility] 2020-08-14 2020-08-14 Outpatient STLMLC [facility]LMLC [id number] [facility] 2020-08-13 2020-08-13 Outpatient STLMLC STLMLC [id number] [facility] 2020-08-04 2020-08-04 Telephone ANAM Charles [id number] 00:00:00 00:00:00 Pj GALLOWAY [id number] [facility] [id number] 2020-08-04 2020-08-04 Telephone ANAM Charles [id number] Univers 00:00:00 00:00:00 Pj GALLOWAY [id number] i ty of [facility] [id number] [place]itesh as [id number] [address] 2020-08-01 2020-08-01 Outpatient R [facility] [id number] Univers 19:20:00 19:20:00 [id number] ity of [facility] 2020-08-01 2020-08-01 Outpatient R AGAPITO [facility] [id number] Univers 19:20:00 19:20:00 KALEYKYLIE blackwood o f [facility] 2020-08-01 2020-08-01 Laboratory Lab, [facility] [id number] 17:25:17 17:45:17 Only Fam Pob I Health [id number] [place] [id number] Professio [id number] nal [facility] Office Building [facility] 2020-08-01 2020-08-01 Laboratory Lab, [facility] Fam Pob I [facility] [id number] Univers 17:25:17 17:45:17 Only Kaley [facility] [id number] ity [facility] [id number] [place] Professio [id number] [place] dical [address] Office Building [facility] 2020-08-01 2020-08-01 [id number] 2020-07-30 2020-07-30 [facility] [id number] [facility] 2020-07-30 2020-07-30 Outpatient STLMLC STLC [id number] [facility] 2020-07-18 2020-07-18 Hospital Radiology [facility] [id number] 14:58:22 23:59:00 Encounter [place] [id number] [place] [id number] [place] [id number] [facility] 2020-07-18 2020-07-18 Hospital Radiology [facility] [id number] Univers 14:58:22 23:59:00 Encounter [place] [id number] ity of [place] [id number] [place] [id number] [address] 2020-07-18 2020-07-18 Outpatient R RADIOLOGY [facility] [id number] Univers 15:20:00 15:20:00 ity [facility] 2020-07-18 2020-07-18 Outpatient R RADIOLOGY [facility] [id number] Univers 00:00:00 00:00:00 ity of [facility] 2020-07-09 2020-07-09 Outpatient STLMLC [facility]LML[facility] [id number] [facility] 2020-07-01 2020-07-01 Outpatient STLMLC [facility]LMLC [id number] [facility]00 [facility] 2020-06-26 2020-06-26 Outpatient STLMLC [facility]LMLC [id number] [facility]00 [facility] 2020-06-12 2020-06-12 [facility] [id number] 08:29:00 10:30:00 Encounter Nicole franks [place] [id number] [place] [id number] Surgical [id number] [place] [address] 2020-06-12 2020-06-12 [facility] [id number] [facility] 08:29:00 10:30:00 Encounter eNicole [place] [id number] ity of [place] [id number] [place] Surgical [id number] Med ical [address] 2020-06-11 2020-06-11 Laboratory Only, [facility] [id number] 09:25:13 09:40:13 Only Test Anna [id number] [place] [id number] [place] [id number] 353 2020-06-11 2020-06-11 Laboratory Only, [facility] Test [facility] 1.2.840. [id number] Univers 09:25:13 09:40:13 Only Nicole [place] 350.1.1 3.10 ity [facility] [id number] [place] [id number] [address] 2020-06-11 2020-06-11 Outpatient R [facility] [id number] Univers 09:15:00 09:15:00 [id number] ity [facility] 2020-06-11 2020-06-11 Outpatient R TREY [facility] [id number] Univers 09:15:00 09:15:00 NICOLE Franks f [facility] 2020-05-14 2020-05-14 Emergency EM Chintan, HCACL JASS [id number] [facility] 11:51:00 14:37:00 Missael 36711 [facility] 2020-05-11 2020-05-11 Telephone ANMA Charles [id number] 00:00:00 00:00:00 Pj GALLOWAY [id number] [facility] [id number] [id number] 2020-05-11 2020-05-11 Telephone ANAM Charles [id number] Univers 00:00:00 00:00:00 Pj GALLOWAY [id number] [facility] 4.2.7.2.686 [place] [id number] [address] 2020-05-10 2020-05-10 Outpatient R ELIZABETH [facility] [id number] Univers 10:20:00 10:20:00 TAWANNA blackwood [facility] 2020-05-10 2020-05-10 Laboratory Lab, [facility] [id number] 08:55:14 09:15:14 Only Fam Pob I Health [id number] [place] 4.2.7.2.686 Professio [phone] [place] [address] Office Building [facility] 2020-05-10 2020-05-10 Laboratory Lab, Adc Fam Pob I [facility] 1.2. [id number] [id number] [facility] 08:55:14 09:15:14 Only Anene, [facility] [id number] ity of [place] 4.2.7.2.686 [place] as Professio [id number] [place] dical [address] Office Building [facility] 2020-05-10 2020-05-10 Letter Doctor ANAM [id number] 00:00:00 00:00:00 (Out) Unassigned, NILESH [id number] [facility] 4.2.7.2.686 [id number] [facility] 2020-05-10 2020-05-10 Letter Doctor ANAM [id number] Univers 00:00:00 00:00:00 (Out) Unassigned, NILESH [id number] ity of [facility] 4.2.7.2.686 Mitesh as [id number] [address] 2020-05-08 2020-05-08 [facility] [id number] [facility] 2020-04-29 2020-04-29 [facility] [id number] [facility]00 [facility] 2020-04-26 2020-04-26 [facility] [id number] 10:40:00 10:40:[address] [facility] Medicine l Medicine Outpati ent Clinics 2020-03-21 2020-03-21 Outpatient [facility] Maria Inest [id number] 09:35:00 09:35:[address] [facility] Medicine l Medicine Outpati ent Clinics 2020-03-01 2020-03-01 [facility] [id number] 14:20:00 14:20:00 t [facility] Medicine Outpati ent Clinics 2020-02-26 2020-02-26 [facility] [id number] 14:40:00 14:40:00 t [facility] l Medicine Outpati ent Clinics 2020-02-23 2020-02-23 [facility] [id number] 11:09:00 11:09:00 [facility] Medicine Outpati ent Clinics 2020-02-09 2020-02-09 [facility] [id number] 13:00:00 13:00:00 [facility] Medicine Outpati ent Clinics 2019-12-27 2019-12-27 [facility] [id number] 16:27:00 16:27:00 [facility] Medicine Outpati ent Clinics 2019-11-08 2019-11-08 [facility] [id number] 10:45:00 10:45:00 [facility] Medicine Outpati ent Clinics 2019-10-24 2019-10-24 [facility] [id number] 09:52:00 09:52:00 [facility] Medicine Outpati ent Clinics 2019-10-18 2019-10-18 [facility] [id number] 10:15:00 10:15:00 [facility] Medicine Outpati ent Clinics 2019-09-29 2019-09-29 [facility] [id number] 15:00:00 15:00:00 [facility] Medicine Outpati ent Clinics 2019-09-05 2019-09-05 [facility] [id number] 00:17:00 00:17:00 [facility] Medicine Outpati ent Clinics 2019-08-23 2019-08-23 [facility] [id number] 03:36:00 03:36:[address] [facility] Medicine Medicine Outpati ent Clinics 2019-07-18 2019-07-18 [facility] [id number] 10:04:00 10:04:00 t [facility] Medicine Outpati ent Clinics 2019-07-07 2019-07-07 [facility] [id number] 10:00:00 10:00:[address] [facility] Medicine Medicine Outpati ent Clinics 2019-06-14 2019-06-14 [facility] [id number] 13:20:00 13:20:00 t [facility] Medicine Outpati ent Clinics 2019-06-09 2019-06-09 [facility] [id number] 11:39:00 11:39:00 t [facility] Medicine Outpati ent Clinics 2019-05-31 2019-05-31 [facility] [id number] 10:23:00 10:23:00 t [facility] Medicine Outpati ent Clinics 2019-05-05 2019-05-05 [facility] [id number] 08:59:00 08:59:[address] [facility] Medicine Medicine Outpati ent Clinics 2019-04-11 2019-04-11 [facility] [id number] 13:00:00 13:00:[address] [facility] Medicine Medicine Outpati ent Clinics 2019-04-07 2019-04-07 [facility] [id number] 08:36:00 08:36:[address] [facility] Medicine Medicine Outpati ent Clinics 2019-03-21 2019-03-21 [facility] [id number] 15:03:00 15:03:[address] [facility] Medicine l Medicine Outpati ent Clinics 2019-03-20 2019-03-20 [facility] [id number] 15:04:00 15:04:00 t [facility] Medicine Medicine Outpati ent Clinics 2019-03-14 2019-03-14 [facility] [id number] 15:36:00 15:36:00 t [facility] Medicine Outpati ent Clinics 2019-02-09 2019-02-09 [facility] [id number] 12:49:00 12:49:00 t [facility] Medicine Medicine Outpati ent Clinics 2019-02-07 2019-02-07 [facility] [id number] 09:44:00 09:44:00 t [facility] Medicine Outpati ent Clinics 2019-02-06 2019-02-06 [facility] [id number] 11:40:00 11:40:[address] [facility] Medicine Medicine Outpati ent Clinics 2018-11-08 2018-11-08 [facility] [id number] 10:06:00 10:06:00 t [facility] Medicine Outpati ent Clinics 2018-11-03 2018-11-03 [facility] [id number] [facility] 14:58:00 14:58:[address] [facility] Medicine Medicine Outpati ent Clinics 2018-10-26 2018-10-26 [facility] [id number] 13:00:00 13:00:00 t [facility] Medicine Medicine Outpati ent Clinics 2018-10-10 2018-10-10 [facility] [id number] [facility] 11:30:00 11:30:00 t [facility] Medicine Outpati ent Clinics 2018-08-24 2018-08-24 [facility] [id number] 15:45:00 15:45:00 t [facility] Medicine Outpati ent Clinics 2018-08-22 2018-08-22 [facility] [id number] 09:18:00 09:18:00 t [facility] Medicine Outpati ent Clinics 2018-08-05 2018-08-05 [facility] [id number] [address] 12:34:00 12:34:00 t [facility] Medicine Outpati ent Clinics 2018-05-23 2018-05-23 [facility] [id number] 11:41:00 11:41:00 t [facility] Medicine Outpati ent Clinics 2018-05-02 2018-05-02 [facility] [id number] 11:30:00 11:30:00 [facility] Medicine Outpati ent Clinics 2018-03-08 2018-03-08 [facility] [id number] 15:30:00 15:30:00 [facility] Medicine Outpati ent Clinics 2017-11-09 2017-11-09 [facility] [id number] 16:15:00 16:15:00 [facility] Medicine Outpati ent Clinics Results Test Description Test Time Test Comments Results Result Comments Source POCT Glucose 2020-06-12 13:45:00 Test Item Value Reference Range Interpretation Comme nts POCT Glu (age>30days) (test code = 3342) 124 mg/dL 70-110 A Lab Interpretation (test code = 92887-9) Abnormal [facility]- [facility] ABD PELVIS [id number] 13:37:00 Name: VIDYA FROST [facility] : 1950 Age/S: 69 / F [address] [place] [address] Blvd Unit #: [id number] Loc: Yoel [id number] Phys: Missael Woodson DO Acct: [id number] Dis Date: Status: DEP ER PHONE #: [phone] Exam Date: 05/14/20206 FAX #: [phone] Reason: LOWER ABDOMINAL PAIN EXAMS: CPTCODE: [id number] CT ABD PELVIS W/CONT 97801 Clinical Ind ication: Lower abdominal pain. Comparison: [...] thick-walled. Correlate for evidence of cystitis. SL: [id number] at 1337 Reported and signed by: Ana Becker M.D. PAGE 1 Signed Report (CONTINUED) Name: VIDYA FROST [facility] : 1950 Age/S: 69 / F [address] [place] [address] Blvd Unit #: [id number] Loc: [place] [address] Phys: Missael Woodson DO Acct: [id number] Dis Date: Status: [facility] ER PHONE #: [phone] Exam Date: 05/14/2020 1316 FAX #: [phone] Reason: LOWER ABDOMINAL PAIN EXAMS: CPT CODE: [id number] CT ABD PELVIS W/CONT 49522 <Continued> CC: Missael Woodson DO Technologist:Monae Beran, RT(R)(CT) CTDI: DLP: Trnscb Date/Time: 05/14/2020 (1337) [email or web address] Orig Print D/T: S: 05/14/2020 (1416)PAGE 2 Signed Report- CT ABD PELVIS [id number] 13:37:00 Name: VIDYA FROST [facility] : 1950 Age/S: 69 / F [address] [place] [address] Unit #: [id number] Loc: Yoel [id number] Phys: Missael Woodson DO Acct: [id number] Dis Date: Status: REG ER PHONE #: [phone] Exam Date: 05/14/2020 1316 FAX #: [phone] Reason: LOWER ABDOMINAL PAIN EXAMS: CPTCODE: [id number] CT ABD PELVIS W/CONT 16155 Clinical Indication: Lower abdominal pain. Comparison: None [...] thick-walled. Correlate for evidence of cystitis. SL: [id number] at 1337 Reported and signed by: Ana Becker M.D. PAGE 1 Signed Report (CONTINUED) Name: VIDYA FROST [facility] : 1950 Age/S: 69 / F [address] [facility] Unit #: [id number] Loc: [place] [address] Phys: Quincy Woodsonnasrin [place] Acct: [id number] Dis Date: Status: REG ER PHONE #: [phone] Exam Date: 05/14/2020 1316 FAX #: [phone] Reason: LOWER ABDOMINAL PAIN EXAMS: CPT CODE: [id number] CT ABD PELVIS W/CONT 37230 <Continued> CC: Missael Woodson DO Technologist:Monae Bazzi, RT(R)(CT) CTDI: DLP: Trnscb Date/Time: 05/14/2020 (1607) [email or web address] Orig Print D/T: S: 05/14/2020 (7830)PAGE 2 Signed Report- XR CHEST 1 [id number] 13:07:00 FAX: Missael Zhao DO [phone] [place]: St: DEP Name: VIDYA FROST [facility] : 1950 Age/S: 69/F [address] [place] [address] Unit#: [id number] Loc: [place] [address] Phys: Missael Woodson DO Acct: [id number] Dis Date: Status: DEP ER PHONE #: [phone] Exam Date: 05/14/2020 1305 FAX #: [phone] Reason: Abdominal Pain EXAMS: CPT CODE: [id number] XR CHEST 1 V 41199 CLINICAL HISTORY:Abdominal Pain COMPARISON:NONE Frontal film of [...] CC: Missael Woodson DO Technologist: RT Enma(R) La Date/Time/By: 05/14/2020 (0681) : By: Polina Orig Print D/T: S: 05/14/2020 (5875) PAGE 1 Signed Report- XR CHEST 1 [id number] 13:07:00 FAX: Missael Zhao DO [phone] [place]: St: REG Name: VIDYA FROST [facility] : 1950 Age/S: 69/F [address] [place] [address] Unit#: [id number] Loc: [place] [address] Phys: Missael Woodson DO Acct: [id number] Dis Date: Status: REG ER PHONE #: [phone] Exam Date: 05/14/2020 1305 FAX #: [phone] Reason: Abdominal Pain EXAMS: CPT CODE: [id number] XR CHEST 1 V 54945 CLINICAL HISTORY:Abdominal Pain COMPARISON:NONE Frontal film of [...] CC: Missael Woodson DO Technologist: RT Enma(R) La Date/Time/By: 05/14/2020 (3205) : By: tMATTI Orig Print D/T: S: 05/14/2020 (7612) PAGE 1 Signed ReportBASIC METABOLIC [id number] 12:57:00 Test Item Value Reference Range Interpretation [...] 9.6 mg/dL 8.0-10.5 N CA) HEPATIC FUNCTION [id number] 12:57:00 Test Item Value Reference Range Interpretation [...] 69 IUnit/L 20-125 N code = ALKP) [id number] 12:57:00 Test Item Value Reference Range Interpretation Comments LIPASE (test code = LIP) 56 U/L 13-57 N CBC W/AUTO [id number] 12:43:00 Test Item Value Reference Range Interpretation [...] = MDIFF) UA RFLX MICR CULT IF [id number] 12:32:00 Test Item Value Reference Range Interpretation [...] for culture: Suprapubic PainSpecimen Description: CLEAN CATCH [id number] 22:58:00 Test Item Value Reference Range Interpretation Comments GLUBED (test code = 224 MG/DL 70-110 H Performe d by certified GLUBED) 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 HGBA1C%2018-10-24 09:25:00 Test Item Value Reference Range Interpretation Comments HGBA1C% (test code = HGBA1C%) 8.3 %A1C 4.8-6.0 H BASIC METABOLIC [id number] 08:18:00 Test Item Value Reference Range Interpretation [...] LDL 62 mg/dL 0-100 N <100 OPT [id number] (test code = LDL) NEAR OPTI MAL/ABOVE [id number] [id number] 89 HIGH>VO=252 VE RY HIGH*Guidelines provided by the National Choles terol EducationProgra m Adult Treatment Panel III THYROID STIMULATING [id number] 08:18:00 Test Item Value Reference Range Interpretation Comments THYROID STIMULATING 0.70 0.42-5.47 N Results in HORMONE (test code = TSH) mi lli-International Units/mL [id number] 08:03:00 Test Item Value Reference Range Interpretation Comments GLUBED (test code = 147 MG/DL 70-110 H Performe d by certified GLUBED) 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 operator at [facility] - MRI BRAIN W/O [id number] 20:06:00 FAX: Ale Leal MD [phone] [place]: St: ADM FAX: Camilla Odonnell MD Name: VIDYA FROST [facility] : 1950 Age/S: 67/F [address] [place] [address] Unit #: [id number] Loc: [address] [place] [address] Phys: Camilla Terrell MD Acct: [id number] Dis Date: Status: ADM IN PHONE #: [phone] Exam Date: 10/23/20181946 FAX #: [phone] Reason: PERSISTENT DIZZINESS EXAMS: CPT CODE: [id number] MRI BRAIN W/O CONT 41902 EXAM: MRI BRAIN WITHOUT CONTRAST DATE: 10/23/2018 [...] Signed Report (CONTINUED) FAX: Ale Leal MD [phone] [place]: St: ADM FAX: Camilla Odonnell MD Name: VIDYA FROST [facility] : 1950 Age/S: 67/F [address] [place] [address] Unit #: [id number] Loc: [address] [address] Phys: Camilla Terrell MD Acct: [id number] Dis Date: Status: ADM IN PHONE #: [phone] Exam Date: 10/23/2018 1947FAX #: [phone] Reason: PERSISTENT DIZZINESS EXAMS: CPT CODE: [id number] MRI BRAIN W/O CONT 12899 <Continued> at 2006 Reported and signed by: Roman Harrison M.D. 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 operator at [facility] [id number] 15:17:00 Test Item Value Reference Range Interpretation Comments GLUBED (test code = 145 MG/DL 70-110 H Performe d by certified GLUBED) 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 LACTIC [id number] 10:56:00 Test Item Value Reference Range Interpretation Comments LACTIC ACID (test code = LACT) 2.1 mmol/L 0.4-1.9 H URINALYSIS [id number] 10:46:00 Test Item Value Reference Range Interpretation [...] /LPF NONE SEEN COMMENTS: Clean CatchCBC W/AUTO [id number] 10:42:00 Test Item Value Reference Range Interpretation [...] NO = MDIFF) - CT HEAD/BRAIN W/O [id number] 09:22:00 Name: VIDYA FROST [facility] : 1950 Age/S: 67 / F [address] [place] [address] Unit #: [id number] Loc: Yoel [id number] Phys: Braxton Prasad MD Acct: [id number] Dis Date: Status: REG ER PHONE #: [phone] Exam Date: 10/23/2018904 FAX #: [phone] Reason: dizziness EXAMS: CPTCODE: [id number] CT HEAD/BRAIN W/O CONT 49125 CT head without contrast 10/23/2018 HISTORY: Dizziness [...] 3. Mild chronic microvascular ischemic changes. SL: [id number] at 0922 Reported and signed by: Giorgio Srivastava M.D. CC: Braxton Prasad MD Technologist:Katrin Miles, RT(R)(CT) CTDI: DLP: Trnscb Date/Time: 10/23/2018 (921) [email or web address] Orig Print D/T: S: 10/23/2018 (924) CTDI: DLP: PAGE 1 SignedReportURINALYSIS [id number] 01:38:00 Test Item Value Reference Range Interpretation [...]
[2021-08-29 01:26] LABS: Absolute Lymphocytes (CBC) 0.6 K/uL (0.7-4.9); Hematocrit 34.1 % (36.0-45.0); Lymphocytes % 7.4 % (15.3-44.8); MPV 8.8 fL (7.6-11.3); RBC Red Blood Cell Count 3.87 M/uL (3.86-4.86)
[2021-08-29 01:32] LABS: Protime INR 0.96
[2021-08-29 01:45] LABS: ALT/SGPT 30 U/L (12-78); AST/SGOT 27 U/L (15-37); Albumin 3.4 g/dL (3.4-5.0); Alkaline Phosphatase 68 U/L (45-117); BUN Blood Urea Nitrogen 24 mg/dL (7-18); Bicarbonate 22 mmol/L (21-32); Bilirubin Direct < 0.1 mg/dL (0-0.2); Bilirubin Total 0.2 mg/dL (0.2-1.0); Glucose Level 132 mg/dL (74-106); Lipase 160 U/L (73-393); Magnesium 1.5 mg/dL (1.8-2.4); NT PRO-BNP 122 pg/mL (<125); Potassium 3.5 mmol/L (3.5-5.1); Protein, Total 7.1 g/dL (6.4-8.2); Sodium Level 139 mmol/L (136-145)
[2021-08-29] MEDS ORDERED: NA CHLORIDE 0.9% 1,000 ML ONE (02:06)
[2021-08-29 02:15] LABS: Urine Blood Negative (Negative); Urine Glucose Negative (Negative); Urine Protein Negative (Negative); Urine Specific Gravity 1.025 (1.005-1.030)
--- NOTE | 2021-08-29 03:50 | EDPHYS ---
Physician Documentation [facility] Name: Miroslava Rousseau Age: 70 yrs Sex: Female : 1950 Arrival Date: 08/29/2021 Time: 00:19 Bed 19 Private MD: ERIN Physician Tramaine Gleason HPI: 08/29 00:58 This 70 yrs old Female presents to ER via Ambulatory with complaints of heather Nausea, Diarrhea, Abdominal Pain. 00:58 The patient presents to the emergency department with nausea, vomiting, diarrhea, ehather abdominal pain, of the right lower quadrant and left lower quadrant. Onset: The symptoms/episode began/occurred 6 day(s) ago. Possible causes: antibiotics, flagyl, cipro. The symptoms are aggravated by nothing. The symptoms are alleviated by nothing. Associated signs and symptoms: Pertinent positives: abdominal pain, nausea, vomiting. Severity of symptoms: At their worst the symptoms were mild in the emergency department the symptoms are unchanged. The patient has experienced similar episodes in the past, a few times. Historical: - Allergies: 00:30 NKDA; sf1 - Home Meds: 00:30 aspirin 81 mg Oral chew 1 tab once daily [Active]; glimepiride 2 mg Oral tab 1 tab once sf1 daily [Active]; Januvia 100 mg Oral tab 1 tab once daily [Active]; lisinopril 5 mg Oral tab 1 tab once daily [Active]; lovastatin 20 mg Oral tab 1 tab once daily [Active]; metformin 500 mg Oral tab 1 tab 2 times per day [Active]; vitamins [Active]; - PMHx: 00:30 Diabetes - IDDM; Hyperlipidemia; Hypertension; Uterine CA; sf1 - Immunization history:: Adult Immunizations up to date, Flu vaccine is up to date. - Social history:: Smoking status: Patient denies any tobacco usage or history of. Patient/guardian denies using alcohol. ROS: 01:00 Constitutional: Negative for fever, chills, and weight loss, Eyes: Negative for injury, heather pain, redness, and discharge, ENT: Negative for injury, pain, and discharge, Neck: Negative for injury, pain, and swelling, Cardiovascular: Negative for chest pain, palpitations, and edema, Respiratory: Negative for shortness of breath, cough, wheezing, and pleuritic chest pain, Back: Negative for injury and pain, : Negative for injury, bleeding, discharge, and swelling, MS/Extremity: Negative for injury and deformity, Skin: Negative for injury, rash, and discoloration, Neuro: Negative for headache, weakness, numbness, tingling, and seizure, Psych: Negative for depression, anxiety, suicide ideation, homicidal ideation, and hallucinations, Allergy/Immunology: Negative for hives, rash, and allergies, Endocrine: Negative for neck swelling, polydipsia, polyuria, polyphagia, and marked weight changes. 01:00 Abdomen/GI: Positive for abdominal pain, nausea, vomiting, diarrhea. Exam: 01:00 Constitutional: This is a well developed, well nourished patient who is awake, alert, heather and in no acute distress. Head/Face: Normocephalic, atraumatic. Eyes: Pupils equal round and reactive to light, extra-ocular motions intact. Lids and lashes normal. Conjunctiva and sclera are non-icteric and not injected. Cornea within normal limits. Periorbital areas with no swelling, redness, or edema. ENT: Nares patent. No nasal discharge, no septal abnormalities noted. Tympanic membranes are normal and external auditory canals are clear. Oropharynx with no redness, swelling, or masses, exudates, or evidence of obstruction, uvula midline. Mucous membranes moist. Neck: Trachea midline, no thyromegaly or masses palpated, and no cervical lymphadenopathy. Supple, full range of motion without nuchal rigidity, or vertebral point tenderness. No Meningismus. Chest/axilla: Normal chest wall appearance and motion. Nontender with no deformity. No lesions are appreciated. Cardiovascular: Regular rate and rhythm with a normal S1 and S2. No gallops, murmurs, or rubs. Normal PMI, no JVD. No pulse deficits. Respiratory: Lungs have equal breath sounds bilaterally, clear to auscultation and percussion. No rales, rhonchi or wheezes noted. No increased work of breathing, no retractions or nasal flaring. Back: No spinal tenderness. No costovertebral tenderness. Full range of motion. Female : Normal external genitalia. Skin: Warm, dry with normal turgor. Normal color with no rashes, no lesions, and no evidence of cellulitis. MS/ Extremity: Pulses equal, no cyanosis. Neurovascular intact. Full, normal range of motion. Neuro: Awake and alert, GCS 15, oriented to person, place, time, and situation. Cranial nerves II-XII grossly intact. Motor strength 5/5 in all extremities. Sensory grossly intact. Cerebellar exam normal. Normal gait. Psych: Awake, alert, with orientation to person, place and time. Behavior, mood, and affect are within normal limits. 01:00 Abdomen/GI: Inspection: abdomen appears normal, Bowel sounds: normal, Palpation: mild abdominal tenderness, in the suprapubic area, right lower quadrant and left lower quadrant, Liver: no appreciated palpable abnormalities, Hernia: not appreciated. Vital Signs: 00:27 BP 139 / 68; Pulse 80; Resp 18; Temp 98.3; Pulse Ox 100% ; Weight 73.03 kg; Height 5 sf1 ft. 0 in. (152.40 cm); Pain 3/10; 01:00 BP 127 / 64; Pulse 70; Resp 16; Temp 98.4; Pulse Ox 100% on R/A; Pain 0/10; karina 02:00 BP 119 / 62; Pulse 70; Resp 16; Pulse Ox 100% on R/A; karina 03:00 BP 123 / 62; Pulse 70; Resp 18; Pulse Ox 100% on R/A; karina 04:17 BP 141 / 69; Pulse 86; Resp 16; Temp 98.5; Pulse Ox 99% on R/A; Pain 0/10; karina 04:37 BP 134 / 56; Pulse 69; Resp 16; Temp 98.5; Pulse Ox 100% on R/A; Pain 0/10; karina 00:27 Body Mass Index 31.44 (73.03 kg, 152.40 cm) sf1 MDM: 00:37 Patient medically screened. heather 01:02 Differential diagnosis: Nonspecific abd pain, gastritis, diverticulitis, viral heather gastroenteritis, gastroenteritis. Data reviewed: vital signs, nurses notes, lab test result(s), EKG, radiologic studies, CT scan, plain films. 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 Test interpretation: by ED physician or midlevel provider: ECG, plain radiologic studies. Counseling: I had a detailed discussion with the patient and/or guardian regarding: the historical points, exam findings, and any diagnostic results supporting the discharge/admit diagnosis, lab results, radiology results. 08/29 00:55 Order name: Basic Metabolic Panel [facility] 08/29 00:55 Order name: CBC with Diff [facility] 08/29 00:55 Order name: LFT's [facility] 08/29 00:55 Order name: Magnesium; Complete Time: 03:44 [facility] 08/29 00:55 Order name: NT PRO-BNP; Complete Time: 03:44 [facility] 08/29 00:55 Order name: PT-INR; Complete Time: 01:40 [facility] 08/29 00:55 Order name: Troponin HS; Complete Time: 03:44 [facility] 08/29 00:55 Order name: Lipase; Complete Time: 03:44 [facility] 08/29 00:55 Order name: CDIFF [facility] 08/29 00:55 Order name: Fecal Leukocyte Stain [facility] 08/29 00:55 Order name: Stool Culture [facility] 08/29 00:55 Order name: Basic Metabolic Panel; Complete Time: 03:44 [facility] 08/29 00:55 Order name: CBC with Automated Diff; Complete Time: 01:40 [facility] 08/29 00:55 Order name: Liver (Hepatic) Function; Complete Time: 03:44 [facility] 08/29 00:55 Order name: XRAY Chest (1 view) [facility] 08/29 00:55 Order name: EKG; Complete Time: 00:56 [facility] 08/29 00:55 Order name: Cardiac monitoring; Complete Time: 01:08 [facility] 08/29 00:55 Order name: EKG - Nurse/Tech; Complete Time: 03:32 [facility] 08/29 00:55 Order name: IV Saline Lock; Complete Time: 01:07 [facility] 08/29 00:55 Order name: Labs collected and sent; Complete Time: 01:07 [facility] 08/29 00:55 Order name: O2 Per Protocol; Complete Time: 01:08 [facility] 08/29 00:55 Order name: O2 Sat Monitoring; Complete Time: 01:08 [facility] 08/29 00:55 Order name: CT Abd/Pelvis - IV Contrast Only [facility] 08/29 02:15 Order name: Urine Dipstick-Ancillary; Complete Time: 03:44 [facility] 08/29 03:49 Order name: Urine Culture [facility] 08/29 03:49 Order name: Urine Culture [facility] 08/29 00:55 Order name: Urine Dipstick-Ancillary (obtain specimen); Complete Time: 01:06 [facility] 08/29 03:49 Order name: PO challenge; Complete Time: 04:17 heather Administered Medications: 02:04 Drug: NS 0.9% 1000 ml Route: IV; Rate: 1 bolus; Site: right antecubital; karina 04:33 Follow up: Response: No adverse reaction; IV Intake: 1000ml karina 03:53 CANCELLED (Duplicate Order): Magnesium Sulfate 1 grams IVPB once over 1 hrs heather 03:59 Drug: Rocephin (cefTRIAXone) 1 grams Route: IV; Rate: per protocol; Site: right karina antecubital; 04:16 Follow up: Response: No adverse reaction; IV Intake: 100ml karina 04:32 Follow up: Response: No adverse reaction; IV Intake: 50ml karina 04:17 Drug: Magnesium Sulfate 1 grams Route: IVPB; Infused Over: 20 mins; Site: right karina antecubital; 04:32 Follow up: Response: No adverse reaction; IV Intake: 100ml karina 04:37 Follow up: Response: No adverse reaction; IV Intake: 100ml karina Disposition Summary: 08/29/21 03:49 Discharge Ordered Location: Home heather Problem: new heather Symptoms: have improved heather Condition: Stable heather Diagnosis - Vomiting heather - Diarrhea, unspecified heather - UTI/ Urinary tract infection, site not specified heather - Hypomagnesemia heather Followup: heather - With: Private Physician - When: 2 - 3 days - Reason: Recheck today's complaints, Re-evaluation by your physician Followup: heather - With: Juanjo Amezcua MD - When: 2 - 3 days - Reason: Recheck today's complaints, Re-evaluation by your physician Discharge Instructions: - Discharge Summary Sheet heather - Food Choices to Help Relieve Diarrhea, Adult heather - Diarrhea, Adult heather - Hypomagnesemia heather - Urinary Tract Infection, Adult heather - Nausea and Vomiting, Adult heather - Urinary Tract Infection, Adult, Boel-vm-Fyvo heather - Diarrhea, Adult, Bwip-am-Qhof heather - Vomiting, Adult heather Forms: - Medication Reconciliation Form [facility] - Thank You Letter heather - Antibiotic Education heather - Prescription Opioid Use heather Prescriptions: - Cipro 250 mg Oral Tablet - take 1 tablet by ORAL route every 12 hours; 14 tablet; Refills: 0, Product heather Selection Permitted - Zofran 4 mg Oral Tablet - take 1 tablet by ORAL route every 12 hours As needed; 20 tablet; Refills: 0, heather Product Selection Permitted Signatures: Dispatcher [employer] Tramaine Esteban MD MD cha O'Farrell, Brenda, RN RN bo Fillers, Samantha, RN RN sf1 Corrections: (The following items were deleted from the chart) 03:53 03:44 Magnesium Sulfate 1 grams IVPB once over 1 hrs ordered. heather romero
--- NOTE | 2021-08-29 03:50 | ER ---
Nurse's Notes [facility] Name: Miroslava Rousseau Age: 70 yrs Sex: Female : 1950 Arrival Date: 08/29/2021 Time: 00:19 Bed 19 Private MD: Diagnosis: Vomiting;Diarrhea, unspecified;UTI/ Urinary tract infection, site not specified;Hypomagnesemia Presentation: 08/29 00:27 Chief complaint: Patient states: I was recently here on Wednesday for abdominal pain. I sf1 was prescribed medications, but now I have nausea, and diarrhea. I feel like I am going to vomit. Coronavirus screen: Vaccine status: Patient reports receiving the 2nd dose of the covid vaccine. Client denies travel out of the [place] in the last 14 days. Ebola Screen: Patient negative for fever greater than or equal to 101.5 degrees Fahrenheit, and additional compatible Ebola Virus Disease symptoms Patient denies exposure to infectious person. Patient denies travel to an Ebola-affected area in the 21 days before illness onset. Initial Sepsis Screen: Does the patient meet any 2 criteria? No. Patient's initial sepsis screen is negative. Does the patient have a suspected source of infection? No. Patient's initial sepsis screen is negative. Risk Assessment: Do you want to hurt yourself or someone else? Patient reports no desire to harm self or others. Onset of symptoms was August 27, 2021 at 15:00. 00:27 Method Of Arrival: Ambulatory sf1 00:27 Acuity: MARTHA 3 sf1 Triage Assessment: 00:30 General: Appears in no apparent distress. Behavior is calm, cooperative, appropriate sf1 for age. Pain: Complains of pain in abdomen and pelvis Pain currently is 3 out of 10 on a pain scale. GI: Reports lower abdominal pain, diarrhea, nausea. Historical: - Allergies: 00:30 NKDA; sf1 - Home Meds: 00:30 aspirin 81 mg Oral chew 1 tab once daily [Active]; glimepiride 2 mg Oral tab 1 tab once sf1 daily [Active]; Januvia 100 mg Oral tab 1 tab once daily [Active]; lisinopril 5 mg Oral tab 1 tab once daily [Active]; lovastatin 20 mg Oral tab 1 tab once daily [Active]; metformin 500 mg Oral tab 1 tab 2 times per day [Active]; vitamins [Active]; - PMHx: 00:30 Diabetes - IDDM; Hyperlipidemia; Hypertension; Uterine CA; sf1 - Immunization history:: Adult Immunizations up to date, Flu vaccine is up to date. - Social history:: Smoking status: Patient denies any tobacco usage or history of. Patient/guardian denies using alcohol. Screenin:32 Abuse screen: Denies threats or abuse. Nutritional screening: No deficits noted. sf1 Tuberculosis screening: No symptoms or risk factors identified. Fall Risk No fall in past 12 months (0 pts). Assessment: 01:00 General: Appears in no apparent distress. Behavior is calm, cooperative. Pain: Denies karina pain. GI: Abdomen is soft and non-tender Stools are reported to be loose, diarrhea. 04:17 General: The pt was given a container of jello and some fifi shruti. She is tolerating karina these well. Mag infusing and pt on the monitor. . Vital Signs: 00:27 BP 139 / 68; Pulse 80; Resp 18; Temp 98.3; Pulse Ox 100% ; Weight 73.03 kg; Height 5 1 ft. 0 in. (152.40 cm); Pain 3/10; 01:00 BP 127 / 64; Pulse 70; Resp 16; Temp 98.4; Pulse Ox 100% on R/A; Pain 0/10; karina 02:00 BP 119 / 62; Pulse 70; Resp 16; Pulse Ox 100% on R/A; karina 03:00 BP 123 / 62; Pulse 70; Resp 18; Pulse Ox 100% on R/A; karina 04:17 BP 141 / 69; Pulse 86; Resp 16; Temp 98.5; Pulse Ox 99% on R/A; Pain 0/10; karina 04:37 BP 134 / 56; Pulse 69; Resp 16; Temp 98.5; Pulse Ox 100% on R/A; Pain 0/10; karina 00:27 Body Mass Index 31.44 (73.03 kg, 152.40 cm) sf1 ED Course: 00:19 Patient arrived in ED. ja2 00:30 Triage completed. sf1 00:30 Arm band placed on right wrist. sf1 00:37 Tramaine Gleason MD is Attending Physician. [facility] 00:45 Annie Gastelum, RN is Primary Nurse. karina 01:00 Bed in low position. Call light in reach. Side rails up X 1. Adult w/ patient. karina 01:05 Liver (Hepatic) Function Sent. karina 01:05 Basic Metabolic Panel Sent. karina 01:06 CBC with Automated Diff Sent. karina 01:06 Lipase Sent. karina 01:07 Basic Metabolic Panel Sent. karina 01:07 CBC with Diff Sent. karina 01:07 LFT's Sent. karina 01:08 Troponin HS Sent. karina 01:08 PT-INR Sent. karina 01:08 NT PRO-BNP Sent. karina 01:08 Magnesium Sent. karina 01:13 XRAY Chest (1 view) In Process Unspecified. EDMS 02:09 CT Abd/Pelvis - IV Contrast Only In Process Unspecified. EDMS 03:31 Fecal Leukocyte Stain Sent. karina 03:32 Stool Culture Sent. karina 03:32 CDIFF Sent. karina 03:43 No provider procedures requiring assistance completed. Inserted saline lock: 20 gauge karina in right antecubital area, using aseptic technique. 03:49 Juanjo Amezcua MD is Referral Physician. heather 03:58 Urine Culture Sent. karina 03:58 Urine Culture Sent. karina 04:32 Urine Culture Sent. karina 04:47 intact, bleeding controlled, No redness/swelling at site. Pressure dressing applied. karina Administered Medications: 02:04 Drug: NS 0.9% 1000 ml Route: IV; Rate: 1 bolus; Site: right antecubital; karina 04:33 Follow up: Response: No adverse reaction; IV Intake: 1000ml karina 03:53 CANCELLED (Duplicate Order): Magnesium Sulfate 1 grams IVPB once over 1 hrs heather 03:59 Drug: Rocephin (cefTRIAXone) 1 grams Route: IV; Rate: per protocol; Site: right karina antecubital; 04:16 Follow up: Response: No adverse reaction; IV Intake: 100ml karina 04:32 Follow up: Response: No adverse reaction; IV Intake: 50ml karina 04:17 Drug: Magnesium Sulfate 1 grams Route: IVPB; Infused Over: 20 mins; Site: right karina antecubital; 04:32 Follow up: Response: No adverse reaction; IV Intake: 100ml karina 04:37 Follow up: Response: No adverse reaction; IV Intake: 100ml karina Intake: 04:16 IV: 100ml; Total: 100ml. karina 04:32 IV: 100ml; Total: 200ml. karina 04:32 IV: 50ml; Total: 250ml. karina 04:33 IV: 1000ml; Total: 1250ml. karina 04:37 IV: 100ml; Total: 1350ml. karina Outcome: 03:44 Condition: stable karina 03:49 Discharge ordered by . heather 04:47 Discharged to home ambulatory, with family. karina 04:47 Discharge instructions given to patient, family, Instructed on discharge instructions, Demonstrated understanding of instructions, follow-up care, medications, Prescriptions given X 2. 04:48 Patient left the ED. karina Signatures: Dispatcher [employer] EDMS Tramaine Gleason MD MD cha Alexander, Jessica ja2 O'Farrell, Brenda, RN RN Lisha Monahan RN RN sf1
[2021-08-29] MEDS ORDERED: MAGNESIUM SULFATE 1 gm IVPB 1 GM/100 ML BAG IV ONE (03:58)
[2021-08-29] MEDS ORDERED: NA CHLORIDE 0.9% 50 ML ONE (03:58)
[2021-08-29] MEDS ORDERED: CEFTRIAXONE 1000 MG/VIAL ONE (03:58)
[2021-08-29 05:01] VITALS: TEMP 98.5
[2021-08-29 05:03] VITALS: BP 134/56; O2SAT 100
--- NOTE | 2021-08-29 07:49 | RAD REPORT ---
EXAM DESCRIPTION: RAD - Chest Single View - 08/29/2021 1:12 am CLINICAL HISTORY: COUGH COMPARISON: Chest Pa And Lat (2 Views) dated 04/01/2020; Chest Single View dated 09/22/2019; Chest Pa A nd Lat (2 Views) dated 11/10/2016; Chest Single View dated 10/11/2016; Abdomen Pelvis W Contrast date d 08/29/2021; Abdomen Pelvis W Contrast dated 08/23/2021 FINDINGS: Lines: None. Lungs: Mild airspace disease in the medial aspect of the right lung base. Pleural: No significant pleural effusions or pneumothorax. Cardiac: The heart size is within normal limits. Bones: No acute fractures. Other: IMPRESSION: Mild airspace opacities medially within the right lung base may reflect atelectasis. No airspace disease identified on the same-day CT.
--- NOTE | 2021-08-29 14:06 | RAD REPORT ---
EXAM DESCRIPTION: CT - Abdomen Pelvis W Contrast - 08/29/2021 6:19 am CLINICAL HISTORY: The patient is 70 years old and is Female; ABD PAIN TECHNIQUE: Axial computed tomography images of the abdomen and pelvis with intravenous contrast. S agittal and coronal reformatted images were created and reviewed. This CT exam was performed using one or more of the following dose reduction techniques: automated exposure control, adjustment of t he mA and/or kV according to patient size, and/or use of iterative reconstruction technique. COMPARISON: CT of the abdomen and pelvis August 23, 2021 FINDINGS: LUNG BASES: Unremarkable. No mass. No consolidation. ABDOMEN: LIVER: The liver is enlarged and diffusely fatty. GALLBLADDER AND BILE DUCTS: Surgical clips are present in the right upper quadrant, consistent wi th previous cholecystectomy. PANCREAS: No ductal dilation. No mass. SPLEEN: Unremarkable. ADRENALS: Unremarkable. No mass. KIDNEYS AND URETERS: Unremarkable. The kidneys enhance symmetrically. No obstructing renal or ure teral calculus is seen. No hydronephrosis or hydroureter. No perinephric fluid or stranding. STOMACH AND BOWEL: Stomach is decompressed. The small bowel is normal in caliber. Stool is presen t throughout colon. There is no mucosal thickening or evidence of bowel obstruction. PELVIS: APPENDIX: No findings to suggest acute appendicitis. BLADDER: Mild bladder wall thickening is present. The bladder is moderately distended. REPRODUCTIVE: The patient is status post hysterectomy. ABDOMEN and PELVIS: INTRAPERITONEAL SPACE: Unremarkable. No free air. No significant fluid collection. BONES/JOINTS: No acute fracture. SOFT TISSUES: The soft tissues are normal. VASCULATURE: Unremarkable. No abdominal aortic aneurysm. LYMPH NODES: Unremarkable. No enlarged lymph nodes. IMPRESSION: 1. Interval resolution of the mild colitis. No bowel obstruction. 2. Mild bladder wall thickening which may be secondary to incomplete distention; however, cystitis is within the differential. Correlation with laboratory values is recommended. Electronically signed by: Lissette Teixeira MD 08/29/2021 2:24 AM FOOD WRITER Due to temporary technical issues with the PACS/Fluency reporting system, reports are being signed by the in house radiologists without review as a courtesy to insure prompt reporting. The interpreting radiologist is fully responsible for the content of the report.
[2021-09-01 11:16] LABS: C.diff Antigen/Toxin Ag neg : Tox neg (NEG : NEG)
== END 2021-08-29 04:48 | disposition home or self-care (01) ==
LOC: ER 00:14
DX: N39.0 Urinary tract infection, site not specified (principal); E83.42 Hypomagnesemia; R11.10 Vomiting, unspecified; R19.7 Diarrhea, unspecified; E11.9 Type 2 diabetes mellitus without complications; I10 Essential (primary) hypertension; Z79.82 Long term (current) use of aspirin
CPT/HCPCS: 93005; 87045; 85025; 87086; 80048; 36415; 83735; 89055; 85610; 80076; 87046; 81003; 87324; 84484; 83690; 83880; 87449; 74177; 71045; 96375; 96374; 99284; Q9967; J3475; J7030; 87088

== ENCOUNTER 2021-11-07 20:08 | Emergency (ER) | payer OTHER ==
--- OUTSIDE RECORDS SUMMARY | 2021-11-07 20:14 | XMS REPORT | Continuity of Care Document ---
:1950 Author Organization [facility] t Address [address] [place] [address] Care Team Providers Name Role Phone ROMAN Primary Care Physician Unavailable Ayaan Escalona Attending Clinician Unavailable Roman Attending Clinician Unavailable Ilene Attending Clinician Unavailable Aleena CHAPMAN Attending Clinician Unavailable _[facility]_Sin_An Attending Clinician Unavailable Toma Attending Clinician [phone] RADIOLOGY Attending Clinician Unavailable Radiology Attending Clinician Unavailable Araceli SHAVER, Mike Attending Clinician Jeremias KING Attending Clinician Unavailable Lab, Fam Pob I Attending Clinician Unavailable Jeremias Paris Attending Clinician Aleena Chapman MD Attending Clinician Only, Test Attending Clinician Unavailable Adamu Attending Clinician Unavailable ANENE Attending Clinician Unavailable Lucina WILLIAMSON Attending Clinician Doctor Unassigned, Name Attending Clinician Unavailable Aleena CHAPMAN Admitting Clinician Unavailable Physician, Primary or Family Admitting Clinician Unavailabl e GC_[facility]_Sinha_An Admitting Clinician Unavailable ROMAN Admitting Clinician Unavailable Aleena Chapman MD Admitting Clinician Payers Payer Name Policy Type Policy Number Effective Date Expiration Date Fatuma william [employer] [id number] 2020 MEDICARE ADVANTAGE 00:00:00 [employer] - [id number] Pat[employer] 00:00:00 (MEDICARE REPLACEMENT/ADVANTA GE - HMO) MEDIC[place] B-[place]: [id number] 2016 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:00:00 Problems Condition Condition Condition Status Onset Resolution Last Treating Co mments Source Name Details Category Date Date Treatment Clinician Date Right Right Disease Active Univers shoulder shoulder 02-05 ity of pain pain 00:00: [place] 00 Medical Branch Lump or Lump or Disease Active Overview: Univ ers mass in mass in 03-07 Formattin ity o f breast breast 00:00: g of this [place] 00 note Medical might be Branch different [...] of routine routine 00:00: g of this [place] gynecologi gynecologi 00 note Me dical [place] might be Branch examinatio examinatio different n n from the original. 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 ICD10 Diagnosis Term Sack Cleaner Utility Tubal Tubal Disease Active Univers ligation ligation 03-07 ity of status status 00:00: [place] [facility] Allergies, Adverse Reactions, Alerts Allergy Allergy Status Severity Reaction(s) Onset Inactive Treating Comm ents Source Name Type Date Date Clinician codeine DA Active [place] [facility] 3-10 Clear 00:00: Cornelius 00 [facility] codeine DA Active [place] [facility] 3-05 Clear 00:00: Cornelius [facility] codeine DA Active [place] VOMITING [facility] 3-05 Clear 00:00: Cornelius 00 [facility] codeine DA Active [place] [facility] 6-12 Clear 00:00: Cornelius 00 [facility] NO KNOWN Drug Active Univers ALLERGIE Class ity of [facility] codeine Adverse Active nausea/vomit [facility] Social History Social Habit Start Date Stop Date Quantity Comments Source Exposure to Not sure [facility] SARS-CoV-2 [facility] [place] [facility] (event) Branch Alcohol intake 2021-08-04 2021-08-04 Current University of 00:00:00 00:00:00 non-drinker of [facility] alcohol Branch (finding) Tobacco use and 2020-06-13 2020-06-13 Never used Universit y of exposure 00:00:00 00:00:00 [facility] Sex Ass[birth year] At [birth year] Universit y of 00:00:00 00:00:00 [facility] Smoking Status Start Date Stop Date Source Unknown if ever smoked [facility] Never smoker [facility] Medications Ordered Filled Start Stop Current Ordering Indication Dosage Frequency Signature Comments Components Source Medication Medication Date Date Medication? Clinician (SIG) Name Name METFORMIN 2019-08 Yes Take by [facility] ers HCL 0-28 mouth. ity of (METFORMIN [...] No Amrita tenorio C HI St 9-13 01-11 Millender injection Luke s - 00:00: 00:00 (0.75 mg) Memoria 00 :00 [facility] Clinics One Touch One Touch 2020- [...] ity of mg tablet 00:00: [place] 00 [facility] lisinopril Yes Univers (PRINIVIL,Z 4-20 ity of ESTRIL) 5 00:00: [place] mg tablet 00 Medical Branch lovastatin Yes Univers (MEVACOR) 4-20 ity of 20 mg 00:00: [place] tablet 00 Medical Branch glimepiride Yes Univer s (AMARYL) 2 4-20 ity of mg tablet 00:00: [place] [address] [facility] METFORMIN Yes Take by Univ ers HCL 7-23 mouth. ity of (METFORMIN 20:09: [place] ORAL) [address] [place] [address] METFORMIN Yes Take by Univ ers HCL 7-23 mouth. ity of (METFORMIN 20:09: [place] ORAL) [address] [facility] METFORMIN Yes Take by Univ ers HCL 7-23 mouth. ity of (METFORMIN 20:09: [place] ORAL) 37 [facility] METFORMIN Yes Take by Univ ers HCL 7-23 mouth. ity of (METFORMIN 20:09: [place] ORAL) [address] [place] [address] Branch Lovastatin Lovastatin Yes Amrita [address] Millender in evening ke s - [facility] Clin[facility] Rashaun Rodney Yes Amrita [address] Mill[facility] [...] Immunizations Ordered Filled Immunization Date Status Comments Sour e Immunization Name Name Td 2010-03-07 Completed University of 00:00:00 [facility] [place] [facility] Branch Td 2010-03-07 Completed University of 00:00:00 [facility] [place] [facility] Branch Td 2010-03-07 Completed University of 00:00:00 [facility] Td 2010-03-07 Completed University of 00:00:00 [facility] Td 2010-03-07 Completed University of 00:00:00 [facility] Td 2010-03-07 Completed University of 00:00:00 [facility] Td 2010-03-07 Completed University of 00:00:00 [facility] Td 2010-03-07 Completed University of 00:00:00 [facility] Td 2010-03-07 Completed University of 00:00:00 [facility] Vital Signs Vital Name Observation Time Observation Value Comments Source Systolic blood 2020-06-12 15:20:00 131 mm[Hg] Univer sity of pressure [facility] Diastolic blood 2020-06-12 15:20:00 67 mm[Hg] Unive rsity of [facility] Heart rate 2020-06-12 15:20:00 61 /min [facility] Respiratory rate 2020-06-12 15:20:00 16 /min [facility] Oxygen saturation in 2020-06-12 15:20:00 100 /min [facility] Arterial blood by [facility] Pulse oximetry Branch Body temperature 2020-06-12 15:00:[address] [facility] Body height 2020-06-07 16:59:00 152.4 cm [facility] Body weight 2020-06-07 16:59:00 70.761 kg [facility] BMI 2020-06-07 16:59:00 30.47 kg/m2 [facility] Systolic blood 2020-06-12 15:20:00 131 mm[Hg] Univer sity of pressure [facility] Diastolic blood 2020-06-12 15:20:00 67 mm[Hg] [facility] pressure [facility] Heart rate 2020-06-12 15:20:00 61 /min [facility] Respiratory rate 2020-06-12 15:20:00 16 /min [facility] Oxygen saturation in 2020-06-12 15:20:00 100 /min [facility] Arterial blood by [facility] Pulse oximetry [place] Body temperature 2020-06-12 15:00:[address] [facility] Body height 2020-06-07 16:59:00 152.4 cm [facility] Body weight 2020-06-07 16:59:00 70.761 kg [facility] BMI 2020-06-07 16:59:00 30.47 kg/m2 [facility] Procedures Procedure Date / Time Performing Clinician Source Performed CONSENT/REFUSAL FOR 2021-08-04 14:12:32 Doctor Ekta, [facility] DIAGNOSIS AND TREATMENT [facility] ASSIGNMENT OF BENEFITS 2021-08-04 14:12:04 [facility] COLONOSCOPY (ENDO) 2020-06-12 14:29:40 Amrita [facility] POCT GLUCOSE(AGE >30DAYS) 2020-06-12 13:45:00 [facility]roy [facility] PATIENT FINANCIAL 2020-06-11 14:21:53 Doctor Ekta, [facility] POLICY [facility] NOTICE OF BILLING 2020-06-11 14:21:10 Doctor Dash, [facility] PRACTICES FOR MEDICARE [facility] PATIENTS NO SHOW OR MISSED 2020-06-11 14:20:46 Doctor Ekta, [facility] APPOINTMENT POLICY [facility] ACKNOWLEDGEMENT CONSENT/REFUSAL FOR 2020-06-11 14:20:09 Doctor Ekta, [facility] DIAGNOSIS AND TREATMENT [facility] ASSIGNMENT OF BENEFITS 2020-06-11 14:19:48 Doctor [facility] NOTICE OF PRIVACY 2020-06-11 14:19:21 Doctor Ekta, [facility] PRACTICES [facility] CONSENT/REFUSAL FOR 2020-06-11 14:19:01 Doctor Ekta [facility] DIAGNOSIS AND TREATMENT [facility] ASSIGNMENT OF BENEFITS 2020-06-11 14:18:40 Doctor Ekta [facility] DSU PRE-OP 2020-06-06 05:01:00 Doctor Ekta, [facility] Plan of Care Planned Activity Planned Date Details Comments Source Future Scheduled Test COVID-19 VACCINE (1) [facility] [code = COVID-19 VACCINE (1)] Future Scheduled Test BREAST CANCER SCREENING [facility] [code = BREAST CANCER SCREENING] Future Scheduled Test COLONOSCOPY SCREENING [facility] [code = COLONOSCOPY SCREENING] Future Scheduled Test SHINGLES VACCINES (#1) [facility] [code = SHINGLES VACCINES (#1)] Future Scheduled Test 65+ PNEUMOCOCCAL [facility] VACCINE (1 of 1 - PPSV23) [code = 65+ PNEUMOCOCCAL VACCINE (1 of 1 - PPSV23)] Future Scheduled Test INFLUENZA VACCINE [code [facility] = INFLUENZA VACCINE] Encounters Start End Encounter Admission Attending Care Care Encounter Source Date/Time Date/Time Type Type Clinicians Facility Department ID 2021-09-10 Outpatient Dona Escalona [facility] [id number] 13:04:45 [id number] [facility] 2021-09-10 Outpatient Roman, [facility] [id number] 12:28:06 Liz 11780 [facility] 2021-09-10 [facility] [id number] 12:13:22 Liz 91298 [facility] 2021-09-10 Outpatient Roman, [facility] [id number] 12:07:53 Liz 85389 [facility] 2021-09-10 Outpatient Roman, [facility] [id number] 12:07:18 Liz 44326 [facility] 2021-09-10 Outpatient Roman, [facility] [id number] 12:04:09 Liz 74409 [facility] 2021-09-10 Outpatient Roman, [facility] [id number] 12:03:10 Liz 98146 [facility] 2021-09-10 Outpatient Ilene, [facility] [id number] 11:45:19 Amrita 72584 [facility] 2021-09-10 Outpatient Millender, [facility] [id number] 11:15:40 Amrita 27163 [facility] 2021-09-10 Outpatient Millender, [facility] [id number] 11:07:41 Amrita 63211 [facility] 2021-09-10 Outpatient Ilene, [facility] [id number] 11:06:51 Amrita 52310 [facility] 2021-06-14 Outpatient R [facility] LIZZY [id number] Univers 00:33:32 NICOLE Franks [facility] 2020-05-14 Inpatient HCACL JASS [id number] [facility] 11:51:00 [id number] [facility] 2021-11-05 2021-11-05 Outpatient GC_BATC_Sin PRIV PRIV [id number] [facility] 03:56:00 03:56:00 ha_An [id number] [facility] 2021-11-03 2021-11-03 Outpatient GC_BATC_Sin PRIV PRIV [id number] [facility] 04:24:00 04:24:00 ha_An [id number] Medica l 2021-10-30 2021-10-30 Outpatient GC_BATC_Sin PRIV PRIV [id number] [facility] 01:36:00 01:36:00 ha_An [id number] Medica l 2021-09-16 2021-09-16 Outpatient GC_BATC_Sin PRIV PRIV [id number] [facility] 03:53:00 03:53:00 [facility] [id number] [facility] 2021-09-16[facility]21-09-16 Outpatient Regan-Guld PRIV PRIV [id number] 00:00:00 00:00:00 Marcela franks [id number] 2021-09-13 2021-09-13 Outpatient GC_BATC_Sin PRIV PRIV [id number] [facility] 10:16:00 10:16:00 ha_An [id number] Medica l 2021-08-22 2021-08-22 Outpatient GC_BATC_Sin PRIV PRIV [id number] [facility] 05:05:00 05:05:00 ha_An [id number] Medica l 2021-08-22 2021-08-22 Outpatient Regan-Guld PRIV PRIV [id number] 00:00:00 00:00:00 Marcela franks [id number] 2021-08-18 2021-08-18 Outpatient GC_BATC_Sin PRIV PRIV [id number] [facility] 12:53:00 12:53:00 ha_An [id number] Medica l 2021-08-04 2021-08-04 Outpatient R RADIOLOGY [facility] RAD [id number] Univers 08:14:44 23:59:00 ity [facility] 2021-08-04 2021-08-04 Hospital Radiology [facility] [id number] Univers 08:14:44 23:59:00 Encounter [place] [id number] ity [facility] [id number] [facility] [id number] [address] 2021-08-04 2021-08-04 Outpatient R RADIOLOGY [facility] [id number] Univers 00:00:00 00:00:00 [id number] ity [facility] 2021-03-12 2021-03-12 Outpatient [facility] [id number] [facility] 2021-03-06 2021-03-06 Outpatient [facility] [id number] [facility] 2021-01-29 2021-01-29 Outpatient [facility] [id number] [facility] 2020-12-31 2020-12-31 Outpatient [facility]MLC [facility] [id number] [facility] 2020-10-10 2020-10-10 Outpatient [facility] [id number] [facility] 2020-10-08 2020-10-08 Outpatient [facility] [id number] [facility] 2020-09-18 2020-09-18 Outpatient [facility] [id number] [facility] 2020-08-14 2020-08-14 Outpatient [facility] [id number] [facility] 2020-08-13 2020-08-13 Outpatient [facility] [id number] [facility]00 [facility] 2020-08-04 2020-08-04 Telephone ANAM Charles [id number] [facility] 00:00:00 00:00:00 Pj GALLOWAY [id number] [facility] [id number] [place] as [id number] [address] 2020-08-04 2020-08-04 Telephone ANAM Charles [id number] 00:00:00 00:00:00 Pj GALLOWAY [id number] [facility] [id number] [facility] 2020-08-01 2020-08-01 Outpatient R [facility] [id number] Univers 19:20:00 19:20:[id number] [place] [address] 2020-08-01 2020-08-01 Outpatient R AGAPITO [facility] [id number] Univers 19:20:00 19:20:[address] [facility] 2020-08-01 2020-08-01 Laboratory Lab, [facility] Fam Pob I [facility] [id number] [facility] 17:25:17 17:45:17 Only [facility] [id number] ity of [place] [id number] Mitesh as Professio [id number] [address] Office Building One 2020-08-01 2020-08-01 Laboratory Lab, [facility] [id number] 17:25:17 17:45:17 Only Fam Pob I Health [id number] [place] [id number] Professio [id number] [place] [address] Office [address] 2020-08-01 2020-08-01 Outpatient [facility]MLC [facility] [id number] [facility] 2020-07-30 2020-07-30 Outpatient [facility]ML[facility] [id number] [facility]00 [facility] 2020-07-30 2020-07-30 Outpatient [facility] [id number] [facility]00 [facility] 2020-07-18 2020-07-18 Hospital Radiology [facility] [id number] [facility] 14:58:22 23:59:00 Encounter [place] [id number] ity of [place] [id number] [place] [id number] [place] [address] Branch 2020-07-18 2020-07-18 [facility] Radiology [facility] [id number] 14:58:22 23:59:00 Encounter [place] [id number] [place] [id number] [place] [id number] [facility] 2020-07-18 2020-07-18 Outpatient R RADIOLOGY [facility] [id number] Univers 15:20:00 15:20:[address] [facility] 2020-07-18 2020-07-18 Outpatient R RADIOLOGY [facility] [id number] Univers 00:00:00 00:00:[address] [facility] 2020-07-09 2020-07-09 Outpatient [facility]ML[facility] [id number] [facility] 2020-07-01 2020-07-01 Outpatient [facility] [id number] [facility]00 [facility] 2020-06-26 2020-06-26 Outpatient [facility] [id number] [facility]00 [facility] 2020-06-12 2020-06-12 [facility] [id number] [facility] 08:29:00 10:30:00 Encounter e, Aniazar C [place] [id number] ity of [place] [id number] [place] [id number] Med ica[address] 2020-06-12 2020-06-12 [facility] [id number] 08:29:00 10:30:00 Encounter e, Nizar C [place] [id number] [place] [id number] Surgical [id number] [place] [address] 2020-06-11 2020-06-11 Laboratory Only, [facility] Test [facility] 1.2.840. [id number] [facility] 09:25:13 09:40:13 Only Nicole Chapman [place] 350.1.1 3.10 ity of [place] 4.2.7.2.686 [place] [id number] [address] 2020-06-11 2020-06-11 Laboratory Only, [facility] [id number] 09:25:13 09:40:13 Only Test [place] [id number] [place] [id number] [place] [id number] [facility] 2020-06-11 2020-06-11 Outpatient R [facility] [id number] Univers 09:15:00 09:15:00 [id number] ity [facility] 2020-06-11 2020-06-11 Outpatient R TREY [facility] [id number] Univers 09:15:00 09:15:[address] [facility] 2020-05-14 2020-05-14 Emergency EM Chintan, HCACL JASS [id number] [facility] 11:51:00 14:37:00 Missael [id number] [facility] 2020-05-11 2020-05-11 Telephone ANAM Charles [id number] Univers 00:00:00 00:00:00 Pj H NILESH [id number] i ty [facility] [id number] [place]h as [id number] [address] 2020-05-11 2020-05-11 Telephone ANAM Charles [id number] 00:00:00 00:00:00 Pj H NILESH [id number] [facility] [id number] [id number] 2020-05-10 2020-05-10 Outpatient R LUCINA [facility] [id number] Univers 10:20:00 10:20:00 TAWANNA ity [facility] 2020-05-10 2020-05-10 Laboratory Lab, [facility] Fam Pob I [facility] .. [id number] Univers 08:55:14 09:15:14 Only Tawanna [facility] [id number] ity of [place] [id number] [place]itesh as Professio [id number] Ri dical [address] Office [address] One 2020-05-10 2020-05-10 Laboratory Lab, [facility] [id number] 08:55:14 09:15:14 Only Fam Pob I Health [id number] [place] [id number] Professio [phone] [place] [address] Office [address] 2020-05-10 2020-05-10 Letter Doctor ANAM [id number] Univers 00:00:00 00:00:00 (Out) Unassigned, NILESH [id number] ity of [place] [facility] [id number] Mitesh as [id number] [address] 2020-05-10 2020-05-10 Letter Doctor ANAM [id number] 00:00:00 00:00:00 (Out) Unassigned, NILESH [id number] [facility] 4.2.7.2.686 [id number] 2020-05-08 2020-05-08 Outpatient [facility] [id number] [facility] 00:[facility]:00 kes - [facility] Outpati ent Clinics 2020-04-29 2020-04-29 [facility] [id number] [facility] 00:[facility] 00[facility]00[facility]00 [facility] 2020-04-26 2020-04-26 [facility] [id number] 10:40:00 10:40:00 [facility] Medicine Medicine Outpati ent Clinics 2020-03-21 2020-03-21 [facility] [id number] 09:35:00 09:35:00 [facility] Medicine Medicine Outpati ent Clinics 2020-03-01 2020-03-01 [facility] [id number] 14:20:00 14:20:00 [facility] Medicine Medicine Outpati ent Clinics 2020-02-26 2020-02-26 [facility] [id number] 14:40:00 14:40:00 [facility] Medicine Medicine Outpati ent Clinics 2020-02-23 2020-02-23 [facility] [id number] 11:09:00 11:09:00 [facility] Medicine Outpati ent Clinics 2020-02-09 2020-02-09 [facility] [id number] 13:00:00 13:00:00 t [facility] Medicine Medicine Outpati ent Clinics 2019-12-27 2019-12-27 [facility] [id number] 16:27:00 16:27:00 t [facility] Medicine Outpati ent Clinics 2019-11-08 2019-11-08 [facility] [id number] 10:45:00 10:45:00 t [facility] Medicine l Medicine Outpati ent Clinics 2019-10-24 2019-10-24 [facility] [id number] 09:52:00 09:52:00 [facility] Medicine Outpati ent Clinics 2019-10-18 2019-10-18 [facility] [id number] 10:15:00 10:15:00 [facility] Medicine Outpati ent Clinics 2019-09-29 2019-09-29 [facility] [id number] 15:00:00 15:00:00 [facility] Medicine Outpati ent Clinics 2019-09-05 2019-09-05 [facility] [id number] 00:17:00 00:17:00 [facility] Medicine Outpati ent Clinics 2019-08-23 2019-08-23 [facility] [id number] 03:36:00 03:36:00 [facility] Medicine Medicine Outpati ent Clinics 2019-07-18 2019-07-18 [facility] [id number] 10:04:00 10:04:00 [facility] Medicine Outpati ent Clinics 2019-07-07 2019-07-07 [facility] [id number] 10:00:00 10:00:00 [facility] Medicine Outpati ent Clinics 2019-06-14 2019-06-14 [facility] [id number] 13:20:00 13:20:00 t [facility] Medicine Medicine Outpati ent Clinics 2019-06-09 2019-06-09 [facility] [id number] 11:39:00 11:39:[address] [facility] Medicine Medicine Outpati ent Clinics 2019-05-31 2019-05-31 Outpatient [facility] [id number] [facility] 10:23:00 10:23:00 t [facility] Medicine l Medicine Outpati ent Clinics 2019-05-05 2019-05-05 [facility] [id number] 08:59:00 08:59:00 t [facility] Medicine l Medicine Outpati ent Clinics 2019-04-11 2019-04-11 [facility] [id number] [facility] 13:00:00 13:00:00 t [facility] Medicine l Medicine Outpati ent Clinics 2019-04-07 2019-04-07 [facility] [id number] [facility] 08:36:00 08:36:00 t [facility] Medicine l Medicine Outpati ent Clinics 2019-03-21 2019-03-21 [facility] [id number] 15:03:00 15:03:00 t [facility] Medicine Medicine Outpati ent Clinics 2019-03-20 2019-03-20 [facility] [id number] [address] 15:04:00 15:04:00 t [facility] Medicine Medicine Outpati ent Clinics 2019-03-14 2019-03-14 [facility] [id number] 15:36:00 15:36:00 t [facility] Medicine Medicine Outpati ent Clinics 2019-02-09 2019-02-09 [facility] [id number] 12:49:00 12:49:00 t [facility] Medicine Medicine Outpati ent Clinics 2019-02-07 2019-02-07 [facility] [id number] 09:44:00 09:44:00 t [facility] Medicine Outpati ent Clinics 2019-02-06 2019-02-06 [facility] [id number] 11:40:00 11:40:[address] [facility] Medicine Medicine Outpati ent Clinics 2018-11-08 2018-11-08 [facility] [id number] 10:06:00 10:06:00 t [facility] Medicine Medicine Outpati ent Clinics 2018-11-03 2018-11-03 [facility] [id number] 14:58:00 14:58:00 t [facility] Medicine Medicine Outpati ent Clinics 2018-10-26 2018-10-26 [facility] [id number] 13:00:00 13:00:00 t [facility] Medicine Medicine Outpati ent Clinics 2018-10-10 2018-10-10 [facility] [id number] 11:30:00 11:30:00 t [facility] Medicine Outpati ent Clinics 2018-08-24 2018-08-24 [facility] [id number] [address] 15:45:00 15:45:00 t [facility] Medicine Medicine Outpati ent Clinics 2018-08-22 2018-08-22 [facility] [id number] 09:18:00 09:18:00 t [facility] Medicine Medicine Outpati ent Clinics 2018-08-05 2018-08-05 [facility] [id number] 12:34:00 12:34:[address] [facility] Medicine Medicine Outpati ent Clinics 2018-05-23 2018-05-23 [facility] [id number] [facility] 11:41:00 11:41:00 [facility] 2018-05-02 2018-05-02 Outpatient Maria Ines Olvera [id number] 11:30:00 11:30:00 [facility] 2018-03-08 2018-03-08 Outpatient Maria Ines Olvera [id number] [address] 15:30:00 15:30:00 [facility] 2017-11-09 2017-11-09 Outpatient Maria Ines Olvera [id number] 16:15:00 16:15:00 [facility] Results Test Description Test Time Test Comments Results Result Comments Source POCT Glucose 2020-06-12 13:45:00 Test Item Value Reference Range Interpretation Comme nts POCT Glu (age>30days) (test code = 3342) 124 mg/dL 70-110 A Lab Interpretation (test code = 89529-1) Abnormal [facility]- CT ABD PELVIS [id number] 13:37:00 Name: VIDYA FROST [facility]ly [facility] : 1950 Age/S: 69 / F [address] [place] [address] Unit #: [id number] Loc: AARTI Diallo77598 Phys: Missael Woodson DO Acct: [id number] Dis Date: Status: [facility] ER PHONE #: [phone] Exam Date: 05/14/2020 1316 FAX #: [phone] Reason: LOWER ABDOMINAL PAIN EXAMS: CPTCODE: [id number] CT ABD PELVIS W/CONT 83396 Clinical Ind ication: Lower abdominal pain. Comparison: [...] thick-walled. Correlate for evidence of cystitis. SL: [id number] at 0435 Reported and signed by: Ana Becker M.D. PAGE 1 Signed Report (CONTINUED) Name: VIDYA FROST [facility]ly [facility] : 1950 Age/S: 69 / F [address] [place], [place] [address] Unit #: [id number] Loc: AARTI [place]lo [address] Phys: Missael Woodson DO Acct: [id number] Dis Date: Status: DEP ER PHONE #: [phone] Exam Date: 05/14/2020 1316 FAX #: [phone] Reason: LOWER ABDOMINAL PAIN EXAMS: CPT CODE: [id number] CT ABD PELVIS W/CONT 80364 <Continued> CC: Missael Woodson DO Technologist:RT Willie(R)(CT) CTDI: DLP: Trnscb Date/Time: 05/14/2020 (1337) [email or web address] Orig Print D/T: S: 05/14/2020 (8986)PAGE 2 Signed Report- CT ABD PELVIS [id number] 13:37:00 Name: VIDYA FROST [facility]ly [facility] : 1950 Age/S: 69 / F [address] [place], [place] [address] Unit #: [id number] Loc: AARTI Diallo77598 Phys: Missael Woodson DO Acct: [id number] Dis Date: Status: REG ER PHONE #: [phone] Exam Date: 05/14/20206 FAX #: [phone] Reason: LOWER ABDOMINAL PAIN EXAMS: CPTCODE: [id number] CT ABD PELVIS W/CONT 92501 Clinical Indication: Lower abdominal pain. Comparison: None [...] thick-walled. Correlate for evidence of cystitis. SL: [id number] at 1337 Reported and signed by: Ana Becker M.D. PAGE 1 Signed Report (CONTINUED) Name: VIDYA FROST [facility]ly [facility] : 1950 Age/S: 69 / F [address] [place], [place] [address] Unit #: [id number] Loc: [place] [address] Phys: Missael Woodson DO Acct: [id number] Dis Date: Status: REG ER PHONE #: [phone] Exam Date: 05/14/2020 1312 FAX #: [phone] Reason: LOWER ABDOMINAL PAIN EXAMS: CPT CODE: [id number] CT ABD PELVIS W/CONT 52748 <Continued> CC: Missael Woodson DO Technologist:Monae Bazzi, RT(R)(CT) CTDI: DLP: Trnscb Date/Time: 05/14/2020 (1337) [email or web address] Orig Print D/T: S: 05/14/2020 (1341)PAGE 2 Signed Report- XR CHEST 1 [id number] 13:07:00 FAX: Missael Zhao DO [phone] [place]: St: DEP Name: VIDYA FROST [facility] : 1950 Age/S: 69/F [address] [place] [address] Unit#: [id number] Loc: [place] [address] Phys: Missael Woodson DO Acct: [id number] Dis Date: Status: DEP ER PHONE #: [phone] Exam Date: 05/14/2020 1305 FAX #: [phone] Reason: Abdominal Pain EXAMS: CPT CODE: [id number] XR CHEST 1 V 97570 CLINICAL HISTORY:Abdominal Pain COMPARISON:NONE Frontal film of [...] Marquis M.D. CC: Missael Woodson DO Technologist: Shanna Reynolds RT(R) Trnscrd Date/Time/By: 05/14/2020 (1307) : By: OrlandoYOS Orig Print D/T: S: 05/14/2020 (4335) PAGE 1 Signed Report- XR CHEST 1 [id number] 13:07:00 FAX: Missael Zhao DO [phone] [place]: St: REG Name: VIDYA [facility] : 1950 Age/S: 69/F [address] [place] [address] Blvd Unit#: [id number] Loc: [place] [address] Phys: Missael Woodson DO Acct: [id number] Dis Date: Status: REG ER PHONE #: [phone] Exam Date: 05/14/2020 1305 FAX #: [phone] Reason: Abdominal Pain EXAMS: CPT CODE: [id number] XR CHEST 1 V 38731 CLINICAL HISTORY:Abdominal Pain COMPARISON:NONE Frontal film of [...] CC: Missael Woodson DO Technologist: RT Enma(Arabella) Trnscestefanía Date/Time/By: 05/14/2020 (1307) : By: Polina Orig Print D/T: S: 05/14/2020 (3520) PAGE 1 Signed ReportBASIC METABOLIC [id number] 12:57:00 Test Item Value Reference Range Interpretation [...] 9.6 mg/dL 8.0-10.5 N CA) HEPATIC FUNCTION [id number] 12:57:00 Test Item Value Reference Range Interpretation [...] 69 IUnit/L 20-125 N code = ALKP) [id number] 12:57:00 Test Item Value Reference Range Interpretation Comments LIPASE (test code = LIP) 56 U/L 13-57 N CBC W/AUTO [id number] 12:43:00 Test Item Value Reference Range Interpretation [...] = MDIFF) UA RFLX MICR CULT IF [id number] 12:32:00 Test Item Value Reference Range Interpretation [...] for culture: Suprapubic PainSpecimen Description: CLEAN CATCH [id number] 22:58:00 Test Item Value Reference Range Interpretation Comments GLUBED (test code = 224 MG/DL 70-110 H Performe d by certified GLUBED) 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 [facility] HGBA1C%2018-10-24 09:25:00 Test Item Value Reference Range Interpretation Comments HGBA1C% (test code = HGBA1C%) 8.3 %A1C 4.8-6.0 H BASIC METABOLIC [id number] 08:18:00 Test Item Value Reference Range Interpretation [...] LDL 62 mg/dL 0-100 N <100 OPT [id number] (test code = LDL) NEAR OPTI MAL/ABOVE [id number] RMZBWFIPUD595-3 89 HIGH>GC=111 VE RY HIGH*Guidelines provided by the National Choles terol EducationProgra m Adult Treatment Panel III THYROID STIMULATING [id number] 08:18:00 Test Item Value Reference Range Interpretation Comments THYROID STIMULATING 0.70 0.42-5.47 N Results in HORMONE (test code = TSH) mi lli-International Units/mL [id number] 08:03:00 Test Item Value Reference Range Interpretation Comments GLUBED (test code = 147 MG/DL 70-110 H Performe d by certified GLUBED) 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 [facility] CBC W/AUTO [id number] 07:07:00 Test Item Value Reference Range Interpretation [...] DIFF REQUIRED (test code NO = MDIFF) [id number] 21:08:00 Test Item Value Reference Range Interpretation Comments GLUBED (test code = 200 MG/DL 70-110 H Performe d by certified GLUBED) 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 [facility] - MRI BRAIN W/O [id number] 20:06:00 FAX: Ale Leal MD [phone] [place]: St: [facility] FAX: Camilla Odonnell MD Name: VIDYA FROST [facility] : 1950 Age/S: 67/F [address] [place], [place] [address] Unit #: [id number] Loc: G.C[address] [place] [address] Phys: Camilla Terrell MD Acct: [id number] Dis Date: Status: ADM IN PHONE #: [phone] Exam Date: 10/23/20181946 FAX #: [phone] Reason: PERSISTENT DIZZINESS EXAMS: CPT CODE: [id number] MRI BRAIN W/O CONT 90805 EXAM: MRI BRAIN WITHOUT CONTRAST DATE: 10/23/2018 [...] Signed Report (CONTINUED) FAX: Ale Leal MD [phone] [place]: St: ADM FAX: Camilla Odonnell MD Name: VIDYA FROST [facility] : 1950 Age/S: 67/F [address] [place] [address] Bl Unit #: [id number] Loc: [address] [address] Phys: Camilla Terrell MD Acct: [id number] Dis Date: Status: ADM IN PHONE #: [phone] Exam Date: 10/23/2018 1947FAX #: [phone] Reason: PERSISTENT DIZZINESS EXAMS: CPT CODE: [id number] MRI BRAIN W/O CONT 92787 <Continued> at 2005 Reported and signed by: Roman Harrison M.D. 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 [facility] [id number] 15:17:00 Test Item Value Reference Range Interpretation Comments GLUBED (test code = 145 MG/DL 70-110 H Performe d by certified GLUBED) 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 LACTIC [id number] 10:56:00 Test Item Value Reference Range Interpretation Comments LACTIC ACID (test code = LACT) 2.1 mmol/L 0.4-1.9 H URINALYSIS [id number] 10:46:00 Test Item Value Reference Range Interpretation [...] /LPF NONE SEEN COMMENTS: Clean CatchCBC W/AUTO [id number] 10:42:00 Test Item Value Reference Range Interpretation [...] NO = MDIFF) - CT HEAD/BRAIN W/O [id number] 09:22:00 Name: VIDYA FROST [facility] : 1950 Age/S: 67 / F [address] [place] [address] Unit #: [id number] Loc: [facility] [id number] Phys: Braxton Prasad MD Acct: [id number] Dis Date: Status: REG ER PHONE #: [phone] Exam Date: 10/23/2018 0905 FAX #: [phone] Reason: dizziness EXAMS: CPTCODE: [id number] CT HEAD/BRAIN W/O CONT 84648 CT head without contrast 10/23/2018 HISTORY: Dizziness [...] 3. Mild chronic microvascular ischemic changes. SL: [id number] at 0922 Reported and signed by: Giorgio Srivastava M.D. CC: Braxton Prasad MD Technologist:Katrin Miles, RT(R)(CT) CTDI: DLP: Trnscb Date/Time: 10/23/2018 (921) [email or web address] Orig Print D/T: S: 10/23/2018 (924) CTDI: DLP: PAGE 1 SignedReportURINALYSIS [id number] 01:38:00 Test Item Value Reference Range Interpretation [...]
[2021-11-07] MEDS ORDERED: ACETAMINOPHEN 500 MG TAB ONE (21:05)
[2021-11-07 21:43] LABS: SARS-COV-2 RT PCR NEGATIVE (NEGATIVE)
--- NOTE | 2021-11-07 22:01 | EDPHYS ---
Physician Documentation [facility] Name: Miroslava Rousseau Age: 70 yrs Sex: Female : 1950 Arrival Date: 11/07/2021 Time: 20:23 Bed 24 Private MD: ED Physician Jonathan Breen HPI: 11/07 20:49 This 70 yrs old Female presents to ER via Ambulatory with complaints of sore ms3 throat, body aches. 20:49 The patient or guardian reports sore throat, congestion, body aches. Onset: The ms3 symptoms/episode began/occurred 1 day(s) ago. Modifying factors: The symptoms are alleviated by nothing. the symptoms are aggravated by nothing. Associated signs and symptoms: The patient has no apparent associated signs or symptoms. Severity of symptoms: At their worst the symptoms were severe in the emergency department the symptoms are unchanged Pain is currently a 9 / 10. 70-year-old female with past medical history of hypertension, uterine cancer, hyperlipidemia, diabetes presents for sore throat, body aches, headache, congestion yesterday. Patient rates her discomfort a 9/10 described as aching. Patient endorses chills and cough. Patient denies nausea, vomiting, chest pain, shortness of breath.. Historical: - Allergies: 20:40 NKDA; karina - Home Meds: 20:40 aspirin 81 mg Oral chew 1 tab once daily [Active]; glimepiride 2 mg Oral tab 1 tab once karina daily [Active]; Januvia 100 mg Oral tab 1 tab once daily [Active]; lisinopril 5 mg Oral tab 1 tab once daily [Active]; lovastatin 20 mg Oral tab 1 tab once daily [Active]; metformin 500 mg Oral tab 1 tab 2 times per day [Active]; vitamins [Active]; - PMHx: 20:40 Diabetes - IDDM; Hyperlipidemia; Hypertension; Uterine CA; karina - Immunization history:: Adult Immunizations Client reports receiving the 2nd dose of the Covid vaccine. - Social history:: Smoking status: Patient denies any tobacco usage or history of. Patient/guardian denies using alcohol, street drugs. ROS: 20:49 Eyes: Negative for injury, pain, redness, and discharge, Cardiovascular: Negative for ms3 chest pain, and palpitations. Abdomen/GI: Negative for abdominal pain, nausea, vomiting, diarrhea, and constipation, MS/Extremity: Negative for injury and deformity, Skin: Negative for injury, rash, and discoloration, Neuro: Negative for headache, weakness, numbness, tingling. Psych: Negative for depression, anxiety, suicide ideation, homicidal ideation, and hallucinations. 20:49 Constitutional: Positive for body aches, chills, Negative for fever. 20:49 ENT: Positive for sore throat. 20:49 All other systems are negative. Exam: 20:49 Constitutional: This is a well developed, well nourished patient who is awake, alert, ms3 and in no acute distress. Eyes: Pupils equal round and reactive to light, extra-ocular motions intact. Lids and lashes normal. Conjunctiva and sclera are non-icteric and not injected. Periorbital areas with no swelling, redness, or edema. Neck: Trachea midline, no cervical lymphadenopathy. Supple, full range of motion without nuchal rigidity, or vertebral point tenderness. No Meningismus. Chest/axilla: Normal chest wall appearance and motion. Nontender with no deformity. Cardiovascular: Regular rate and rhythm with a normal S1 and S2. No gallops, murmurs, or rubs. Normal PMI, no JVD. No pulse deficits. Respiratory: Lungs have equal breath sounds bilaterally, clear to auscultation and percussion. No rales, rhonchi or wheezes noted. No increased work of breathing, no retractions or nasal flaring. Abdomen/GI: Soft, non-tender, with normal bowel sounds. No distension or tympany. No guarding or rebound. No evidence of tenderness throughout. Back: No spinal tenderness. No costovertebral tenderness. Full range of motion. Skin: Warm, dry with normal turgor. Normal color with no rashes, no lesions, and no evidence of cellulitis. Psych: Awake, alert, with orientation to person, place and time. Behavior, mood, and affect are within normal limits. 20:49 ENT: Posterior pharynx: erythema, that is mild. Vital Signs: 20:38 BP 124 / 66; Pulse 91; Resp 18; Temp 99.7; Pulse Ox 100% on R/A; Weight 70.31 kg; karina Height 5 ft. 0 in. (152.40 cm); Pain 7/10; 20:41 BP 124 / 66; Pulse 91; Resp 18; Temp 99.7; Pulse Ox 100% on R/A; Pain 7/10; karina 20:38 Body Mass Index 30.27 (70.31 kg, 152.40 cm) karina MDM: 20:49 Differential diagnosis: flu, URI, COVID. ms3 20:57 Patient medically screened. ms3 22:00 Data reviewed: vital signs, nurses notes, lab test result(s). Counseling: I had a ms3 detailed discussion with the patient and/or guardian regarding: the historical points, exam findings, and any diagnostic results supporting the discharge/admit diagnosis, lab results, the need for outpatient follow up, to return to the emergency department if symptoms worsen or persist or if there are any questions or concerns that arise at home. 11/07 20:58 Order name: COVID-19/FLU A+B (Document "Date of Onset" if Symptomatic); Complete Time: ms3 21:51 Administered Medications: 21:04 Drug: Tylenol 1000 mg Route: PO; lr4 Disposition Summary: 11/07/21 22:00 Discharge Ordered Location: Home ms3 Problem: new ms3 Condition: Stable ms3 Diagnosis - Nasal congestion ms3 - Headache ms3 - Myalgia ms3 Followup: ms3 - With: Private Physician - When: 2 - 3 days - Reason: Discharge Instructions: - Discharge Summary Sheet ms3 - General Headache Without Cause ms3 - Viral Illness, Adult ms3 Forms: - Medication Reconciliation Form ms3 - Thank You Letter ms3 - Antibiotic Education ms3 - Prescription Opioid Use ms3 Signatures: Dispatcher [employer] EDJonathan Lemus DO DO ms3 Annie Gastelum, RN RN Chata Phelps RN RN lr4
--- NOTE | 2021-11-07 22:01 | ER ---
Nurse's Notes [facility] Name: Miroslava Rousseau Age: 70 yrs Sex: Female : 1950 Arrival Date: 11/07/2021 Time: 20:23 Bed 24 Private MD: Diagnosis: Nasal congestion;Headache;Myalgia Presentation: 11/07 20:38 Chief complaint: Patient states: "a headache..runny nose...cough and body aches...no, I karina didn't take anything". Coronavirus screen: Vaccine status: Patient reports receiving the 2nd dose of the covid vaccine. Ebola Screen: Patient negative for fever greater than or equal to 101.5 degrees Fahrenheit, and additional compatible Ebola Virus Disease symptoms Patient denies exposure to infectious person. Patient denies travel to an Ebola-affected area in the 21 days before illness onset. 20:38 Method Of Arrival: Ambulatory karina 20:42 Chief complaint:. karina 20:43 Initial Sepsis Screen: Does the patient meet any 2 criteria? No. Patient's initial karina sepsis screen is negative. Does the patient have a suspected source of infection? No. Patient's initial sepsis screen is negative. Risk Assessment: Do you want to hurt yourself or someone else? Patient reports no desire to harm self or others. Onset of symptoms was November 06, 2021. 20:43 Acuity: MARTHA 4 karina Triage Assessment: 20:41 General: Appears in no apparent distress. comfortable, Behavior is calm, cooperative. karina Pain: Complains of pain in headache. Historical: - Allergies: 20:40 NKDA; karina - Home Meds: 20:40 aspirin 81 mg Oral chew 1 tab once daily [Active]; glimepiride 2 mg Oral tab 1 tab once karina daily [Active]; Januvia 100 mg Oral tab 1 tab once daily [Active]; lisinopril 5 mg Oral tab 1 tab once daily [Active]; lovastatin 20 mg Oral tab 1 tab once daily [Active]; metformin 500 mg Oral tab 1 tab 2 times per day [Active]; vitamins [Active]; - PMHx: 20:40 Diabetes - IDDM; Hyperlipidemia; Hypertension; Uterine CA; karina - Immunization history:: Adult Immunizations Client reports receiving the 2nd dose of the Covid vaccine. - Social history:: Smoking status: Patient denies any tobacco usage or history of. Patient/guardian denies using alcohol, street drugs. Screenin:13 Abuse screen: Denies threats or abuse. Nutritional screening: No deficits noted. lr4 Tuberculosis screening: No symptoms or risk factors identified. Fall Risk None identified. Vital Signs: 20:38 BP 124 / 66; Pulse 91; Resp 18; Temp 99.7; Pulse Ox 100% on R/A; Weight 70.31 kg; karina Height 5 ft. 0 in. (152.40 cm); Pain 7/10; 20:41 BP 124 / 66; Pulse 91; Resp 18; Temp 99.7; Pulse Ox 100% on R/A; Pain 7/10; karina 20:38 Body Mass Index 30.27 (70.31 kg, 152.40 cm) karina ED Course: 20:23 Patient arrived in ED. kc5 20:42 Arm band placed on. karina 20:44 Triage completed. karina 20:48 Chata Pringle, RN is Primary Nurse. lr4 20:49 Jonathan Breen DO is Attending Physician. ms3 21:13 Patient has correct armband on for positive identification. Bed in low position. Call lr4 light in reach. 21:13 No provider procedures requiring assistance completed. Patient did not have IV access lr4 during this emergency room visit. Administered Medications: 21:04 Drug: Tylenol 1000 mg Route: PO; lr4 Outcome: 22:00 Discharge ordered by . ms3 22:03 Discharged to home ambulatory. lr4 22:03 Condition: stable 22:03 Discharge instructions given to patient. 22:03 Patient left the ED. lr4 Signatures: Jonathan Breen DO DO ms3 Nicole Jerome kc5 Annie Gastelum RN RN karina Chata Pringle RN RN lr4
[2021-11-07 23:06] VITALS: BP 124/66; TEMP 99.7; O2SAT 100
== END 2021-11-07 22:03 | disposition home or self-care (01) ==
LOC: ER 20:08
DX: J02.9 Acute pharyngitis, unspecified (principal); R09.81 Nasal congestion; R51.9 Headache, unspecified; M79.10 Myalgia, unspecified site; Z20.822 Contact with and (suspected) exposure to COVID-19
CPT/HCPCS: 0240U; 99283

== ENCOUNTER → 2023-08-10 | Emergency (ER) | payer OTHER ==
[2023-08-10 09:03] LABS: SARS-CoV-2 Antigen Rapid Res Positive (Negative)
--- NOTE | 2023-08-10 09:15 | ER ---
Nurse's Notes [facility] Name: Miroslava Rousseau Age: 72 yrs Sex: Female : 1950 Arrival Date: 08/10/2023 Time: 07:33 Bed 12 Private MD: ADAIR IRWIN Diagnosis: SARS-associated coronavirus as the cause of diseases classified elsewhere Presentation: 08/10 07:46 Chief complaint: Patient states: sore throat. sores inside throat. cough, body aches, iw started Wednesday night. Coronavirus screen: Client presents with at least one sign or symptom that may indicate coronavirus-19. Ebola Screen: Patient negative for fever greater than or equal to 101.5 degrees Fahrenheit, and additional compatible Ebola Virus Disease symptoms Patient denies exposure to infectious person. Patient denies travel to an Ebola-affected area in the 21 days before illness onset. No symptoms or risks identified at this time. Onset of symptoms was August 08, 2023. 07:46 Method Of Arrival: Ambulatory iw 07:46 Acuity: MARTHA 4 iw Historical: - Allergies: 07:47 NKDA; iw - PMHx: 07:47 Diabetes - IDDM; Hyperlipidemia; Hypertension; Uterine CA; iw - PSHx: 07:47 Cholecystectomy; Appendectomy; hysterectomy; iw - Immunization history:: Adult Immunizations. - Family history:: not pertinent. - Hospitalizations: : No recent hospitalization is reported. Screenin:49 [facility] ED Fall Risk Assessment (Adult) Score/Fall Risk Level. Abuse screen: Denies iw threats or abuse. Denies injuries from another. Nutritional screening: No deficits noted. Tuberculosis screening: No symptoms or risk factors identified. Assessment: 07:48 General: Appears in no apparent distress. Behavior is calm, cooperative. General: iw Reports feeling ill for fatigue for. Pain: Complains of pain in throat. Neuro: Level of Consciousness is awake, alert, obeys commands, Oriented to person, place, time, situation, Moves all extremities. Full function. Cardiovascular: Patient's skin is warm and dry. Respiratory: Respiratory effort is even, unlabored, Respiratory pattern is regular, symmetrical. Derm: Skin is intact, is healthy with good turgor. Musculoskeletal: Range of motion: intact in all extremities. Vital Signs: 07:48 BP 137 / 77; Pulse 85; Resp 16; Temp 99.9; Pulse Ox 97% on R/A; iw ED Course: 07:36 Patient arrived in ED. mr 07:36 ADAIR IRWIN is Private Physician. mr 07:38 Usama Jaime MD is Attending Physician. rn 07:47 Triage completed. iw 07:48 Arm band placed on. iw 07:56 Strep Sent. em1 07:56 Flu Sent. em1 07:56 SARS RAPID Sent. em1 08:44 Melissa Quinones RN is Primary Nurse. iw Administered Medications: No medications were administered Outcome: 09:14 Discharge ordered by . rn 09:43 Patient left the ED. iw Signatures: Linda Bang, Reg Reg mr Melissa Quinones, OLEGARIO RN iw Usama Jaime MD MD rn Martinez, Eric em1
--- NOTE | 2023-08-10 09:15 | EDPHYS ---
Physician Documentation [facility] Name: Miroslava Rousseau Age: 72 yrs Sex: Female : 1950 Arrival Date: 08/10/2023 Time: 07:33 Bed 12 Private MD: ADAIR IRWIN ED Physician Usama Jaime HPI: 08/10 07:57 This 72 yrs old Female presents to ER via Ambulatory with complaints of Flu rn Symptoms. 07:57 The patient or guardian reports cough, flu symptoms, low-grade fever, myalgias. Onset: rn The symptoms/episode began/occurred 2 day(s) ago. Severity of symptoms: At their worst the symptoms were moderate, in the emergency department the symptoms are unchanged. Modifying factors: The symptoms are alleviated by nothing, the symptoms are aggravated by nothing. Associated signs and symptoms: Pertinent positives: fever, rhinorrhea, sore throat, Pertinent negatives: chest pain, vomiting. The patient has not experienced similar symptoms in the past. The patient has not recently seen a physician. Patient reports has been with cough and upper respiratory infection recently, now she got it. symptoms resolved without any antibiotics just took over the counter medication. Grandson sick recently as well. Patient reports headache, runny nose, cough, sore throat, myalgias, generalized malaise. No shortness of breath or chest pain. No abdominal pain. No vomiting or diarrhea. No neck stiffness.. Historical: - Allergies: 07:47 NKDA; iw - PMHx: 07:47 Diabetes - IDDM; Hyperlipidemia; Hypertension; Uterine CA; iw - PSHx: 07:47 Cholecystectomy; Appendectomy; hysterectomy; iw - Immunization history:: Adult Immunizations. - Family history:: not pertinent. - Hospitalizations: : No recent hospitalization is reported. ROS: 07:57 Constitutional: Positive for fever and chills with myalgias Eyes: Negative for injury, rn pain, redness, and discharge, ENT: Positive for runny nose and sore throat Neck: Negative for injury, and swelling, Cardiovascular: Negative for chest pain, palpitations, and edema, Respiratory: Positive for cough, negative for shortness of breath Abdomen/GI: Negative for abdominal pain, nausea, vomiting, diarrhea, and constipation, MS/Extremity: Negative for injury and deformity, Neuro: Positive for headache and generalized weakness Exam: 07:57 Constitutional: This is a well developed, well nourished patient who is awake, alert, rn and in no acute distress. Ambulatory to triage without difficulty or assistance. Head/Face: Normocephalic, atraumatic. Eyes: Pupils equal round and reactive to light, extra-ocular motions intact. Lids and lashes normal. Conjunctiva and sclera are non-icteric and not injected. Cornea within normal limits. Periorbital areas with no swelling, redness, or edema. ENT: Clear nasal drainage, moist mucous membranes, no lesions intraorally, no evidence of peritonsillar abscess, uvula midline, no stridor Neck: Trachea midline, no thyromegaly or masses palpated, and no cervical lymphadenopathy. Supple, full range of motion without nuchal rigidity, or vertebral point tenderness. No Meningismus. Cardiovascular: Regular rate and rhythm. No pulse deficits. Respiratory: No increased work of breathing, no retractions or nasal flaring. Skin: Warm, dry Neuro: Awake and alert, GCS 15, oriented to person, place, time, and situation. Cranial nerves II-XII grossly intact. Motor strength 5/5 in all extremities. Sensory grossly intact. Cerebellar exam normal. Normal gait. Vital Signs: 07:48 BP 137 / 77; Pulse 85; Resp 16; Temp 99.9; Pulse Ox 97% on R/A; iw MDM: 07:38 Patient medically screened. rn 09:13 Differential Diagnosis: Bronchitis Influenza Upper Respiratory Infection Viral Syndrome rn Pneumonia Other COVID. Data reviewed: vital signs, nurses notes, lab test result(s), and as a result, I will discharge patient. Counseling: I had a detailed discussion with the patient and/or guardian regarding the historical points, exam findings, and any diagnostic results supporting the discharge/admit diagnosis, lab results, the need for outpatient follow up, to return to the emergency department if symptoms worsen or persist or if there are any questions or concerns that arise at home. Special discussion: I discussed with the patient/guardian in detail that at this point there is no indication for admission to the hospital. It is understood, however, that if the symptoms persist or worsen the patient needs to return immediately for re-evaluation. ED course: COVID-positive, flu and strep negative, no oxygen requirement. Will DC home with supportive care and [id number] medication. Return precautions given. I have personally reviewed all of the results, including but not limited to blood tests deemed necessary to safely discharge this patient at this time. All results given to and printed out for patient. I personally went over all the results with the patient and answered all questions. Patient will follow-up with PCP and or specialist as discussed. Return precautions given and understood.. 08/10 07:38 Order name: SARS RAPID; Complete Time: 09:10 rn 08/10 07:38 Order name: Flu; Complete Time: 09:10 rn 08/10 07:43 Order name: Strep rn 08/10 08:30 Order name: Throat Culture EDMS Administered Medications: No medications were administered Disposition Summary: 08/10/23 09:14 Discharge Ordered Notes: Location: Home rn Problem: new rn Symptoms: are unchanged rn Condition: Stable rn Diagnosis - SARS-associated coronavirus as the cause of diseases classified elsewhere rn Followup: rn - With: Private Physician - When: As needed - Reason: Recheck today's complaints, Re-evaluation by your physician Discharge Instructions: - Discharge Summary Sheet rn - COVID-19 rn - 10 Things You Can Do to Manage Your COVID-19 Symptoms at Home - [facility] (02/28/2021) rn - Viral Illness, Adult rn Forms: - Medication Reconciliation Form rn - Thank You Letter rn - Antibiotic management intern - Prescription Opioid Use rn - Patient Portal Instructions rn - Leadership Thank You Letter rn Signatures: Dispatcher [employer] Melissa Tellez RN RN iw Nieto, Roman, MD MD rn
[2023-08-10 09:50] VITALS: BP 137/77; TEMP 99.9; O2SAT 97
== END ==
LOC: ER 07:33
DX: U07.1 COVID-19 (principal)
CPT/HCPCS: 36415; 87070; 87081; 87804; 87811; 99282